=== PATIENT | female | born 1935 | race Caucasian/White ===

== ENCOUNTER 2016-05-01 16:28 | Inpatient (IN) | payer MEDICARE, MEDICAID, OTHER ==
[2016-05-01] MEDS ORDERED: Albuterol/Ipratropium 3.0-0.5 MG/3 ML Neb Soln NEB ONE (16:35)
[2016-05-01] MEDS ORDERED: Furosemide 40 MG/4 ML VIAL IVPUSH ONE (16:40)
--- NOTE | 2016-05-01 16:47 | EDM.PDOC ---
ED HISTORY OF PRESENT ILLNESS - General Chief Complaint: Respiratory Problem Stated Complaint: UNK Time Seen by Provider: 05/01/16 16:35 - Related Data Allergies/ADRs: Allergies Allergy/AdvReac Type Severity Reaction Status Date / Time clarithromycin [From Biaxin] Allergy unknown Verified 04/12/16 10:58 irbesartan [From Avapro] Allergy unknown Verified 04/12/16 10:58 red dye Allergy unknown Verified 04/12/16 10:58 Dvywvha-Ugi-Sbk Reductase Allergy unknown Verified 04/12/16 10:58 Inhibitor Home Meds: Home Meds Aspirin [[place] Aspirin] 81 mg PO DAILY 09/25/15 [History] Warfarin [Coumadin] 2.5 mg PO DAILY 09/25/15 [History] ALPRAZolam [Alprazolam] 0.5 mg PO BEDTIME 09/26/15 [History] Doxycycline Hyclate [Vibramycin] 100 mg PO BID 09/26/15 [History] Gabapentin 300 mg PO TID 09/26/15 [History] Hydrocodone/Acetaminophen [[place] 10-325] 1 tab PO Q4H 09/26/15 [History] Lisinopril/Hydrochlorothiazide [Lisinopril-Hctz 20-25 mg Tab] 1 tab PO DAILY 10/03 [History] Metoprolol Succinate [Toprol XL 50mg] 50 mg PO DAILY 09/26/15 [History] Omeprazole 20 mg PO ACBREAKFAST 09/26/15 [History] Past Medical History Cardiovascular History: Reports: High cholesterol, Hypertension Gastrointestinal History: Reports: Pancreatitis 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: Hematologic History: Reports: Anticoagulation therapy - Past Surgical History GI Surgical History: Reports: Appendectomy, Cholecystectomy Female Surgical History: Reports: Hysterectomy Social & Family History - Family History Family Medical History: Noncontributory - Tobacco Use Smoking Status *Q: Unknown Ever Smoked Years of Tobacco use: 50 Packs/Tins Daily: 0.5 - Recreational Drug Use Recreational Drug Use: No Course - Orders/Labs/Meds Orders: Active Orders 24 hr Category Date Time Status RT Aerosol Therapy [RC] ASDIRECTED Care 05/01/16 16:36 Ordered RT BiPAP/CPAP [RC] ASDIRECTED Care 05/01/16 16:35 Ordered BASIC METABOLIC PANEL,BMP [CHEM] Stat Lab 05/01/16 16:37 Ordered CBC WITH AUTO DIFF [HEME] Stat Lab 05/01/16 16:38 Ordered Meds: Medications Discontinued Medications Generic Name Dose Route Start Last Admin Trade Name [place] PRN Reason Stop Dose Admin Albuterol/Ipratropium 3 ml 05/01/16 16:35 Duoneb 3.0-0.5 Mg/3 Ml NEB 05/01/16 16:36 ONETIME ONE Departure - Departure Forms: ED Department Discharge - My Orders Last 24 Hours: My Active Orders 05/01/16 16:35 RT BiPAP/CPAP [RC] ASDIRECTED 05/01/16 16:36 RT Aerosol Therapy [RC] ASDIRECTED - Assessment/Plan Last 24 Hours: My Active Orders 05/01/16 16:35 RT BiPAP/CPAP [RC] ASDIRECTED 05/01/16 16:36 RT Aerosol Therapy [RC] ASDIRECTED
--- NOTE | 2016-05-01 16:48 | EDM.PDOC ---
ED HISTORY OF PRESENT ILLNESS - General Chief Complaint: Respiratory Problem Stated Complaint: UNK Time Seen by Provider: 05/01/16 16:35 Source of Information: Reports: Family, senior living records History Limitations: Reports: Respiratory distress - History of Present Illness INITIAL COMMENTS - FREE TEXT/NARRATIVE: History of present illness: [81 yo female who is a [facility] resident presents to ED for SOB.. It started this afternoon around 4 pm. She was put on 2 L of oxygen her SPO2 remained at 84 %. She does not fever, chills, dysuria, frequency, ugency, cough, abdominal pain, no appetite changes, no bowel changes. She has a history of CHF on lasix. She is on Coumadin for PAD. She was on plavix in the past where it did not work.She recently had AMI two weeks ago in [place]. No intervention such as angioplasty was done due to her weak condition per son. She has been good since she was discharged from [place] two weeks. She does have history of two stents placed where son does not recall when they were placed. 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 She was a heavy smoker and quit 2 weeks ago after her SC. ] Review of systems: As per history of present illness and below otherwise all systems reviewed and negative. Past medical history: As per history of present illness and as reviewed below otherwise noncontributory. Surgical history: As per history of present illness and as reviewed below otherwise noncontributory. Social history: No reported history of drug or alcohol abuse. Family history: As per history of present illness and as reviewed below otherwise noncontributory. Physical exam: General: Well developed, well nourished in NAD HEENT: Atraumatic, normocephalic, pupils reactive, negative for conjunctival pallor or scleral icterus, mucous membranes moist, throat clear, neck supple, nontender, trachea midline. Lungs: bilateral rhonchi and rales in the lower bases of lungs left greater than right, bilateral expiratory wheezing. Heart: tachycardia, S1S2, regular rhythm, negative for clicks, rubs, or JVD. Abdomen: Soft, nondistended, nontender. Negative for masses or hepatosplenomegaly. Negative for costovertebral tenderness. Pelvis: Stable nontender. Genitourinary: vaginal candidiasis Rectal: Deferred. Extremities: Atraumatic, negative for cords or calf pain. Neurovascular unremarkable. No bilateral lower extremity edema. +2 dorsalis pedis pulses. Neuro: Awake, alert, oriented. Cranial nerves II through XII unremarkable. Cerebellum unremarkable. Motor and sensory unremarkable throughout. Exam nonfocal. Diagnostics: [EKG: Sinus tachycardia: No acute ST elevation. CXR: Reviewed by me. increased cephalization. No infiltrates visible. Await report WBC: 38 NA 130 K 5.4, troponin negative Blood culture x 2 UA: pending Avila Catheter] Therapeutics: Bipap: SPO2: 97-98% [ I.V lasix 40 x 1 DUONEB q 4 hours prn Nitropaste not given due to BP 105/60 Zosyn and vanco for HCAP Diflucan 150 mg PO x 1 for vaginal candiasis ] Impression: [CHF excerabation Possible Pneumonia] Plan: [Admission to ICU. Spoke to Dr. Piedra who accepted admission.] Definitive disposition and diagnosis as appropriate pending reevaluation and review of above. - Related Data Allergies/ADRs: Allergies Allergy/AdvReac Type Severity Reaction Status Date / Time clarithromycin [From Biaxin] Allergy unknown Verified 05/01/16 16:51 irbesartan [From Avapro] Allergy unknown Verified 05/01/16 16:51 red dye Allergy unknown Verified 05/01/16 16:51 Rufpprn-Efn-Bmf Reductase Allergy unknown Verified 05/01/16 16:51 Inhibitor Home Meds: Home Meds Aspirin [[place] Aspirin] 81 mg PO DAILY 09/25/15 [History] Warfarin [Coumadin] 3 mg PO DAILY 09/25/15 [History] Gabapentin 100 mg PO BID 09/26/15 [History] Hydrocodone/Acetaminophen [[place] 10-325] 1 tab PO Q4H 09/26/15 [History] Metoprolol Succinate [Toprol XL 50mg] 25 mg PO BID 09/26/15 [History] Bisacodyl [Dulcolax] 1 supp RECTAL DAILY PRN 05/01/16 [History] Famotidine [Pepcid] 1 tab PO DAILY 05/01/16 [History] Furosemide [Lasix] 1 tab PO DAILY 05/01/16 [History] Magnesium Hydroxide [Milk of Magnesia] 1 dose PO DAILY PRN 05/01/16 [History] Nicotine [Nicoderm CQ] 1 patch TD DAILY 05/01/16 [History] Prednisone [IJD: Prednisone] 1 tab PO DAILY 05/01/16 [History] Past Medical History Cardiovascular History: Reports: High cholesterol, Hypertension Gastrointestinal History: Reports: Pancreatitis 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: Hematologic History: Reports: Anticoagulation therapy - Past Surgical History GI Surgical History: Reports: Appendectomy, Cholecystectomy Female Surgical History: Reports: Hysterectomy Social & Family History - Family History Family Medical History: Noncontributory - Tobacco Use Smoking Status *Q: Unknown Ever Smoked Years of Tobacco use: 50 Packs/Tins Daily: 0.5 - Recreational Drug Use Recreational Drug Use: No ED ROS GENERAL - Review of Systems Review Of Systems: See Below (see hpi) ED EXAM, GENERAL - Physical Exam Exam: See Below (see hpi) Course - Vital Signs Last Recorded V/S: Last Vital Signs Temp 96.7 F 05/01/16 16:43 Pulse 106 H 05/01/16 17:20 Resp 24 H 05/01/16 17:20 BP 145/85 H 05/01/16 17:20 Pulse Ox 98 05/01/16 17:20 - Orders/Labs/Meds Orders: Active Orders 24 hr Category Date Time Status Avila Catheter Insertion [Insert Urinary Catheter] [OM. Care 05/01/16 17:15 Ordered PC] Q24H RT Aerosol Therapy [RC] ASDIRECTED Care 05/01/16 16:36 Active RT BiPAP/CPAP [RC] ASDIRECTED Care 05/01/16 16:35 Active Urinary Catheter Assessment [RC] ASDIRECTED Care 05/01/16 17:03 Active CXR [Chest 1V Frontal] [CR] Stat Exams 05/01/16 16:39 Taken CULTURE BLOOD [BC] Stat Lab 05/01/16 17:18 Received INR,PT,PROTHROMBIN TIME [COAG] Stat Lab 05/01/16 17:45 Received UA W/MICROSCOPIC [URIN] Stat Lab 05/01/16 16:58 Uncollected LORazepam [Ativan] Med 05/01/16 16:38 Active 0.5 mg IVPUSH Q4H PRN Piperacillin/Tazobactam [Piperacil-Tazobact] 3.375 gm Med 05/01/16 17:45 Active Sodium Chloride 0.9% [Normal Saline] 50 ml IV Q6H Vancomycin [Vancocin] 1 gm Med 05/01/16 17:33 Active Sodium Chloride 0.9% [Normal Saline] 250 ml IV ONETIME Code Status [Resuscitation Status] Stat Resus Stat 05/01/16 16:50 Ordered Medication Orders Piperacillin Sod/Tazobactam (Sod 3.375 gm/ Sodium Chloride) 50 mls @ 100 mls/ hr IV Q6H PINA Vancomycin HCl 1 gm/ Sodium (Chloride) 250 mls @ 250 mls/hr IV ONETIME ONE Stop: 05/01/16 18:32 Lorazepam (Ativan) 0.5 mg IVPUSH Q4H PRN PRN Reason: Anxiety Last Admin: 05/01/16 16:53 Dose: 0.5 mg Labs: Laboratory Tests 05/01/16 05/01/16 05/01/16 Range/Units 16:40 16:40 16:40 WBC 38.05 H (4.0-11.0) K/uL RBC 4.73 (4.30-5.90) M/uL Hgb 14.0 (12.0-16.0) g/dL Hct 41.8 (36.0-46.0) % MCV 88.4 (80.0-98.0) fL MCH 29.6 (27.0-32.0) pg MCHC 33.5 (31.0-37.0) g/dL RDW Std Deviation 47.6 (28.0-62.0) fl RDW Coeff of Gregory 15 (11.0-15.0) % Plt Count 495 H (150-400) K/uL MPV 10.40 (7.40-12.00) fL Add Manual Diff YES Neutrophils % (Manual) 75 (48.0-80.0) % Band Neutrophils % 1 % Lymphocytes % (Manual) 21 (16.0-40.0) % Monocytes % (Manual) 1 (0.0-15.0) % Eosinophils % (Manual) 1 (0.0-7.0) % Basophils % (Manual) 1 (0.0-1.5) % Nucleated RBC % 0.0 /100WBC Absolute Seg Neuts 28.5 Band Neutrophils # 0.4 Lymphocytes # (Manual) 8.0 Monocytes # (Manual) 0.4 Eosinophils # (Manual) 0.4 Basophils # (Manual) 0 Nucleated RBCs # 0 K/uL Sodium 130 L (136-146) mmol/L Potassium 5.4 H (3.5-5.1) mmol/L Chloride 102 (98-110) mmol/L Carbon Dioxide 16 L (21-31) mmol/L BUN 30 H (6.0-23.0) mg/dL Creatinine 1.5 (0.6-1.5) mg/dL Est Cr Clr Drug Dosing 28.94 mL/min Estimated GFR (MDRD) 33.6 ml/min Glucose 248 H (60-110) mg/dL Calcium 10.0 (8.8-10.8) mg/dL Lactate Dehydrogenase (125-220) IU/L CK-MB (CK-2) 3.4 (0-6.6) ng/ml Troponin I (0.0-0.29) NG/ML B-Natriuretic Peptide 2719 H (<100) PG/ML Amylase (10-90) U/L Lipase (7-80) U/L 05/01/16 05/01/16 05/01/16 Range/Units 16:40 16:40 16:40 WBC (4.0-11.0) K/uL RBC (4.30-5.90) M/uL Hgb (12.0-16.0) g/dL Hct (36.0-46.0) % MCV (80.0-98.0) fL MCH (27.0-32.0) pg MCHC (31.0-37.0) g/dL RDW Std Deviation (28.0-62.0) fl RDW Coeff of Gregory (11.0-15.0) % Plt Count (150-400) K/uL MPV (7.40-12.00) fL Add Manual Diff Neutrophils % (Manual) (48.0-80.0) % Band Neutrophils % % Lymphocytes % (Manual) (16.0-40.0) % Monocytes % (Manual) (0.0-15.0) % Eosinophils % (Manual) (0.0-7.0) % Basophils % (Manual) (0.0-1.5) % Nucleated RBC % /100WBC Absolute Seg Neuts Band Neutrophils # Lymphocytes # (Manual) Monocytes # (Manual) Eosinophils # (Manual) Basophils # (Manual) Nucleated RBCs # K/uL Sodium (136-146) mmol/L Potassium (3.5-5.1) mmol/L Chloride (98-110) mmol/L Carbon Dioxide (21-31) mmol/L BUN (6.0-23.0) mg/dL Creatinine (0.6-1.5) mg/dL Est Cr Clr Drug Dosing mL/min Estimated GFR (MDRD) ml/min Glucose (60-110) mg/dL Calcium (8.8-10.8) mg/dL Lactate Dehydrogenase 346 H (125-220) IU/L CK-MB (CK-2) (0-6.6) ng/ml Troponin I < 0.10 (0.0-0.29) NG/ML B-Natriuretic Peptide (<100) PG/ML Amylase 30 (10-90) U/L Lipase 44 (7-80) U/L Meds: Medications Generic Name Dose Route Start Last Admin Trade Name Freq PRN Reason Stop Dose Admin Piperacillin Sod/Tazobactam 50 mls @ 100 mls/hr 05/01/16 17:45 Sod 3.375 gm/ Sodium Chloride IV Q6H PINA Vancomycin HCl 1 gm/ Sodium 250 mls @ 250 mls/hr 05/01/16 17:33 Chloride IV 05/01/16 18:32 ONETIME ONE Lorazepam 0.5 mg 05/01/16 16:38 05/01/16 16:53 Ativan IVPUSH 0.5 mg Q4H PRN Administration Anxiety Discontinued Medications Generic Name Dose Route Start Last Admin Trade Name Freq PRN Reason Stop Dose Admin Albuterol/Ipratropium 3 ml 05/01/16 16:35 05/01/16 16:49 Duoneb 3.0-0.5 Mg/3 Ml NEB 05/01/16 16:36 3 ml ONETIME ONE Administration Albuterol/Ipratropium Confirm 05/01/16 17:24 Duoneb 3.0-0.5 Mg/3 Ml Administered 05/01/16 17:25 Dose 3 ml .ROUTE .STK-MED ONE Furosemide 40 mg 05/01/16 16:40 05/01/16 16:53 Lasix IVPUSH 05/01/16 16:41 40 mg NOW ONE Administration Nitroglycerin 1 gm 05/01/16 17:49 Nitro-Bid 2% TOP 05/01/16 17:50 ONETIME ONE Departure - Departure Time of Disposition: 17:58 Disposition: Admitted As Inpatient 68 Condition: fair Clinical Impression: CHF exacerbation Forms: ED Department Discharge - My Orders Last 24 Hours: My Active Orders 05/01/16 16:38 LORazepam [Ativan] 0.5 mg IVPUSH Q4H PRN 05/01/16 16:39 CXR [Chest 1V Frontal] [CR] Stat 05/01/16 16:50 Code Status [Resuscitation Status] Stat 05/01/16 16:58 UA W/MICROSCOPIC [URIN] Stat 05/01/16 17:03 Urinary Catheter Assessment [RC] ASDIRECTED 05/01/16 17:15 Avila Catheter Insertion [Insert Urinary Catheter] [OM.PC] Q24H 05/01/16 17:18 CULTURE BLOOD [BC] Stat 05/01/16 17:33 Vancomycin [Vancocin] 1 gm Sodium Chloride 0.9% [Normal Saline] 250 ml IV ONETIME 05/01/16 17:45 INR,PT,PROTHROMBIN TIME [COAG] Stat Piperacillin/Tazobactam [Piperacil-Tazobact] 3.375 gm Sodium Chloride 0.9% [ Normal Saline] 50 ml IV Q6H - Assessment/Plan Last 24 Hours: My Active Orders 05/01/16 16:38 LORazepam [Ativan] 0.5 mg IVPUSH Q4H PRN 05/01/16 16:39 CXR [Chest 1V Frontal] [CR] Stat 05/01/16 16:50 Code Status [Resuscitation Status] Stat 05/01/16 16:58 UA W/MICROSCOPIC [URIN] Stat 05/01/16 17:03 Urinary Catheter Assessment [RC] ASDIRECTED 05/01/16 17:15 Avila Catheter Insertion [Insert Urinary Catheter] [OM.PC] Q24H 05/01/16 17:18 CULTURE BLOOD [BC] Stat 05/01/16 17:33 Vancomycin [Vancocin] 1 gm Sodium Chloride 0.9% [Normal Saline] 250 ml IV ONETIME 05/01/16 17:45 INR,PT,PROTHROMBIN TIME [COAG] Stat Piperacillin/Tazobactam [Piperacil-Tazobact] 3.375 gm Sodium Chloride 0.9% [ Normal Saline] 50 ml IV Q6H
[2016-05-01] MEDS: LORazepam 2 MG/ML MDV IVPUSH PRN (16:53)
[2016-05-01] MEDS ORDERED: Albuterol/Ipratropium 3.0-0.5 MG/3 ML Neb Soln ONE (17:24)
[2016-05-01] MEDS ORDERED: Piperacillin/Tazobactam 3.375 GM in Sodium Chloride 0.9% 50 ML IV SCH ×2 (17:45→20:00)
[2016-05-01] MEDS ORDERED: Nitroglycerin 2% Oint 1 GM UD Packet TOP ONE (17:49)
[2016-05-01] MEDS ORDERED: Fluconazole 150 MG Tab PO ONE (18:00)
[2016-05-01] MEDS ORDERED: Famotidine 20 MG Tab PO PRN (19:24)
[2016-05-01] MEDS ORDERED: Bisacodyl 10 MG Supp RECTAL PRN (19:24)
[2016-05-01] MEDS ORDERED: Sodium Chloride 0.9% 2.5 ML Syringe FLUSH PRN (19:28)
[2016-05-01] MEDS ORDERED: Ondansetron 4 MG/2 ML SDV IVPUSH PRN (19:28)
[2016-05-01] MEDS ORDERED: Sodium Chloride 0.9% 10 ML Syringe FLUSH PRN (19:28)
--- NOTE | 2016-05-01 19:42 | PCM.HP ---
H&P History of Present Illness - General Admit Problem/Dx: Admission Diagnosis/Problem Admission Diagnosis/Problem CHF, Congestive heart failure - History of Present Illness Initial Comments - Free Text/Narative: 80 yo female with pmh of CHF, CAD, peripheral vascular disease on anticoagulation, CKD, adnd gout on prednisone. She had a NSTEMI two weeks ago in [place] and per patient report no cardiac cath was done. She was discharged to [facility] and she has been doing well there. Her lasix was discontinued about ten days ago due to concerns with kidney disease. She has noted a 11 pound weight gain since discharge from [place]. This morning she reported she was feeling well and satting 100% on RA. This afternoon while friends were visiting she reported having a panic attack and was unable to breath. She reports having a productive cough during the time she was short of breath. She was brought to [place] ED and noted to be in respiratory distress and satting in the mid 80s on NC. Troponin and EKG did not show any signs of ischemia. CXR reported stable bibasilar infiltrates. She was given lasix, BIPAP for CHF exacerbation. She was also given vancomycin and zosyn due to concerns for pneumonia with WBC of 38,050. She was transferred to the ICU and feels much better and is satting 93% off of BIpap on RA. Generalized Pain Score (Numeric/FACES): 6 - Related Data Allergies/Adverse Reactions: Allergies Allergy/AdvReac Type Severity Reaction Status Date / Time clarithromycin [From Biaxin] Allergy unknown Verified 05/01/16 16:51 irbesartan [From Avapro] Allergy unknown Verified 05/01/16 16:51 red dye Allergy unknown Verified 05/01/16 16:51 Hvaahon-Ufw-Hrj Reductase Allergy unknown Verified 05/01/16 16:51 Inhibitor Home Medications: Home Meds Aspirin [[place] Aspirin] 81 mg PO DAILY 09/25/15 [History] Warfarin [Coumadin] 2.5 mg PO DAILY@1400 09/25/15 [History] Bisacodyl [Dulcolax] 10 mg RECTAL Q24H PRN 05/01/16 [History] Famotidine [Pepcid] 40 mg PO DAILY 05/01/16 [History] Gabapentin [Neurontin] 200 mg PO BID 05/01/16 [History] Magnesium Hydroxide [Milk of Magnesia] 30 ml PO DAILY PRN 05/01/16 [History] Nicotine [Nicoderm CQ] 21 mg TD DAILY 05/01/16 [History] Prednisone [IJD: Prednisone] 30 mg PO DAILY 05/01/16 [History] Acetaminophen/HYDROcodone [[place] 325-5 MG] 5 - 325 mg PO Q4H PRN 05/02/16 [ History] Metoprolol Tartrate [Lopressor] 25 mg PO BID 05/02/16 [History] Warfarin Sodium 3 mg PO BEDTIME 05/02/16 [History] Past Medical History Cardiovascular History: Reports: High cholesterol, Hypertension Respiratory History: Reports: SOB, Other (see below) Other Respiratory History: acute respiratory failure. 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: Endocrine/Metabolic History: Reports: Other (see below) Other Endocrine/Metabolic History: Borderline DM Hematologic History: Reports: Anticoagulation therapy - Past Surgical History GI Surgical History: Reports: Appendectomy, Cholecystectomy Female Surgical History: Reports: Hysterectomy Social & Family History - Family History Family Medical History: Noncontributory Cardiac: Reports: High cholesterol, Hypertension, [place] Respiratory: Reports: Other (see below) Other Respiratory Family Hisory: Lung Ca GI: Reports: GERD OBGYN: Reports: Musculoskeletal: Reports: Arthritis Neurological: Reports: TIA Endocrine/Metabolic: Reports: Diabetes, type II Oncologic: Reports: Lung - Tobacco Use Smoking Status *Q: Former Smoker Years of Tobacco use: 60 Packs/Tins Daily: 1 Used Tobacco, but Quit: Yes Month Tobacco Last Used: March 2016 Second Hand Smoke Exposure: No - Caffeine Use Caffeine Use: Reports: Coffee - Recreational Drug Use Recreational Drug Use: No H&P Review of Systems - Review of Systems: Review Of Systems: See Below General: Reports: no symptoms HEENT: Reports: no symptoms Pulmonary: Reports: Shortness of Breath, Cough, Sputum Cardiovascular: Reports: orthopnea. Denies: chest pain Gastrointestinal: Reports: No symptoms. Denies: Black stool, Bloody stool Genitourinary: Reports: no symptoms Musculoskeletal: Reports: no symptoms Skin: Reports: no symptoms Psychiatric: Reports: anxiety Neurological: Reports: No Symptoms Hematologic/Lymphatic: Reports: no symptoms Immunologic: Reports: no symptoms Exam - Exam Exam: See Below - Vital Signs Vital Signs: Last Vital Signs Temp 36.0 C 05/01/16 18:30 Pulse 88 05/01/16 17:49 Resp 15 05/01/16 18:30 BP 145/72 H 05/01/16 18:30 Pulse Ox 99 05/01/16 18:30 Weight: 75.9 kg - Exam General: alert, oriented, 4 HEENT: Mucosa moist & pink Neck: supple, trachea midline Lungs: Normal respiratory effort, Crackles (at bases) Cardiovascular: regular rate, regular rhythm Abdomen: normal bowel sounds, soft Extremities: 3, normal inspection, 10 Skin: warm, dry, intact - Patient Data Lab Results last 24 hrs: Laboratory Results - last 24 hr 05/01/16 Range/Units 18:00 Urine Color YELLOW Urine Appearance CLEAR Urine pH 5.5 (5.0-8.0) Ur Specific [place] 1.010 (1.001-1.035) Urine Protein NEGATIVE (NEGATIVE) mg/dL Urine Glucose (UA) NEGATIVE (NEGATIVE) mg/dL Urine Ketones NEGATIVE (NEGATIVE) mg/dL Urine Occult Blood SMALL H (NEGATIVE) Urine Nitrite NEGATIVE (NEGATIVE) Urine Bilirubin NEGATIVE (NEGATIVE) Urine Urobilinogen 0.2 (<2.0) EU/dL Ur Leukocyte Esterase NEGATIVE (NEGATIVE) Urine RBC 0-3 (0-2/HPF) Urine WBC 2-4 (0-5/HPF) Ur Epithelial Cells FEW (NONE-FEW) Urine Bacteria 1+ H (NEGATIVE) Result Diagrams: 05/02/16 04:54 05/02/16 04:54 *Q Meaningful Use (ADM) - VTE *Q VTE Criteria *Q: - Stroke *Q Stroke Criteria *Q: - AMI *Q AMI Criteria *Q: Problem List Initiated/Reviewed/Updated: Yes Orders Last 24hrs: Active Orders 24 hr Category Date Time Status Patient Status [ADT] Routine ADT 05/01/16 19:27 Ordered Oxygen Therapy [RC] PRN Care 05/01/16 19:27 Ordered VTE/DVT Education [RC] PER UNIT ROUTINE Care 05/01/16 19:27 Ordered Vital Signs [RC] Q4H Care 05/01/16 19:27 Ordered 2 Gram Sodium Diet [DIET] Diet 05/01/16 Breakfast Ordered Echo 2D wo Cont [US] Routine Exams 05/01/16 19:33 Ordered BASIC METABOLIC PANEL,BMP [CHEM] AM Lab 05/02/16 05:11 Ordered BASIC METABOLIC PANEL,BMP [CHEM] AM Lab 05/03/16 05:11 Ordered BASIC METABOLIC PANEL,BMP [CHEM] AM Lab 05/04/16 05:11 Ordered CBC WITH AUTO DIFF [HEME] AM Lab 05/02/16 05:11 Ordered CBC WITH AUTO DIFF [HEME] AM Lab 05/03/16 05:11 Ordered CBC WITH AUTO DIFF [HEME] AM Lab 05/04/16 05:11 Ordered CULTURE BLOOD [BC] Stat Lab 05/01/16 19:30 Ordered CULTURE BLOOD [BC] Stat Lab 05/01/16 19:30 Ordered CULTURE SPUTUM + SMEAR [RM] Stat Lab 05/01/16 19:28 Uncollected CULTURE URINE [RM] Stat Lab 05/01/16 19:28 Uncollected INR,PT,PROTHROMBIN TIME [COAG] AM Lab 05/02/16 05:11 Ordered INR,PT,PROTHROMBIN TIME [COAG] AM Lab 05/03/16 05:11 Ordered INR,PT,PROTHROMBIN TIME [COAG] AM Lab 05/04/16 05:11 Ordered TROPONIN I [CHEM] Q6H Lab 05/01/16 11:30 Ordered TROPONIN I [CHEM] Q6H Lab 05/01/16 17:30 Ordered Acetaminophen/HYDROcodone Med 05/01/16 19:24 Ordered 1 tab PO Q4H PRN Aspirin [Halfprin] Med 05/02/16 09:00 Ordered 81 mg PO DAILY Bisacodyl [Dulcolax] Med 05/01/16 19:24 Ordered 1 supp RECTAL DAILY PRN Famotidine [Pepcid] Med 05/01/16 19:24 Ordered 1 tab PO DAILY PRN Furosemide [Lasix] Med 05/02/16 02:30 Ordered 40 mg IVPUSH Q12H Gabapentin [Neurontin] Med 05/01/16 21:00 Ordered 200 mg PO BID Metoprolol Succinate [Toprol XL] Med 05/01/16 21:00 Ordered 25 mg PO BID Nystatin [Nystop] Med 05/01/16 21:00 Ordered 1 gm TOP BID Ondansetron [Zofran] Med 05/01/16 19:28 Ordered 4 mg IVPUSH Q4H PRN Piperacillin/Tazobactam [Piperacil-Tazobact] 3.375 gm Med 05/01/16 19:30 Ordered Sodium Chloride 0.9% [Normal Saline] 50 ml IV Q6H Sodium Chloride 0.9% [Saline Flush] Med 05/01/16 19:28 Ordered 10 ml FLUSH ASDIRECTED PRN Sodium Chloride 0.9% [Saline Flush] Med 05/01/16 19:28 Ordered 2.5 ml FLUSH ASDIRECTED PRN Vancomycin Pharmacy to Dose [Pharmacy to Dose - Med 05/01/16 19:30 Ordered Vancomycin] 1 dose .XX ASDIRECTED Warfarin [Coumadin] Med 05/02/16 09:00 Ordered 3 mg PO DAILY predniSONE Med 05/02/16 09:00 Ordered 1 tab PO DAILY Blood Culture x2 Reflex Set [OM.PC] Stat Oth 05/01/16 19:28 Ordered Saline Lock Insert [OM.PC] Routine Oth 05/01/16 19:28 Ordered Medication Orders Aspirin (Halfprin) 81 mg PO DAILY PINA Bisacodyl (Dulcolax) mg RECTAL DAILY PRN PRN Reason: Constipation Furosemide (Lasix) 40 mg IVPUSH Q12H PINA Gabapentin (Neurontin) 200 mg PO BID PINA Piperacillin Sod/Tazobactam (Sod 3.375 gm/ Sodium Chloride) 50 mls @ 100 mls/ hr IV Q6H PINA Lorazepam (Ativan) 0.5 mg IVPUSH Q4H PRN PRN Reason: Anxiety Last Admin: 05/01/16 16:53 Dose: 0.5 mg Metoprolol Succinate (Toprol Xl) 25 mg PO BID PINA Non-Formulary Medication (Acetaminophen/Hydrocodone) 1 tab PO Q4H PRN PRN Reason: Pain Non-Formulary Medication (Famotidine [Pepcid]) 1 tab PO DAILY PRN PRN Reason: Heartburn Nystatin (Nystop) 1 gm TOP BID PINA Ondansetron HCl (Zofran) 4 mg IVPUSH Q4H PRN PRN Reason: Nausea Prednisone (Prednisone) mg PO DAILY PINA Sodium Chloride (Saline Flush) 10 ml FLUSH ASDIRECTED PRN PRN Reason: Keep Vein Open Sodium Chloride (Saline Flush) 2.5 ml FLUSH ASDIRECTED PRN PRN Reason: Keep Vein Open Vancomycin HCl (Pharmacy To Dose - Vancomycin) 1 dose .XX ASDIRECTED PINA Warfarin Sodium (Coumadin) 3 mg PO DAILY [facility] Assessment/Plan Comment:: 80 yo female admitted for CHF exacerbation. She has had good response to lasix and is now satting well off BiPAP. We Will continue diruesis with lasix. Echocardiogram has been ordered. Patient has high white count and suspect possible pneumonia. We are treating with broad spectrum antibitoics. Blood, sputum and urine cultures pending.
[2016-05-01] MEDS: Piperacillin/Tazobactam 3.375 GM in Sodium Chloride 0.9% 50 ML IV SCH (20:44)
[2016-05-01] MEDS: Gabapentin 100 MG Cap PO SCH (20:44)
[2016-05-01] MEDS: Metoprolol Succinate 50 MG Tab.ER PO SCH (20:45)
[2016-05-01] MEDS: Acetaminophen/HYDROcodone 325-10 MG Tab PO PRN (21:07)
[2016-05-01] MEDS: Nystatin Topical Powder 15 GM Bottle TOP SCH (21:08)
[2016-05-02] MEDS ORDERED: Aspirin 81 MG Tab.Chew PO ONE (00:37)
--- NOTE | 2016-05-02 00:43 | PCM.SN ---
- Free Text/Narrative Note: Patient's second troponin increased to 2.74. She denies any chest pain, shortness of breath has improved. She does not want transfer to another city for treatment of NSTEMI. She would prefer to continue current treatment here and consult cardiology in morning.
[2016-05-02] MEDS: Piperacillin/Tazobactam 3.375 GM in Sodium Chloride 0.9% 50 ML IV SCH ×4 (00:54→19:11)
[2016-05-02] MEDS: Furosemide 40 MG/4 ML VIAL IVPUSH SCH ×2 (01:49→13:30)
[2016-05-02] MEDS: Insulin Aspart 100 Units/ML 3 ML Pen SUBCUT SCH ×3 (06:41→17:31)
[2016-05-02] MEDS: Nystatin Topical Powder 15 GM Bottle TOP SCH ×2 (08:00→21:38)
[2016-05-02] MEDS: Metoprolol Succinate 50 MG Tab.ER PO SCH (08:00)
[2016-05-02] MEDS: Aspirin 81 MG Tab.EC PO SCH (08:04)
[2016-05-02] MEDS: Gabapentin 100 MG Cap PO SCH ×2 (08:05→21:00)
--- NOTE | 2016-05-02 08:08 | PCM.PN ---
- General Info Date of Service: 05/02/16 Admission Dx/Problem (Free Text): Admission Diagnosis/Problem Admission Diagnosis/Problem CHF, Congestive heart failure Subjective Update: Doing well overnight, did have a bump in troponins but patient did not want to be transferred. Did have a similar episode approximatly 3 wks ago in [place] and did not receive cath at that time. Did get aspirin last evening as well as oxygen. Only complaining of toe pain from current goat episode. Reports no chest pain with bump in Troponin. Functional Status: Reports: pain controlled - Review of Systems General: Denies: Fever, Weakness, Fatigue HEENT: Reports: no symptoms Pulmonary: Denies: shortness of breath, pleuritic chest pain, hemoptysis Cardiovascular: Denies: Chest Pain, Palpitations, Edema Gastrointestinal: Denies: Abdominal pain, Hematochezia, Melena, Nausea, Vomiting Genitourinary: Denies: dysuria Musculoskeletal: Reports: foot pain. Denies: leg pain Neurological: Denies: Confusion, Dizziness, Headache Psychiatric: Denies: confusion, anxiety - Patient Data Vitals - most recent: Last Vital Signs Temp 36.8 C 05/02/16 04:00 Pulse 67 05/02/16 07:00 Resp 19 05/02/16 07:00 BP 103/47 L 05/02/16 07:00 Pulse Ox 95 05/02/16 07:00 Weight - most recent: 75 kg I&O - last 24 hours: Intake & Output 05/01/16 05/02/16 05/02/16 22:59 06:59 14:59 Intake Total 300 350 50 Output Total 350 2300 Balance -50 -1950 50 Lab Results last 24 hrs: Laboratory Results - last 24 hr 05/01/16 05/01/16 05/02/16 Range/Units 18:00 23:28 04:54 WBC 21.53 H (4.0-11.0) K/uL RBC 3.99 L (4.30-5.90) M/uL Hgb 11.7 L (12.0-16.0) g/dL Hct 34.9 L (36.0-46.0) % MCV 87.5 (80.0-98.0) fL MCH 29.3 (27.0-32.0) pg MCHC 33.5 (31.0-37.0) g/dL RDW Std Deviation 46.6 (28.0-62.0) fl RDW Coeff of Gregory 15 (11.0-15.0) % Plt Count 316 (150-400) K/uL MPV 10.00 (7.40-12.00) fL Add Manual Diff YES Neutrophils % (Manual) 74 (48.0-80.0) % Band Neutrophils % 1 % Lymphocytes % (Manual) 22 (16.0-40.0) % Monocytes % (Manual) 3 (0.0-15.0) % Nucleated RBC % 0.0 /100WBC Absolute Seg Neuts 15.9 Band Neutrophils # 0.2 Lymphocytes # (Manual) 4.7 Monocytes # (Manual) 0.6 Nucleated RBCs # 0 K/uL INR (0.86-1.11) Sodium (136-146) mmol/L Potassium (3.5-5.1) mmol/L Chloride (98-110) mmol/L Carbon Dioxide (21-31) mmol/L BUN (6.0-23.0) mg/dL Creatinine (0.6-1.5) mg/dL Est Cr Clr Drug Dosing mL/min Estimated GFR (MDRD) ml/min Glucose (60-110) mg/dL Calcium (8.8-10.8) mg/dL Troponin I 2.74 H* (0.0-0.29) NG/ML Urine Color YELLOW Urine Appearance CLEAR Urine pH 5.5 (5.0-8.0) Ur Specific [place] 1.010 (1.001-1.035) Urine Protein NEGATIVE (NEGATIVE) mg/dL Urine Glucose (UA) NEGATIVE (NEGATIVE) mg/dL Urine Ketones NEGATIVE (NEGATIVE) mg/dL Urine Occult Blood SMALL H (NEGATIVE) Urine Nitrite NEGATIVE (NEGATIVE) Urine Bilirubin NEGATIVE (NEGATIVE) Urine Urobilinogen 0.2 (<2.0) EU/dL Ur Leukocyte Esterase NEGATIVE (NEGATIVE) Urine RBC 0-3 (0-2/HPF) Urine WBC 2-4 (0-5/HPF) Ur Epithelial Cells FEW (NONE-FEW) Urine Bacteria 1+ H (NEGATIVE) 05/02/16 05/02/16 05/02/16 Range/Units 04:54 04:54 04:54 WBC (4.0-11.0) K/uL RBC (4.30-5.90) M/uL Hgb (12.0-16.0) g/dL Hct (36.0-46.0) % MCV (80.0-98.0) fL MCH (27.0-32.0) pg MCHC (31.0-37.0) g/dL RDW Std Deviation (28.0-62.0) fl RDW Coeff of Gregory (11.0-15.0) % Plt Count (150-400) K/uL MPV (7.40-12.00) fL Add Manual Diff Neutrophils % (Manual) (48.0-80.0) % Band Neutrophils % % Lymphocytes % (Manual) (16.0-40.0) % Monocytes % (Manual) (0.0-15.0) % Nucleated RBC % /100WBC Absolute Seg Neuts Band Neutrophils # Lymphocytes # (Manual) Monocytes # (Manual) Nucleated RBCs # K/uL INR 3.30 H (0.86-1.11) Sodium 133 L (136-146) mmol/L Potassium 5.1 (3.5-5.1) mmol/L Chloride 101 (98-110) mmol/L Carbon Dioxide 23 (21-31) mmol/L BUN 33 H (6.0-23.0) mg/dL Creatinine 1.4 (0.6-1.5) mg/dL Est Cr Clr Drug Dosing 29.75 mL/min Estimated GFR (MDRD) 36.4 ml/min Glucose 90 (60-110) mg/dL Calcium 9.2 (8.8-10.8) mg/dL Troponin I 3.17 H* (0.0-0.29) NG/ML Urine Color Urine Appearance Urine pH (5.0-8.0) Ur Specific [place] (1.001-1.035) Urine Protein (NEGATIVE) mg/dL Urine Glucose (UA) (NEGATIVE) mg/dL Urine Ketones (NEGATIVE) mg/dL Urine Occult Blood (NEGATIVE) Urine Nitrite (NEGATIVE) Urine Bilirubin (NEGATIVE) Urine Urobilinogen (<2.0) EU/dL Ur Leukocyte Esterase (NEGATIVE) Urine RBC (0-2/HPF) Urine WBC (0-5/HPF) Ur Epithelial Cells (NONE-FEW) Urine Bacteria (NEGATIVE) Med Orders - Current: Current Medications Acetaminophen/Hydrocodone Bitart ([place] 325-10 Mg) 1 tab PO Q4H PRN PRN Reason: Pain Last Admin: 05/01/16 21:07 Dose: 1 tab Aspirin (Halfprin) 81 mg PO DAILY [facility] Bisacodyl (Dulcolax) 10 mg RECTAL DAILY PRN PRN Reason: Constipation Famotidine (Pepcid) 40 mg PO DAILY PRN PRN Reason: Heartburn Last Admin: 05/01/16 21:08 Dose: 40 mg Famotidine (Pepcid) 20 mg PO BID [facility] Furosemide (Lasix) 40 mg IVPUSH Q12H [facility] Last Admin: 05/02/16 01:49 Dose: 40 mg Gabapentin (Neurontin) 200 mg PO BID [facility] Last Admin: 05/01/16 20:44 Dose: 200 mg Piperacillin Sod/Tazobactam (Sod 3.375 gm/ Sodium Chloride) 50 mls @ 100 mls/ hr IV Q6H [facility] Last Admin: 05/02/16 06:30 Dose: 100 mls/hr Vancomycin HCl 1 gm/ Sodium (Chloride) 250 mls @ 166 mls/hr IV Q24H [facility] Insulin Aspart (Novolog) 0 unit SUBCUT TIDAC [facility] PRN Reason: Protocol Last Admin: 05/02/16 06:41 Dose: Not Given Lorazepam (Ativan) 0.5 mg IVPUSH Q4H PRN PRN Reason: Anxiety Last Admin: 05/01/16 16:53 Dose: 0.5 mg Metoprolol Succinate (Toprol Xl) 25 mg PO BID [facility] Last Admin: 05/01/16 20:45 Dose: 25 mg Nystatin (Nystop) 0 gm TOP BID [facility] Last Admin: 05/02/16 08:00 Dose: 1 applic Ondansetron HCl (Zofran) 4 mg IVPUSH Q4H PRN PRN Reason: Nausea Prednisone (Prednisone) 10 mg PO DAILY [facility] Sodium Chloride (Saline Flush) 10 ml FLUSH ASDIRECTED PRN PRN Reason: Keep Vein Open Sodium Chloride (Saline Flush) 2.5 ml FLUSH ASDIRECTED PRN PRN Reason: Keep Vein Open Vancomycin HCl (Pharmacy To Dose - Vancomycin) 1 dose .XX ASDIRECTED [facility] Warfarin Sodium (Coumadin) 2.5 mg PO DAILY@1400 [facility] Discontinued Medications Albuterol/Ipratropium (Duoneb 3.0-0.5 Mg/3 Ml) 3 ml NEB ONETIME ONE Stop: 05/01/16 16:36 Last Admin: 05/01/16 16:49 Dose: 3 ml Albuterol/Ipratropium (Duoneb 3.0-0.5 Mg/3 Ml) Confirm Administered Dose 3 ml .ROUTE .STK-MED ONE Stop: 05/01/16 17:25 Last Admin: 05/01/16 18:39 Dose: Not Given Aspirin (Aspirin) 243 mg PO ONETIME ONE Stop: 05/02/16 00:38 Last Admin: 05/02/16 00:53 Dose: 243 mg Fluconazole (Diflucan) 150 mg PO ONETIME ONE Stop: 05/01/16 18:01 Last Admin: 05/01/16 18:57 Dose: 150 mg Furosemide (Lasix) 40 mg IVPUSH NOW ONE Stop: 05/01/16 16:41 Last Admin: 05/01/16 16:53 Dose: 40 mg Piperacillin Sod/Tazobactam (Sod 3.375 gm/ Sodium Chloride) 50 mls @ 100 mls/ hr IV Q6H [facility] Last Admin: 05/01/16 19:03 Dose: Not Given Vancomycin HCl 1 gm/ Sodium (Chloride) 250 mls @ 250 mls/hr IV ONETIME ONE Stop: 05/01/16 18:32 Last Admin: 05/01/16 18:01 Dose: 250 mls/hr Piperacillin Sod/Tazobactam (Sod 3.375 gm/ Sodium Chloride) 50 mls @ 100 mls/ hr IV 0200,0800,1400,2000 [facility] Nitroglycerin (Nitro-Bid 2%) 1 gm TOP ONETIME ONE Stop: 05/01/16 17:50 Last Admin: 05/01/16 18:06 Dose: Not Given - Exam Quality Assessment: supplemental oxygen, urine catheter, DVT prophylaxis General: alert, oriented, cooperative, no acute distress HEENT: Pupils equal, Pupils reactive, EOMI, Mucous membr. moist/pink Neck: supple, trachea midline, no JVD Lungs: Clear to auscultation, Rales (bibasilar) Cardiovascular: Regular Rate, Regular Rhythm, Murmurs Abdomen: bowel sounds present, soft, no tenderness, no distension Extremities: normal pulses, no tenderness/swelling, edema (+1 to ankles) Peripheral Pulses: 2+: radial (L), radial (R), posterior tibial (L), posterior tibial (R), dorsalis pedis (L), dorsalis pedis (R) Skin: warm, dry, intact Neurological: no new focal deficit Psy/Mental Status: alert, normal affect, normal mood - Problem List & Annotations (1) NSTEMI (non-ST elevated myocardial infarction) SNOMED Code(s): 44052121 Code(s): I21.4 - NON-ST ELEVATION (NSTEMI) MYOCARDIAL INFARCTION Status: Acute Priority: High Current Visit: Yes (2) Pneumonia SNOMED Code(s): 710913301 Code(s): J18.9 - PNEUMONIA, UNSPECIFIED ORGANISM Status: Acute Priority: High Current Visit: Yes Qualifiers: Pneumonia type: due to unspecified organism Laterality: unspecified laterality Lung location: unspecified part of lung Qualified Code(s): J18.9 - Pneumonia, unspecified organism (3) CHF exacerbation SNOMED Code(s): 98143154 Code(s): I50.9 - HEART FAILURE, UNSPECIFIED Status: Acute Current Visit: Yes Qualifiers: Congestive heart failure type: unspecified congestive heart failure type Qualified Code(s): I50.9 - Heart failure, unspecified - Problem List Review Problem List Initiated/Reviewed/Updated: Yes - Plan Plan:: 80 yo female admitted for CHF exacerbation, pneumonia and now NSTEMI with pmh of CHF, CAD, PVD on warfarin, CKD, and gout on prednisone. NSTEMI: Patient did have a previous episode similar approximately 2 wks ago in [place] and did not receive cath at that time. Troponin on this occasion 2.74 and 3.17 on second two. Patient was assessed last evening by Dr. Parrish and refused transfer. She was give aspirin and oxygen. Patient had no chest pain with the episode. Will continue to monitor today and treat her pneumonia and CHF exacerbation which may have partially led to event. Also called Dr. Resendiz, managed care liaison here, and advised him of the patient he recommended starting plavix and doing 2 days IV Heparin which was started. Pneumonia: Improved WBC from 38 to 21 with Zosyn and Vanc day two. Sputum and blood cultures pending. Continue abx. CHF exacerbation: Good dieresis yesterday with 2 L out. Echocardiogram is pending. Continue diuresis today 40mg q 12. Dispo: 1-2 days pending.
[2016-05-02] MEDS: Acetaminophen/HYDROcodone 325-10 MG Tab PO PRN (08:11)
[2016-05-02] MEDS ORDERED: predniSONE 20 MG Tab PO SCH (08:15)
[2016-05-02] MEDS ORDERED: predniSONE 10 MG Tab PO SCH (09:00)
[2016-05-02] MEDS ORDERED: Famotidine 20 MG Tab PO SCH (09:00)
[2016-05-02] MEDS ORDERED: Heparin Sodium/D5W 25,000 UNITS/500 ML BAG IV SCH (10:45)
[2016-05-02] MEDS ORDERED: Heparin Sodium 25,000 UNITS in Dextrose 5% in Water 500 ML IV SCH ×2 (11:00)
[2016-05-02] MEDS ORDERED: Heparin Sodium 5,000 Units/ML Vial IV SCH ×3 (11:45)
[2016-05-02] MEDS: Clopidogrel 75 MG Tab PO SCH (11:45)
[2016-05-02] MEDS: Heparin Sodium 25,000 UNITS in Dextrose 5% in Water 500 ML IV SCH ×2 (11:57)
[2016-05-02] MEDS ORDERED: Warfarin 2.5 MG Tab PO SCH (14:00)
[2016-05-02] MEDS ORDERED: Warfarin 2 MG Tab PO SCH (14:00)
[2016-05-02] MEDS: Acetaminophen/HYDROcodone 325-5 MG Tab PO PRN ×2 (17:30→23:33)
[2016-05-02] MEDS ORDERED: Albuterol/Ipratropium 3.0-0.5 MG/3 ML Neb Soln NEB PRN (17:54)
--- NOTE | 2016-05-02 18:33 | CONS ---
DATE OF CONSULTATION: DATE OF : 1935 PRIMARY CARE PHYSICIAN: None PCP REASON FOR CONSULTATION: Non-STEMI. HISTORY OF PRESENT ILLNESS: This is a 80-year-old female with history of hypertension, active smoking, COPD, history of diabetes, peripheral vascular disease, status post stent on the left leg, presented to the hospital from [facility] due to being short of breath. She was found to have elevation of troponin. Troponin was rising from less than 0.1 to 2.7, and coming up to 3.1, and right now it is going down to 2.5. Her BNP was elevated at 2719. She was recently admitted to [facility] because of being short of breath, found to have non-STEMI. She also was found to have ischemic cardiomyopathy with ejection fraction 15% to 20%, YULY cardiorenal syndrome, respiratory failure due to acute pulmonary edema, decompensated heart failure, cardiogenic shock requiring pressor, being admitted to the ICU and then she was discharged from the hospital to rehab, and her medication at discharge including lisinopril 20, metoprolol 25 twice a day, aspirin, Coumadin, Lasix 20 mg once a day, aspirin 81 mg once a day. When she was at [facility], her Lasix was discontinued until this admission. Otherwise, she never had any chest pain. No fever. No coughing. PAST MEDICAL HISTORY: Including ischemic cardiomyopathy, ejection fraction 15% increasing to 30%, hypertension, COPD, history of diabetes, history of chronic ulcer, peripheral vascular disease, active smoking. SOCIAL HISTORY: Active smoker. No drug use. No alcohol use. ALLERGY: She is allergic to clarithromycin, Avapro, and also she is allergic to statin drugs. EMERGENCY ROOM COURSE: In the emergency room, she was given with Lasix IV 40 mg as well as BiPAP, and was admitted in the ICU. Also due to high white count, she was also started on vancomycin and Zosyn as well. REVIEW OF SYSTEMS: A 12-point review of system has been negative except as indicated in the HPI. PHYSICAL EXAMINATION: VITAL SIGNS: Temperature 36.6, heart rate of 79, blood pressure 133/63, O2 saturation 91% to 92% on 2 L, seemed to be improving. HEENT: Not pale. JVD is elevated. HEART: Normal S1, S2. No murmur. Regular rate and rhythm. LUNGS: Crackles bilaterally. ABDOMEN: Soft, nontender. Bowel sounds present. No hepatosplenomegaly. EXTREMITIES: Legs trace edema. LABORATORY INVESTIGATIONS: CBC showed WBC 38 coming down to 28, hematocrit 41 coming down to 34, platelet 495 coming down to 316. INR 3.3. Sodium 133, potassium 5.1, chloride 101, bicarb 23, BUN 33, creatinine 1.4 seem to be at baseline. Troponin was less than 0.1 coming up to 2.74 to 3.17 to 2.5. Urinalysis positive for blood. I's and O's seem to be negative almost 3.3 L. MEDICATION: Including Lasix 40 mg IV twice a day, aspirin 81 mg once a day, Plavix 75 mg once a day, Lopressor 25 twice a day. ASSESSMENT AND PLAN: This is a 80-year-old female, recent admission for non-STEMI cardiogenic shock, decompensated heart failure, ischemic cardiomyopathy with ejection fraction of 15% to 20%, acute kidney injury probably due to cardiorenal syndrome, right now, improving to 1.4, presented to the hospital again with non-STEMI with decompensated heart failure, respiratory failure, currently improving. Right now, she is on cannula for 2 L of oxygen. I would recommend to continue of Lasix 40 mg IV twice a day, and she already got Plavix 75 mg one dose. I think it is reasonable because her urinalysis seemed to be showing more blood, and she also on heparin IV drip. I will continue her heparin IV drip for 48 hours and continue aspirin 81 mg. Continue beta cary as well. From the record discharge summary that we have received from [facility] in [place], it was unclear what the conversation was; however, it was noted in the chart that she refused to have cardiac cath over there and at this time as well, she also refused to go to be transferred for invasive cardiac catheterization. However, when I interviewed her, she stated that when she was admitted in [facility] she was very sick, intubated and a doctor over there recommended not to do any heart catheterization until she was more stabilized and at this time, I also recommend her to have a cardiac cath, again she want more time to think about it and probably to be transferred to [place], but she is indecisive right now. I told her that her troponins started to come down. However, we would need to transfer her for the cardiac catheterization as soon as possible if she could make up her mind. I disicussed with her about the risk of coronary angiogram. I was not certain what the circumstances was when she was admitted in the ICU, and how discussion ended up not pursuing cardiac cath. It was only noted that she refused to have cardiac cath done. Recommendation - conitnue metoprolol, IV lasix - continue ASA 81 daily, plavix - continue heparin IV drip for 48 hours - monitor H/H if worsening anemia or worsening hematuria, stop heparin. - recommend to transfer for coronary angiogram - repeat ECG - continue to cycle Trop FERMÍN / MICKEY /[id number] MTDMartín
[2016-05-02] MEDS: Metoprolol Tartrate 25 MG Tab PO SCH (20:59)
[2016-05-03] MEDS: Piperacillin/Tazobactam 3.375 GM in Sodium Chloride 0.9% 50 ML IV SCH ×2 (01:08→06:52)
[2016-05-03] MEDS: Furosemide 40 MG/4 ML VIAL IVPUSH SCH ×2 (02:13→12:12)
[2016-05-03] MEDS: Insulin Aspart 100 Units/ML 3 ML Pen SUBCUT SCH ×3 (06:53→17:30)
[2016-05-03] MEDS: Famotidine 20 MG Tab PO SCH (08:36)
[2016-05-03] MEDS: Clopidogrel 75 MG Tab PO SCH (08:36)
[2016-05-03] MEDS: Gabapentin 100 MG Cap PO SCH ×2 (08:36→20:12)
[2016-05-03] MEDS: Aspirin 81 MG Tab.EC PO SCH (08:36)
[2016-05-03] MEDS: predniSONE 10 MG Tab PO SCH (08:36)
[2016-05-03] MEDS: Acetaminophen/HYDROcodone 325-5 MG Tab PO PRN ×2 (08:46→20:12)
[2016-05-03] MEDS: Metoprolol Tartrate 25 MG Tab PO SCH ×3 (08:48→20:13)
[2016-05-03] MEDS: Nystatin Topical Powder 15 GM Bottle TOP SCH ×2 (08:50→20:32)
[2016-05-03] MEDS: cefTRIAXone 1 GM in Premix Bag 1 BAG IV SCH (10:07)
--- NOTE | 2016-05-03 17:53 | CR ---
EXAM DATE: 05/01/16 PATIENT'S AGE: 80 Patient: AVI RODRIGUEZ Facility: [place], [place] Site . Site : 1935 Study: XRay Chest [id number]/14/2017 5:26:46 PM Ordering Physician: Kurtis Gonzalez Final Report: INDICATION: Shortness of breath TECHNIQUE: Chest 1 view. COMPARISON: 04/12/2016 FINDINGS: Cardiovascular and mediastinum: Heart size and vasculature are normal in caliber and appearance. Mediastinum is within normal limits. Lungs and pleural space: Stable prominent bilateral interstitial markings. No sign of pleural effusion. No pneumothorax. Bones and soft tissues: No significant findings. IMPRESSION: Stable bilateral prominent interstitial markings compared to 04/12/16. No definitive consolidations. Dictated by Memo Whalen MD @ 05/01/2016 5:48:59 PM Dictated by: Memo Whalen MD @ 05/01/2016 17:49:09 (Electronic Signature) Report Signed by Proxy and Original Signed Document filed in the Medical Record. [facility]
[2016-05-03] MEDS: LORazepam 2 MG/ML MDV IVPUSH PRN (20:14)
[2016-05-03] MEDS: Heparin Sodium 25,000 UNITS in Dextrose 5% in Water 500 ML IV SCH ×2 (20:16)
--- NOTE | 2016-05-03 20:41 | PCM.PN ---
- General Info Date of Service: 05/03/16 Subjective Update: Doing well this morning. No complaints. Concerned about whether she should be transferred or not. She is unsure but states that her family wants her to stay. She does not want to be transferred if they are not going to be able to do a cath. - Review of Systems General: Denies: Fever, Weakness HEENT: Denies: dysphasia Pulmonary: Denies: shortness of breath, wheezing Cardiovascular: Denies: Chest Pain, Palpitations Gastrointestinal: Denies: Abdominal pain Genitourinary: Denies: dysuria Musculoskeletal: Denies: neck pain, leg pain Skin: Denies: cyanosis Neurological: Denies: Confusion, Dizziness Psychiatric: Denies: confusion, depression - Patient Data Vitals - most recent: Last Vital Signs Temp 36.8 C 05/03/16 16:00 Pulse 78 05/03/16 20:13 Resp 13 05/03/16 19:00 BP 140/61 05/03/16 20:13 Pulse Ox 91 L 05/03/16 19:00 Weight - most recent: 70.9 kg I&O - last 24 hours: Intake & Output 05/03/16 05/03/16 05/03/16 06:59 14:59 22:59 Intake Total 1100 50 1100 Output Total 2200 2500 Balance -1100 50 -1400 Lab Results last 24 hrs: Laboratory Results - last 24 hr 05/02/16 05/02/16 05/03/16 Range/Units 23:00 23:00 06:19 WBC (4.0-11.0) K/uL RBC (4.30-5.90) M/uL Hgb (12.0-16.0) g/dL Hct (36.0-46.0) % MCV (80.0-98.0) fL MCH (27.0-32.0) pg MCHC (31.0-37.0) g/dL RDW Std Deviation (28.0-62.0) fl RDW Coeff of Gregory (11.0-15.0) % Plt Count (150-400) K/uL MPV (7.40-12.00) fL Neut % (Auto) (48.0-80.0) % Lymph % (Auto) (16.0-40.0) % Spalding % (Auto) (0.0-15.0) % Eos % (Auto) (0.0-7.0) % Baso % (Auto) (0.0-1.5) % Neut # (1.4-5.7) K/uL Lymph # (0.6-2.4) K/uL Spalding # (0.0-0.8) K/uL Eos # (0.0-0.7) K/uL Baso # (0.0-0.1) K/uL Nucleated RBC % /100WBC Nucleated RBCs # K/uL INR (0.86-1.11) APTT 53.4 H (18.6-31.3) SEC Sodium (136-146) mmol/L Potassium (3.5-5.1) mmol/L Chloride (98-110) mmol/L Carbon Dioxide (21-31) mmol/L BUN (6.0-23.0) mg/dL Creatinine (0.6-1.5) mg/dL Est Cr Clr Drug Dosing mL/min Estimated GFR (MDRD) ml/min Glucose (60-110) mg/dL POC Glucose 100 (60-110) mg/dL Calcium (8.8-10.8) mg/dL Troponin I 1.34 H* (0.0-0.29) NG/ML 05/03/16 05/03/16 05/03/16 Range/Units 06:22 06:22 06:22 WBC 14.77 H (4.0-11.0) K/uL RBC 4.50 (4.30-5.90) M/uL Hgb 13.0 (12.0-16.0) g/dL Hct 39.3 (36.0-46.0) % MCV 87.3 (80.0-98.0) fL MCH 28.9 (27.0-32.0) pg MCHC 33.1 (31.0-37.0) g/dL RDW Std Deviation 46.2 (28.0-62.0) fl RDW Coeff of Gregory 15 (11.0-15.0) % Plt Count 297 (150-400) K/uL MPV 9.80 (7.40-12.00) fL Neut % (Auto) 63.7 (48.0-80.0) % Lymph % (Auto) 26.5 (16.0-40.0) % Spalding % (Auto) 9.1 (0.0-15.0) % Eos % (Auto) 0.4 (0.0-7.0) % Baso % (Auto) 0.3 (0.0-1.5) % Neut # 9.4 H (1.4-5.7) K/uL Lymph # 3.9 H (0.6-2.4) K/uL Spalding # 1.3 H (0.0-0.8) K/uL Eos # 0.1 (0.0-0.7) K/uL Baso # 0.1 (0.0-0.1) K/uL Nucleated RBC % 0.0 /100WBC Nucleated RBCs # 0 K/uL INR 3.74 H (0.86-1.11) APTT (18.6-31.3) SEC Sodium 136 (136-146) mmol/L Potassium 4.1 (3.5-5.1) mmol/L Chloride 97 L (98-110) mmol/L Carbon Dioxide 27 (21-31) mmol/L BUN 36 H (6.0-23.0) mg/dL Creatinine 1.6 H (0.6-1.5) mg/dL Est Cr Clr Drug Dosing 26.03 mL/min Estimated GFR (MDRD) 31.2 ml/min Glucose 111 H (60-110) mg/dL POC Glucose (60-110) mg/dL Calcium 9.7 (8.8-10.8) mg/dL Troponin I (0.0-0.29) NG/ML 05/03/16 05/03/16 05/03/16 Range/Units 06:22 07:09 11:55 WBC (4.0-11.0) K/uL RBC (4.30-5.90) M/uL Hgb (12.0-16.0) g/dL Hct (36.0-46.0) % MCV (80.0-98.0) fL MCH (27.0-32.0) pg MCHC (31.0-37.0) g/dL RDW Std Deviation (28.0-62.0) fl RDW Coeff of Gregory (11.0-15.0) % Plt Count (150-400) K/uL MPV (7.40-12.00) fL Neut % (Auto) (48.0-80.0) % Lymph % (Auto) (16.0-40.0) % Spalding % (Auto) (0.0-15.0) % Eos % (Auto) (0.0-7.0) % Baso % (Auto) (0.0-1.5) % Neut # (1.4-5.7) K/uL Lymph # (0.6-2.4) K/uL Spalding # (0.0-0.8) K/uL Eos # (0.0-0.7) K/uL Baso # (0.0-0.1) K/uL Nucleated RBC % /100WBC Nucleated RBCs # K/uL INR (0.86-1.11) APTT 55.8 H (18.6-31.3) SEC Sodium (136-146) mmol/L Potassium (3.5-5.1) mmol/L Chloride (98-110) mmol/L Carbon Dioxide (21-31) mmol/L BUN (6.0-23.0) mg/dL Creatinine (0.6-1.5) mg/dL Est Cr Clr Drug Dosing mL/min Estimated GFR (MDRD) ml/min Glucose (60-110) mg/dL POC Glucose 130 H (60-110) mg/dL Calcium (8.8-10.8) mg/dL Troponin I 1.07 H* (0.0-0.29) NG/ML 05/03/16 05/03/16 Range/Units 13:58 17:08 WBC (4.0-11.0) K/uL RBC (4.30-5.90) M/uL Hgb (12.0-16.0) g/dL Hct (36.0-46.0) % MCV (80.0-98.0) fL MCH (27.0-32.0) pg MCHC (31.0-37.0) g/dL RDW Std Deviation (28.0-62.0) fl RDW Coeff of Gregory (11.0-15.0) % Plt Count (150-400) K/uL MPV (7.40-12.00) fL Neut % (Auto) (48.0-80.0) % Lymph % (Auto) (16.0-40.0) % Spalding % (Auto) (0.0-15.0) % Eos % (Auto) (0.0-7.0) % Baso % (Auto) (0.0-1.5) % Neut # (1.4-5.7) K/uL Lymph # (0.6-2.4) K/uL Spalding # (0.0-0.8) K/uL Eos # (0.0-0.7) K/uL Baso # (0.0-0.1) K/uL Nucleated RBC % /100WBC Nucleated RBCs # K/uL INR (0.86-1.11) APTT (18.6-31.3) SEC Sodium (136-146) mmol/L Potassium (3.5-5.1) mmol/L Chloride (98-110) mmol/L Carbon Dioxide (21-31) mmol/L BUN (6.0-23.0) mg/dL Creatinine (0.6-1.5) mg/dL Est Cr Clr Drug Dosing mL/min Estimated GFR (MDRD) ml/min Glucose (60-110) mg/dL POC Glucose 158 H (60-110) mg/dL Calcium (8.8-10.8) mg/dL Troponin I 0.82 H* (0.0-0.29) NG/ML Dimitris Results last 24 hrs: Microbiology 05/01/16 19:55 Aerobic Blood Culture - Preliminary Blood - Venous NO GROWTH AFTER 2 DAYS Anaerobic Blood Culture - Preliminary NO GROWTH AFTER 2 DAYS 05/01/16 18:00 Urine Culture - Final Urine, Avila Cath ([place]) Klebsiella Pneumoniae Med Orders - Current: Current Medications Acetaminophen/Hydrocodone Bitart (Kelley 325-5 Mg) 1 tab PO Q4H PRN PRN Reason: Pain Last Admin: 05/03/16 20:12 Dose: 1 tab Albuterol/Ipratropium (Duoneb 3.0-0.5 Mg/3 Ml) 3 ml NEB Q4HRRT PRN PRN Reason: Wheezing Aspirin (Halfprin) 81 mg PO DAILY PINA Last Admin: 05/03/16 08:36 Dose: 81 mg Bisacodyl (Dulcolax) 10 mg RECTAL DAILY PRN PRN Reason: Constipation Clopidogrel Bisulfate (Plavix) 75 mg PO DAILY [facility] Last Admin: 05/03/16 08:36 Dose: 75 mg Famotidine (Pepcid) 40 mg PO DAILY [facility] Last Admin: 05/03/16 08:36 Dose: 40 mg Furosemide (Lasix) 40 mg IVPUSH DAILY [facility] Last Admin: 05/03/16 12:12 Dose: 40 mg Gabapentin (Neurontin) 200 mg PO BID [facility] Last Admin: 05/03/16 20:12 Dose: 200 mg Heparin Sodium (Porcine) 25, (000 units/ Dextrose/Water) 505 mls @ 22.72 mls/ hr IV TITRATE [facility]; 15 UNITS/KG/HR PRN Reason: Protocol Last Admin: 05/03/16 20:16 Dose: 9 units/kg/hr, 13.63 mls/hr Ceftriaxone Sodium/Dextrose 1 (gm/ Premix) 50 mls @ 100 mls/hr IV Q24H [facility] Last Admin: 05/03/16 10:07 Dose: 100 mls/hr Insulin Aspart (Novolog) 0 unit SUBCUT TIDAC [facility] PRN Reason: Protocol Last Admin: 05/03/16 17:30 Dose: 1 unit Lorazepam (Ativan) 0.5 mg IVPUSH Q4H PRN PRN Reason: Anxiety Last Admin: 05/03/16 20:14 Dose: 0.5 mg Metoprolol Tartrate (Lopressor) 25 mg PO BID [facility] Last Admin: 05/03/16 20:13 Dose: 25 mg Nystatin (Nystop) 0 gm TOP BID [facility] Last Admin: 05/03/16 20:32 Dose: 1 applic Ondansetron HCl (Zofran) 4 mg IVPUSH Q4H PRN PRN Reason: Nausea Prednisone (Prednisone) 30 mg PO DAILY [facility] Last Admin: 05/03/16 08:36 Dose: 30 mg Sodium Chloride (Saline Flush) 10 ml FLUSH ASDIRECTED PRN PRN Reason: Keep Vein Open Sodium Chloride (Saline Flush) 2.5 ml FLUSH ASDIRECTED PRN PRN Reason: Keep Vein Open Discontinued Medications Acetaminophen/Hydrocodone Bitart (Kelley 325-10 Mg) 1 tab PO Q4H PRN PRN Reason: Pain Last Admin: 05/02/16 08:11 Dose: 1 tab Albuterol/Ipratropium (Duoneb 3.0-0.5 Mg/3 Ml) 3 ml NEB ONETIME ONE Stop: 05/01/16 16:36 Last Admin: 05/01/16 16:49 Dose: 3 ml Albuterol/Ipratropium (Duoneb 3.0-0.5 Mg/3 Ml) Confirm Administered Dose 3 ml .ROUTE .STK-MED ONE Stop: 05/01/16 17:25 Last Admin: 05/01/16 18:39 Dose: Not Given Aspirin (Aspirin) 243 mg PO ONETIME ONE Stop: 05/02/16 00:38 Last Admin: 05/02/16 00:53 Dose: 243 mg Famotidine (Pepcid) 40 mg PO DAILY PRN PRN Reason: Heartburn Last Admin: 05/01/16 21:08 Dose: 40 mg Famotidine (Pepcid) 20 mg PO BID [facility] Last Admin: 05/02/16 08:05 Dose: 20 mg Fluconazole (Diflucan) 150 mg PO ONETIME ONE Stop: 05/01/16 18:01 Last Admin: 05/01/16 18:57 Dose: 150 mg Furosemide (Lasix) 40 mg IVPUSH NOW ONE Stop: 05/01/16 16:41 Last Admin: 05/01/16 16:53 Dose: 40 mg Furosemide (Lasix) 40 mg IVPUSH Q12H [facility] Last Admin: 05/03/16 02:13 Dose: 40 mg Heparin Sodium (Porcine) (Heparin Sodium) 2,250 units IV ONETIME PINA Stop: 05/02/16 12:30 Heparin Sodium (Porcine) (Heparin Sodium) 5,000 units IV ONETIME PINA Stop: 05/02/16 12:30 Heparin Sodium (Porcine) (Heparin Sodium) 4,500 units IV ONETIME PINA Stop: 05/02/16 12:30 Last Admin: 05/02/16 11:53 Dose: 4,500 units Piperacillin Sod/Tazobactam (Sod 3.375 gm/ Sodium Chloride) 50 mls @ 100 mls/ hr IV Q6H [facility] Last Admin: 05/01/16 19:03 Dose: Not Given Vancomycin HCl 1 gm/ Sodium (Chloride) 250 mls @ 250 mls/hr IV ONETIME ONE Stop: 05/01/16 18:32 Last Admin: 05/01/16 18:01 Dose: 250 mls/hr Piperacillin Sod/Tazobactam (Sod 3.375 gm/ Sodium Chloride) 50 mls @ 100 mls/ hr IV 0200,0800,1400,2000 [facility] Piperacillin Sod/Tazobactam (Sod 3.375 gm/ Sodium Chloride) 50 mls @ 100 mls/ hr IV Q6H [facility] Last Admin: 05/03/16 06:52 Dose: 100 mls/hr Vancomycin HCl 1 gm/ Sodium (Chloride) 250 mls @ 166 mls/hr IV Q24H [facility] Last Admin: 05/02/16 17:14 Dose: 166 mls/hr Heparin Sodium/Dextrose (Heparin 25,000 Units In D5w 500 Ml) 25,000 units in 500 mls @ 22.5 mls/hr IV TITRATE [facility]; 15 UNITS/KG/HR PRN Reason: Protocol Metoprolol Succinate (Toprol Xl) 25 mg PO BID [facility] Last Admin: 05/02/16 08:00 Dose: 25 mg Nitroglycerin (Nitro-Bid 2%) 1 gm TOP ONETIME ONE Stop: 05/01/16 17:50 Last Admin: 05/01/16 18:06 Dose: Not Given Prednisone (Prednisone) 10 mg PO DAILY [facility] Last Admin: 05/02/16 08:05 Dose: 10 mg Prednisone (Prednisone) 20 mg PO ONETIME [facility] Stop: 05/02/16 09:00 Last Admin: 05/02/16 09:04 Dose: 20 mg Vancomycin HCl (Pharmacy To Dose - Vancomycin) 1 dose .XX ASDIRECTED [facility] Warfarin Sodium (Coumadin) 2.5 mg PO DAILY@1400 [facility] Warfarin Sodium (Coumadin) 2 mg PO 05/02/16@1400 [facility] Stop: 05/02/16 14:01 Last Admin: 05/02/16 13:30 Dose: 2 mg Warfarin Sodium (Coumadin Ask) 1 each PO DAILY@1400 [facility] - Exam Quality Assessment: supplemental oxygen, DVT prophylaxis General: alert, oriented, cooperative, no acute distress HEENT: Pupils equal, Pupils reactive, EOMI, Mucous membr. moist/pink Neck: supple Lungs: Clear to auscultation, Normal respiratory effort Cardiovascular: Regular Rate, Irregular Rhythm, Murmurs Abdomen: bowel sounds present, soft, no tenderness, no distension Extremities: no edema Peripheral Pulses: 2+: radial (L), radial (R), posterior tibial (L), posterior tibial (R), dorsalis pedis (L), dorsalis pedis (R) Skin: warm, dry, intact Wound/Incisions: healing well Neurological: no new focal deficit Psy/Mental Status: alert, normal affect, normal mood - Problem List & Annotations (1) NSTEMI (non-ST elevated myocardial infarction) SNOMED Code(s): 68332416 Code(s): I21.4 - NON-ST ELEVATION (NSTEMI) MYOCARDIAL INFARCTION Status: Acute Priority: High Current Visit: Yes (2) Pneumonia SNOMED Code(s): 106587162 Code(s): J18.9 - PNEUMONIA, UNSPECIFIED ORGANISM Status: Acute Priority: High Current Visit: Yes Qualifiers: Pneumonia type: due to unspecified organism Laterality: unspecified laterality Lung location: unspecified part of lung Qualified Code(s): J18.9 - Pneumonia, unspecified organism (3) CHF exacerbation SNOMED Code(s): 17133253 Code(s): I50.9 - HEART FAILURE, UNSPECIFIED Status: Acute Current Visit: Yes Qualifiers: Congestive heart failure type: unspecified congestive heart failure type Qualified Code(s): I50.9 - Heart failure, unspecified - Problem List Review Problem List Initiated/Reviewed/Updated: Yes - My Orders Last 24 Hours: My Active Orders 05/04/16 05:11 TROPONIN I [CHEM] Routine - Plan Plan:: 80 yo female admitted for CHF exacerbation, pneumonia and now NSTEMI with pmh of CHF, CAD, PVD on warfarin, CKD, and gout on prednisone. NSTEMI: Troponins have been trending down. Family had a discussion today and do not want transfer. Patient want to change code status to DNR DNI which was noted. Will continue to monitor and send home as soon as kidney function has started to improve. Pneumonia: Improved WBC from 21 to 14 with Zosyn and Vanc day two. Sputum and blood cultures have not grown anything so will change abx to Rocephin today to be more renal protective. CHF exacerbation: Echocardiogram is pending. Bump in Cr today to 1.6 will decrease lasic from 40 bid to 40 q day. Dispo: 1-2 days pending.
[2016-05-04] MEDS: Insulin Aspart 100 Units/ML 3 ML Pen SUBCUT SCH ×2 (07:34→11:47)
[2016-05-04] MEDS: Furosemide 40 MG/4 ML VIAL IVPUSH SCH (08:10)
[2016-05-04] MEDS: predniSONE 10 MG Tab PO SCH (08:23)
[2016-05-04] MEDS: Metoprolol Tartrate 25 MG Tab PO SCH (08:24)
[2016-05-04] MEDS: Clopidogrel 75 MG Tab PO SCH (08:24)
[2016-05-04] MEDS: Aspirin 81 MG Tab.EC PO SCH (08:24)
[2016-05-04] MEDS: Gabapentin 100 MG Cap PO SCH (08:25)
[2016-05-04] MEDS: Famotidine 20 MG Tab PO SCH (08:25)
[2016-05-04] MEDS: Acetaminophen/HYDROcodone 325-5 MG Tab PO PRN (08:30)
[2016-05-04] MEDS: Nystatin Topical Powder 15 GM Bottle TOP SCH (08:32)
[2016-05-04] MEDS: cefTRIAXone 1 GM in Premix Bag 1 BAG IV SCH (09:23)
[2016-05-04 12:07] VITALS: BP 128/73
--- NOTE | 2016-05-05 15:03 | PCM.DCSUM1 ---
Discharge Summary - Hospital Course HPI Initial Comments: 80 yo female admitted on 05/01/16 for suspected CHF exacerbation and pneumonia with pmh of CHF, CAD, peripheral vascular disease on anticoagulation, CKD, adnd gout on prednisone. Brief History: Patient had a NSTEMI two weeks prior in [place] and per patient report no cardiac cath was done. She was discharged to [facility] and she had been doing well there. Her lasix was discontinued about ten days prior to admission due to concerns with kidney disease. She had noted a 11 pound weight gain since discharge from [place]. On day of admission she reported she was feeling well and satting 100% on RA. That afternoon while friends were visiting she reported having a panic attack and was unable to breath. She reported having a productive cough during the time she was short of breath. She was brought to [place] ED and noted to be in respiratory distress and satting in the mid 80s on NC. Troponin and EKG did not show any signs of ischemia. CXR reported stable bibasilar infiltrates. She was given lasix, BIPAP for CHF exacerbation. She was also given vancomycin and zosyn due to concerns for pneumonia with WBC of 38,050. She was transferred to the ICU and felt much better satting 93% off of BIpap on RA. Patient's second troponin on day of admission increased to 2.74. She denied any chest pain, shortness of breath had improved. She did not want transfer to another city for treatment of NSTEMI. She preferred to continue current treatment here and consult cardiology the following morning. Third Troponin increased to 3.17 and Cardiology was able to visit with the patient the following day. Cardiology recommendto continue the Lasix at 40 mg IV BID and start Plavix 75 mg q day as well as Heparin drip for 48 hours as well as daily aspirin 81 mg. He also recommend to continue the beta cary, but did emphasize that he would rather she was transferred for cardiac catheterization. Patient remained indecisive and then on the following day stated that she and her family had decided not to be transferred and to change her code status to DNR/DNI. This was noted in her chart. - Discharge Data Discharge Date: 05/05/16 Discharge Disposition: DC/[facility]fer to [facility] Condition: Good - Discharge Diagnosis/Problem(s) (1) NSTEMI (non-ST elevated myocardial infarction) SNOMED Code(s): 03594242 ICD Code: I21.4 - NON-ST ELEVATION (NSTEMI) MYOCARDIAL INFARCTION Status: Resolved Priority: High (2) Pneumonia SNOMED Code(s): 713959233 ICD Code: J18.9 - PNEUMONIA, UNSPECIFIED ORGANISM Status: Acute Priority : High Qualifiers: Pneumonia type: due to unspecified organism Laterality: unspecified laterality Lung location: unspecified part of lung Qualified Code(s): J18.9 - Pneumonia, unspecified organism (3) CHF exacerbation SNOMED Code(s): 73874145 ICD Code: I50.9 - HEART FAILURE, UNSPECIFIED Status: Acute Qualifiers: Congestive heart failure type: unspecified congestive heart failure type Qualified Code(s): I50.9 - Heart failure, unspecified - Patient Summary/Data Consults: Consultations 05/01/16 19:42 Consult to Pharmacy [CONS] Routine 05/02/16 14:52 Consult to Physician [CONS] Routine 05/04/16 08:39 PT Evaluation and Treatment [CONS] Routine - Patient Instructions Diet: Low Sodium Diet, Other: Low 2 gram sodium diet Activity: As Tolerated Driving: Do Not Drive Showering/Bathing: May Shower Notify Provider of: Fever, Increased Pain, Swelling and Redness, Nausea and/or Vomiting Other/Special Instructions: Patient to receive occupational and physical therapy for strength and balance. - Discharge Plan Prescriptions/Med Rec: Cephalexin [Keflex] 500 mg PO Q6HR #20 cap Clopidogrel [Plavix] 75 mg PO DAILY #14 tablet Furosemide [Lasix] 40 mg PO DAILY #14 tablet Hydrocodone/Acetaminophen [[place] 5-325] 1 each PO Q4H PRN #20 tablet PRN Reason: Pain LORazepam 0.5 mg PO Q8H PRN #12 tablet PRN Reason: Anxiety Home Medications: Home Meds Aspirin [Lamoure Aspirin] 81 mg PO DAILY 09/25/15 [History] Bisacodyl [Dulcolax] 10 mg RECTAL Q24H PRN 05/01/16 [History] Famotidine [Pepcid] 40 mg PO DAILY 05/01/16 [History] Gabapentin [Neurontin] 200 mg PO BID 05/01/16 [History] Magnesium Hydroxide [Milk of Magnesia] 30 ml PO DAILY PRN 05/01/16 [History] Nicotine [Nicoderm CQ] 21 mg TD DAILY 05/01/16 [History] Acetaminophen/HYDROcodone [[place] 325-5 MG] 5 - 325 mg PO Q4H PRN 05/02/16 [ History] Metoprolol Tartrate [Lopressor] 25 mg PO BID 05/02/16 [History] Cephalexin [Keflex] 500 mg PO Q6HR #20 cap 05/04/16 [Rx] Clopidogrel [Plavix] 75 mg PO DAILY #14 tablet 05/04/16 [Rx] Furosemide [Lasix] 40 mg PO DAILY #14 tablet 05/04/16 [Rx] Hydrocodone/Acetaminophen [[place] 5-325] 1 each PO Q4H PRN #20 tablet 05/04/16 [ Rx] LORazepam 0.5 mg PO Q8H PRN #12 tablet 05/04/16 [Rx] Prednisone [IJD: Prednisone] 30 mg PO DAILY #0 05/04/16 [Rx] Referrals: Mina Moran MD [Physician] - 05/16/16 1:00 pm Robb He MD [Physician] - 05/10/16 - Discharge Summary/Plan Comment DC Time >30 min.: Yes Discharge Summary/Plan Comment: 80 yo female admitted on 05/01/16 for suspected CHF exacerbation and pneumonia with pmh of CHF, CAD, peripheral vascular disease on anticoagulation, CKD, adnd gout on prednisone. Patient had a NSTEMI two weeks prior in [place] and per patient report no cardiac cath was done. She was discharged to [facility] and she had been doing well there. Her lasix was discontinued about ten days prior to admission due to concerns with kidney disease. She had noted a 11 pound weight gain since discharge from [place]. On day of admission she reported she was feeling well and satting 100% on RA. That afternoon while friends were visiting she reported having a panic attack and was unable to breath. She reported having a productive cough during the time she was short of breath. She was brought to [place] ED and noted to be in respiratory distress and satting in the mid 80s on NC. Troponin and EKG did not show any signs of ischemia. CXR reported stable bibasilar infiltrates. She was given lasix, BIPAP for CHF exacerbation. She was also given vancomycin and zosyn due to concerns for pneumonia with WBC of 38,050. She was transferred to the ICU and felt much better satting 93% off of BIpap on RA. Patient's second troponin on day of admission increased to 2.74. She denied any chest pain, shortness of breath had improved. She did not want transfer to another city for treatment of NSTEMI. She preferred to continue current treatment here and consult cardiology the following morning. Third Troponin increased to 3.17 and Cardiology was able to visit with the patient the following day. Cardiology recommendto continue the Lasix at 40 mg IV BID and start Plavix 75 mg q day as well as Heparin drip for 48 hours as well as daily aspirin 81 mg. He also recommend to continue the beta cary, but did emphasize that he would rather she was transferred for cardiac catheterization. Patient remained indecisive and then on the following day stated that she and her family had decided not to be transferred and to change her code status to DNR/DNI. This was noted in her chart. Patient did well and blood cultures and sputum cultures were negative she did have a bump in her Cr clearance thought to be secondary to be secondary to entire CHF exacerbation and NSTEMI resulting in poor kidney perfusion. This resolved on day of admission with decrease in Lasix to 40 mg q day. Patient did have a postive urine culture for Klebsiella Pneumonia. This was highly suscetible to all antibiotics. Patient was discharged on 05/04/16 in good condition with a perscription of Keflex for 5 days, [place] 5-325 for gout pain, Lorazepam 0.5 for anxiety, Nitro- stat at bedside, and oxygen as need at night. Dr. Rabago was notified by phone of patient and advised to check kidney function as we did add back Lasix 40 mg daily which had been previously discontinued. She was also scheduled with Dr. Resendiz for a cardiology follow-up. - General Info Date of Service: 05/04/16 Functional Status: Reports: pain controlled - Review of Systems General: Reports: No Symptoms HEENT: Reports: no symptoms Pulmonary: Reports: no symptoms Cardiovascular: Reports: No Symptoms Gastrointestinal: Reports: No symptoms Genitourinary: Reports: no symptoms Musculoskeletal: Reports: no symptoms Skin: Reports: no symptoms Neurological: Reports: No Symptoms Psychiatric: Reports: no symptoms - Patient Data Vitals - Most Recent: Last Vital Signs Temp 36.4 C 05/04/16 08:00 Pulse 74 05/04/16 08:24 Resp 15 05/04/16 11:00 BP 128/73 05/04/16 11:00 Pulse Ox 94 L 05/04/16 11:00 Weight - Most Recent: 70.2 kg RUDDY Results - Last 24 hrs: Microbiology 05/01/16 19:55 Aerobic Blood Culture - Preliminary Blood - Venous NO GROWTH AFTER 3 DAYS Anaerobic Blood Culture - Preliminary NO GROWTH AFTER 3 DAYS Med Orders - Current: Current Medications Discontinued Medications Acetaminophen/Hydrocodone Bitart ([place] 325-10 Mg) 1 tab PO Q4H PRN PRN Reason: Pain Last Admin: 05/02/16 08:11 Dose: 1 tab Acetaminophen/Hydrocodone Bitart ([place] 325-5 Mg) 1 tab PO Q4H PRN PRN Reason: Pain Last Admin: 05/04/16 08:30 Dose: 1 tab Albuterol/Ipratropium (Duoneb 3.0-0.5 Mg/3 Ml) 3 ml NEB ONETIME ONE Stop: 05/01/16 16:36 Last Admin: 05/01/16 16:49 Dose: 3 ml Albuterol/Ipratropium (Duoneb 3.0-0.5 Mg/3 Ml) Confirm Administered Dose 3 ml .ROUTE .STK-MED ONE Stop: 05/01/16 17:25 Last Admin: 05/01/16 18:39 Dose: Not Given Albuterol/Ipratropium (Duoneb 3.0-0.5 Mg/3 Ml) 3 ml NEB Q4HRRT PRN PRN Reason: Wheezing Aspirin (Halfprin) 81 mg PO DAILY [facility] Last Admin: 05/04/16 08:24 Dose: 81 mg Aspirin (Aspirin) 243 mg PO ONETIME ONE Stop: 05/02/16 00:38 Last Admin: 05/02/16 00:53 Dose: 243 mg Bisacodyl (Dulcolax) 10 mg RECTAL DAILY PRN PRN Reason: Constipation Clopidogrel Bisulfate (Plavix) 75 mg PO DAILY [facility] Last Admin: 05/04/16 08:24 Dose: 75 mg Famotidine (Pepcid) 40 mg PO DAILY PRN PRN Reason: Heartburn Last Admin: 05/01/16 21:08 Dose: 40 mg Famotidine (Pepcid) 20 mg PO BID [facility] Last Admin: 05/02/16 08:05 Dose: 20 mg Famotidine (Pepcid) 40 mg PO DAILY [facility] Last Admin: 05/04/16 08:25 Dose: 40 mg Fluconazole (Diflucan) 150 mg PO ONETIME ONE Stop: 05/01/16 18:01 Last Admin: 05/01/16 18:57 Dose: 150 mg Furosemide (Lasix) 40 mg IVPUSH NOW ONE Stop: 05/01/16 16:41 Last Admin: 05/01/16 16:53 Dose: 40 mg Furosemide (Lasix) 40 mg IVPUSH Q12H [facility] Last Admin: 05/03/16 02:13 Dose: 40 mg Furosemide (Lasix) 40 mg IVPUSH DAILY [facility] Last Admin: 05/04/16 08:10 Dose: Not Given Gabapentin (Neurontin) 200 mg PO BID [facility] Last Admin: 05/04/16 08:25 Dose: 200 mg Heparin Sodium (Porcine) (Heparin Sodium) 2,250 units IV ONETIME [facility] Stop: 05/02/16 12:30 Heparin Sodium (Porcine) (Heparin Sodium) 5,000 units IV ONETIME [facility] Stop: 05/02/16 12:30 Heparin Sodium (Porcine) (Heparin Sodium) 4,500 units IV ONETIME [facility] Stop: 05/02/16 12:30 Last Admin: 05/02/16 11:53 Dose: 4,500 units Piperacillin Sod/Tazobactam (Sod 3.375 gm/ Sodium Chloride) 50 mls @ 100 mls/ hr IV Q6H [facility] Last Admin: 05/01/16 19:03 Dose: Not Given Vancomycin HCl 1 gm/ Sodium (Chloride) 250 mls @ 250 mls/hr IV ONETIME ONE Stop: 05/01/16 18:32 Last Admin: 05/01/16 18:01 Dose: 250 mls/hr Piperacillin Sod/Tazobactam (Sod 3.375 gm/ Sodium Chloride) 50 mls @ 100 mls/ hr IV 0200,0800,1400,2000 [facility] Piperacillin Sod/Tazobactam (Sod 3.375 gm/ Sodium Chloride) 50 mls @ 100 mls/ hr IV Q6H [facility] Last Admin: 05/03/16 06:52 Dose: 100 mls/hr Vancomycin HCl 1 gm/ Sodium (Chloride) 250 mls @ 166 mls/hr IV Q24H [facility] Last Admin: 05/02/16 17:14 Dose: 166 mls/hr Heparin Sodium/Dextrose (Heparin 25,000 Units In D5w 500 Ml) 25,000 units in 500 mls @ 22.5 mls/hr IV TITRATE PINA; 15 UNITS/KG/HR PRN Reason: Protocol Heparin Sodium (Porcine) 25, (000 units/ Dextrose/Water) 505 mls @ 22.72 mls/ hr IV TITRATE PINA; 15 UNITS/KG/HR PRN Reason: Protocol Last Admin: 05/03/16 20:16 Dose: 9 units/kg/hr, 13.63 mls/hr Ceftriaxone Sodium/Dextrose 1 (gm/ Premix) 50 mls @ 100 mls/hr IV Q24H [facility] Last Admin: 05/04/16 09:23 Dose: 100 mls/hr Insulin Aspart (Novolog) 0 unit SUBCUT TIDAC [facility] PRN Reason: Protocol Last Admin: 05/04/16 11:47 Dose: 1 unit Lorazepam (Ativan) 0.5 mg IVPUSH Q4H PRN PRN Reason: Anxiety Last Admin: 05/03/16 20:14 Dose: 0.5 mg Metoprolol Succinate (Toprol Xl) 25 mg PO BID [facility] Last Admin: 05/02/16 08:00 Dose: 25 mg Metoprolol Tartrate (Lopressor) 25 mg PO BID [facility] Last Admin: 05/04/16 08:24 Dose: 25 mg Nitroglycerin (Nitro-Bid 2%) 1 gm TOP ONETIME ONE Stop: 05/01/16 17:50 Last Admin: 05/01/16 18:06 Dose: Not Given Nystatin (Nystop) 0 gm TOP BID [facility] Last Admin: 05/04/16 08:32 Dose: 1 applic Ondansetron HCl (Zofran) 4 mg IVPUSH Q4H PRN PRN Reason: Nausea Prednisone (Prednisone) 10 mg PO DAILY [facility] Last Admin: 05/02/16 08:05 Dose: 10 mg Prednisone (Prednisone) 30 mg PO DAILY [facility] Last Admin: 05/04/16 08:23 Dose: 30 mg Prednisone (Prednisone) 20 mg PO ONETIME [facility] Stop: 05/02/16 09:00 Last Admin: 05/02/16 09:04 Dose: 20 mg Sodium Chloride (Saline Flush) 10 ml FLUSH ASDIRECTED PRN PRN Reason: Keep Vein Open Sodium Chloride (Saline Flush) 2.5 ml FLUSH ASDIRECTED PRN PRN Reason: Keep Vein Open Vancomycin HCl (Pharmacy To Dose - Vancomycin) 1 dose .XX ASDIRECTED [facility] Warfarin Sodium (Coumadin) 2.5 mg PO DAILY@1400 [facility] Warfarin Sodium (Coumadin) 2 mg PO 05/02/16@1400 [facility] Stop: 05/02/16 14:01 Last Admin: 05/02/16 13:30 Dose: 2 mg Warfarin Sodium (Coumadin Ask) 1 each PO DAILY@1400 [facility] - Exam General: Reports: alert, oriented HEENT: Reports: Pupils equal, Pupils reactive, EOMI, Mucous membr. moist/pink Neck: Reports: supple Lungs: Reports: Clear to auscultation, Normal respiratory effort Cardiovascular: Reports: Regular Rate, Regular Rhythm Abdomen: Reports: bowel sounds present, soft, no tenderness, no distension Rectal (Female) Exam: Normal Exam Back Exam: Reports: normal inspection Extremities: Reports: no edema, normal pulses Skin: Reports: warm, dry, intact Wound/Incisions: Reports: healing well Neurological: Reports: no new focal deficit Psy/Mental Status: Reports: alert, normal affect, normal mood *Q Meaningful Use (DIS) - VTE *Q VTE Criteria *Q: - Stroke *Q Stroke Criteria *Q: - AMI *Q AMI Criteria *Q:
--- NOTE | 2016-05-08 19:39 | ECHO ---
The echocardiogram report can be seen in this patient's EMR in the Reports section. ALAN
== END 2016-05-04 13:23 | DRG 280 ==
LOC: MW.ED 16:28 → UNDOADMIN 17:57 → MW.ICU 17:57 → UNDODISIN 05-04 13:23
PROVIDERS: ADMIT Internal Medicine; ATTEND Internal Medicine
DX: I21.4 Non-ST elevation (NSTEMI) myocardial infarction (principal); J18.9 Pneumonia, unspecified organism; N39.0 Urinary tract infection, site not specified; I10 Essential (primary) hypertension; I25.2 Old myocardial infarction; I50.9 Heart failure, unspecified; I12.9 Hypertensive chronic kidney disease with stage 1 through stage 4 chronic kidney disease, or unspecified chronic kidney disease; N18.9 Chronic kidney disease, unspecified; I73.9 Peripheral vascular disease, unspecified; B96.1 Klebsiella pneumoniae [K. pneumoniae] as the cause of diseases classified elsewhere; E78.00 Pure hypercholesterolemia, unspecified; I25.10 Atherosclerotic heart disease of native coronary artery without angina pectoris; M10.9 Gout, unspecified; Z79.82 Long term (current) use of aspirin; Z79.899 Other long term (current) drug therapy; Z79.01 Long term (current) use of anticoagulants; Z66 Do not resuscitate; Z88.8 Allergy status to other drugs, medicaments and biological substances; Z87.891 Personal history of nicotine dependence; Z79.52 Long term (current) use of systemic steroids
CPT/HCPCS: 71010; 80048; 82150; 82553; 83615; 83690; 83880; 84484; 85025; 85610; 87040; 94640; 94660; 94664; 96374; 96375; 99285; J1940; J2060; 36415; 81001; 82962; 83735; 85730; 87086; 87088; 87186; 93005; 93306; 97802; A9270-GY; J0696; J1644; J1815-GY; J2543; J3370; J7050; J7060

== ENCOUNTER → 2016-05-16 | Outpatient (CLI) | payer MEDICARE, MEDICAID, OTHER | LOC: MW.CHIM 08:00 | PROVIDERS: ATTEND Internal Medicine | DX: J44.9 Chronic obstructive pulmonary disease, unspecified (principal); I73.9 Peripheral vascular disease, unspecified; E11.9 Type 2 diabetes mellitus without complications; I10 Essential (primary) hypertension | CPT/HCPCS: 99204 ==

== ENCOUNTER → 2016-05-29 | Outpatient (CLI) | payer MEDICARE, MEDICAID, OTHER ==
--- NOTE | 2016-05-29 16:21 | US ---
EXAMINATION: Carotid US with carter scale and duplex imaging. HISTORY: Peripheral vascular disease FINDINGS: Ultrasound examination of bilateral cervical carotid arteries was performed using carter scale and dup juana imaging. Moderate scattered atheromatous plaque is noted within the carotid arteries bilaterall y. Direction of the vertebral artery flow is not noted.. These are the peak velocities in cm per second (systole), right and left respectively, by a comma: CCA (common carotid artery) - 113, 84 ICA (internal carotid artery) - 110, 94 ECA (External carotid artery) - 91, 45 ICA/CCA systolic ratio Right - 1.0 Left - 1.7 IMPRESSION: Mild scattered moderate scattered atheromatous plaque within the carotid arteries bilaterally withou t significant elevated velocities to suggest greater than 50% stenosis.
--- NOTE | 2016-05-29 16:22 | US ---
EXAMINATION: ABIs HISTORY: Peripheral vascular disease COMPARISON: None TECHNIQUE: Pressures were obtained in the upper and lower extremities. FINDINGS/IMPRESSION: The left RUDY is notably abnormal at 0.5, and the right RUDY is mildly to moderat mehdi abnormal at 0.8.
== END | disposition home or self-care (01) ==
LOC: MW.US 13:59
PROVIDERS: ATTEND Internal Medicine
DX: I73.9 Peripheral vascular disease, unspecified (principal); I65.23 Occlusion and stenosis of bilateral carotid arteries
CPT/HCPCS: 93880; 93880-26; 93922; 93922-26

== ENCOUNTER → 2016-06-05 | Outpatient (CLI) | payer MEDICARE, MEDICAID | LOC: MW.CHIM 11:18 | PROVIDERS: ATTEND Internal Medicine | DX: I73.9 Peripheral vascular disease, unspecified (principal); I21.4 Non-ST elevation (NSTEMI) myocardial infarction; E11.9 Type 2 diabetes mellitus without complications; I25.10 Atherosclerotic heart disease of native coronary artery without angina pectoris; I42.0 Dilated cardiomyopathy | CPT/HCPCS: 36415; 80053; 82550; 99214 ==

== ENCOUNTER 2016-06-06 19:32 | Emergency (ER) | payer MEDICARE, MEDICAID ==
[2016-06-06] MEDS ORDERED: Furosemide 40 MG/4 ML VIAL IVPUSH ONE (19:38)
[2016-06-06] MEDS ORDERED: Aspirin 81 MG Tab.Chew PO ONE (19:44)
[2016-06-06] MEDS ORDERED: Sodium Chloride 0.9% 10 ML Syringe FLUSH PRN (19:44)
[2016-06-06] MEDS ORDERED: Ketorolac 30 MG/ML SDV IVPUSH ONE (19:44)
[2016-06-06] MEDS ORDERED: Famotidine 20 MG/2 ML SDV IVPUSH ONE (19:44)
[2016-06-06] MEDS ORDERED: Sodium Chloride 0.9% 2.5 ML Syringe FLUSH PRN (19:44)
[2016-06-06] MEDS ORDERED: Nitroglycerin 2% Oint 1 GM UD Packet ONE (19:49)
[2016-06-06] MEDS ORDERED: Diltiazem 25 MG/5 ML SDV IVPUSH ONE ×2 (19:53→20:02)
--- NOTE | 2016-06-06 20:02 | EDM.PDOC ---
ED HISTORY OF PRESENT ILLNESS - General Chief Complaint: Respiratory Problem Stated Complaint: PT HAS DIFFICULTY BREATHING Time Seen by Provider: 06/06/16 19:35 Source of Information: Reports: Patient History Limitations: Reports: No limitations - History of Present Illness INITIAL COMMENTS - FREE TEXT/NARRATIVE: History of present illness: [80-year-old female comes in presenting with complaints of shortness of breath, and chest pressure with the breathing. Patient indicates that she was just of activity and got increasingly short of breath or patient has a positive history of congestive heart failure and she feels that this is the situation at hand. Patient is short of breath at rest and her exertional dyspnea dropped her sats into the 80 percentile. Patient placed on gurney with 10 L of O2 via mask and still maintains mid 80 percentile. BiPAP placed EKG obtained with potential new onset anteroseptal infarct.] Review of systems: As per history of present illness and below otherwise all systems reviewed and negative. Past medical history: As per history of present illness and as reviewed below otherwise noncontributory. Surgical history: As per history of present illness and as reviewed below otherwise noncontributory. Social history: No reported history of drug or alcohol abuse. Family history: As per history of present illness and as reviewed below otherwise noncontributory. Physical exam: HEENT: Atraumatic, normocephalic, pupils reactive, negative for conjunctival pallor or scleral icterus, mucous membranes moist, throat clear, neck supple, nontender, trachea midline. Lungs: Clear to auscultation, breath sounds equal bilaterally, chest nontender. Heart: S1S2, regular, negative for clicks, rubs, or JVD. Abdomen: Soft, nondistended, nontender. Negative for masses or hepatosplenomegaly. Negative for costovertebral tenderness. Pelvis: Stable nontender. Genitourinary: Deferred. Rectal: Deferred. Extremities: Atraumatic, negative for cords or calf pain. Neurovascular unremarkable. Neuro: Awake, alert, oriented. Cranial nerves II through XII unremarkable. Cerebellum unremarkable. Motor and sensory unremarkable throughout. Exam nonfocal. Diagnostics: [] Therapeutics: [] Impression: [] Plan: [] Definitive disposition and diagnosis as appropriate pending reevaluation and review of above. - Related Data Allergies/ADRs: Allergies Allergy/AdvReac Type Severity Reaction Status Date / Time clarithromycin [From Biaxin] Allergy unknown Verified 05/01/16 16:51 irbesartan [From Avapro] Allergy unknown Verified 05/01/16 16:51 red dye Allergy unknown Verified 05/01/16 16:51 [id number] Reductase Allergy unknown Verified 05/01/16 16:51 Inhibitor Home Meds: Home Meds Aspirin [[place] Aspirin] 81 mg PO DAILY 09/25/15 [History] Bisacodyl [Dulcolax] 10 mg RECTAL Q24H PRN 05/01/16 [History] Famotidine [Pepcid] 40 mg PO DAILY 05/01/16 [History] Gabapentin [Neurontin] 200 mg PO BID 05/01/16 [History] Magnesium Hydroxide [Milk of Magnesia] 30 ml PO DAILY PRN 05/01/16 [History] Nicotine [Nicoderm CQ] 21 mg TD DAILY 05/01/16 [History] Acetaminophen/HYDROcodone [[place] 325-5 MG] 5 - 325 mg PO Q4H PRN 05/02/16 [ History] Metoprolol Tartrate [Lopressor] 25 mg PO BID 05/02/16 [History] Cephalexin [Keflex] 500 mg PO Q6HR #20 cap 05/04/16 [Rx] Clopidogrel [Plavix] 75 mg PO DAILY #14 tablet 05/04/16 [Rx] Furosemide [Lasix] 40 mg PO DAILY #14 tablet 05/04/16 [Rx] Hydrocodone/Acetaminophen [[place] 5-325] 1 each PO Q4H PRN #20 tablet 05/04/16 [ Rx] LORazepam 0.5 mg PO Q8H PRN #12 tablet 05/04/16 [Rx] Prednisone [IJD: Prednisone] 30 mg PO DAILY #0 05/04/16 [Rx] Past Medical History Cardiovascular History: Reports: High cholesterol, Hypertension Respiratory History: Reports: SOB, Other (see below) Other Respiratory History: acute respiratory failure. 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: Endocrine/Metabolic History: Reports: Other (see below) Other Endocrine/Metabolic History: Borderline DM Hematologic History: Reports: Anticoagulation therapy - Past Surgical History GI Surgical History: Reports: Appendectomy, Cholecystectomy Female Surgical History: Reports: Hysterectomy Social & Family History - Family History Family Medical History: Noncontributory Cardiac: Reports: High cholesterol, Hypertension, [place] Respiratory: Reports: Other (see below) Other Respiratory Family Hisory: Lung Ca GI: Reports: GERD OBGYN: Reports: Musculoskeletal: Reports: Arthritis Neurological: Reports: TIA Endocrine/Metabolic: Reports: Diabetes, type II Oncologic: Reports: Lung - Tobacco Use Smoking Status *Q: Former Smoker Years of Tobacco use: 60 Packs/Tins Daily: 1 Used Tobacco, but Quit: Yes Month Tobacco Last Used: March 2016 Second Hand Smoke Exposure: No - Caffeine Use Caffeine Use: Reports: Coffee - Recreational Drug Use Recreational Drug Use: No Course - Vital Signs Last Recorded V/S: Last Vital Signs Temp 36.6 C 06/06/16 19:40 Pulse 67 06/06/16 19:40 Resp 34 H 06/06/16 19:40 BP 193/114 H 06/06/16 19:40 Pulse Ox 79 L 06/06/16 19:40 - Orders/Labs/Meds Orders: Active Orders 24 hr Category Date Time Status Cardiac Monitoring [RC] . DIRECTED Care 06/06/16 19:44 Ordered EKG Documentation Completion [RC] STAT Care 06/06/16 19:44 Ordered CXR [Chest 1V Frontal] [CR] Stat Exams 06/06/16 19:42 Ordered AMYLASE [CHEM] Stat Lab 06/06/16 19:44 Ordered B-TYPE NATRIURETIC PEPTIDE,BNP [CHEM] Stat Lab 06/06/16 19:39 Ordered CBC WITH AUTO DIFF [HEME] Stat Lab 06/06/16 19:39 Ordered CBC WITH AUTO DIFF [HEME] Stat Lab 06/06/16 19:44 Ordered COMPREHENSIVE METABOLIC PN,CMP [CHEM] Stat Lab 06/06/16 19:39 Ordered INR,PT,PROTHROMBIN TIME [COAG] Stat Lab 06/06/16 19:44 Ordered LIPASE [CHEM] Stat Lab 06/06/16 19:44 Ordered TROPONIN I [CHEM] Stat Lab 06/06/16 19:44 Ordered UA W/MICROSCOPIC [URIN] Stat Lab 06/06/16 19:44 Uncollected Sodium Chloride 0.9% [Saline Flush] Med 06/06/16 19:44 Ordered 10 ml FLUSH ASDIRECTED PRN Sodium Chloride 0.9% [Saline Flush] Med 06/06/16 19:44 Ordered 2.5 ml FLUSH ASDIRECTED PRN Saline Lock Insert [OM.PC] Stat Oth 06/06/16 19:44 Ordered Medication Orders Sodium Chloride (Saline Flush) 10 ml FLUSH ASDIRECTED PRN PRN Reason: Keep Vein Open Sodium Chloride (Saline Flush) 2.5 ml FLUSH ASDIRECTED PRN PRN Reason: Keep Vein Open Meds: Medications Generic Name Dose Route Start Last Admin Trade Name Freq PRN Reason Stop Dose Admin Sodium Chloride 10 ml 06/06/16 19:44 Saline Flush FLUSH ASDIRECTED PRN Keep Vein Open Sodium Chloride 2.5 ml 06/06/16 19:44 Saline Flush FLUSH ASDIRECTED PRN Keep Vein Open Discontinued Medications Generic Name Dose Route Start Last Admin Trade Name Freq PRN Reason Stop Dose Admin Aspirin 324 mg 06/06/16 19:44 Aspirin PO 06/06/16 19:45 ONETIME ONE Famotidine 20 mg 06/06/16 19:44 Pepcid IVPUSH 06/06/16 19:45 ONETIME ONE Furosemide 40 mg 06/06/16 19:38 Lasix IVPUSH 06/06/16 19:39 NOW ONE Ketorolac Tromethamine 30 mg 06/06/16 19:44 Toradol IVPUSH 06/06/16 19:45 ONETIME ONE Departure - Departure Forms: ED Department Discharge - My Orders Last 24 Hours: My Active Orders 06/06/16 19:39 B-TYPE NATRIURETIC PEPTIDE,BNP [CHEM] Stat CBC WITH AUTO DIFF [HEME] Stat COMPREHENSIVE METABOLIC PN,CMP [CHEM] Stat 06/06/16 19:42 CXR [Chest 1V Frontal] [CR] Stat 06/06/16 19:44 Cardiac Monitoring [RC] . DIRECTED EKG Documentation Completion [RC] STAT AMYLASE [CHEM] Stat CBC WITH AUTO DIFF [HEME] Stat INR,PT,PROTHROMBIN TIME [COAG] Stat LIPASE [CHEM] Stat TROPONIN I [CHEM] Stat UA W/MICROSCOPIC [URIN] Stat Sodium Chloride 0.9% [Saline Flush] 10 ml FLUSH ASDIRECTED PRN Sodium Chloride 0.9% [Saline Flush] 2.5 ml FLUSH ASDIRECTED PRN Saline Lock Insert [OM.PC] Stat - Assessment/Plan Last 24 Hours: My Active Orders 06/06/16 19:39 B-TYPE NATRIURETIC PEPTIDE,BNP [CHEM] Stat CBC WITH AUTO DIFF [HEME] Stat COMPREHENSIVE METABOLIC PN,CMP [CHEM] Stat 06/06/16 19:42 CXR [Chest 1V Frontal] [CR] Stat 06/06/16 19:44 Cardiac Monitoring [RC] . DIRECTED EKG Documentation Completion [RC] STAT AMYLASE [CHEM] Stat CBC WITH AUTO DIFF [HEME] Stat INR,PT,PROTHROMBIN TIME [COAG] Stat LIPASE [CHEM] Stat TROPONIN I [CHEM] Stat UA W/MICROSCOPIC [URIN] Stat Sodium Chloride 0.9% [Saline Flush] 10 ml FLUSH ASDIRECTED PRN Sodium Chloride 0.9% [Saline Flush] 2.5 ml FLUSH ASDIRECTED PRN Saline Lock Insert [OM.PC] Stat
[2016-06-06] MEDS ORDERED: Etomidate 2 MG/ML 20 ML SDV IVPUSH STA ×2 (20:08→20:10)
[2016-06-06] MEDS ORDERED: Succinylcholine 200 MG/10 ML MDV IV STA (20:09)
[2016-06-06] MEDS ORDERED: Rocuronium 100 MG/10 ML MDV IVPUSH STA (20:10)
[2016-06-06] MEDS ORDERED: Rocuronium 50 MG/5 ML Vial IVPUSH STA (20:10)
[2016-06-06] MEDS ORDERED: Aspirin 300 MG Supp RECTAL ONE (20:29)
[2016-06-06] MEDS ORDERED: Aspirin 300 MG Supp ONE (20:29)
[2016-06-06] MEDS ORDERED: Aspirin 300 MG Supp RECTAL SCH (20:29)
--- NOTE | 2016-06-06 20:29 | EDM.PDOC ---
ED HPI GENERAL MEDICAL PROBLEM - General Chief Complaint: Respiratory Problem Stated Complaint: PT HAS DIFFICULTY BREATHING Time Seen by Provider: 06/06/16 20:31 - History of Present Illness INITIAL COMMENTS - FREE TEXT/NARRATIVE: HISTORY AND PHYSICAL: History of present illness: Patient is a 80-year-old female who presents from senior care in severe respiratory distress patient has history of congestive heart failure she also has history Of prior pneumonia and hypoxemia and respiratory failure Review of systems: As per history of present illness and below otherwise all systems reviewed and negative. Past medical history: As per history of present illness and as reviewed below otherwise noncontributory. Surgical history: As per history of present illness and as reviewed below otherwise noncontributory. Social history: No reported history of drug or alcohol abuse. Family history: As per history of present illness and as reviewed below otherwise noncontributory. Physical exam: HEENT: Atraumatic, normocephalic, pupils reactive, negative for conjunctival pallor or scleral icterus, mucous membranes moist, throat clear, neck supple, nontender, trachea midline. Lungs: coarse bilaterally markedly diminished breath sounds basilar crackles breath sounds equal Heart: S1S2, irregularly irregular, tachycardic Abdomen: Soft, nondistended, nontender. Negative for masses or hepatosplenomegaly. Negative for costovertebral tenderness. Pelvis: Stable nontender. Genitourinary: Deferred. Rectal: Deferred. Extremities: Atraumatic, negative for cords or calf pain. Neurovascular unremarkable. Neuro: Patient is somnolent does consent to mechanical ventilation denies chest pain follows commands moves all extremities limited grossly nonfocal exam Diagnostics: CBC CMP troponin PT/INR chest x-ray EKG Therapeutics: IV O2 monitor BiPAP was initiated patient remains in severe rest or distress patient was intubated by RSI by myself at 7.5 ET tube end-tidal CO2 colorimetric change normal breath sounds equal bilaterally chest x-ray confirms good ET position central line placed in right femoral vein by myself patient was prepped and draped in sterile manner was good blood return. Avila catheter NG tube nitro paste 1 inch to chest wall aspirin suppository 324 mg Impression: #1 acute respiratory failure #2 tachycardia dysrhythmia Case was discussed with Dr. He at [facility] graciously accepted the patient for transfer patient will be flown by [facility]. Definitive disposition and diagnosis as appropriate pending reevaluation and review of above. - Related Data Allergies Allergy/AdvReac Type Severity Reaction Status Date / Time clarithromycin [From Biaxin] Allergy unknown Verified 05/01/16 16:51 irbesartan [From Avapro] Allergy unknown Verified 05/01/16 16:51 red dye Allergy unknown Verified 05/01/16 16:51 [id number] Reductase Allergy unknown Verified 05/01/16 16:51 Inhibitor Home Meds: Home Meds Aspirin [[place] Aspirin] 81 mg PO DAILY 09/25/15 [History] Bisacodyl [Dulcolax] 10 mg RECTAL Q24H PRN 05/01/16 [History] Famotidine [Pepcid] 40 mg PO DAILY 05/01/16 [History] Gabapentin [Neurontin] 200 mg PO BID 05/01/16 [History] Magnesium Hydroxide [Milk of Magnesia] 30 ml PO DAILY PRN 05/01/16 [History] Nicotine [Nicoderm CQ] 21 mg TD DAILY 05/01/16 [History] Acetaminophen/HYDROcodone [[place] 325-5 MG] 5 - 325 mg PO Q4H PRN 05/02/16 [ History] Metoprolol Tartrate [Lopressor] 25 mg PO BID 05/02/16 [History] Cephalexin [Keflex] 500 mg PO Q6HR #20 cap 05/04/16 [Rx] Clopidogrel [Plavix] 75 mg PO DAILY #14 tablet 05/04/16 [Rx] Furosemide [Lasix] 40 mg PO DAILY #14 tablet 05/04/16 [Rx] Hydrocodone/Acetaminophen [[place] 5-325] 1 each PO Q4H PRN #20 tablet 05/04/16 [ Rx] LORazepam 0.5 mg PO Q8H PRN #12 tablet 05/04/16 [Rx] Prednisone [IJD: Prednisone] 30 mg PO DAILY #0 05/04/16 [Rx] Past Medical History Cardiovascular History: Reports: High cholesterol, Hypertension Respiratory History: Reports: SOB, Other (see below) Other Respiratory History: acute respiratory failure. 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: Endocrine/Metabolic History: Reports: Other (see below) Other Endocrine/Metabolic History: Borderline DM Hematologic History: Reports: Anticoagulation therapy - Past Surgical History GI Surgical History: Reports: Appendectomy, Cholecystectomy Female Surgical History: Reports: Hysterectomy Social & Family History - Family History Family Medical History: Noncontributory Cardiac: Reports: High cholesterol, Hypertension, [place] Respiratory: Reports: Other (see below) Other Respiratory Family Hisory: Lung Ca GI: Reports: GERD OBGYN: Reports: Musculoskeletal: Reports: Arthritis Neurological: Reports: TIA Endocrine/Metabolic: Reports: Diabetes, type II Oncologic: Reports: Lung - Tobacco Use Smoking Status *Q: Former Smoker Years of Tobacco use: 60 Packs/Tins Daily: 1 Used Tobacco, but Quit: Yes Month Tobacco Last Used: March 2016 Second Hand Smoke Exposure: No - Caffeine Use Caffeine Use: Reports: Coffee - Recreational Drug Use Recreational Drug Use: No ED ROS GENERAL - Review of Systems Review Of Systems: See Below ED EXAM, GENERAL - Physical Exam Exam: See Below (See dictation) Course - Vital Signs Last Recorded V/S: Last Vital Signs Temp 36.6 C 06/06/16 19:40 Pulse 67 06/06/16 19:40 Resp 34 H 06/06/16 19:40 BP 193/114 H 06/06/16 19:40 Pulse Ox 79 L 06/06/16 19:40 - Orders/Labs/Meds Orders: Active Orders 24 hr Category Date Time Status Cardiac Monitoring [RC] . DIRECTED Care 06/06/16 19:44 Active EKG Documentation Completion [RC] STAT Care 06/06/16 19:44 Active RT BiPAP/CPAP [RC] ASDIRECTED Care 06/06/16 19:53 Active CXR [Chest 1V Frontal] [CR] Stat Exams 06/06/16 19:42 Ordered UA W/MICROSCOPIC [URIN] Stat Lab 06/06/16 19:44 Uncollected Sodium Chloride 0.9% [Saline Flush] Med 06/06/16 19:44 Active 10 ml FLUSH ASDIRECTED PRN Sodium Chloride 0.9% [Saline Flush] Med 06/06/16 19:44 Active 2.5 ml FLUSH ASDIRECTED PRN Saline Lock Insert [OM.PC] Stat Oth 06/06/16 19:44 Ordered Medication Orders Sodium Chloride (Saline Flush) 10 ml FLUSH ASDIRECTED PRN PRN Reason: Keep Vein Open Sodium Chloride (Saline Flush) 2.5 ml FLUSH ASDIRECTED PRN PRN Reason: Keep Vein Open Labs: Laboratory Tests 06/06/16 06/06/16 06/06/16 Range/Units 17:53 19:45 19:45 WBC 18.06 H (4.0-11.0) K/uL RBC 4.99 (4.30-5.90) M/uL Hgb 15.0 (12.0-16.0) g/dL Hct 44.4 (36.0-46.0) % MCV 89.0 (80.0-98.0) fL MCH 30.1 (27.0-32.0) pg MCHC 33.8 (31.0-37.0) g/dL RDW Std Deviation 44.8 (28.0-62.0) fl RDW Coeff of Gregory 14 (11.0-15.0) % Plt Count 292 (150-400) K/uL MPV 10.30 (7.40-12.00) fL Add Manual Diff YES Neutrophils % (Manual) 51 (48.0-80.0) % Band Neutrophils % 6 % Lymphocytes % (Manual) 36 (16.0-40.0) % Monocytes % (Manual) 7 (0.0-15.0) % Nucleated RBC % 0.0 /100WBC Absolute Seg Neuts 9.2 Band Neutrophils # 1.1 Lymphocytes # (Manual) 6.5 Monocytes # (Manual) 1.3 Nucleated RBCs # 0 K/uL INR 0.93 (0.86-1.11) ABG pH (7.35-7.45) ABG pCO2 (35-45) mmHG ABG pO2 (75-100) mmHG ABG HCO3 (22-26) mEq/L ABG Total CO2 ABG Base Excess (-2.0-2.0) Sodium 131 L (136-146) mmol/L Potassium 4.8 (3.5-5.1) mmol/L Chloride 96 L (98-110) mmol/L Carbon Dioxide 20 L (21-31) mmol/L BUN 21 (6.0-23.0) mg/dL Creatinine 1.6 H (0.6-1.5) mg/dL Est Cr Clr Drug Dosing 26.03 mL/min Estimated GFR (MDRD) 31.2 ml/min Glucose 193 H (60-110) mg/dL Calcium 10.7 (8.8-10.8) mg/dL Total Bilirubin 0.5 (0.1-1.5) mg/dL AST 15 (5-40) IU/L ALT 21 (8-54) IU/L Alkaline Phosphatase 102 (40-150) Troponin I (0.0-0.29) NG/ML B-Natriuretic Peptide (<100) PG/ML Total Protein 8.5 H (6.0-8.0) g/dL Albumin 4.7 (3.4-4.8) g/dL Globulin 3.8 H (2.0-3.5) g/dL Albumin/Globulin Ratio 1.2 L (1.3-2.8) Amylase 22 (10-90) U/L Lipase 53 (7-80) U/L 06/06/16 06/06/16 06/06/16 Range/Units 19:45 19:45 19:50 WBC (4.0-11.0) K/uL RBC (4.30-5.90) M/uL Hgb (12.0-16.0) g/dL Hct (36.0-46.0) % MCV (80.0-98.0) fL MCH (27.0-32.0) pg MCHC (31.0-37.0) g/dL RDW Std Deviation (28.0-62.0) fl RDW Coeff of Gregory (11.0-15.0) % Plt Count (150-400) K/uL MPV (7.40-12.00) fL Add Manual Diff Neutrophils % (Manual) (48.0-80.0) % Band Neutrophils % % Lymphocytes % (Manual) (16.0-40.0) % Monocytes % (Manual) (0.0-15.0) % Nucleated RBC % /100WBC Absolute Seg Neuts Band Neutrophils # Lymphocytes # (Manual) Monocytes # (Manual) Nucleated RBCs # K/uL INR (0.86-1.11) ABG pH 7.250 L (7.35-7.45) ABG pCO2 46 H (35-45) mmHG ABG pO2 149 H (75-100) mmHG ABG HCO3 20 L (22-26) mEq/L ABG Total CO2 18.9 ABG Base Excess -6.5 L (-2.0-2.0) Sodium (136-146) mmol/L Potassium (3.5-5.1) mmol/L Chloride (98-110) mmol/L Carbon Dioxide (21-31) mmol/L BUN (6.0-23.0) mg/dL Creatinine (0.6-1.5) mg/dL Est Cr Clr Drug Dosing mL/min Estimated GFR (MDRD) ml/min Glucose (60-110) mg/dL Calcium (8.8-10.8) mg/dL Total Bilirubin (0.1-1.5) mg/dL AST (5-40) IU/L ALT (8-54) IU/L Alkaline Phosphatase (40-150) Troponin I < 0.10 (0.0-0.29) NG/ML B-Natriuretic Peptide 1896 H (<100) PG/ML Total Protein (6.0-8.0) g/dL Albumin (3.4-4.8) g/dL Globulin (2.0-3.5) g/dL Albumin/Globulin Ratio (1.3-2.8) Amylase (10-90) U/L Lipase (7-80) U/L Meds: Medications Generic Name Dose Route Start Last Admin Trade Name Freq PRN Reason Stop Dose Admin Sodium Chloride 10 ml 06/06/16 19:44 Saline Flush FLUSH ASDIRECTED PRN Keep Vein Open Sodium Chloride 2.5 ml 06/06/16 19:44 Saline Flush FLUSH ASDIRECTED PRN Keep Vein Open Discontinued Medications Generic Name Dose Route Start Last Admin Trade Name Freq PRN Reason Stop Dose Admin Aspirin 324 mg 06/06/16 19:44 Aspirin PO 06/06/16 19:45 ONETIME ONE Diltiazem HCl 25 mg 06/06/16 19:53 Diltiazem IVPUSH 06/06/16 19:54 ONETIME ONE Diltiazem HCl 25 mg 06/06/16 20:02 Diltiazem IVPUSH 06/06/16 20:03 ONETIME ONE Famotidine 20 mg 06/06/16 19:44 Pepcid IVPUSH 06/06/16 19:45 ONETIME ONE Furosemide 40 mg 06/06/16 19:38 Lasix IVPUSH 06/06/16 19:39 NOW ONE Ketorolac Tromethamine 30 mg 06/06/16 19:44 Toradol IVPUSH 06/06/16 19:45 ONETIME ONE Nitroglycerin Confirm 06/06/16 19:49 Nitro-Bid 2% Administered 06/06/16 19:50 Dose 1 gm .ROUTE .STK-MED ONE Departure - Departure Time of Disposition: 20:29 Disposition: DC/Tfer to Acute Hospital 02 Condition: critical Clinical Impression: Respiratory failure, Dysrhythmia, cardiac Forms: ED Department Discharge
[2016-06-06] MEDS ORDERED: Nitroglycerin 2% Oint 1 GM UD Packet TOP ONE (21:44)
[2016-06-06] MEDS ORDERED: Sodium Chloride 0.9% 1,000 ML IV ONE (21:51)
[2016-06-06 23:13] VITALS: BP 201/113
--- NOTE | 2016-06-07 10:02 | CR ---
EXAM DATE: 06/06/16 PATIENT'S AGE: 80 Patient: AVI RODRIGUEZ Facility: [place], [place] Site . Site : [id number] Study: XRay Chest [id number]/19/2017 8:27:40 PM Ordering Physician: Doctor Yuen Final Report: INDICATION: CHF, intubation TECHNIQUE: Chest 1 view. 8:20 p.m. COMPARISON: 05/01/2016 FINDINGS: Lines and tubes: The ET tube is in place with the tip 3.5 centimeters from the carmen. Cardiovascular and mediastinum: Heart size is at the upper limits of normal with pulmonary vascular congestive changes appear. Mediastinum is within normal limits. Lungs and pleural space: Lungs are clear. No sign of infiltrate or mass. No sign of pleural effusion. No pneumothorax. Bones and soft tissues: No significant findings. IMPRESSION: ET tube in place with the tip 3.5 centimeters from the carmen. Heart size upper limits of normal with pulmonary vascular congestive changes. Dictated by Memo Whalen MD @ 06/06/2016 8:54:10 PM Dictated by: Memo Whalen MD @ 06/06/2016 20:54:22 (Electronic Signature) Report Signed by Proxy and Original Signed Document filed in the Medical Record. MTDD
== END 2016-06-06 20:45 ==
LOC: MW.ED 19:32
DX: J96.90 Respiratory failure, unspecified, unspecified whether with hypoxia or hypercapnia (principal); I49.9 Cardiac arrhythmia, unspecified; I10 Essential (primary) hypertension; E78.00 Pure hypercholesterolemia, unspecified; Z90.49 Acquired absence of other specified parts of digestive tract; Z90.710 Acquired absence of both cervix and uterus; Z79.02 Long term (current) use of antithrombotics/antiplatelets; Z79.899 Other long term (current) drug therapy; Z87.891 Personal history of nicotine dependence; Z79.82 Long term (current) use of aspirin; Z88.1 Allergy status to other antibiotic agents; Z88.8 Allergy status to other drugs, medicaments and biological substances
CPT/HCPCS: 31500; 36600; 71010; 80053; 81001; 82150; 82803; 83690; 83880; 84484; 85025; 85610; 93005; 94660; 96374; 96375; 99291; A9270; J0330; J1940; J7040; 36556; 99285

== ENCOUNTER 2016-08-03 09:01 | Emergency (ER) | payer MEDICARE, MEDICAID ==
[2016-08-03] MEDS ORDERED: methylPREDNISolone Sodium Succinate 125 MG/2 ML SDV IVPUSH ONE (09:04)
[2016-08-03] MEDS ORDERED: Albuterol/Ipratropium 3.0-0.5 MG/3 ML Neb Soln NEB ONE ×2 (09:04)
[2016-08-03] MEDS ORDERED: Sodium Chloride 0.9% 10 ML Syringe FLUSH PRN (09:04)
[2016-08-03] MEDS ORDERED: Sodium Chloride 0.9% 2.5 ML Syringe FLUSH PRN (09:04)
[2016-08-03] MEDS ORDERED: Etomidate 2 MG/ML 20 ML SDV IVPUSH ONE (09:11)
[2016-08-03] MEDS ORDERED: Succinylcholine 200 MG/10 ML MDV IV STA (09:12)
--- NOTE | 2016-08-03 09:12 | EDM.PDOC ---
ED HPI GENERAL MEDICAL PROBLEM - General Chief Complaint: Respiratory Problem Stated Complaint: AMBULANCE Time Seen by Provider: 08/03/16 09:02 - History of Present Illness INITIAL COMMENTS - FREE TEXT/NARRATIVE: HISTORY AND PHYSICAL: History of present illness: The patient is a 81-year-old female who resides at [facility] or [facility] and presents via EMS in severe respiratory distress. She has a long-standing history of tobacco use as well as CHF coronary artery disease with stent renal dysfunction hyperlipidemia hypertension peripheral vascular disease and pneumonia. She takes Lasix and Plavix daily and also smokes daily. She was last seen here in the emergency department in May of this year and was in severe to respiratory distress at that time and was intubated and transferred. According to the group home she was normal yesterday and this morning was noted to be severely short of breath and an O2 sat on room air of 74 %. Per EMS on their arrival she was severely dyspneic and unable to speak and she was emergently placed on BiPAP. On arrival here the patient can offer limited history only stating that she has had a cough productive of phlegm and she is short of breath but has no chest pain or abdominal pain. On BiPAP on arrival to the ED her O2 sat is 89-90% and she has severe work of breathing. Further history is obtained by old charts as well as [place] transfer forms. Review of systems: As per history of present illness and below otherwise all systems reviewed and negative. Past medical history: As per history of present illness and as reviewed below otherwise noncontributory. Surgical history: As per history of present illness and as reviewed below otherwise noncontributory. Social history: No reported history of drug or alcohol abuse. Family history: As per history of present illness and as reviewed below otherwise noncontributory. Physical exam: Gen.: Well-developed mildly overweight female who is nontoxic and can only nod her head to answering questions and is in severe respiratory distress. HEENT: Atraumatic, normocephalic, pupils reactive, negative for conjunctival pallor or scleral icterus, mucous membranes moist, throat clear, neck supple, nontender, trachea midline. Lungs: Severe increased work of breathing with abdominal muscle use and intercostal use and wheezing inspiratory and expiratory with diminished breath sounds at the bases, breath sounds equal bilaterally, chest nontender. Heart: S1S2, regular rate and tachycardic rhythm, no overt murmur and patient cannot lie flat to assess JVD Abdomen: Soft, nondistended, nontender. Negative for masses or hepatosplenomegaly. Hypoactive bowel sounds. Pelvis: Stable nontender. Genitourinary: Deferred. Rectal: Deferred. Extremities: Atraumatic, negative for cords or calf pain. Neurovascular unremarkable. No pedal edema Neuro: Awake, alert, only able to nod to answers for questions. Cranial nerves II through XII unremarkable. Cerebellum unremarkable. Motor and sensory unremarkable throughout. Exam nonfocal. Diagnostics: EKG, chest x-ray 2 pre-and postintubation, CBC CMP BNP INR troponin lactic acid blood cultures Therapeutics: IV O2 monitor Solu-Medrol DuoNeb IV fluids Levaquin Lasix 0909: Case was discussed with Dr. Wooten at [facility] in [place] and he accepts the patient for transfer. He is aware of her prior intubation and transfer. Flight team has been notified and is in route The patient was intubated easily by FRANCISCO Siddiqui. Chest x-ray performed 3 intubation indicates more interstitial edema consistent with CHF so I will give a dose of Lasix but with the patient's lactic acid of 4.4 I will send blood cultures and having a dose of antibiotics. 0925: Flight team is here to facilitate transfer to [facility] and all pending lab results will be forwarded to [place]. Postintubation chest x-ray is being performed now and I will check this prior to flight departure. Critical care time excluding procedures 31 minutes Impression: Acute respiratory distress with hypoxia and history of COPD CHF Definitive disposition and diagnosis as appropriate pending reevaluation and review of above. - Related Data Allergies Allergy/AdvReac Type Severity Reaction Status Date / Time clarithromycin [From Biaxin] Allergy unknown Verified 08/03/16 09:11 irbesartan [From Avapro] Allergy unknown Verified 08/03/16 09:11 red dye Allergy unknown Verified 08/03/16 09:11 Ecyaqri-Sth-Emo Reductase Allergy unknown Verified 08/03/16 09:11 Inhibitor Home Meds: Home Meds Aspirin [[place] Aspirin] 81 mg PO DAILY 09/25/15 [History] Bisacodyl [Dulcolax] 10 mg RECTAL Q24H PRN 05/01/16 [History] Famotidine [Pepcid] 40 mg PO DAILY 05/01/16 [History] Gabapentin [Neurontin] 200 mg PO BID 05/01/16 [History] Magnesium Hydroxide [Milk of Magnesia] 30 ml PO DAILY PRN 05/01/16 [History] Nicotine [Nicoderm CQ] 21 mg TD DAILY 05/01/16 [History] Acetaminophen/HYDROcodone [Zamora 325-5 MG] 5 - 325 mg PO Q4H PRN 05/02/16 [ History] Metoprolol Tartrate [Lopressor] 25 mg PO BID 05/02/16 [History] Cephalexin [Keflex] 500 mg PO Q6HR #20 cap 05/04/16 [Rx] Clopidogrel [Plavix] 75 mg PO DAILY #14 tablet 05/04/16 [Rx] Furosemide [Lasix] 40 mg PO DAILY #14 tablet 05/04/16 [Rx] Hydrocodone/Acetaminophen [Zamora 5-325] 1 each PO Q4H PRN #20 tablet 05/04/16 [ Rx] LORazepam 0.5 mg PO Q8H PRN #12 tablet 05/04/16 [Rx] Prednisone [IJD: Prednisone] 30 mg PO DAILY #0 05/04/16 [Rx] Past Medical History Cardiovascular History: Reports: High Cholesterol, Hypertension Respiratory History: Reports: SOB, Other (See Below) Other Respiratory History: acute respiratory failure. 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: Endocrine/Metabolic History: Reports: Other (See Below) Other Endocrine/Metabolic History: Borderline DM Hematologic History: Reports: Anticoagulation Therapy - Past Surgical History GI Surgical History: Reports: Appendectomy, Cholecystectomy Female Surgical History: Reports: Hysterectomy Social & Family History - Family History Family Medical History: Noncontributory Cardiac: Reports: High Cholesterol, Hypertension, [place] Respiratory: Reports: Other (See Below) Other Respiratory Family Hisory: Lung Ca GI: Reports: GERD OBGYN: Reports: Musculoskeletal: Reports: Arthritis Neurological: Reports: TIA Endocrine/Metabolic: Reports: Diabetes, type II Oncologic: Reports: Lung - Tobacco Use Smoking Status *Q: Former Smoker Years of Tobacco use: 60 Packs/Tins Daily: 1 Used Tobacco, but Quit: Yes Month Tobacco Last Used: March 2016 Second Hand Smoke Exposure: No - Caffeine Use Caffeine Use: Reports: Coffee - Recreational Drug Use Recreational Drug Use: No ED ROS GENERAL - Review of Systems Review Of Systems: ROS reveals no pertinent complaints other than HPI. ED EXAM, GENERAL - Physical Exam Exam: See Below (See dictation) Course - Vital Signs Last Recorded V/S: Last Vital Signs Temp 35.1 C L 08/03/16 09:06 Pulse 124 H 08/03/16 09:06 Resp 33 H 08/03/16 09:06 BP 218/104 H 08/03/16 09:06 Pulse Ox 89 L 08/03/16 09:06 - Orders/Labs/Meds Orders: Active Orders 24 hr Category Date Time Status Cardiac Monitoring [RC] . DIRECTED Care 08/03/16 09:03 Active EKG Documentation Completion [RC] STAT Care 08/03/16 09:03 Active Oxygen Therapy, ED [RC] ASDIRECTED Care 08/03/16 09:03 Active RT Aerosol Therapy [RC] ASDIRECTED Care 08/03/16 09:04 Active Chest 1V Frontal [CR] Routine Exams 08/03/16 09:14 Ordered Chest 1V Frontal [CR] Stat Exams 08/03/16 09:04 Taken B-TYPE NATRIURETIC PEPTIDE,BNP [CHEM] Stat Lab 08/03/16 08:53 Received CBC WITH AUTO DIFF [HEME] Stat Lab 08/03/16 08:53 Received COMPREHENSIVE METABOLIC PN,CMP [CHEM] Stat Lab 08/03/16 08:53 Received CULTURE BLOOD [BC] Stat Lab 08/03/16 09:23 Ordered CULTURE BLOOD [BC] Stat Lab 08/03/16 09:23 Ordered TROPONIN I [CHEM] Stat Lab 08/03/16 08:53 Received Levofloxacin/Dextrose 5%-Water [Levaquin in D5W 750 MG/ Med 08/03/16 09:24 Active 150 ML] 750 mg Premix Bag 1 bag IV ONETIME Propofol [Diprivan 100 ML] 100 ml Med 08/03/16 09:30 Active IV TITRATE Sodium Chloride 0.9% [Saline Flush] Med 08/03/16 09:04 Active 10 ml FLUSH ASDIRECTED PRN Sodium Chloride 0.9% [Saline Flush] Med 08/03/16 09:04 Active 2.5 ml FLUSH ASDIRECTED PRN Blood Culture x2 Reflex Set [OM.PC] Stat Oth 08/03/16 09:23 Ordered Desired Level of Sedation (RASS) [AST] ONETIME Oth 08/03/16 09:23 Ordered Saline Lock Insert [OM.PC] Stat Oth 08/03/16 09:03 Ordered Medication Orders Propofol (Diprivan 100 Ml) 100 mls @ 2.334 mls/hr IV TITRATE PINA; 5 MCG/KG/MIN PRN Reason: Protocol Levofloxacin/Dextrose 750 mg/ (Premix) 150 mls @ 100 mls/hr IV ONETIME ONE Stop: 08/03/16 10:53 Sodium Chloride (Saline Flush) 10 ml FLUSH ASDIRECTED PRN PRN Reason: Keep Vein Open Sodium Chloride (Saline Flush) 2.5 ml FLUSH ASDIRECTED PRN PRN Reason: Keep Vein Open Labs: Laboratory Tests 08/03/16 08/03/16 Range/Units 08:53 08:53 INR 0.96 (0.86-1.11) Lactate 4.4 H (0.20-2.00) mmol/L Meds: Medications Generic Name Dose Route Start Last Admin Trade Name Freq PRN Reason Stop Dose Admin Propofol 100 mls @ 2.334 mls/hr 08/03/16 09:30 Diprivan 100 Ml IV TITRATE PINA Protocol 5 MCG/KG/MIN Levofloxacin/Dextrose 750 mg/ 150 mls @ 100 mls/hr 08/03/16 09:24 Premix IV 08/03/16 10:53 ONETIME ONE Sodium Chloride 10 ml 08/03/16 09:04 Saline Flush FLUSH ASDIRECTED PRN Keep Vein Open Sodium Chloride 2.5 ml 08/03/16 09:04 Saline Flush FLUSH ASDIRECTED PRN Keep Vein Open Discontinued Medications Generic Name Dose Route Start Last Admin Trade Name Freq PRN Reason Stop Dose Admin Albuterol/Ipratropium 3 ml 08/03/16 09:04 Duoneb 3.0-0.5 Mg/3 Ml NEB 08/03/16 09:05 ONETIME ONE Furosemide 60 mg 08/03/16 09:23 Lasix IVPUSH 08/03/16 09:24 ONETIME ONE Methylprednisolone Sodium Succinate 125 mg 08/03/16 09:04 Solu-Medrol IVPUSH 08/03/16 09:05 ONETIME ONE Departure - Departure Time of Disposition: 09:31 Disposition: DC/Tfer to Acute Hospital 02 Condition: Good Clinical Impression: Acute respiratory distress - Discharge Information Forms: ED Department Discharge - My Orders Last 24 Hours: My Active Orders 08/03/16 08:53 B-TYPE NATRIURETIC PEPTIDE,BNP [CHEM] Stat CBC WITH AUTO DIFF [HEME] Stat COMPREHENSIVE METABOLIC PN,CMP [CHEM] Stat TROPONIN I [CHEM] Stat 08/03/16 09:03 Cardiac Monitoring [RC] . DIRECTED EKG Documentation Completion [RC] STAT Oxygen Therapy, ED [RC] ASDIRECTED Saline Lock Insert [OM.PC] Stat 08/03/16 09:04 RT Aerosol Therapy [RC] ASDIRECTED Chest 1V Frontal [CR] Stat Sodium Chloride 0.9% [Saline Flush] 10 ml FLUSH ASDIRECTED PRN Sodium Chloride 0.9% [Saline Flush] 2.5 ml FLUSH ASDIRECTED PRN 08/03/16 09:14 Chest 1V Frontal [CR] Routine 08/03/16 09:23 CULTURE BLOOD [BC] Stat CULTURE BLOOD [BC] Stat Blood Culture x2 Reflex Set [OM.PC] Stat Desired Level of Sedation (RASS) [AST] ONETIME 08/03/16 09:24 Levofloxacin/Dextrose 5%-Water [Levaquin in D5W 750 MG/150 ML] 750 mg Premix Bag 1 bag IV ONETIME 08/03/16 09:30 Propofol [Diprivan 100 ML] 100 ml IV TITRATE - Assessment/Plan Last 24 Hours: My Active Orders 08/03/16 08:53 B-TYPE NATRIURETIC PEPTIDE,BNP [CHEM] Stat CBC WITH AUTO DIFF [HEME] Stat COMPREHENSIVE METABOLIC PN,CMP [CHEM] Stat TROPONIN I [CHEM] Stat 08/03/16 09:03 Cardiac Monitoring [RC] . DIRECTED EKG Documentation Completion [RC] STAT Oxygen Therapy, ED [RC] ASDIRECTED Saline Lock Insert [OM.PC] Stat 08/03/16 09:04 RT Aerosol Therapy [RC] ASDIRECTED Chest 1V Frontal [CR] Stat Sodium Chloride 0.9% [Saline Flush] 10 ml FLUSH ASDIRECTED PRN Sodium Chloride 0.9% [Saline Flush] 2.5 ml FLUSH ASDIRECTED PRN 08/03/16 09:14 Chest 1V Frontal [CR] Routine 08/03/16 09:23 CULTURE BLOOD [BC] Stat CULTURE BLOOD [BC] Stat Blood Culture x2 Reflex Set [OM.PC] Stat Desired Level of Sedation (RASS) [AST] ONETIME 08/03/16 09:24 Levofloxacin/Dextrose 5%-Water [Levaquin in D5W 750 MG/150 ML] 750 mg Premix Bag 1 bag IV ONETIME 08/03/16 09:30 Propofol [Diprivan 100 ML] 100 ml IV TITRATE
[2016-08-03] MEDS ORDERED: Furosemide 20 MG/2 ML VIAL IVPUSH ONE (09:23)
[2016-08-03] MEDS ORDERED: Levofloxacin/Dextrose 5%-Water 750 MG in Premix Bag 1 BAG IV ONE (09:24)
[2016-08-03] MEDS ORDERED: Rocuronium 50 MG/5 ML Vial IVPUSH ONE (09:25)
[2016-08-03] MEDS ORDERED: Propofol 200 MG/20 ML SDV IVPUSH ONE (09:27)
[2016-08-03] MEDS ORDERED: Furosemide 40 MG/4 ML VIAL ONE (09:29)
--- NOTE | 2016-08-03 09:40 | PCM.SN ---
- Free Text/Narrative Note: Intubation requested by ER physician for patient in respiratory distress awaiting transfer to [place]. Pt has had plan explained and is in agreement. 20 mg etomidate IV followed by 160 mg succinylcholine IV for induction. Cords clear. Pt intubated with Haley 2 blade and 7.5 ETT. Tube secured at 22cm at teeth. Placement confirmed by positive ETCO2, bilateral breath sounds and chest rise. Pt given rocuronium 50 mg IV. Pt care resumed by Dr. Boyd for sedation. Transport team present and report given for intubation.
[2016-08-03] MEDS ORDERED: Sodium Chloride 0.9% 500 ML IV STA (11:05)
[2016-08-03 17:46] VITALS: BP 144/71
--- NOTE | 2016-08-03 17:48 | CR ---
EXAM DATE: 08/03/16 PATIENT'S AGE: 81 Patient: AVI RODRIGUEZ Facility: [place], [place] Site . Site : 1935 Study: XRay Chest [id number]/16/2017 9:12:39 AM Ordering Physician: Oliver Combs Final Report: INDICATION: PAIN,SOB HISTORY: Pain and shortness of breath. COMPARISON: 06/06/2016. TECHNIQUE: Chest 1 view. FINDINGS: remedial masseur leads overlie the patient. Heart size is mildly enlarged. Pulmonary vasculature is indistinct. Interstitial type opacities are present throughout both lungs. This may represent interstitial edema. There is no focal consolidation or pneumothorax. Central airway is normal. The patient was intubated on the prior examination from 06/06/2016. IMPRESSION: 1. Cardiomegaly with thickening of the bronchovascular interstitium, similar to previous. 2. Interstitial edema is favored. Dictated by Ozzie Read MD @ 08/03/2016 9:14:59 AM Dictated by: Ozzie Read MD @ 08/03/2016 09:15:04 (Electronic Signature) Report Signed by Proxy. [facility]ín
--- NOTE | 2016-08-03 17:53 | CR ---
EXAM DATE: 08/03/16 PATIENT'S AGE: 81 Patient: AVI RODRIGUEZ Facility: [place], [place] Site . Site : 1935 Study: XRay Chest [id number]/16/2017 9:42:13 AM Ordering Physician: Oliver Combs Final Report: HISTORY: Post intubation. FINDINGS: AP portable chest is compared with 03 August 2016 at 0904 hours. Lateral costophrenic angles have been excluded from the exam. EKG leads overlie the thorax. An endotracheal tube in place with the tip 4.5 cm above the carmen. Cardiac silhouette is borderline enlarged. Pulmonary vasculature is ill-defined with mild increased interstitial markings present. No lobar consolidation is seen. IMPRESSION: 1. Endotracheal tube in appropriate position. 2. Borderline cardiomegaly with ill-defined pulmonary vasculature and increased interstitial markings suggesting pulmonary venous congestion. Dictated by Cindy Solorzano MD @ 08/03/2016 9:46:20 AM Dictated by: Cindy Solorzano MD @ 08/03/2016 09:46:30 (Electronic Signature) Report Signed by Proxy. [facility]
[2016-08-04] MEDS ORDERED: Sodium Chloride 0.9% 500 ML IV SCH (09:05)
== END 2016-08-03 09:56 ==
LOC: MW.ED 09:01
DX: J80 Acute respiratory distress syndrome (principal); I11.0 Hypertensive heart disease with heart failure; I50.9 Heart failure, unspecified; I25.10 Atherosclerotic heart disease of native coronary artery without angina pectoris; J44.9 Chronic obstructive pulmonary disease, unspecified; E78.00 Pure hypercholesterolemia, unspecified; Z90.49 Acquired absence of other specified parts of digestive tract; Z90.710 Acquired absence of both cervix and uterus; Z87.891 Personal history of nicotine dependence; Z79.82 Long term (current) use of aspirin; Z79.02 Long term (current) use of antithrombotics/antiplatelets; Z79.01 Long term (current) use of anticoagulants; Z79.899 Other long term (current) drug therapy; Z88.1 Allergy status to other antibiotic agents; Z88.8 Allergy status to other drugs, medicaments and biological substances; Z95.5 Presence of coronary angioplasty implant and graft
CPT/HCPCS: 36415; 71010; 80053; 81001; 83605; 83880; 84484; 85025; 85610; 87040; 93005; 94640; 94664; 96365; 96374; 96375; 96376; 99291; A9270; J0330; J1956; J2930; J7040; 31500; 99285; J2704

== ENCOUNTER 2016-11-10 19:05 | Emergency (ER) | payer MEDICARE, MEDICAID ==
[2016-11-10] MEDS ORDERED: Rabies Vaccine (Avian) 2.5 Unit Inj Kit IM ONE (19:34)
[2016-11-10] MEDS ORDERED: Rabies Immune Globulin PF 150 Units/ML 2 ML SDV IM ONE (19:34)
--- NOTE | 2016-11-10 19:37 | EDM.PDOC ---
ED HPI GENERAL MEDICAL PROBLEM - General Chief Complaint: Bite:Animal, Insect Stated Complaint: PT HAS SQUIRREL BITE Time Seen by Provider: 11/10/16 19:35 Source of Information: Reports: Patient - History of Present Illness INITIAL COMMENTS - FREE TEXT/NARRATIVE: HISTORY AND PHYSICAL: History of present illness: Patient presents from [facility] after being bitten by a squirrel. it is common to feed several squirrels outside of the [facility], the patient was placing a peanut in front of the squirrel squirrel longed for the peanut and bit her finger, this could be considered provoked and low likelihood for rabies however the patient would be more comfortable receiving the rabies vaccination No fever nausea vomiting chills sweats no chest pain shortness breath headache dizziness or palpitation no bowel or urine symptoms Skin the right index finger does have 2 puncture wounds consistent with squirrel bite small nonbleeding no redness warmth or exudate of discharge entire limb is neurovascularly intact Review of systems: As per history of present illness and below otherwise all systems reviewed and negative. Past medical history: As per history of present illness and as reviewed below otherwise noncontributory. Surgical history: As per history of present illness and as reviewed below otherwise noncontributory. Social history: No reported history of drug or alcohol abuse. Family history: As per history of present illness and as reviewed below otherwise noncontributory. Physical exam: HEENT: Atraumatic, normocephalic, pupils reactive, negative for conjunctival pallor or scleral icterus, mucous membranes moist, throat clear, neck supple, nontender, trachea midline. Lungs: Clear to auscultation, breath sounds equal bilaterally, chest nontender. Heart: S1S2, regular, negative for clicks, rubs, or JVD. Abdomen: Soft, nondistended, nontender. Negative for masses or hepatosplenomegaly. Negative for costovertebral tenderness. Pelvis: Stable nontender. Genitourinary: Deferred. Rectal: Deferred. Extremities: Atraumatic, negative for cords or calf pain. Neurovascular unremarkable. Neuro: Awake, alert, oriented. Cranial nerves II through XII unremarkable. Cerebellum unremarkable. Motor and sensory unremarkable throughout. Exam nonfocal. Skin as per history of present illness otherwise unremarkable Diagnostics: [] Therapeutics: []Tetanus status is up-to-date Wound is cleansed Rabies Ig at wound site as anatomically feasible Rabies vaccination Serious to be completed at [facility] 1 g Rocephin Augmentin 875 per 125 by mouth twice a day #20 no refill Impression: []Animal bite Definitive disposition and diagnosis as appropriate pending reevaluation and review of above. - Related Data Allergies Allergy/AdvReac Type Severity Reaction Status Date / Time clarithromycin [From Biaxin] Allergy unknown Verified 11/10/16 19:20 irbesartan [From Avapro] Allergy unknown Verified 11/10/16 19:20 red dye Allergy unknown Verified 11/10/16 19:20 Fnclger-Grp-Kna Reductase Allergy unknown Verified 11/10/16 19:20 Inhibitor Home Meds: Home Meds Aspirin [[place] Aspirin] 81 mg PO DAILY 09/25/15 [History] Bisacodyl [Dulcolax] 10 mg RECTAL Q24H PRN 05/01/16 [History] Famotidine [Pepcid] 40 mg PO DAILY 05/01/16 [History] Gabapentin [Neurontin] 200 mg PO BID 05/01/16 [History] Magnesium Hydroxide [Milk of Magnesia] 30 ml PO DAILY PRN 05/01/16 [History] Metoprolol Tartrate [Lopressor] 25 mg PO BID 05/02/16 [History] Clopidogrel [Plavix] 75 mg PO DAILY #14 tablet 05/04/16 [Rx] Furosemide [Lasix] 40 mg PO DAILY #14 tablet 05/04/16 [Rx] Hydrocodone/Acetaminophen [Center 5-325] 1 each PO Q4H PRN #20 tablet 05/04/16 [ Rx] LORazepam 0.5 mg PO Q8H PRN #12 tablet 05/04/16 [Rx] Bisacodyl [Biscolax] 10 mg RC ASDIRECTED PRN 08/03/16 [History] Bismuth Subsalicylate [Pepto-Bismol] 15 ml PO ASDIRECTED PRN MDD q24h 08/03/16 [ History] Fluticasone Propionate [Flovent] 1 puff IH DAILY 08/03/16 [History] Lisinopril 5 mg PO DAILY 08/03/16 [History] Prednisone [IJD: Prednisone] 20 mg PO DAILY 08/03/16 [History] Rosuvastatin [Crestor] 10 mg PO BEDTIME 08/03/16 [History] Simethicone 80 mg PO Q6H PRN 08/03/16 [History] guaiFENesin [Tussin] 100 mg PO Q6H PRN 08/03/16 [History] Past Medical History - Past Health History Medical/Surgical History: Denies Medical/Surgical History HEENT History: Reports: Impaired Vision Other HEENT History: wears glasses Cardiovascular History: Reports: CAD, High Cholesterol, Hypertension, [place], Stents Respiratory History: Reports: SOB, Other (See Below) Other Respiratory History: acute respiratory failure. 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: Psychiatric History: Reports: Anxiety Endocrine/Metabolic History: Reports: Other (See Below) Other Endocrine/Metabolic History: Borderline DM Hematologic History: Reports: Anticoagulation Therapy - Past Surgical History GI Surgical History: Reports: Appendectomy, Cholecystectomy Female Surgical History: Reports: Hysterectomy Social & Family History - Family History Family Medical History: Noncontributory Cardiac: Reports: High Cholesterol, Hypertension, [place] Respiratory: Reports: Other (See Below) Other Respiratory Family Hisory: Lung Ca GI: Reports: GERD OBGYN: Reports: Musculoskeletal: Reports: Arthritis Neurological: Reports: TIA Endocrine/Metabolic: Reports: Diabetes, type II Oncologic: Reports: Lung - Tobacco Use Smoking Status *Q: Current Every Day Smoker Years of Tobacco use: 40 Packs/Tins Daily: 1 Used Tobacco, but Quit: Yes Month Tobacco Last Used: March 2016 Second Hand Smoke Exposure: No - Caffeine Use Caffeine Use: Reports: Coffee - Recreational Drug Use Recreational Drug Use: No ED ROS GENERAL - Review of Systems Review Of Systems: ROS reveals no pertinent complaints other than HPI. ED EXAM, ANIMAL BITE - Physical Exam Exam: See Below Course - Vital Signs Last Recorded V/S: Last Vital Signs Temp 36.3 C 11/10/16 19:20 Pulse 96 11/10/16 19:20 Resp 18 11/10/16 19:20 BP 161/71 H 11/10/16 19:20 Pulse Ox 99 11/10/16 19:20 - Orders/Labs/Meds Orders: Active Orders 24 hr Category Date Time Status Vaccines to be Administered [RC] PER UNIT ROUTINE Care 11/10/16 19:35 Active Meds: Medications Discontinued Medications Generic Name Dose Route Start Last Admin Trade Name Hakan PRN Reason Stop Dose Admin Ceftriaxone Sodium 1,000 mg/ 4 mls @ 4 mls/sec 11/10/16 19:26 Lidocaine HCl IM 11/10/16 19:27 ONETIME ONE Rabies Immune Globulin 150 unit 11/10/16 19:34 Imogam Rabies-Ht IM 11/10/16 19:35 .ONCE ONE Rabies Vaccine 2.5 unit 11/10/16 19:34 Rabavert IM 11/10/16 19:35 .ONCE ONE Departure - Departure Time of Disposition: 19:40 Disposition: DC/Tfer to [facility] Condition: Good Clinical Impression: Animal bite - Discharge Information Referrals: PCP,None [Primary Care Provider] - Forms: ED Department Discharge Additional Instructions: Rabies vaccination per protocol recommended Medication as prescribed Return if redness warmth fever nausea vomiting chills sweats should this develop or pus drainage Follow-up with primary care on rounds and shelter or return to ER as needed The following information is given to patients seen in the emergency department who are being discharged to home. This information is to outline your options for follow-up care. We provide all patients seen in our emergency department with a follow-up referral. The need for follow-up, as well as the timing and circumstances, are variable depending upon the specifics of your emergency department visit. If you don't have a primary care physician on staff, we will provide you with a referral. We always advise you to contact your personal physician following an emergency department visit to inform them of the circumstance of the visit and for follow-up with them and/or the need for any referrals to a consulting specialist. The emergency department will also refer you to a specialist when appropriate. This referral assures that you have the opportunity for follow-up care with a specialist. All of these measure are taken in an effort to provide you with optimal care, which includes your follow-up. Under all circumstances we always encourage you to contact your private physician who remains a resource for coordinating your care. When calling for follow-up care, please make the office aware that this follow-up is from your recent emergency room visit. If for any reason you are refused follow-up, please contact the [facility] emergency department at and asked to speak to the emergency department charge nurse. - My Orders Last 24 Hours: My Active Orders 11/10/16 19:35 Vaccines to be Administered [RC] PER UNIT ROUTINE - Assessment/Plan Last 24 Hours: My Active Orders 11/10/16 19:35 Vaccines to be Administered [RC] PER UNIT ROUTINE
[2016-11-10] MEDS: cefTRIAXone 1,000 MG in Lidocaine 1% 4 ML IM ONE (19:53)
[2016-11-10 20:57] VITALS: BP 148/80
== END 2016-11-10 20:46 ==
LOC: MW.ED 19:05
DX: S61.250A Open bite of right index finger without damage to nail, initial encounter (principal); I10 Essential (primary) hypertension; F41.9 Anxiety disorder, unspecified; E78.00 Pure hypercholesterolemia, unspecified; F17.210 Nicotine dependence, cigarettes, uncomplicated; Z88.8 Allergy status to other drugs, medicaments and biological substances; Z79.82 Long term (current) use of aspirin; Z79.899 Other long term (current) drug therapy; W53.21XA Bitten by squirrel, initial encounter
CPT/HCPCS: 90376; 90675; 96372; 99283; J0696; 99282

== ENCOUNTER 2017-01-11 13:26 | Inpatient (IN) | payer MEDICARE, MEDICAID ==
[2017-01-11] MEDS ORDERED: Insulin Regular, Human 100 Units/ML 10 ML Vial SUBCUT ONE (13:37)
[2017-01-11] MEDS ORDERED: Sodium Chloride 0.9% 1,000 ML IV ONE (13:37)
--- NOTE | 2017-01-11 13:56 | EDM.PDOC ---
ED HPI GENERAL MEDICAL PROBLEM - General Chief Complaint: Diabetic Complaint Stated Complaint: CAME IN FROM [facility] Time Seen by Provider: 01/11/17 16:01 - History of Present Illness INITIAL COMMENTS - FREE TEXT/NARRATIVE: HISTORY AND PHYSICAL: History of present illness: [Patient presents from [facility] with progressive weakness over the last week and hyperglycemia today her Accu-Cheks were too high to read on glucometer No fever nausea vomiting chills sweats ] Review of systems: As per history of present illness and below otherwise all systems reviewed and negative. Past medical history: As per history of present illness and as reviewed below otherwise noncontributory. Surgical history: As per history of present illness and as reviewed below otherwise noncontributory. Social history: No reported history of drug or alcohol abuse. Family history: As per history of present illness and as reviewed below otherwise noncontributory. Physical exam: HEENT: Atraumatic, normocephalic, pupils reactive, negative for conjunctival pallor or scleral icterus, mucous membranes moist, throat clear, neck supple, nontender, trachea midline. Lungs: Clear to auscultation, breath sounds equal bilaterally, chest nontender. Heart: S1S2, regular, negative for clicks, rubs, or JVD. Abdomen: Soft, nondistended, nontender. Negative for masses or hepatosplenomegaly. Negative for costovertebral tenderness. Pelvis: Stable nontender. Genitourinary: Deferred. Rectal: Deferred. Extremities: Atraumatic, negative for cords or calf pain. Neurovascular unremarkable. Neuro: Awake, alert, oriented. Cranial nerves II through XII unremarkable. Cerebellum unremarkable. Motor and sensory unremarkable throughout. Exam nonfocal. Diagnostics: []Lab as below EKG Chest 1 view Therapeutics: []Normal saline 500 mL per hour Regular insulin 10 units subcutaneous and 10 units IV glucose 400 Followed by 10 units IV Normal saline 1 50 mL per hour Impression: Hyperglycemia Dehydration UTI Electrolyte abnormalities Definitive disposition and diagnosis as appropriate pending reevaluation and review of above. - Related Data Allergies Allergy/AdvReac Type Severity Reaction Status Date / Time clarithromycin [From Biaxin] Allergy unknown Verified 11/10/16 19:20 irbesartan [From Avapro] Allergy unknown Verified 11/10/16 19:20 red dye Allergy unknown Verified 11/10/16 19:20 Kuplivs-Nnz-Pqs Reductase Allergy unknown Verified 11/10/16 19:20 Inhibitor Home Meds: Home Meds Aspirin [[place] Aspirin] 81 mg PO DAILY 09/25/15 [History] Famotidine [Pepcid] 40 mg PO BID 05/01/16 [History] Gabapentin [Neurontin] 200 mg PO BID 05/01/16 [History] Clopidogrel [Plavix] 75 mg PO DAILY #14 tablet 05/04/16 [Rx] Furosemide [Lasix] 40 mg PO DAILY #14 tablet 05/04/16 [Rx] Hydrocodone/Acetaminophen [[place] 5-325] 1 each PO Q4H PRN #20 tablet 05/04/16 [ Rx] Bismuth Subsalicylate [Pepto-Bismol] 15 ml PO ASDIRECTED PRN MDD q24h 08/03/16 [ History] Fluticasone Propionate [Flovent] 1 puff IH DAILY 08/03/16 [History] Lisinopril 10 mg PO BID 08/03/16 [History] guaiFENesin [Tussin] 100 mg PO Q6H PRN 08/03/16 [History] Dapagliflozin Propanediol [Farxiga] 10 mg PO DAILY 11/10/16 [History] Isosorbide Mononitrate [Imdur] 30 mg PO DAILY 11/10/16 [History] LORazepam 0.25 mg PO Q8H PRN 11/10/16 [History] Labetalol HCl [Labetalol] 200 mg PO BID 11/10/16 [History] Dapagliflozin Propanediol [Farxiga] 10 mg PO DAILY 01/11/17 [History] Nitroglycerin [Nitrostat] 0.4 mg SL TID PRN 01/11/17 [History] Past Medical History - Past Health History Medical/Surgical History: Denies Medical/Surgical History HEENT History: Reports: Impaired Vision Other HEENT History: wears glasses Cardiovascular History: Reports: CAD, High Cholesterol, Hypertension, SD, Stents Respiratory History: Reports: SOB, Other (See Below) Other Respiratory History: acute respiratory failure. 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 History: Reports: Acute Renal Failure [employer] History: Reports: Psychiatric History: Reports: Anxiety Endocrine/Metabolic History: Reports: Other (See Below) Other Endocrine/Metabolic History: Borderline DM Hematologic History: Reports: Anticoagulation Therapy - Past Surgical History GI Surgical History: Reports: Appendectomy, Cholecystectomy Female Surgical History: Reports: Hysterectomy Social & Family History - Family History Family Medical History: Noncontributory Cardiac: Reports: High Cholesterol, Hypertension, SD Respiratory: Reports: Other (See Below) Other Respiratory Family Hisory: Lung Ca GI: Reports: GERD OBGYN: Reports: Musculoskeletal: Reports: Arthritis Neurological: Reports: TIA Endocrine/Metabolic: Reports: Diabetes, type II Oncologic: Reports: Lung - Tobacco Use Smoking Status *Q: Current Every Day Smoker Years of Tobacco use: 40 Packs/Tins Daily: 1 Used Tobacco, but Quit: Yes Month Tobacco Last Used: March 2016 Second Hand Smoke Exposure: No - Caffeine Use Caffeine Use: Reports: Coffee - Recreational Drug Use Recreational Drug Use: No ED ROS GENERAL - Review of Systems Review Of Systems: ROS reveals no pertinent complaints other than HPI. ED EXAM GENERAL NO PERIP PULSE - Physical Exam Exam: See Below Course - Vital Signs Last Recorded V/S: Last Vital Signs Temp 98.8 F 01/11/17 13:53 Pulse 91 01/11/17 13:53 Resp 16 01/11/17 13:53 BP 106/42 L 01/11/17 13:53 Pulse Ox 93 L 01/11/17 13:53 - Orders/Labs/Meds Orders: Active Orders 24 hr Category Date Time Status EKG Documentation Completion [RC] STAT Care 01/11/17 13:56 Active CULTURE URINE [RM] Stat Lab 01/11/17 15:58 Uncollected Sodium Chloride 0.9% [Normal Saline] 1,000 ml Med 01/11/17 16:00 Ordered IV STAT Medication Orders Sodium Chloride (Normal Saline) 1,000 mls @ 150 mls/hr IV STAT PINA Labs: Laboratory Tests 01/11/17 01/11/17 01/11/17 Range/Units 13:40 13:44 13:44 WBC 9.30 (4.0-11.0) K/uL RBC 4.42 (4.30-5.90) M/uL Hgb 12.1 (12.0-16.0) g/dL Hct 35.3 L (36.0-46.0) % MCV 79.9 L (80.0-98.0) fL MCH 27.4 (27.0-32.0) pg MCHC 34.3 (31.0-37.0) g/dL RDW Std Deviation 41.5 (28.0-62.0) fl RDW Coeff of Gregory 14 (11.0-15.0) % Plt Count 229 (150-400) K/uL MPV 11.40 (7.40-12.00) fL Neut % (Auto) 71.7 (48.0-80.0) % Lymph % (Auto) 17.8 (16.0-40.0) % [place] % (Auto) 7.7 (0.0-15.0) % Eos % (Auto) 2.4 (0.0-7.0) % Baso % (Auto) 0.4 (0.0-1.5) % Neut # (Auto) 6.7 H (1.4-5.7) K/uL Lymph # (Auto) 1.7 (0.6-2.4) K/uL [place] # (Auto) 0.7 (0.0-0.8) K/uL Eos # (Auto) 0.2 (0.0-0.7) K/uL Baso # (Auto) 0.0 (0.0-0.1) K/uL Nucleated RBC % 0.0 /100WBC Nucleated RBCs # 0 K/uL ABG pH (7.35-7.45) ABG pCO2 (35-45) mmHG ABG pO2 (75-100) mmHG ABG HCO3 (22-26) mEq/L ABG Total CO2 ABG Base Excess (-2.0-2.0) Sodium 126 L (136-146) mmol/L Potassium 5.4 H (3.5-5.1) mmol/L Chloride 96 L (98-110) mmol/L Carbon Dioxide 15 L (21-31) mmol/L BUN 45 H (6.0-23.0) mg/dL Creatinine 2.6 H (0.6-1.5) mg/dL Est Cr Clr Drug Dosing TNP Estimated GFR (MDRD) 17.8 ml/min Glucose 649 H* (60-110) mg/dL POC Glucose 470 H (60-110) mg/dL Calcium 9.7 (8.8-10.8) mg/dL Total Bilirubin 0.7 (0.1-1.5) mg/dL AST 18 (5-40) IU/L ALT 11 (8-54) IU/L Alkaline Phosphatase 143 (40-150) Troponin I (0.0-0.29) NG/ML Total Protein 6.9 (6.0-8.0) g/dL Albumin 4.0 (3.4-4.8) g/dL Globulin 2.9 (2.0-3.5) g/dL Albumin/Globulin Ratio 1.4 (1.3-2.8) Urine Color Urine Appearance Urine pH (5.0-8.0) Ur Specific [place] (1.001-1.035) Urine Protein (NEGATIVE) mg/dL Urine Glucose (UA) (NEGATIVE) mg/dL Urine Ketones (NEGATIVE) mg/dL Urine Occult Blood (NEGATIVE) Urine Nitrite (NEGATIVE) Urine Bilirubin (NEGATIVE) Urine Urobilinogen (<2.0) EU/dL Ur Leukocyte Esterase (NEGATIVE) Urine RBC (0-2/HPF) Urine WBC (0-5/HPF) Ur Epithelial Cells (NONE-FEW) Urine Bacteria (NEGATIVE) Urine Mucus (NONE-MOD) 01/11/17 01/11/17 01/11/17 Range/Units 13:55 14:25 15:43 WBC (4.0-11.0) K/uL RBC (4.30-5.90) M/uL Hgb (12.0-16.0) g/dL Hct (36.0-46.0) % MCV (80.0-98.0) fL MCH (27.0-32.0) pg MCHC (31.0-37.0) g/dL RDW Std Deviation (28.0-62.0) fl RDW Coeff of Gregory (11.0-15.0) % Plt Count (150-400) K/uL MPV (7.40-12.00) fL Neut % (Auto) (48.0-80.0) % Lymph % (Auto) (16.0-40.0) % [place] % (Auto) (0.0-15.0) % Eos % (Auto) (0.0-7.0) % Baso % (Auto) (0.0-1.5) % Neut # (Auto) (1.4-5.7) K/uL Lymph # (Auto) (0.6-2.4) K/uL [place] # (Auto) (0.0-0.8) K/uL Eos # (Auto) (0.0-0.7) K/uL Baso # (Auto) (0.0-0.1) K/uL Nucleated RBC % /100WBC Nucleated RBCs # K/uL ABG pH 7.321 L (7.35-7.45) ABG pCO2 31 L (35-45) mmHG ABG pO2 74 L (75-100) mmHG ABG HCO3 16 L (22-26) mEq/L ABG Total CO2 14.8 ABG Base Excess -9.1 L (-2.0-2.0) Sodium (136-146) mmol/L Potassium (3.5-5.1) mmol/L Chloride (98-110) mmol/L Carbon Dioxide (21-31) mmol/L BUN (6.0-23.0) mg/dL Creatinine (0.6-1.5) mg/dL Est Cr Clr Drug Dosing Estimated GFR (MDRD) ml/min Glucose (60-110) mg/dL POC Glucose (60-110) mg/dL Calcium (8.8-10.8) mg/dL Total Bilirubin (0.1-1.5) mg/dL AST (5-40) IU/L ALT (8-54) IU/L Alkaline Phosphatase (40-150) Troponin I < 0.10 (0.0-0.29) NG/ML Total Protein (6.0-8.0) g/dL Albumin (3.4-4.8) g/dL Globulin (2.0-3.5) g/dL Albumin/Globulin Ratio (1.3-2.8) Urine Color YELLOW Urine Appearance CLOUDY Urine pH 5.5 (5.0-8.0) Ur Specific [place] 1.010 (1.001-1.035) Urine Protein NEGATIVE (NEGATIVE) mg/dL Urine Glucose (UA) >=1000 (NEGATIVE) mg/dL Urine Ketones NEGATIVE (NEGATIVE) mg/dL Urine Occult Blood MODERATE (NEGATIVE) Urine Nitrite NEGATIVE (NEGATIVE) Urine Bilirubin NEGATIVE (NEGATIVE) Urine Urobilinogen 0.2 (<2.0) EU/dL Ur Leukocyte Esterase SMALL (NEGATIVE) Urine RBC 0-1 (0-2/HPF) Urine WBC 25-30 (0-5/HPF) Ur Epithelial Cells FEW (NONE-FEW) Urine Bacteria 1+ H (NEGATIVE) Urine Mucus LIGHT (NONE-MOD) 01/11/17 Range/Units 15:49 WBC (4.0-11.0) K/uL RBC (4.30-5.90) M/uL Hgb (12.0-16.0) g/dL Hct (36.0-46.0) % MCV (80.0-98.0) fL MCH (27.0-32.0) pg MCHC (31.0-37.0) g/dL RDW Std Deviation (28.0-62.0) fl RDW Coeff of Gregory (11.0-15.0) % Plt Count (150-400) K/uL MPV (7.40-12.00) fL Neut % (Auto) (48.0-80.0) % Lymph % (Auto) (16.0-40.0) % [place] % (Auto) (0.0-15.0) % Eos % (Auto) (0.0-7.0) % Baso % (Auto) (0.0-1.5) % Neut # (Auto) (1.4-5.7) K/uL Lymph # (Auto) (0.6-2.4) K/uL [place] # (Auto) (0.0-0.8) K/uL Eos # (Auto) (0.0-0.7) K/uL Baso # (Auto) (0.0-0.1) K/uL Nucleated RBC % /100WBC Nucleated RBCs # K/uL ABG pH (7.35-7.45) ABG pCO2 (35-45) mmHG ABG pO2 (75-100) mmHG ABG HCO3 (22-26) mEq/L ABG Total CO2 ABG Base Excess (-2.0-2.0) Sodium (136-146) mmol/L Potassium (3.5-5.1) mmol/L Chloride (98-110) mmol/L Carbon Dioxide (21-31) mmol/L BUN (6.0-23.0) mg/dL Creatinine (0.6-1.5) mg/dL Est Cr Clr Drug Dosing Estimated GFR (MDRD) ml/min Glucose (60-110) mg/dL POC Glucose 438 H (60-110) mg/dL Calcium (8.8-10.8) mg/dL Total Bilirubin (0.1-1.5) mg/dL AST (5-40) IU/L ALT (8-54) IU/L Alkaline Phosphatase (40-150) Troponin I (0.0-0.29) NG/ML Total Protein (6.0-8.0) g/dL Albumin (3.4-4.8) g/dL Globulin (2.0-3.5) g/dL Albumin/Globulin Ratio (1.3-2.8) Urine Color Urine Appearance Urine pH (5.0-8.0) Ur Specific [place] (1.001-1.035) Urine Protein (NEGATIVE) mg/dL Urine Glucose (UA) (NEGATIVE) mg/dL Urine Ketones (NEGATIVE) mg/dL Urine Occult Blood (NEGATIVE) Urine Nitrite (NEGATIVE) Urine Bilirubin (NEGATIVE) Urine Urobilinogen (<2.0) EU/dL Ur Leukocyte Esterase (NEGATIVE) Urine RBC (0-2/HPF) Urine WBC (0-5/HPF) Ur Epithelial Cells (NONE-FEW) Urine Bacteria (NEGATIVE) Urine Mucus (NONE-MOD) Meds: Medications Generic Name Dose Route Start Last Admin Trade Name Freq PRN Reason Stop Dose Admin Sodium Chloride 1,000 mls @ 150 mls/hr 01/11/17 16:00 Normal Saline IV STAT PINA Discontinued Medications Generic Name Dose Route Start Last Admin Trade Name Freq PRN Reason Stop Dose Admin Hydrocodone Bitart/Acetaminophen 1 tab 01/11/17 15:39 [place] 325-5 Mg PO 01/11/17 15:40 ONETIME ONE Sodium Chloride 1,000 mls @ 500 mls/hr 01/11/17 13:37 01/11/17 14:55 Normal Saline IV 01/11/17 15:36 500 mls/hr STAT ONE Administration Ceftriaxone Sodium/Dextrose 1 50 mls @ 100 mls/hr 01/11/17 14:53 gm/ Premix IV 01/11/17 15:22 ONETIME ONE Insulin Human Regular 10 unit 01/11/17 13:37 01/11/17 15:06 Novolin R SUBCUT 01/11/17 13:38 10 units ONETIME ONE Administration Protocol Insulin Human Regular Confirm 01/11/17 14:26 01/11/17 14:56 Novolin R Administered 01/11/17 14:27 Not Given Dose 1,000 unit .ROUTE .STK-MED ONE Insulin Human Regular Confirm 01/11/17 15:02 01/11/17 15:12 Novolin R Administered 01/11/17 15:03 Not Given Dose 1,000 unit .ROUTE .STK-MED ONE Insulin Human Regular 10 unit 01/11/17 15:13 01/11/17 15:14 Novolin R IVPUSH 01/11/17 15:14 10 units ONETIME ONE Administration Protocol Insulin Human Regular 10 unit 01/11/17 15:54 Novolin R IVPUSH 01/11/17 15:55 ONETIME ONE Protocol Metoclopramide HCl 10 mg 01/11/17 14:33 01/11/17 15:12 Reglan IV 01/11/17 14:34 Not Given ONETIME ONE Departure - Departure Time of Disposition: 16:01 Disposition: Admitted As Inpatient 68 Condition: Fair Clinical Impression: Hyperglycemia, UTI (urinary tract infection), Dehydration - Discharge Information Referrals: Robb He MD [Primary Care Provider] - Forms: ED Department Discharge - My Orders Last 24 Hours: My Active Orders 01/11/17 13:56 EKG Documentation Completion [RC] STAT 01/11/17 15:58 CULTURE URINE [RM] Stat 01/11/17 16:00 Sodium Chloride 0.9% [Normal Saline] 1,000 ml IV STAT - Assessment/Plan Last 24 Hours: My Active Orders 01/11/17 13:56 EKG Documentation Completion [RC] STAT 01/11/17 15:58 CULTURE URINE [RM] Stat 01/11/17 16:00 Sodium Chloride 0.9% [Normal Saline] 1,000 ml IV STAT
--- NOTE | 2017-01-11 14:10 | CR ---
EXAMINATION: Portable chest radiograph. HISTORY: Pain. FINDINGS: The trachea is midline. The cardiomediastinal silhouette is within normal limits. No pulmonary infilt rates, effusions or pneumothorax. Osseous structures appear unremarkable. IMPRESSION: No acute cardiopulmonary process.
[2017-01-11] MEDS ORDERED: Insulin Regular, Human 100 Units/ML 10 ML Vial ONE ×2 (14:26→15:02)
[2017-01-11 14:28] LABS: CHLORIDE,CL 96 mmol/L (98-110); SODIUM,NA 126 mmol/L (136-146)
[2017-01-11] MEDS ORDERED: Metoclopramide 10 MG/2 ML SDV IV ONE (14:33)
[2017-01-11] MEDS ORDERED: cefTRIAXone 1 GM in Premix Bag 1 BAG IV ONE (14:53)
[2017-01-11] MEDS ORDERED: Insulin Regular, Human 100 Units/ML 10 ML Vial IVPUSH ONE ×2 (15:13→15:54)
[2017-01-11] MEDS ORDERED: Acetaminophen/HYDROcodone 325-5 MG Tab PO ONE (15:39)
[2017-01-11] MEDS ORDERED: Nitroglycerin 0.4 MG Tab.SL SL PRN (16:51)
[2017-01-11] MEDS ORDERED: Acetaminophen/HYDROcodone 325-5 MG Tab PO PRN (16:51)
[2017-01-11] MEDS ORDERED: Bismuth Subsalicylate 262 MG/15 ML Susp 236 ML Bottle PO PRN (16:51)
[2017-01-11] MEDS ORDERED: Enoxaparin 40 MG/0.4 ML Syringe SUBCUT SCH (17:00)
--- NOTE | 2017-01-11 17:05 | PCM.HP ---
<Lisa Hull - Last Filed: 01/11/17 17:29> H&P History of Present Illness - General Date of Service: 01/11/17 Source of Information: Patient, Family - History of Present Illness Initial Comments - Free Text/Narative: 81 [facility] female [facility] resident with pmhx of DM type 2, CAD s/p seven stents admitted for UTI and hyperglycemia. She has been feeling weak, decreased appetite with high blood sugars x one week. Her PCP started her on Farxiga. Her HB A1c is 9.4 three months ago. She also c/o of dysuria, frequency and urgency x 2 days. She denies cp, sob, cough, uri symptoms, nausea, vomiting or other pertinent symptoms. She has loose stools and does not have abdominal pain. She has not noticed any blood in stools or major changes in bowel habits. She was not treated recently with antibiotics. In the ED Her blood pressure is 89/59 HR 76 RR 14 Spo2 97% her blood glucose 649 , UA positive for mild leukoesterase, moderate blood +1 bacteria, negative nitrates. She was started on IVF bolus of 1 L, I.V Rocephin, and received 30 units of novolin regular. - Related Data Allergies/Adverse Reactions: Allergies Allergy/AdvReac Type Severity Reaction Status Date / Time clarithromycin [From Biaxin] Allergy unknown Verified 11/10/16 19:20 irbesartan [From Avapro] Allergy unknown Verified 11/10/16 19:20 red dye Allergy unknown Verified 11/10/16 19:20 Pbdlhul-Qyc-Vin Reductase Allergy unknown Verified 11/10/16 19:20 Inhibitor Home Medications: Home Meds Aspirin [[place] Aspirin] 81 mg PO DAILY 09/25/15 [History] Famotidine [Pepcid] 40 mg PO BID 05/01/16 [History] Gabapentin [Neurontin] 200 mg PO BID 05/01/16 [History] Clopidogrel [Plavix] 75 mg PO DAILY #14 tablet 05/04/16 [Rx] Furosemide [Lasix] 40 mg PO DAILY #14 tablet 05/04/16 [Rx] Hydrocodone/Acetaminophen [Warren 5-325] 1 each PO Q4H PRN #20 tablet 05/04/16 [ Rx] Bismuth Subsalicylate [Pepto-Bismol] 15 ml PO TID PRN MDD q24h 08/03/16 [History ] Fluticasone Propionate [Flovent] 1 puff IH DAILY 08/03/16 [History] Lisinopril 10 mg PO BID 08/03/16 [History] guaiFENesin [Tussin] 5 ml PO Q6H PRN 08/03/16 [History] Dapagliflozin Propanediol [Farxiga] 10 mg PO DAILY 11/10/16 [History] Isosorbide Mononitrate [Imdur] 30 mg PO DAILY 11/10/16 [History] LORazepam 0.25 mg PO Q8H PRN 11/10/16 [History] Labetalol HCl [Labetalol] 200 mg PO BID 11/10/16 [History] Acetaminophen [Tylenol Extra Strength] 1,000 mg PO Q6H PRN 01/11/17 [History] Acetaminophen/HYDROcodone [Warren 325-5 MG] 1 tab PO Q6H 01/11/17 [History] Dapagliflozin Propanediol [Farxiga] 10 mg PO DAILY 01/11/17 [History] Fluticasone Propionate [Flonase] 2 gm NASBOTH QPM 01/11/17 [History] Nitroglycerin [Nitrostat] 0.4 mg SL Q5M PRN 01/11/17 [History] Past Medical History - Past Health History Medical/Surgical History: Denies Medical/Surgical History HEENT History: Reports: Impaired Vision Other HEENT History: wears glasses Cardiovascular History: Reports: CAD, High Cholesterol, Hypertension, [place], Stents Respiratory History: Reports: SOB, Other (See Below) Other Respiratory History: acute respiratory failure. 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 History: Reports: Acute Renal Failure [employer] History: Reports: Psychiatric History: Reports: Anxiety Endocrine/Metabolic History: Reports: Other (See Below) Other Endocrine/Metabolic History: Borderline DM Hematologic History: Reports: Anticoagulation Therapy - Past Surgical History GI Surgical History: Reports: Appendectomy, Cholecystectomy Female Surgical History: Reports: Hysterectomy Social & Family History - Family History Family Medical History: Noncontributory Cardiac: Reports: High Cholesterol, Hypertension, [place] Respiratory: Reports: Other (See Below) Other Respiratory Family Hisory: Lung Ca GI: Reports: GERD OBGYN: Reports: Musculoskeletal: Reports: Arthritis Neurological: Reports: TIA Endocrine/Metabolic: Reports: Diabetes, type II Oncologic: Reports: Lung - Tobacco Use Smoking Status *Q: Current Every Day Smoker Years of Tobacco use: 40 Packs/Tins Daily: 1 Used Tobacco, but Quit: Yes Month Tobacco Last Used: March 2016 Second Hand Smoke Exposure: No - Caffeine Use Caffeine Use: Reports: Coffee - Recreational Drug Use Recreational Drug Use: No H&P Review of Systems - Review of Systems: Review Of Systems: See Below General: Reports: No Symptoms HEENT: Reports: No Symptoms Pulmonary: Reports: No Symptoms Cardiovascular: Reports: No Symptoms Gastrointestinal: Reports: No Symptoms Genitourinary: Reports: Dysuria, Frequency, Burning, Urgency Musculoskeletal: Reports: No Symptoms Skin: Reports: Change in Color Psychiatric: Reports: No Symptoms Neurological: Reports: No Symptoms Exam - Exam Exam: See Below - Vital Signs Vital Signs: Last Vital Signs Temp 98.8 F 01/11/17 13:53 Pulse 87 01/11/17 16:21 Resp 16 01/11/17 16:21 BP 89/40 L 01/11/17 16:21 Pulse Ox 98 01/11/17 16:21 Weight: 151 lb - Exam General: Alert, Oriented HEENT: Conjunctiva Clear, EOMI Neck: Supple, Trachea Midline Lungs: Clear to Auscultation, Normal Respiratory Effort Cardiovascular: Regular Rate, Regular Rhythm GI/Abdominal Exam: Normal Bowel Sounds, Soft, Non-Tender Back Exam: Normal Inspection Extremities: Normal Inspection Skin: Warm, Dry, Other (stasis changes. No edema. No erythema. ) Neurological: Cranial Nerves Intact Neuro Extensive - Mental Status: Alert, Oriented x3 Psychiatric: Alert, Normal Affect, Normal Mood - Patient Data Result Diagrams: 01/11/17 13:44 01/11/17 13:44 *Q Meaningful Use (ADM) - VTE *Q VTE Criteria *Q: - Stroke *Q Stroke Criteria *Q: - AMI *Q AMI Criteria *Q: Problem List Initiated/Reviewed/Updated: Yes Orders Last 24hrs: Active Orders 24 hr Category Date Time Status Patient Status [ADT] Routine ADT 01/11/17 16:33 Ordered Blood Glucose Check, Bedside [RC] QIDACANDBED Care 01/11/17 16:42 Ordered Intake and Output [RC] QSHIFT Care 01/11/17 16:43 Ordered Oxygen Therapy [RC] PRN Care 01/11/17 16:33 Ordered Pulse Oximetry [RC] PRN Care 01/11/17 16:43 Ordered VTE/DVT Education [RC] PER UNIT ROUTINE Care 01/11/17 16:33 Ordered Vital Signs [RC] Q4H Care 01/11/17 16:33 Ordered BASIC METABOLIC PANEL,BMP [CHEM] AM Lab 01/12/17 05:11 Ordered BASIC METABOLIC PANEL,BMP [CHEM] AM Lab 01/13/17 05:11 Ordered BASIC METABOLIC PANEL,BMP [CHEM] AM Lab 01/14/17 05:11 Ordered BASIC METABOLIC PANEL,BMP [CHEM] AM Lab 01/15/17 05:11 Ordered CBC WITH AUTO DIFF [HEME] AM Lab 01/12/17 05:11 Ordered CBC WITH AUTO DIFF [HEME] AM Lab 01/13/17 05:11 Ordered CBC WITH AUTO DIFF [HEME] AM Lab 01/14/17 05:11 Ordered CBC WITH AUTO DIFF [HEME] AM Lab 01/15/17 05:11 Ordered GLYCOSYLATED HEMOGLOBIN,HGBA1C [CHEM] Routine Lab 01/11/17 16:54 Ordered Acetaminophen/HYDROcodone [Warren 325-5 MG] Med 01/11/17 16:51 Ordered 1 each PO Q4H PRN Aspirin [Halfprin] Med 01/12/17 09:00 Ordered 81 mg PO DAILY Bismuth Subsalicylate [Pepto Bismol] Med 01/11/17 16:51 Ordered 15 ml PO ASDIRECTED PRN Clopidogrel [Plavix] Med 01/12/17 09:00 Ordered 75 mg PO DAILY Enoxaparin [Lovenox] Med 01/11/17 17:00 Ordered 40 mg SUBCUT Q24H Famotidine [Pepcid] Med 01/11/17 21:00 Ordered 40 mg PO BID Fluticasone Propionate [Flovent] Med 01/12/17 09:00 Ordered 1 puff IH DAILY Furosemide [Lasix] Med 01/12/17 09:00 Ordered 40 mg PO DAILY Gabapentin [Neurontin] Med 01/11/17 21:00 Ordered 200 mg PO BID Insulin Aspart [NovoLOG] Med 01/11/17 17:00 Active See Protocol SUBCUT QIDACANDBED Isosorbide Mononitrate [Imdur] Med 01/12/17 09:00 Ordered 30 mg PO DAILY LORazepam [Ativan] Med 01/11/17 16:51 Ordered 0.25 mg PO Q8H PRN Labetalol HCl [Labetalol] Med 01/11/17 21:00 Ordered 200 mg PO BID Lisinopril [Prinivil] Med 01/11/17 21:00 Ordered 10 mg PO BID Nitroglycerin [Nitrostat] Med 01/11/17 16:51 Ordered 0.4 mg SL TID PRN cefTRIAXone [Rocephin] 1,000 mg Med 01/12/17 17:00 Ordered Sodium Chloride 0.9% [Normal Saline] 50 ml IV Q24H Resuscitation Status Routine Resus Stat 01/11/17 16:33 Ordered Medication Orders Hydrocodone Bitart/Acetaminophen (Warren 325-5 Mg) tab PO Q4H PRN PRN Reason: Pain Aspirin (Halfprin) 81 mg PO DAILY [facility] Bismuth Subsalicylate (Pepto Bismol) 15 ml PO ASDIRECTED PRN PRN Reason: Heartburn Clopidogrel Bisulfate (Plavix) 75 mg PO DAILY [facility] Enoxaparin Sodium (Lovenox) 40 mg SUBCUT Q24H [facility] Furosemide (Lasix) 40 mg PO DAILY [facility] Gabapentin (Neurontin) 200 mg PO BID [facility] Sodium Chloride (Normal Saline) 1,000 mls @ 150 mls/hr IV STAT [facility] Ceftriaxone Sodium 1,000 mg/ (Sodium Chloride) 50 mls @ 200 mls/hr IV Q24H [facility] Insulin Aspart (Novolog) 0 unit SUBCUT QIDACANDBED [facility] PRN Reason: Protocol Isosorbide Mononitrate (Imdur) 30 mg PO DAILY [facility] Lisinopril (Prinivil) 10 mg PO BID [facility] Lorazepam (Ativan) 0.25 mg PO Q8H PRN PRN Reason: Anxiety Nitroglycerin (Nitrostat) 0.4 mg SL TID PRN PRN Reason: Chest Pain Non-Formulary Medication (Famotidine [Pepcid]) 40 mg PO BID [facility] Non-Formulary Medication (Fluticasone Propionate [Flovent]) 1 puff IH DAILY [facility] Non-Formulary Medication (Labetalol Hcl [Labetalol]) 200 mg PO BID [facility] Assessment/Plan Comment:: Hyperglycemia secondary to UTI Acucheck QIDAC check A1c ISS Hi dose. Hold farixga UTI: rocephin 1 g QD. Await urine culture to narrow treatment. CAD: continue asa, plavix, imdur, labetolol DVT prophylaxsis: lovenox <AntLexy reyesla - Last Filed: 01/11/17 19:08> H&P History of Present Illness Generalized Pain Score (Numeric/FACES): 2 Exam - Vital Signs Vital Signs: Last Vital Signs Temp 97.2 F 01/11/17 16:33 Pulse 87 01/11/17 16:33 Resp 18 01/11/17 16:33 BP 105/50 L 01/11/17 16:33 Pulse Ox 98 01/11/17 16:43 - Patient Data Result Diagrams: 01/11/17 13:44 01/11/17 13:44 *Q Meaningful Use (ADM) - VTE *Q VTE Criteria *Q: - Stroke *Q Stroke Criteria *Q: - AMI *Q AMI Criteria *Q: Orders Last 24hrs: Active Orders 24 hr Category Date Time Status Patient Status [ADT] Routine ADT 01/11/17 16:33 Active Blood Glucose Check, Bedside [RC] QIDACANDBED Care 01/11/17 16:42 Active Intake and Output [RC] QSHIFT Care 01/11/17 16:43 Active Oxygen Therapy [RC] PRN Care 01/11/17 16:33 Active Pulse Oximetry [RC] PRN Care 01/11/17 16:43 Active VTE/DVT Education [RC] PER UNIT ROUTINE Care 01/11/17 16:33 Active Vital Signs [RC] Q4H Care 01/11/17 16:33 Active ADA Diabetic [[place] [employer] Diet] [DIET Diet 01/11/17 Dinner Active ] BASIC METABOLIC PANEL,BMP [CHEM] AM Lab 01/12/17 05:11 Ordered BASIC METABOLIC PANEL,BMP [CHEM] AM Lab 01/13/17 05:11 Ordered BASIC METABOLIC PANEL,BMP [CHEM] AM Lab 01/14/17 05:11 Ordered BASIC METABOLIC PANEL,BMP [CHEM] AM Lab 01/15/17 05:11 Ordered CBC WITH AUTO DIFF [HEME] AM Lab 01/12/17 05:11 Ordered CBC WITH AUTO DIFF [HEME] AM Lab 01/13/17 05:11 Ordered CBC WITH AUTO DIFF [HEME] AM Lab 01/14/17 05:11 Ordered CBC WITH AUTO DIFF [HEME] AM Lab 01/15/17 05:11 Ordered CULTURE STOOL + CAMPY+SHIGATOX [RM] Routine Lab 01/11/17 18:01 Uncollected WBC, STOOL [OP] Routine Lab 01/11/17 18:01 Uncollected Acetaminophen/HYDROcodone [Warren 325-5 MG] Med 01/11/17 16:51 Pending DOSE tab PO Q4H PRN Aspirin [Halfprin] Med 01/12/17 09:00 Active 81 mg PO DAILY Bismuth Subsalicylate [Pepto Bismol] Med 01/11/17 16:51 Active 15 ml PO ASDIRECTED PRN Clopidogrel [Plavix] Med 01/12/17 09:00 Active 75 mg PO DAILY Enoxaparin [Lovenox] Med 01/11/17 17:00 Active 40 mg SUBCUT Q24H Famotidine [Pepcid] Med 01/11/17 21:00 Active 40 mg PO BID Fluticasone Propionate [Flovent] Med 01/12/17 09:00 Active 1 puff IH DAILY Furosemide [Lasix] Med 01/12/17 09:00 Active 40 mg PO DAILY Gabapentin [Neurontin] Med 01/11/17 21:00 Active 200 mg PO BID Insulin Aspart [NovoLOG] Med 01/11/17 17:00 Active See Protocol SUBCUT QIDACANDBED Isosorbide Mononitrate [Imdur] Med 01/12/17 09:00 Active 30 mg PO DAILY LORazepam [Ativan] Med 01/11/17 16:51 Active 0.25 mg PO Q8H PRN Labetalol HCl [Labetalol] Med 01/11/17 21:00 Active 200 mg PO BID Lisinopril [Prinivil] Med 01/11/17 21:00 Active 10 mg PO BID Nitroglycerin [Nitrostat] Med 01/11/17 16:51 Active 0.4 mg SL TID PRN cefTRIAXone [Rocephin] 1,000 mg Med 01/12/17 17:00 Active Sodium Chloride 0.9% [Normal Saline] 50 ml IV Q24H Resuscitation Status Routine Resus Stat 01/11/17 16:33 Ordered Medication Orders Hydrocodone Bitart/Acetaminophen (Warren 325-5 Mg) tab PO Q4H PRN PRN Reason: Pain Aspirin (Halfprin) 81 mg PO DAILY [facility] Bismuth Subsalicylate (Pepto Bismol) 15 ml PO ASDIRECTED PRN PRN Reason: Heartburn Clopidogrel Bisulfate (Plavix) 75 mg PO DAILY [facility] Enoxaparin Sodium (Lovenox) 40 mg SUBCUT Q24H [facility] Last Admin: 01/11/17 17:27 Dose: 40 mg Furosemide (Lasix) 40 mg PO DAILY [facility] Gabapentin (Neurontin) 200 mg PO BID [facility] Sodium Chloride (Normal Saline) 1,000 mls @ 150 mls/hr IV STAT [facility] Last Admin: 01/11/17 17:20 Dose: 150 mls/hr Ceftriaxone Sodium 1,000 mg/ (Sodium Chloride) 50 mls @ 200 mls/hr IV Q24H [facility] Insulin Aspart (Novolog) 0 unit SUBCUT QIDACANDBED [facility] PRN Reason: Protocol Last Admin: 01/11/17 17:26 Dose: 9 units Isosorbide Mononitrate (Imdur) 30 mg PO DAILY [facility] Lisinopril (Prinivil) 10 mg PO BID [facility] Lorazepam (Ativan) 0.25 mg PO Q8H PRN PRN Reason: Anxiety Nitroglycerin (Nitrostat) 0.4 mg SL TID PRN PRN Reason: Chest Pain Non-Formulary Medication (Famotidine [Pepcid]) 40 mg PO BID [facility] Non-Formulary Medication (Fluticasone Propionate [Flovent]) 1 puff IH DAILY [facility] Non-Formulary Medication (Labetalol Hcl [Labetalol]) 200 mg PO BID [facility] Assessment/Plan Comment:: lSepsis/lactic acidosis- f/up lactic acid level until lactic acid is below 2 Iv fluids, Rocephin iv Muscle cramps severe-f/up electrolytes, f/up electrolytes DM uc- start lantus 22 units now at bedtime, insulin on sliding scale coverage. UTI/ possible pyelonephritis - patient says she has occ b/l flank pain , f/up cx Hyponatriemia- correct Na level at the level of the glucose- iv hydration Heartburn:d/c bismuth subsalicilate, start Maalox po Patient seen and examined - agree with assessment and plan
[2017-01-11] MEDS: Sodium Chloride 0.9% 1,000 ML IV SCH ×2 (17:20→20:58)
[2017-01-11] MEDS: Insulin Aspart 100 Units/ML 3 ML Pen SUBCUT SCH ×2 (17:26→20:24)
[2017-01-11] MEDS ORDERED: Acetaminophen 500 MG Tab PO PRN (18:52)
[2017-01-11] MEDS ORDERED: Magnesium Sulfate/Water 4 GM in Premix Bag 1 BAG IV ONE (18:54)
[2017-01-11] MEDS ORDERED: Phosphorus #1 250 MG Tab PO SCH (19:00)
[2017-01-11] MEDS ORDERED: Sodium Chloride 0.9% 500 ML IV SCH (19:00)
[2017-01-11] MEDS ORDERED: Acetaminophen/HYDROcodone 325-5 MG Tab PO SCH (19:00)
[2017-01-11] MEDS: Acetaminophen/HYDROcodone 325-5 MG Tab PO PRN (19:42)
[2017-01-11] MEDS: Gabapentin 100 MG Cap PO SCH (20:12)
[2017-01-11] MEDS: Lisinopril 5 MG Tab PO SCH (20:12)
[2017-01-11] MEDS: Insulin Glargine,Human Rec. Analog 100 Units/ML 3 ML Pen SUBCUT SCH (20:23)
[2017-01-11] MEDS ORDERED: LABETALOL HCL 200 MG PO SCH (21:00)
[2017-01-11] MEDS ORDERED: Non-Formulary Medication 1 Each (Famotidine [Pepcid] 40 MG) PO SCH (21:00)
[2017-01-12] MEDS: LORazepam 0.5 MG Tab PO PRN ×2 (03:31→21:00)
[2017-01-12] MEDS: Acetaminophen/HYDROcodone 325-5 MG Tab PO PRN ×2 (03:32→20:59)
[2017-01-12] MEDS: Sodium Chloride 0.9% 1,000 ML IV SCH ×3 (04:34→19:21)
[2017-01-12] MEDS: Insulin Aspart 100 Units/ML 3 ML Pen SUBCUT SCH ×6 (06:40→17:17)
[2017-01-12] MEDS: Clopidogrel 75 MG Tab PO SCH (08:54)
[2017-01-12] MEDS: Furosemide 40 MG Tab PO SCH (08:54)
[2017-01-12] MEDS: Lisinopril 5 MG Tab PO SCH ×2 (08:57→21:04)
[2017-01-12] MEDS: Isosorbide Mononitrate 30 MG Tab.ER PO SCH (08:58)
[2017-01-12] MEDS: Famotidine 20 MG Tab PO SCH ×2 (08:58→21:05)
[2017-01-12] MEDS: Gabapentin 100 MG Cap PO SCH ×2 (08:58→21:05)
[2017-01-12] MEDS: Aspirin 81 MG Tab.EC PO SCH (08:59)
[2017-01-12] MEDS: Labetalol 100 MG Tab PO SCH ×2 (09:08→21:04)
[2017-01-12] MEDS ORDERED: Sodium Bicarbonate 8.4% 50 MEQ/50 ML Syringe IVPUSH ONE (10:48)
[2017-01-12] MEDS: Non-Formulary Medication 1 Each (Fluticasone Propionate [Flovent] 1 PUFF) IH SCH (10:51)
[2017-01-12] MEDS ORDERED: Sodium Chloride 0.9% 500 ML IV SCH (11:00)
[2017-01-12] MEDS ORDERED: Insulin Aspart 100 Units/ML 3 ML Pen SUBCUT SCH ×3 (11:30→17:00)
--- NOTE | 2017-01-12 14:32 | PCM.PN ---
- General Info Date of Service: 01/12/17 Admission Dx/Problem (Free Text): pyelonephritis ,DM u/c - Review of Systems General: Reports: No Symptoms HEENT: Reports: No Symptoms Pulmonary: Reports: No Symptoms Cardiovascular: Reports: No Symptoms Gastrointestinal: Reports: No Symptoms Genitourinary: Reports: No Symptoms Skin: Reports: No Symptoms Neurological: Reports: No Symptoms Psychiatric: Reports: No Symptoms - Patient Data Vitals - Most Recent: Last Vital Signs Temp 98.6 F 01/12/17 08:00 Pulse 90 01/12/17 09:08 Resp 16 01/12/17 08:00 BP 122/59 L 01/12/17 09:08 Pulse Ox 98 01/12/17 08:00 Weight - Most Recent: 151 lb I&O - Last 24 Hours: Intake & Output 01/11/17 01/12/17 01/12/17 22:59 06:59 14:59 Intake Total 2066 Output Total 200 Balance 1866 Lab Results Last 24 Hours: Laboratory Results - last 24 hr 01/11/17 01/11/17 01/11/17 Range/Units 17:00 19:10 19:10 WBC 9.05 (4.0-11.0) K/uL RBC 4.08 L (4.30-5.90) M/uL Hgb 11.1 L (12.0-16.0) g/dL Hct 31.9 L (36.0-46.0) % MCV 78.2 L (80.0-98.0) fL MCH 27.2 (27.0-32.0) pg MCHC 34.8 (31.0-37.0) g/dL RDW Std Deviation 41.6 (28.0-62.0) fl RDW Coeff of Gregory 15 (11.0-15.0) % Plt Count 153 (150-400) K/uL MPV 11.30 (7.40-12.00) fL Neut % (Auto) (48.0-80.0) % Lymph % (Auto) (16.0-40.0) % [place] % (Auto) (0.0-15.0) % Eos % (Auto) (0.0-7.0) % Baso % (Auto) (0.0-1.5) % Neut # (Auto) (1.4-5.7) K/uL Lymph # (Auto) (0.6-2.4) K/uL [place] # (Auto) (0.0-0.8) K/uL Eos # (Auto) (0.0-0.7) K/uL Baso # (Auto) (0.0-0.1) K/uL Nucleated RBC % 0.0 /100WBC Nucleated RBCs # 0 K/uL Lactate (0.20-2.00) mmol/L Sodium 133 L (136-146) mmol/L Potassium 4.2 (3.5-5.1) mmol/L Chloride 106 (98-110) mmol/L Carbon Dioxide 15 L (21-31) mmol/L BUN 44 H (6.0-23.0) mg/dL Creatinine 2.1 H (0.6-1.5) mg/dL Est Cr Clr Drug Dosing 18.76 mL/min Estimated GFR (MDRD) 22.7 ml/min Glucose 189 H (60-110) mg/dL POC Glucose 286 H (60-110) mg/dL Calcium 9.1 (8.8-10.8) mg/dL Phosphorus 3.0 (2.4-4.7) mg/dL Magnesium 1.8 (1.5-2.3) mEq/L 01/11/17 01/11/17 01/11/17 Range/Units 19:10 19:10 20:23 WBC (4.0-11.0) K/uL RBC (4.30-5.90) M/uL Hgb (12.0-16.0) g/dL Hct (36.0-46.0) % MCV (80.0-98.0) fL MCH (27.0-32.0) pg MCHC (31.0-37.0) g/dL RDW Std Deviation (28.0-62.0) fl RDW Coeff of Gregory (11.0-15.0) % Plt Count (150-400) K/uL MPV (7.40-12.00) fL Neut % (Auto) (48.0-80.0) % Lymph % (Auto) (16.0-40.0) % [place] % (Auto) (0.0-15.0) % Eos % (Auto) (0.0-7.0) % Baso % (Auto) (0.0-1.5) % Neut # (Auto) (1.4-5.7) K/uL Lymph # (Auto) (0.6-2.4) K/uL [place] # (Auto) (0.0-0.8) K/uL Eos # (Auto) (0.0-0.7) K/uL Baso # (Auto) (0.0-0.1) K/uL Nucleated RBC % /100WBC Nucleated RBCs # K/uL Lactate 1.7 (0.20-2.00) mmol/L Sodium (136-146) mmol/L Potassium (3.5-5.1) mmol/L Chloride (98-110) mmol/L Carbon Dioxide (21-31) mmol/L BUN (6.0-23.0) mg/dL Creatinine (0.6-1.5) mg/dL Est Cr Clr Drug Dosing mL/min Estimated GFR (MDRD) ml/min Glucose (60-110) mg/dL POC Glucose 167 H 113 H (60-110) mg/dL Calcium (8.8-10.8) mg/dL Phosphorus (2.4-4.7) mg/dL Magnesium (1.5-2.3) mEq/L 01/12/17 01/12/17 01/12/17 Range/Units 05:38 05:38 06:17 WBC 6.78 (4.0-11.0) K/uL RBC 3.88 L (4.30-5.90) M/uL Hgb 10.4 L (12.0-16.0) g/dL Hct 30.9 L (36.0-46.0) % MCV 79.6 L (80.0-98.0) fL MCH 26.8 L (27.0-32.0) pg MCHC 33.7 (31.0-37.0) g/dL RDW Std Deviation 42.0 (28.0-62.0) fl RDW Coeff of Gregory 15 (11.0-15.0) % Plt Count 212 (150-400) K/uL MPV 10.70 (7.40-12.00) fL Neut % (Auto) 52.4 (48.0-80.0) % Lymph % (Auto) 33.5 (16.0-40.0) % [place] % (Auto) 10.3 (0.0-15.0) % Eos % (Auto) 3.5 (0.0-7.0) % Baso % (Auto) 0.3 (0.0-1.5) % Neut # (Auto) 3.6 (1.4-5.7) K/uL Lymph # (Auto) 2.3 (0.6-2.4) K/uL [place] # (Auto) 0.7 (0.0-0.8) K/uL Eos # (Auto) 0.2 (0.0-0.7) K/uL Baso # (Auto) 0.0 (0.0-0.1) K/uL Nucleated RBC % 0.0 /100WBC Nucleated RBCs # 0 K/uL Lactate (0.20-2.00) mmol/L Sodium 134 L (136-146) mmol/L Potassium 3.8 (3.5-5.1) mmol/L Chloride 111 H (98-110) mmol/L Carbon Dioxide 15 L (21-31) mmol/L BUN 36 H (6.0-23.0) mg/dL Creatinine 1.7 H (0.6-1.5) mg/dL Est Cr Clr Drug Dosing 23.17 mL/min Estimated GFR (MDRD) 29.0 ml/min Glucose 152 H (60-110) mg/dL POC Glucose 140 H (60-110) mg/dL Calcium 8.6 L (8.8-10.8) mg/dL Phosphorus (2.4-4.7) mg/dL Magnesium (1.5-2.3) mEq/L 01/12/17 01/12/17 Range/Units 11:24 13:46 WBC (4.0-11.0) K/uL RBC (4.30-5.90) M/uL Hgb (12.0-16.0) g/dL Hct (36.0-46.0) % MCV (80.0-98.0) fL MCH (27.0-32.0) pg MCHC (31.0-37.0) g/dL RDW Std Deviation (28.0-62.0) fl RDW Coeff of Gregory (11.0-15.0) % Plt Count (150-400) K/uL MPV (7.40-12.00) fL Neut % (Auto) (48.0-80.0) % Lymph % (Auto) (16.0-40.0) % [place] % (Auto) (0.0-15.0) % Eos % (Auto) (0.0-7.0) % Baso % (Auto) (0.0-1.5) % Neut # (Auto) (1.4-5.7) K/uL Lymph # (Auto) (0.6-2.4) K/uL [place] # (Auto) (0.0-0.8) K/uL Eos # (Auto) (0.0-0.7) K/uL Baso # (Auto) (0.0-0.1) K/uL Nucleated RBC % /100WBC Nucleated RBCs # K/uL Lactate (0.20-2.00) mmol/L Sodium 137 (136-146) mmol/L Potassium 4.0 (3.5-5.1) mmol/L Chloride 110 (98-110) mmol/L Carbon Dioxide 16 L (21-31) mmol/L BUN 35 H (6.0-23.0) mg/dL Creatinine 1.6 H (0.6-1.5) mg/dL Est Cr Clr Drug Dosing 24.62 mL/min Estimated GFR (MDRD) 31.1 ml/min Glucose 290 H (60-110) mg/dL POC Glucose 251 H (60-110) mg/dL Calcium 8.4 L (8.8-10.8) mg/dL Phosphorus (2.4-4.7) mg/dL Magnesium (1.5-2.3) mEq/L Med Orders - Current: Current Medications Acetaminophen (Tylenol Extra Strength) 1,000 mg PO Q6H PRN PRN Reason: Pain Hydrocodone Bitart/Acetaminophen ([place] 325-5 Mg) 1 tab PO Q6H PRN PRN Reason: PAIN Last Admin: 01/12/17 03:32 Dose: 1 tab Aspirin (Halfprin) 81 mg PO DAILY [facility] Last Admin: 01/12/17 08:59 Dose: 81 mg Clopidogrel Bisulfate (Plavix) 75 mg PO DAILY [facility] Last Admin: 01/12/17 08:54 Dose: 75 mg Famotidine (Pepcid) 20 mg PO BID [facility] Last Admin: 01/12/17 08:58 Dose: 20 mg Fluticasone Propionate (Flonase) 0 gm NASBOTH QPM PINA Furosemide (Lasix) 40 mg PO DAILY [facility] Last Admin: 01/12/17 08:54 Dose: 40 mg Gabapentin (Neurontin) 200 mg PO BID [facility] Last Admin: 01/12/17 08:58 Dose: 200 mg Guaifenesin (Mucus Relief) 400 mg PO Q6H PRN PRN Reason: Cough Heparin Sodium (Porcine) (Heparin Sodium) 5,000 units SUBCUT Q12H PINA Sodium Chloride (Normal Saline) 1,000 mls @ 150 mls/hr IV STAT [facility] Last Admin: 01/12/17 12:16 Dose: 150 mls/hr Ceftriaxone Sodium/Dextrose 1 (gm/ Premix) 50 mls @ 100 mls/hr IV Q24H PINA Sodium Chloride (Normal Saline) 500 mls @ 999 mls/hr IV .BOLUS [facility] Last Admin: 01/11/17 19:42 Dose: 999 mls/hr Sodium Chloride (Normal Saline) 500 mls @ 999 mls/hr IV .BOLUS [facility] Last Admin: 01/12/17 11:32 Dose: 999 mls/hr Insulin Aspart (Novolog) 6 unit SUBCUT TIDAC [facility] Last Admin: 01/12/17 12:14 Dose: 6 unit Insulin Aspart (Novolog) 0 unit SUBCUT TIDAC [facility] PRN Reason: Protocol Last Admin: 01/12/17 12:15 Dose: 6 units Insulin Glargine (Lantus Solostar) 22 units SUBCUT BEDTIME [facility] Last Admin: 01/11/17 20:23 Dose: 22 unit Isosorbide Mononitrate (Imdur) 30 mg PO DAILY [facility] Last Admin: 01/12/17 08:58 Dose: 30 mg Labetalol HCl (Normodyne) 200 mg PO BID [facility] Last Admin: 01/12/17 09:08 Dose: 200 mg Lisinopril (Prinivil) 10 mg PO BID [facility] Last Admin: 01/12/17 08:57 Dose: 10 mg Lorazepam (Ativan) 0.25 mg PO Q8H PRN PRN Reason: Anxiety Last Admin: 01/12/17 03:31 Dose: 0.25 mg Nitroglycerin (Nitrostat) 0.4 mg SL TID PRN PRN Reason: Chest Pain Non-Formulary Medication (Fluticasone Propionate [Flovent]) 1 puff IH DAILY [facility] Last Admin: 01/12/17 10:51 Dose: Not Given Sodium Bicarbonate (Sodium Bicarbonate) 650 mg PO TID PINA Discontinued Medications Hydrocodone Bitart/Acetaminophen ([place] 325-5 Mg) 1 tab PO ONETIME ONE Stop: 01/11/17 15:40 Last Admin: 01/11/17 16:14 Dose: 1 tab Hydrocodone Bitart/Acetaminophen ([place] 325-5 Mg) 1 tab PO Q6H [facility] Last Admin: 01/11/17 20:27 Dose: Not Given Bismuth Subsalicylate (Pepto Bismol) 15 ml PO ASDIRECTED PRN PRN Reason: Heartburn Enoxaparin Sodium (Lovenox) 40 mg SUBCUT Q24H [facility] Last Admin: 01/11/17 17:27 Dose: 40 mg Sodium Chloride (Normal Saline) 1,000 mls @ 500 mls/hr IV STAT ONE Stop: 01/11/17 15:36 Last Admin: 01/11/17 14:55 Dose: 500 mls/hr Ceftriaxone Sodium/Dextrose 1 (gm/ Premix) 50 mls @ 100 mls/hr IV ONETIME ONE Stop: 01/11/17 15:22 Last Admin: 01/11/17 16:20 Dose: 100 mls/hr Magnesium Sulfate 4 gm/ Premix 100 mls @ 50 mls/hr IV ONETIME ONE Stop: 01/11/17 20:53 Last Admin: 01/11/17 20:27 Dose: Not Given Insulin Aspart (Novolog) 0 unit SUBCUT QIDACANDBED [facility] PRN Reason: Protocol Last Admin: 01/12/17 12:44 Dose: Not Given Insulin Aspart (Novolog) 0 unit SUBCUT TIDAC [facility] PRN Reason: Protocol Last Admin: 01/12/17 12:44 Dose: Not Given Insulin Aspart (Novolog) 6 unit SUBCUT TIDAC [facility] Insulin Aspart (Novolog) 0 unit SUBCUT TIDAC [facility] PRN Reason: Protocol Insulin Human Regular (Novolin R) 10 unit SUBCUT ONETIME ONE PRN Reason: Protocol Stop: 01/11/17 13:38 Last Admin: 01/11/17 15:06 Dose: 10 units Insulin Human Regular (Novolin R) Confirm Administered Dose 1,000 unit .ROUTE .STK-MED ONE Stop: 01/11/17 14:27 Last Admin: 01/11/17 14:56 Dose: Not Given Insulin Human Regular (Novolin R) Confirm Administered Dose 1,000 unit .ROUTE .STK-MED ONE Stop: 01/11/17 15:03 Last Admin: 01/11/17 15:12 Dose: Not Given Insulin Human Regular (Novolin R) 10 unit IVPUSH ONETIME ONE PRN Reason: Protocol Stop: 01/11/17 15:14 Last Admin: 01/11/17 15:14 Dose: 10 units Insulin Human Regular (Novolin R) 10 unit IVPUSH ONETIME ONE PRN Reason: Protocol Stop: 01/11/17 15:55 Last Admin: 01/11/17 16:16 Dose: 10 units Metoclopramide HCl (Reglan) 10 mg IV ONETIME ONE Stop: 01/11/17 14:34 Last Admin: 01/11/17 15:12 Dose: Not Given Non-Formulary Medication (Famotidine [Pepcid]) 40 mg PO BID [facility] Last Admin: 01/11/17 20:11 Dose: Not Given Non-Formulary Medication (Labetalol Hcl [Labetalol]) 200 mg PO BID [facility] Last Admin: 01/11/17 20:11 Dose: Not Given Sodium Bicarbonate (Sodium Bicarbonate 8.4%) 50 meq IVPUSH ONETIME ONE Stop: 01/12/17 10:49 Last Admin: 01/12/17 11:34 Dose: 50 meq Sodium Phosphate (Neutra-Phos) 250 mg PO QID [facility] Stop: 01/12/17 12:00 Last Admin: 01/11/17 20:27 Dose: Not Given - Exam General: Alert, Oriented HEENT: Pupils Equal, Pupils Reactive, EOMI Neck: Supple, Trachea Midline, No JVD Lungs: Clear to Auscultation, Normal Respiratory Effort Cardiovascular: Regular Rate, Regular Rhythm, No Murmurs GI/Abdominal Exam: Normal Bowel Sounds, Soft, Non-Tender Skin: Warm, Dry, Intact Neurological: No New Focal Deficit Psy/Mental Status: Alert - Problem List & Annotations (1) Acidosis SNOMED Code(s): 58385613 Code(s): E87.2 - ACIDOSIS Status: Acute Current Visit: Yes - Problem List Review Problem List Initiated/Reviewed/Updated: Yes - My Orders Last 24 Hours: My Active Orders 01/11/17 18:52 Acetaminophen [Tylenol Extra Strength] 1,000 mg PO Q6H PRN guaiFENesin [Mucus Relief] 400 mg PO Q6H PRN 01/11/17 19:00 Sodium Chloride 0.9% [Normal Saline] 500 ml IV .BOLUS 01/11/17 19:30 Acetaminophen/HYDROcodone [[place] 325-5 MG] 1 tab PO Q6H PRN 01/11/17 21:00 Insulin Glarg,Human.Rec.Analog [LantUS Solostar] 22 units SUBCUT BEDTIME 01/12/17 11:00 Sodium Chloride 0.9% [Normal Saline] 500 ml IV .BOLUS 01/12/17 11:30 Insulin Aspart [NovoLOG] 0 unit SUBCUT TIDAC Insulin Aspart [NovoLOG] 6 unit SUBCUT TIDAC 01/12/17 18:00 Fluticasone Propionate [Flonase] 0 gm NASBOTH QPM 01/12/17 22:00 Sodium Bicarbonate 650 mg PO TID - Plan Plan:: llactic acidosis resolved , patient CO2 still 15 , will start patient on Bicarbonate 650 mg po TID, creatinine today 1.7 , improved , continue hydration. Iv fluids, Rocephin iv Muscle cramps severe-resolved DM uc- increase lantus to 24 units at bedtime, insulin on sliding scale coverage and insulin with meals 7 units TID UTI/ possible pyelonephritis - continue Rocephin 1 gram iv q 24 h Heartburn:resolved
[2017-01-12] MEDS: Sodium Bicarbonate 650 MG Tab PO SCH ×2 (15:38→23:45)
[2017-01-12] MEDS ORDERED: cefTRIAXone 1 GM in Premix Bag 1 BAG IV SCH (17:00)
[2017-01-12] MEDS: Heparin Sodium 5,000 Units/ML Vial SUBCUT SCH (17:15)
[2017-01-12] MEDS ORDERED: Fluticasone Propionate Nasal Spray 16 GM Bottle NASBOTH SCH (18:00)
[2017-01-12] MEDS: Insulin Glargine,Human Rec. Analog 100 Units/ML 3 ML Pen SUBCUT SCH (21:38)
[2017-01-13] MEDS: Sodium Chloride 0.9% 1,000 ML IV SCH (03:13)
[2017-01-13] MEDS: Acetaminophen/HYDROcodone 325-5 MG Tab PO PRN (03:13)
[2017-01-13] MEDS: Sodium Bicarbonate 650 MG Tab PO SCH (05:29)
[2017-01-13] MEDS: Heparin Sodium 5,000 Units/ML Vial SUBCUT SCH (05:30)
[2017-01-13] MEDS: Insulin Aspart 100 Units/ML 3 ML Pen SUBCUT SCH ×2 (07:21→11:29)
[2017-01-13] MEDS ORDERED: Insulin Aspart 100 Units/ML 3 ML Pen SUBCUT SCH ×2 (07:30→09:10)
[2017-01-13] MEDS: Labetalol 100 MG Tab PO SCH (08:01)
[2017-01-13] MEDS: Gabapentin 100 MG Cap PO SCH (08:01)
[2017-01-13] MEDS: Aspirin 81 MG Tab.EC PO SCH (08:01)
[2017-01-13] MEDS: Clopidogrel 75 MG Tab PO SCH (08:03)
[2017-01-13] MEDS: Famotidine 20 MG Tab PO SCH (08:03)
[2017-01-13] MEDS: Isosorbide Mononitrate 30 MG Tab.ER PO SCH (08:04)
[2017-01-13] MEDS: Lisinopril 5 MG Tab PO SCH (08:04)
[2017-01-13 08:05] VITALS: BP 152/67
[2017-01-13] MEDS: Furosemide 40 MG Tab PO SCH (08:05)
[2017-01-13] MEDS: LORazepam 0.5 MG Tab PO PRN (08:21)
[2017-01-13] MEDS ORDERED: Insulin Glargine,Human Rec. Analog 100 Units/ML 3 ML Pen SUBCUT SCH (09:10)
[2017-01-13] MEDS: Non-Formulary Medication 1 Each (Fluticasone Propionate [Flovent] 1 PUFF) IH SCH (09:59)
[2017-01-13] MEDS ORDERED: Potassium Chloride 20 MEQ Tab.ER PO SCH (10:30)
--- NOTE | 2017-01-13 12:03 | PCM.DCSUM1 ---
Discharge Summary - Hospital Course HPI Initial Comments: 81 yo female [facility] resident with pmhx of DM type 2, CAD s/p seven stents admitted for UTI and hyperglycemia. She has been feeling weak, decreased appetite with high blood sugars x one week. Her PCP started her on Farxiga. Her HB A1c is 9.4 three months ago. She also c/o of dysuria, frequency and urgency x 2 days. She denies cp, sob, cough, uri symptoms, nausea, vomiting or other pertinent symptoms. She has loose stools and does not have abdominal pain. She has not noticed any blood in stools or major changes in bowel habits. She was not treated recently with antibiotics. In the ED Her blood pressure is 89/59 HR 76 RR 14 Spo2 97% her blood glucose 649 , UA positive for mild leukoesterase, moderate blood +1 bacteria, negative nitrates. She was started on IVF bolus of 1 L, I.V Rocephin, and received 30 units of novolin regular. - Discharge Data Discharge Date: 01/13/17 Discharge Disposition: Home, Self-Care 01 Condition: Fair - Discharge Diagnosis/Problem(s) (1) Acidosis SNOMED Code(s): 08090667 ICD Code: E87.2 - ACIDOSIS Status: Acute - Patient Summary/Data Hospital Course: Patient admitted with dehydration , YULY , sepsis , pyelonephritis, and U/C DM with BS 643. She was treated with iv fluids , iv Rocephine and insulin was adjusted . BS were controlled , creatinine decreased to 1.7 , patient has low bicarb on BMP and was given Bicarb tablets. Patient eating well ,she improved over the past 2 days , was stable for discharge with po antibiotics to f/up with the PCP - Patient Instructions Diet: Diabetic Diet Activity: As Tolerated Showering/Bathing: June Shower - Discharge Plan Prescriptions/Med Rec: Amoxicillin/Clavulanate K [Augmentin 500 MG\125 MG] 1 tab PO Q12HR #14 tablet RX: amLODIPine [Norvasc] 10 mg PO BEDTIME #30 tablet DULoxetine HCl [Cymbalta] 30 mg PO DAILY #30 capsule.dr RX: Furosemide 20 mg PO DAILY #30 tablet RX: Gabapentin [Neurontin] 400 mg PO BID #60 cap RX: Insulin Aspart [NovoLOG] 8 unit SUBCUT TIDAC #10 pen RX: Insulin Glarg,Human.Rec.Analog [LantUS Solostar] 25 units SUBCUT BEDTIME # 10 pen RX: Sodium Bicarbonate 650 mg PO TID #90 tablet Home Medications: Home Meds RX: Aspirin [[place] Aspirin] 81 mg PO DAILY 09/25/15 [History] RX: Famotidine [Pepcid] 40 mg PO BID 05/01/16 [History] RX: Clopidogrel [Plavix] 75 mg PO DAILY #14 tablet 05/04/16 [Rx] RX: Hydrocodone/Acetaminophen [[place] 5-325] 1 each PO Q4H PRN #20 tablet [Rx] RX: Fluticasone Propionate [Flovent] 1 puff IH DAILY 08/03/16 [History] RX: guaiFENesin [Tussin] 5 ml PO Q6H PRN 08/03/16 [History] RX: Isosorbide Mononitrate [Imdur] 30 mg PO DAILY 11/10/16 [History] RX: LORazepam 0.25 mg PO Q8H PRN 11/10/16 [History] RX: Labetalol HCl [Labetalol] 200 mg PO BID 11/10/16 [History] Dapagliflozin Propanediol [Farxiga] 10 mg PO DAILY 01/11/17 [History] RX: Acetaminophen [Tylenol Extra Strength] 1,000 mg PO Q6H PRN 01/11/17 [History ] RX: Acetaminophen/HYDROcodone [[place] 325-5 MG] 1 tab PO Q6H 01/11/17 [History] RX: Fluticasone Propionate [Flonase] 2 gm NASBOTH QPM 01/11/17 [History] RX: Nitroglycerin [Nitrostat] 0.4 mg SL Q5M PRN 01/11/17 [History] Amoxicillin/Clavulanate K [Augmentin 500 MG\125 MG] 1 tab PO Q12HR #14 tablet [Rx] DULoxetine HCl [Cymbalta] 30 mg PO DAILY #30 capsule. 01/13/17 [Rx] RX: Furosemide 20 mg PO DAILY #30 tablet 01/13/17 [Rx] RX: Gabapentin [Neurontin] 400 mg PO BID #60 cap 01/13/17 [Rx] RX: Insulin Aspart [NovoLOG] 8 unit SUBCUT TIDAC #10 pen 01/13/17 [Rx] RX: Insulin Glarg,Human.Rec.Analog [LantUS Solostar] 25 units SUBCUT BEDTIME # 10 pen 01/13/17 [Rx] RX: Sodium Bicarbonate 650 mg PO TID #90 tablet 01/13/17 [Rx] RX: amLODIPine [Norvasc] 10 mg PO BEDTIME #30 tablet 01/13/17 [Rx] Patient Handouts: Furosemide tablets, Amoxicillin; Clavulanic Acid tablets, Insulin Aspart injection, Gabapentin capsules or tablets, Sodium Bicarbonate tablets, Duloxetine delayed-release capsules, Urinary Tract Infection, Adult, [id number], Dehydration, Adult, [id number], Hyperglycemia, [id number], Insulin Glargine injection Referrals: Robb He MD [Primary Care Provider] - 01/15/17 Todd Perry MD [Physician] - (Please call clinic for appointment for Renal Acidosis.) - General Info Date of Service: 01/13/17 - Review of Systems General: Reports: No Symptoms HEENT: Reports: No Symptoms Pulmonary: Reports: No Symptoms Cardiovascular: Reports: No Symptoms Gastrointestinal: Reports: No Symptoms Genitourinary: Reports: No Symptoms Musculoskeletal: Reports: No Symptoms Neurological: Reports: No Symptoms Psychiatric: Reports: No Symptoms - Patient Data Vitals - Most Recent: Last Vital Signs Temp 98.0 F 01/13/17 08:00 Pulse 92 01/13/17 08:01 Resp 16 01/13/17 08:00 BP 152/67 H 01/13/17 08:04 Pulse Ox 97 01/13/17 08:00 Weight - Most Recent: 151 lb I&O - Last 24 hours: Intake & Output 01/12/17 01/13/17 01/13/17 22:59 06:59 14:59 Intake Total 1804 Output Total 2382 1300 Balance -578 -1300 Lab Results - Last 24 hrs: Laboratory Results - last 24 hr 01/12/17 01/12/17 01/12/17 Range/Units 13:46 16:44 21:35 WBC (4.0-11.0) K/uL RBC (4.30-5.90) M/uL Hgb (12.0-16.0) g/dL Hct (36.0-46.0) % MCV (80.0-98.0) fL MCH (27.0-32.0) pg MCHC (31.0-37.0) g/dL RDW Std Deviation (28.0-62.0) fl RDW Coeff of Gregory (11.0-15.0) % Plt Count (150-400) K/uL MPV (7.40-12.00) fL Neut % (Auto) (48.0-80.0) % Lymph % (Auto) (16.0-40.0) % [place] % (Auto) (0.0-15.0) % Eos % (Auto) (0.0-7.0) % Baso % (Auto) (0.0-1.5) % Neut # (Auto) (1.4-5.7) K/uL Lymph # (Auto) (0.6-2.4) K/uL [place] # (Auto) (0.0-0.8) K/uL Eos # (Auto) (0.0-0.7) K/uL Baso # (Auto) (0.0-0.1) K/uL Nucleated RBC % /100WBC Nucleated RBCs # K/uL Sodium 137 (136-146) mmol/L Potassium 4.0 (3.5-5.1) mmol/L Chloride 110 (98-110) mmol/L Carbon Dioxide 16 L (21-31) mmol/L BUN 35 H (6.0-23.0) mg/dL Creatinine 1.6 H (0.6-1.5) mg/dL Est Cr Clr Drug Dosing 24.62 mL/min Estimated GFR (MDRD) 31.1 ml/min Glucose 290 H (60-110) mg/dL POC Glucose 198 H 173 H (60-110) mg/dL Calcium 8.4 L (8.8-10.8) mg/dL 01/13/17 01/13/17 01/13/17 Range/Units 05:46 05:46 06:29 WBC 5.91 (4.0-11.0) K/uL RBC 3.93 L (4.30-5.90) M/uL Hgb 10.7 L (12.0-16.0) g/dL Hct 31.8 L (36.0-46.0) % MCV 80.9 (80.0-98.0) fL MCH 27.2 (27.0-32.0) pg MCHC 33.6 (31.0-37.0) g/dL RDW Std Deviation 43.6 (28.0-62.0) fl RDW Coeff of Gregory 15 (11.0-15.0) % Plt Count 201 (150-400) K/uL MPV 10.70 (7.40-12.00) fL Neut % (Auto) 52.2 (48.0-80.0) % Lymph % (Auto) 34.0 (16.0-40.0) % [place] % (Auto) 9.6 (0.0-15.0) % Eos % (Auto) 3.9 (0.0-7.0) % Baso % (Auto) 0.3 (0.0-1.5) % Neut # (Auto) 3.1 (1.4-5.7) K/uL Lymph # (Auto) 2.0 (0.6-2.4) K/uL [place] # (Auto) 0.6 (0.0-0.8) K/uL Eos # (Auto) 0.2 (0.0-0.7) K/uL Baso # (Auto) 0.0 (0.0-0.1) K/uL Nucleated RBC % 0.0 /100WBC Nucleated RBCs # 0 K/uL Sodium 137 (136-146) mmol/L Potassium 3.4 L (3.5-5.1) mmol/L Chloride 111 H (98-110) mmol/L Carbon Dioxide 15 L (21-31) mmol/L BUN 31 H (6.0-23.0) mg/dL Creatinine 1.5 (0.6-1.5) mg/dL Est Cr Clr Drug Dosing 26.26 mL/min Estimated GFR (MDRD) 33.5 ml/min Glucose 146 H (60-110) mg/dL POC Glucose 147 H (60-110) mg/dL Calcium 8.7 L (8.8-10.8) mg/dL Med Orders - Current: Current Medications Acetaminophen (Tylenol Extra Strength) 1,000 mg PO Q6H PRN PRN Reason: Pain Hydrocodone Bitart/Acetaminophen ([place] 325-5 Mg) 1 tab PO Q6H PRN PRN Reason: PAIN Last Admin: 01/13/17 03:13 Dose: 1 tab Aspirin (Halfprin) 81 mg PO DAILY [facility] Last Admin: 01/13/17 08:01 Dose: 81 mg Clopidogrel Bisulfate (Plavix) 75 mg PO DAILY [facility] Last Admin: 01/13/17 08:03 Dose: 75 mg Famotidine (Pepcid) 20 mg PO BID [facility] Last Admin: 01/13/17 08:03 Dose: 20 mg Fluticasone Propionate (Flonase) 0 gm NASBOTH QPM [facility] Last Admin: 01/12/17 17:08 Dose: 2 spray Furosemide (Lasix) 40 mg PO DAILY [facility] Last Admin: 01/13/17 08:05 Dose: 40 mg Gabapentin (Neurontin) 200 mg PO BID [facility] Last Admin: 01/13/17 08:01 Dose: 200 mg Guaifenesin (Mucus Relief) 400 mg PO Q6H PRN PRN Reason: Cough Heparin Sodium (Porcine) (Heparin Sodium) 5,000 units SUBCUT Q12H [facility] Last Admin: 01/13/17 05:30 Dose: 5,000 units Sodium Chloride (Normal Saline) 1,000 mls @ 150 mls/hr IV STAT [facility] Last Admin: 01/13/17 03:13 Dose: 150 mls/hr Ceftriaxone Sodium/Dextrose 1 (gm/ Premix) 50 mls @ 100 mls/hr IV Q24H [facility] Last Admin: 01/12/17 17:07 Dose: 100 mls/hr Sodium Chloride (Normal Saline) 500 mls @ 999 mls/hr IV .BOLUS [facility] Last Admin: 01/11/17 19:42 Dose: 999 mls/hr Sodium Chloride (Normal Saline) 500 mls @ 999 mls/hr IV .BOLUS [facility] Last Admin: 01/12/17 11:32 Dose: 999 mls/hr Insulin Aspart (Novolog) 0 unit SUBCUT TIDAC [facility] PRN Reason: Protocol Last Admin: 01/13/17 11:29 Dose: 4 units Insulin Aspart (Novolog) 8 unit SUBCUT TIDAC [facility] Last Admin: 01/13/17 11:30 Dose: 8 units Insulin Glargine (Lantus Solostar) 25 units SUBCUT BEDTIME [facility] Isosorbide Mononitrate (Imdur) 30 mg PO DAILY [facility] Last Admin: 01/13/17 08:04 Dose: 30 mg Labetalol HCl (Normodyne) 200 mg PO BID [facility] Last Admin: 01/13/17 08:01 Dose: 200 mg Lisinopril (Prinivil) 10 mg PO BID [facility] Last Admin: 01/13/17 08:04 Dose: 10 mg Lorazepam (Ativan) 0.25 mg PO Q8H PRN PRN Reason: Anxiety Last Admin: 01/13/17 08:21 Dose: 0.25 mg Nitroglycerin (Nitrostat) 0.4 mg SL TID PRN PRN Reason: Chest Pain Non-Formulary Medication (Fluticasone Propionate [Flovent]) 1 puff IH DAILY [facility] Last Admin: 01/13/17 09:59 Dose: Not Given Potassium Chloride (Klor-Con M20) 40 meq PO DAILY [facility] Last Admin: 01/13/17 11:20 Dose: 40 meq Sodium Bicarbonate (Sodium Bicarbonate) 650 mg PO TID [facility] Last Admin: 01/13/17 05:29 Dose: 650 mg Discontinued Medications Hydrocodone Bitart/Acetaminophen ([place] 325-5 Mg) 1 tab PO ONETIME ONE Stop: 01/11/17 15:40 Last Admin: 01/11/17 16:14 Dose: 1 tab Hydrocodone Bitart/Acetaminophen ([place] 325-5 Mg) 1 tab PO Q6H [facility] Last Admin: 01/11/17 20:27 Dose: Not Given Bismuth Subsalicylate (Pepto Bismol) 15 ml PO ASDIRECTED PRN PRN Reason: Heartburn Enoxaparin Sodium (Lovenox) 40 mg SUBCUT Q24H [facility] Last Admin: 01/11/17 17:27 Dose: 40 mg Sodium Chloride (Normal Saline) 1,000 mls @ 500 mls/hr IV STAT ONE Stop: 01/11/17 15:36 Last Admin: 01/11/17 14:55 Dose: 500 mls/hr Ceftriaxone Sodium/Dextrose 1 (gm/ Premix) 50 mls @ 100 mls/hr IV ONETIME ONE Stop: 01/11/17 15:22 Last Admin: 01/11/17 16:20 Dose: 100 mls/hr Magnesium Sulfate 4 gm/ Premix 100 mls @ 50 mls/hr IV ONETIME ONE Stop: 01/11/17 20:53 Last Admin: 01/11/17 20:27 Dose: Not Given Insulin Aspart (Novolog) 0 unit SUBCUT QIDACANDBED [facility] PRN Reason: Protocol Last Admin: 01/12/17 12:44 Dose: Not Given Insulin Aspart (Novolog) 0 unit SUBCUT TIDAC [facility] PRN Reason: Protocol Last Admin: 01/12/17 12:44 Dose: Not Given Insulin Aspart (Novolog) 6 unit SUBCUT TIDAC [facility] Insulin Aspart (Novolog) 0 unit SUBCUT TIDAC [facility] PRN Reason: Protocol [facility] Admin: 01/12/17 17:16 Dose: 6 unit Insulin Aspart (Novolog) 7 unit SUBCUT TIDAC [facility] Last Admin: 01/13/17 07:56 Dose: 7 units Insulin Glargine (Lantus Solostar) 22 units SUBCUT BEDTIME [facility] Last Admin: 01/12/17 21:38 Dose: 22 unit Insulin Human Regular (Novolin R) 10 unit SUBCUT ONETIME ONE PRN Reason: Protocol Stop: 01/11/17 13:38 Last Admin: 01/11/17 15:06 Dose: 10 units Insulin Human Regular (Novolin R) Confirm Administered Dose 1,000 unit .ROUTE .STK-MED ONE Stop: 01/11/17 14:27 Last Admin: 01/11/17 14:56 Dose: Not Given Insulin Human Regular (Novolin R) Confirm Administered Dose 1,000 unit .ROUTE .STK-MED ONE Stop: 01/11/17 15:03 Last Admin: 01/11/17 15:12 Dose: Not Given Insulin Human Regular (Novolin R) 10 unit IVPUSH ONETIME ONE PRN Reason: Protocol Stop: 01/11/17 15:14 Last Admin: 01/11/17 15:14 Dose: 10 units Insulin Human Regular (Novolin R) 10 unit IVPUSH ONETIME ONE PRN Reason: Protocol Stop: 01/11/17 15:55 Last Admin: 01/11/17 16:16 Dose: 10 units Metoclopramide HCl (Reglan) 10 mg IV ONETIME ONE Stop: 01/11/17 14:34 Last Admin: 01/11/17 15:12 Dose: Not Given Non-Formulary Medication (Famotidine [Pepcid]) 40 mg PO BID [facility] Last Admin: 01/11/17 20:11 Dose: Not Given Non-Formulary Medication (Labetalol Hcl [Labetalol]) 200 mg PO BID [facility] Last Admin: 01/11/17 20:11 Dose: Not Given Sodium Bicarbonate (Sodium Bicarbonate 8.4%) 50 meq IVPUSH ONETIME ONE Stop: 01/12/17 10:49 Last Admin: 01/12/17 11:34 Dose: 50 meq Sodium Phosphate (Neutra-Phos) 250 mg PO QID [facility] Stop: 01/12/17 12:00 Last Admin: 01/11/17 20:27 Dose: Not Given - Exam Quality Assessment: Reports: Supplemental Oxygen General: Reports: Alert, Oriented HEENT: Reports: Pupils Equal, Pupils Reactive, EOMI Neck: Reports: Supple, Trachea Midline, No JVD Lungs: Reports: Clear to Auscultation, Normal Respiratory Effort Cardiovascular: Reports: Regular Rate, Regular Rhythm, No Murmurs GI/Abdominal Exam: Normal Bowel Sounds, Soft, Non-Tender, No Distention Back Exam: Reports: Normal Inspection Extremities: Normal Inspection *Q Meaningful Use (DIS) - VTE *Q VTE Criteria *Q: - Stroke *Q Stroke Criteria *Q: - AMI *Q AMI Criteria *Q:
== END 2017-01-13 13:10 | disposition home or self-care (01) | DRG 641 ==
LOC: MW.ED 13:26 → MW.MS 16:13
PROVIDERS: ADMIT Internal Medicine; ATTEND Internal Medicine
DX: R73.9 Hyperglycemia, unspecified (principal); E86.0 Dehydration; N39.0 Urinary tract infection, site not specified; E87.2 Acidosis; N12 Tubulo-interstitial nephritis, not specified as acute or chronic; E11.65 Type 2 diabetes mellitus with hyperglycemia; E87.1 Hypo-osmolality and hyponatremia; R25.2 Cramp and spasm; I25.10 Atherosclerotic heart disease of native coronary artery without angina pectoris; E78.00 Pure hypercholesterolemia, unspecified; I10 Essential (primary) hypertension; F41.9 Anxiety disorder, unspecified; I25.2 Old myocardial infarction; F17.200 Nicotine dependence, unspecified, uncomplicated; Z95.5 Presence of coronary angioplasty implant and graft; Z88.8 Allergy status to other drugs, medicaments and biological substances; Z79.899 Other long term (current) drug therapy
CPT/HCPCS: 36415; 36600; 71010; 80053; 81001; 82803; 82962 ×2; 83036; 84484; 85025; 87086; 93005; 96361; 96372; 96374; 99285; J7040; 80048; 83605; 83735; 84100; 85027; 96375; 96376; A9270-GY; J0696; J1644; J1650; J1815-GY ×2

== ENCOUNTER 2018-05-20 14:00 | Observation (INO) | payer MEDICARE, MEDICAID ==
[2018-05-20] MEDS ORDERED: Albuterol/Ipratropium 3.0-0.5 MG/3 ML Neb Soln NEB ONE (14:08)
[2018-05-20] MEDS ORDERED: Sodium Chloride 0.9% 2.5 ML Syringe FLUSH PRN (14:09)
[2018-05-20] MEDS ORDERED: Sodium Chloride 0.9% 10 ML Syringe FLUSH PRN (14:09)
--- NOTE | 2018-05-20 14:14 | EDM.PDOC ---
ED HPI GENERAL MEDICAL PROBLEM - General Stated Complaint: SPOKE TO NURSE Time Seen by Provider: 05/20/18 14:03 Source of Information: Reports: Patient History Limitations: Reports: No Limitations - History of Present Illness INITIAL COMMENTS - FREE TEXT/NARRATIVE: HISTORY AND PHYSICAL: History of present illness: Patient is an 82-year-old female who presents to the emergency room with complaints of dyspnea. She states she became so short of breath last evening that the staff at the shelter put her on oxygen. Oxygen saturation at that time was 86-88% on room air. Patient states on Saturday she was started on oral antibiotics for a left lower extremity cellulitis. She did take 2 days' worth of this medication but recognize that the pills were colored "green" and she has an allergy to red and green dyes. She stopped taking this medication and was told that they would be switching her medication to an oral antibiotic that did not contain any artificial dyes. Patient denies any fever, chills, headache, change in vision, syncope or near syncope. Denies any chest pain or back pain. Denies any abdominal pain, nausea, vomiting, diarrhea, constipation or dysuria. Has not noted any blood in urine or stool. Patient has been eating and drinking appropriately. Patient has a past medical history of hypertension, NV, congestive heart failure , acute renal disease, and diabetes. Review of systems: As per history of present illness and below otherwise all systems reviewed and negative. Past medical history: As per history of present illness and as reviewed below otherwise noncontributory. Surgical history: As per history of present illness and as reviewed below otherwise noncontributory. Social history: See social history for further information Family history: As per history of present illness and as reviewed below otherwise noncontributory. Physical exam: General: Well-developed and well-nourished 82-year-old female. Alert and oriented. Nontoxic appearing and in no acute distress. HEENT: Atraumatic, normocephalic, pupils equal and reactive bilaterally, negative for conjunctival pallor or scleral icterus, mucous membranes dry, TMs normal bilaterally, throat clear, neck supple, nontender, trachea midline. No drooling or trismus noted. No meningeal signs. No hot potato voice noted. Lungs: Diminished throughout with fine expiratory wheezing with prolonged expiratory phase, breath sounds equal bilaterally, chest nontender. Heart: S1S2, regular rate and rhythm without overt murmur Abdomen: Soft, nondistended, generalized and diffuse tenderness. Negative for costovertebral tenderness. Pelvis: Stable nontender. Genitourinary: Deferred. Rectal: Deferred. Skin: Faint russ discoloration with tight shiny right LE (chronic, normal variance). +2 pitting edema to lower extremities bilaterally. Cellulitis of the right lower extremity (mid keyes downward to ankle). Otherwise skin is intact, warm, dry. No lesions or rashes noted. Extremities: Atraumatic, moves all extremities per self with difficulty or deficits, negative for cords or calf pain. Neurovascular unremarkable. Neuro: Awake, alert, oriented. Cranial nerves II through XII unremarkable. Cerebellum unremarkable. Motor and sensory unremarkable throughout. Exam nonfocal. Notes: Patient was reviewed all of the diagnostic findings. She is agreeable to staying for observation as her O2 sats do not reach above [address] Parrish was consulted and agreeable to accepting this patient. Vital signs remain stable. Diagnostics: CBC, CMP, troponin, EKG, one view chest, UA, BNP Therapeutics: DuoNeb, saline lock, Solu-Medrol, Vancomycin Impression: Hypoxia Bibasilar infiltrate Cellulitis, left lower extremity Plan: Observation admission to [facility] [place] Definitive disposition and diagnosis as appropriate pending reevaluation and review of above. - Related Data Allergies Allergy/AdvReac Type Severity Reaction Status Date / Time clarithromycin [From Biaxin] Allergy unknown Verified 05/20/18 14:14 irbesartan [From Avapro] Allergy unknown Verified 05/20/18 14:14 red dye Allergy unknown Verified 05/20/18 14:14 [id number]-[id number]-[id number] Reductase Allergy unknown Verified 05/20/18 14:14 Inhibitor Home Meds: Home Meds Acetaminophen [Tylenol Extra Strength] 1,000 mg PO Q6H PRN 05/20/18 [History] Albuterol [Ventolin HFA] 1 puff INH Q4H PRN 05/20/18 [History] Camphor/Menthol [Sarna Lotion] 1 applic TOP ASDIRECTED PRN 05/20/18 [History] Cephalexin [Keflex] 500 mg PO QID 05/20/18 [History] [place]/Min Oil/Stephy/Wool Alcoh [Eucerin Creme] 1 applic TOP ASDIRECTED PRN 05/20 [History] DULoxetine [Cymbalta] 30 mg PO DAILY 05/20/18 [History] Dextromethorphan/guaiFENesin [Robitussin DM] 5 ml PO QID PRN 05/20/18 [History] Famotidine 40 mg PO DAILY 05/20/18 [History] Fluticasone Propionate [Flonase] 2 spray NASBOTH DAILY 05/20/18 [History] Furosemide 20 mg PO DAILY 05/20/18 [History] Gabapentin [Neurontin] 400 mg PO BID 05/20/18 [History] Hydrocodone/Acetaminophen [[place] 5-325 Tablet] 1 tab PO QID PRN 05/20/18 [ History] Insulin Aspart [NovoLOG] 8 unit SQ TIDAC 05/20/18 [History] Insulin Detemir [Levemir Flextouch] 25 unit SQ DAILY 05/20/18 [History] Isosorbide Mononitrate [Imdur] 30 mg PO DAILY 05/20/18 [History] LORazepam 0.25 mg PO BEDTIME 05/20/18 [History] LORazepam 0.25 mg PO Q8H PRN 05/20/18 [History] Losartan [Cozaar] 25 mg PO DAILY 05/20/18 [History] Metoprolol Tartrate 25 mg PO BID 05/20/18 [History] Nitroglycerin 0.4 mg SL Q5M 05/20/18 [History] metFORMIN [Glucophage] 500 mg PO BIDMEALS 05/20/18 [History] Past Medical History - Past Health History Medical/Surgical History: Denies Medical/Surgical History HEENT History: Reports: Impaired Vision Other HEENT History: wears glasses Cardiovascular History: Reports: CAD, High Cholesterol, Hypertension, NV, Stents Respiratory History: Reports: SOB, Other (See Below) Other Respiratory History: acute respiratory failure. 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: Psychiatric History: Reports: Anxiety Endocrine/Metabolic History: Reports: Other (See Below) Other Endocrine/Metabolic History: Borderline DM Hematologic History: Reports: Anticoagulation Therapy Immunologic History: Reports: None - Infectious Disease History Infectious Disease History: Reports: Chicken Pox - Past Surgical History GI Surgical History: Reports: Appendectomy, Cholecystectomy Female Surgical History: Reports: Hysterectomy Social & Family History - Family History Family Medical History: Noncontributory Cardiac: Reports: High Cholesterol, Hypertension, NV Respiratory: Reports: Other (See Below) Other Respiratory Family Hisory: Lung Ca GI: Reports: GERD OBGYN: Reports: Musculoskeletal: Reports: Arthritis Neurological: Reports: TIA Endocrine/Metabolic: Reports: Diabetes, type II Oncologic: Reports: Lung - Caffeine Use Caffeine Use: Reports: Coffee ED ROS GENERAL - Review of Systems Review Of Systems: ROS reveals no pertinent complaints other than HPI. ED EXAM, GENERAL - Physical Exam Exam: See Below (See dictation) Course - Vital Signs Last Recorded V/S: Last Vital Signs Temp 95.7 F 05/20/18 19:45 Pulse 86 05/20/18 19:45 Resp 20 05/20/18 19:45 BP 132/90 05/20/18 19:45 Pulse Ox 95 05/20/18 19:45 - Orders/Labs/Meds Orders: Active Orders 24 hr Category Date Time Status Admission Status [Patient Status] [ADT] Stat ADT 05/20/18 15:55 Active Blood Glucose Check, Bedside [RC] TIDMEALS Care 05/20/18 17:04 Active EKG Documentation Completion [RC] STAT Care 05/20/18 14:09 Active Height and Weight [RC] DAILY Care 05/20/18 17:04 Active Intake and Output Strict [RC] Q12H Care 05/20/18 17:04 Active RT Aerosol Therapy [RC] ASDIRECTED Care 05/20/18 14:09 Active Vital Signs [RC] Q4H Care 05/20/18 17:04 Active English Diabetic [employer] Diet [DIET] Diet 05/20/18 Dinner Active Echo Comp wo Cont [US] Stat Exams 05/20/18 17:04 Ordered Venous Doppler Lwr Ext Lt [US] Stat Exams 05/20/18 17:04 Ordered CULTURE BLOOD [BC] Stat Lab 05/20/18 14:28 Received CULTURE BLOOD [BC] Stat Lab 05/20/18 14:40 Results Enoxaparin [Lovenox] Med 05/20/18 17:15 Active 30 mg SUBCUT Q24H Insulin Aspart [NovoLOG] Med 05/21/18 07:30 Active See Protocol SUBCUT TIDAC Sodium Chloride 0.9% [Saline Flush] Med 05/20/18 14:09 Active 10 ml FLUSH ASDIRECTED PRN Sodium Chloride 0.9% [Saline Flush] Med 05/20/18 14:09 Active 2.5 ml FLUSH ASDIRECTED PRN Blood Culture x2 Reflex Set [OM.PC] Stat Oth 05/20/18 14:09 Ordered Saline Lock Insert [OM.PC] Stat Oth 05/20/18 14:09 Ordered Resuscitation Status Stat Resus Stat 05/20/18 17:04 Ordered Medication Orders Acetaminophen (Tylenol) 650 mg PO Q4H PRN PRN Reason: Pain/Fever Hydrocodone Bitart/Acetaminophen ([place] 325-5 Mg) 1 tab PO QID PRN PRN Reason: Pain Duloxetine HCl (Cymbalta) 30 mg PO DAILY [facility] Enoxaparin Sodium (Lovenox) 30 mg SUBCUT Q24H [facility] Last Admin: 05/20/18 17:54 Dose: 30 mg Famotidine (Pepcid) 40 mg PO DAILY [facility] Fluticasone Propionate (Flonase) 0 gm NASBOTH DAILY [facility] Gabapentin (Neurontin) 400 mg PO BID [facility] Vancomycin HCl 1 gm/ Sodium (Chloride) 250 mls @ 166.667 mls/hr IV Q24H [facility] Last Admin: 05/20/18 17:52 Dose: Insulin Aspart (Novolog) 0 unit SUBCUT TIDAC [facility]; Protocol Insulin Detemir (Levemir) 25 unit SUBCUT DAILY [facility] Isosorbide Mononitrate (Imdur) 30 mg PO DAILY [facility] Lorazepam (Ativan) 0.25 mg PO BEDTIME [facility] Lorazepam (Ativan) 0.25 mg PO Q8H PRN PRN Reason: Anxiety Losartan Potassium (Cozaar) 25 mg PO DAILY [facility] Metoprolol Tartrate (Lopressor) 25 mg PO BID [facility] Ondansetron HCl (Zofran) 4 mg IVPUSH Q4H PRN PRN Reason: Nausea/Vomiting Sodium Chloride (Saline Flush) 10 ml FLUSH ASDIRECTED PRN PRN Reason: Keep Vein Open Last Admin: 05/20/18 15:39 Dose: 10 ml Sodium Chloride (Saline Flush) 2.5 ml FLUSH ASDIRECTED PRN PRN Reason: Keep Vein Open Last Admin: 05/20/18 15:39 Dose: 2.5 ml Vancomycin HCl (Pharmacy To Dose - Vancomycin) 1 dose .XX ASDIRECTED [facility] Labs: Laboratory Tests 05/20/18 05/20/18 05/20/18 Range/Units 14:28 14:28 14:28 WBC 8.22 (4.0-11.0) K/uL RBC 5.18 (4.30-5.90) M/uL Hgb 14.2 (12.0-16.0) g/dL Hct 45.0 (36.0-46.0) % MCV 86.9 (80.0-98.0) fL MCH 27.4 (27.0-32.0) pg MCHC 31.6 (31.0-37.0) g/dL RDW Std Deviation 58.3 (28.0-62.0) fl RDW Coeff of Gregory 18 H (11.0-15.0) % Plt Count 163 (150-400) K/uL MPV 10.20 (7.40-12.00) fL Neut % (Auto) 70.8 (48.0-80.0) % Lymph % (Auto) 18.1 (16.0-40.0) % [place] % (Auto) 9.5 (0.0-15.0) % Eos % (Auto) 1.2 (0.0-7.0) % Baso % (Auto) 0.4 (0.0-1.5) % Neut # (Auto) 5.8 H (1.4-5.7) K/uL Lymph # (Auto) 1.5 (0.6-2.4) K/uL [place] # (Auto) 0.8 (0.0-0.8) K/uL Eos # (Auto) 0.1 (0.0-0.7) K/uL Baso # (Auto) 0.0 (0.0-0.1) K/uL Nucleated RBC % 0.0 /100WBC Nucleated RBCs # 0 K/uL Sodium 139 (136-145) mmol/L Potassium 4.6 (3.5-5.1) mmol/L Chloride 105 (98-107) mmol/L Carbon Dioxide 21.7 (21.0-32.0) mmol/L BUN 27 H (7.0-18.0) mg/dL Creatinine 1.6 H (0.6-1.0) mg/dL Est Cr Clr Drug Dosing 25.23 mL/min Estimated GFR (MDRD) 31.0 ml/min Glucose 72 L (74-106) mg/dL Calcium 9.7 (8.5-10.1) mg/dL Total Bilirubin 1.0 (0.2-1.0) mg/dL AST 20 (15-37) IU/L ALT 21 (14-63) IU/L Alkaline Phosphatase 105 (46-116) U/L Troponin I < 0.050 (0.000-0.056) ng/mL B-Natriuretic Peptide 4533 H (<100) PG/ML Total Protein 6.9 (6.4-8.2) g/dL Albumin 3.8 (3.4-5.0) g/dL Globulin 3.1 (2.6-4.0) g/dL Albumin/Globulin Ratio 1.2 (0.9-1.6) Meds: Medications Generic Name Dose Route Start Last Admin Trade Name Freq PRN Reason Stop Dose Admin Acetaminophen 650 mg 05/20/18 18:58 Tylenol PO Q4H PRN Pain/Fever Hydrocodone Bitart/Acetaminophen 1 tab 05/20/18 18:36 [place]on 325-5 Mg PO QID PRN Pain Duloxetine HCl 30 mg 05/21/18 09:00 Cymbalta PO DAILY [facility] Enoxaparin Sodium 30 mg 05/20/18 17:15 05/20/18 17:54 Lovenox SUBCUT 30 mg Q24H [facility] Administration Famotidine 40 mg 05/21/18 09:00 Pepcid PO DAILY [facility] Fluticasone Propionate 0 gm 05/21/18 09:00 Flonase NASBOTH DAILY [facility] Gabapentin 400 mg 05/20/18 21:00 Neurontin PO BID [facility] Vancomycin HCl 1 gm/ Sodium 250 mls @ 166.667 mls/hr 05/20/18 17:30 05/20/18 17:52 Chloride IV Not Given Q24H [facility] Insulin Aspart 0 unit 05/21/18 07:30 Novolog SUBCUT TIDAC [facility] Protocol Insulin Detemir 25 unit 05/21/18 09:00 Levemir SUBCUT DAILY [facility] Isosorbide Mononitrate 30 mg 05/21/18 09:00 Imdur PO DAILY [facility] Lorazepam 0.25 mg 05/20/18 21:00 Ativan PO BEDTIME [facility] Lorazepam 0.25 mg 05/20/18 18:36 Ativan PO Q8H PRN Anxiety Losartan Potassium 25 mg 05/21/18 09:00 Cozaar PO DAILY [facility] Metoprolol Tartrate 25 mg 05/20/18 21:00 Lopressor PO BID [facility] Ondansetron HCl 4 mg 05/20/18 18:58 Zofran IVPUSH Q4H PRN Nausea/Vomiting Sodium Chloride 10 ml 05/20/18 14:09 05/20/18 15:39 Saline Flush FLUSH 10 ml ASDIRECTED PRN Administration Keep Vein Open Sodium Chloride 2.5 ml 05/20/18 14:09 05/20/18 15:39 Saline Flush FLUSH 2.5 ml ASDIRECTED PRN Administration Keep Vein Open Vancomycin HCl 1 dose 05/20/18 17:15 Pharmacy To Dose - Vancomycin .XX ASDIRECTED [facility] Discontinued Medications Generic Name Dose Route Start Last Admin Trade Name Freq PRN Reason Stop Dose Admin Albuterol/Ipratropium 3 ml 05/20/18 14:08 05/20/18 14:15 Duoneb 3.0-0.5 Mg/3 Ml NEB 05/20/18 14:09 3 ml ONETIME ONE Administration Furosemide 40 mg 05/20/18 17:04 05/20/18 17:57 Lasix IVPUSH 05/20/18 17:05 40 mg NOW ONE Administration Vancomycin HCl 1 gm/ Sodium 250 mls @ 250 mls/hr 05/20/18 15:55 05/20/18 17: 00 Chloride IV 05/20/18 16:54 250 mls/hr ONETIME ONE Administration Methylprednisolone Sodium Succinate 125 mg 05/20/18 14:43 05/20/18 15:38 Solu-Medrol IVPUSH 05/20/18 14:44 125 mg ONETIME ONE Administration Departure - Departure Time of Disposition: 16:00 Disposition: Refer to Observation Clinical Impression: Hypoxia Cellulitis Qualifiers: Site of cellulitis: extremity Site of cellulitis of extremity: lower extremity Laterality: left Qualified Code(s): L03.116 - Cellulitis of left lower limb Pneumonia Qualifiers: Pneumonia type: due to unspecified organism Laterality: bilateral Lung location : lower lobe of lung Qualified Code(s): J18.1 - Lobar pneumonia, unspecified organism - Discharge Information - My Orders Last 24 Hours: My Active Orders 05/20/18 14:09 EKG Documentation Completion [RC] STAT RT Aerosol Therapy [RC] ASDIRECTED Sodium Chloride 0.9% [Saline Flush] 10 ml FLUSH ASDIRECTED PRN Sodium Chloride 0.9% [Saline Flush] 2.5 ml FLUSH ASDIRECTED PRN Blood Culture x2 Reflex Set [OM.PC] Stat Saline Lock Insert [OM.PC] Stat 05/20/18 14:28 CULTURE BLOOD [BC] Stat 05/20/18 14:40 CULTURE BLOOD [BC] Stat 05/20/18 15:55 Admission Status [Patient Status] [ADT] Stat - Assessment/Plan Last 24 Hours: My Active Orders 05/20/18 14:09 EKG Documentation Completion [RC] STAT RT Aerosol Therapy [RC] ASDIRECTED Sodium Chloride 0.9% [Saline Flush] 10 ml FLUSH ASDIRECTED PRN Sodium Chloride 0.9% [Saline Flush] 2.5 ml FLUSH ASDIRECTED PRN Blood Culture x2 Reflex Set [OM.PC] Stat Saline Lock Insert [OM.PC] Stat 05/20/18 14:28 CULTURE BLOOD [BC] Stat 05/20/18 14:40 CULTURE BLOOD [BC] Stat 05/20/18 15:55 Admission Status [Patient Status] [ADT] Stat
[2018-05-20] MEDS ORDERED: methylPREDNISolone Sodium Succinate 125 MG/2 ML SDV IVPUSH ONE (14:43)
[2018-05-20 15:21] LABS: CHLORIDE,CL 105 mmol/L (98-107); SODIUM,NA 139 mmol/L (136-145)
--- NOTE | 2018-05-20 15:27 | CR ---
EXAMINATION: Portable chest radiograph. HISTORY: Dyspnea. FINDINGS: The trachea is midline. The heart is borderline in size. The cardiomediastinal silhouette is within normal limits. Trace bibasilar atelectasis and/or infiltrate. Osseous structures appear unremarkable. IMPRESSION: Trace bibasilar atelectasis and/or infiltrate mild cardiomegaly.
--- NOTE | 2018-05-20 16:57 | PCM.HP ---
H&P History of Present Illness - General Date of Service: 05/20/18 Admit Problem/Dx: Admission Diagnosis/Problem Admission Diagnosis/Problem Hypoxia - History of Present Illness Initial Comments - Free Text/Narative: The patient is a 82 year old female with past medical history of CHF, CAD, HTN, DMII, renal failure who lives at [facility], [place] presented to the ER with concern about shortness of breath and low oxygen saturation. Last night she developed shortness of breath and non productive occasional cough. The long-term checked her O2 sat and it was in the high 80s so she was placed on oxygen. When she did not improve this they brought her into the ER. IN the ER she was satting 86-88% on room air. She endorses orthopnea, and worsening lower extremity edema but no fever/chills. She also has an area of redness on her left lower extremity. She was started on Keflex on 05/16 for cellulitis but it she developed nausea/diarrhea after starting the medication so she stopped it. Upon record review her last echo was June 2017 and showed a EF of 45% with akinesia of the inferior wall. In the ER, work up found no elevated white count, BUN/Cr elevated at 27/1.6, her baseline creatinine seems to be around 1.4-1.5, negative troponin and elevated BNP of 4533. CXR showed trace bibasilar atelectasis and/or infiltrate with mild cardiomegaly. She was given a dose of steroids, neb treatment, and started on Vancomycin. Blood cultures and UA are pending. - Related Data Allergies/Adverse Reactions: Allergies Allergy/AdvReac Type Severity Reaction Status Date / Time clarithromycin [From Biaxin] Allergy unknown Verified 05/20/18 14:14 irbesartan [From Avapro] Allergy unknown Verified 05/20/18 14:14 red dye Allergy unknown Verified 05/20/18 14:14 Opcxgjz-Lwd-Uyl Reductase Allergy unknown Verified 05/20/18 14:14 Inhibitor Home Medications: Home Meds Insulin Detemir [Levemir Flextouch] 35 unit SUBCUT DAILY 01/02/18 [History] Albuterol [Ventolin HFA] 2 puff INH Q4H PRN 05/20/18 [History] Cephalexin [Keflex] 500 mg PO QID 05/20/18 [History] Ryan/Min Oil/Stephy/Wool Alcoh [Eucerin Creme] 0 applicful TOP ASDIRECTED PRN [History] Metoprolol Tartrate [Lopressor] 25 mg PO BID 05/20/18 [History] Past Medical History - Past Health History Medical/Surgical History: Denies Medical/Surgical History HEENT History: Reports: Impaired Vision Other HEENT History: wears glasses Cardiovascular History: Reports: CAD, High Cholesterol, Hypertension, NM, Stents Respiratory History: Reports: SOB, Other (See Below) Other Respiratory History: acute respiratory failure. 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: Psychiatric History: Reports: Anxiety Endocrine/Metabolic History: Reports: Other (See Below) Other Endocrine/Metabolic History: Borderline DM Hematologic History: Reports: Anticoagulation Therapy Immunologic History: Reports: None - Infectious Disease History Infectious Disease History: Reports: Chicken Pox - Past Surgical History GI Surgical History: Reports: Appendectomy, Cholecystectomy Female Surgical History: Reports: Hysterectomy Social & Family History - Family History Family Medical History: Noncontributory Cardiac: Reports: High Cholesterol, Hypertension, NM Respiratory: Reports: Other (See Below) Other Respiratory Family Hisory: Lung Ca GI: Reports: GERD OBGYN: Reports: Musculoskeletal: Reports: Arthritis Neurological: Reports: TIA Endocrine/Metabolic: Reports: Diabetes, type II Oncologic: Reports: Lung - Tobacco Use Smoking Status *Q: Current Every Day Smoker Years of Tobacco use: 20 Packs/Tins Daily: 0.4 - Caffeine Use Caffeine Use: Reports: Coffee - Recreational Drug Use Recreational Drug Use: No H&P Review of Systems - Review of Systems: Review Of Systems: See Below General: Reports: No Symptoms HEENT: Reports: No Symptoms Pulmonary: Reports: Shortness of Breath, Cough. Denies: Sputum Cardiovascular: Reports: Orthopnea, Edema. Denies: Chest Pain Gastrointestinal: Reports: No Symptoms. Denies: Abdominal Pain Genitourinary: Reports: No Symptoms Musculoskeletal: Reports: No Symptoms Skin: Reports: Erythema Psychiatric: Reports: No Symptoms Neurological: Reports: No Symptoms Hematologic/Lymphatic: Reports: No Symptoms Immunologic: Reports: No Symptoms Exam - Exam Exam: See Below - Vital Signs Vital Signs: Last Vital Signs Temp 97.6 F 05/20/18 14:11 Pulse 82 05/20/18 15:44 Resp 20 05/20/18 15:44 BP 140/67 05/20/18 15:44 Pulse Ox 96 05/20/18 15:44 Weight: 78.925 kg - Exam Quality Assessment: Supplemental Oxygen General: Alert, Oriented, Cooperative HEENT: Conjunctiva Clear, EOMI, Mucosa Moist & [place], Posterior Pharynx Clear, Pupils Equal, Pupils Reactive Neck: Supple Lungs: Normal Respiratory Effort, Decreased Breath Sounds Cardiovascular: Regular Rate, Regular Rhythm GI/Abdominal Exam: Normal Bowel Sounds, Soft, Non-Tender, No Distention Extremities: Pedal Edema Skin: Other (area of erythema anterior left lower extremity) Neurological: Cranial Nerves Intact Neuro Extensive - Mental Status: Alert, Oriented x3 Psychiatric: Alert, Normal Affect, Normal Mood - Patient Data Lab Results Last 24 hrs: Laboratory Results - last 24 hr 05/20/18 05/20/18 05/20/18 Range/Units 14:28 14:28 14:28 WBC 8.22 (4.0-11.0) K/uL RBC 5.18 (4.30-5.90) M/uL Hgb 14.2 (12.0-16.0) g/dL Hct 45.0 (36.0-46.0) % MCV 86.9 (80.0-98.0) fL MCH 27.4 (27.0-32.0) pg MCHC 31.6 (31.0-37.0) g/dL RDW Std Deviation 58.3 (28.0-62.0) fl RDW Coeff of Gregory 18 H (11.0-15.0) % Plt Count 163 (150-400) K/uL MPV 10.20 (7.40-12.00) fL Neut % (Auto) 70.8 (48.0-80.0) % Lymph % (Auto) 18.1 (16.0-40.0) % Cassia % (Auto) 9.5 (0.0-15.0) % Eos % (Auto) 1.2 (0.0-7.0) % Baso % (Auto) 0.4 (0.0-1.5) % Neut # (Auto) 5.8 H (1.4-5.7) K/uL Lymph # (Auto) 1.5 (0.6-2.4) K/uL Cassia # (Auto) 0.8 (0.0-0.8) K/uL Eos # (Auto) 0.1 (0.0-0.7) K/uL Baso # (Auto) 0.0 (0.0-0.1) K/uL Nucleated RBC % 0.0 /100WBC Nucleated RBCs # 0 K/uL Sodium 139 (136-145) mmol/L Potassium 4.6 (3.5-5.1) mmol/L Chloride 105 (98-107) mmol/L Carbon Dioxide 21.7 (21.0-32.0) mmol/L BUN 27 H (7.0-18.0) mg/dL Creatinine 1.6 H (0.6-1.0) mg/dL Est Cr Clr Drug Dosing 25.23 mL/min Estimated GFR (MDRD) 31.0 ml/min Glucose 72 L (74-106) mg/dL Calcium 9.7 (8.5-10.1) mg/dL Total Bilirubin 1.0 (0.2-1.0) mg/dL AST 20 (15-37) IU/L ALT 21 (14-63) IU/L Alkaline Phosphatase 105 (46-116) U/L Troponin I < 0.050 (0.000-0.056) ng/mL B-Natriuretic Peptide 4533 H (<100) PG/ML Total Protein 6.9 (6.4-8.2) g/dL Albumin 3.8 (3.4-5.0) g/dL Globulin 3.1 (2.6-4.0) g/dL Albumin/Globulin Ratio 1.2 (0.9-1.6) Result Diagrams: 05/20/18 14:28 05/20/18 14:28 Dimitris Results Last 24 hrs: Microbiology 05/20/18 14:45 Influenza Type A Antigen Screen - Final Nasopharyngeal Swab NEGATIVE INFLUENZA A VIRUS AG Influenza Type B Antigen Screen - Final NEGATIVE INFLUENZA B VIRUS AG 05/20/18 14:40 Anaerobic Blood Culture - Final Blood - Venous - Lab Draw Problem List Initiated/Reviewed/Updated: Yes Orders Last 24hrs: Active Orders 24 hr Category Date Time Status Admission Status [Patient Status] [ADT] Stat ADT 05/20/18 15:55 Active EKG Documentation Completion [RC] STAT Care 05/20/18 14:09 Active RT Aerosol Therapy [RC] ASDIRECTED Care 05/20/18 14:09 Active CULTURE BLOOD [BC] Stat Lab 05/20/18 14:28 Received CULTURE BLOOD [BC] Stat Lab 05/20/18 14:40 Results UA RFX DIMITRIS AND CULT IF INDIC [URIN] Stat Lab 05/20/18 14:09 Ordered Sodium Chloride 0.9% [Saline Flush] Med 05/20/18 14:09 Active 10 ml FLUSH ASDIRECTED PRN Sodium Chloride 0.9% [Saline Flush] Med 05/20/18 14:09 Active 2.5 ml FLUSH ASDIRECTED PRN Vancomycin [Vancocin] 1 gm Med 05/20/18 15:55 Active Sodium Chloride 0.9% [Normal Saline] 250 ml IV ONETIME Blood Culture x2 Reflex Set [OM.PC] Stat Oth 05/20/18 14:09 Ordered Saline Lock Insert [OM.PC] Stat Oth 05/20/18 14:09 Ordered Medication Orders Vancomycin HCl 1 gm/ Sodium (Chloride) 250 mls @ 250 mls/hr IV ONETIME ONE Stop: 05/20/18 16:54 Sodium Chloride (Saline Flush) 10 ml FLUSH ASDIRECTED PRN PRN Reason: Keep Vein Open Last Admin: 05/20/18 15:39 Dose: 10 ml Sodium Chloride (Saline Flush) 2.5 ml FLUSH ASDIRECTED PRN PRN Reason: Keep Vein Open Last Admin: 05/20/18 15:39 Dose: 2.5 ml Assessment/Plan Comment:: 1. Admit for observation 2. Code status - DNR/DNI 3. Vitals per routine 4. I/Os strict 5. Diet- diabetic 6. DVT prophylaxis with lovenox 30 7. CHF exacerbation- will watch daily weights and strict I/Os. Will give 40 mg of IV lasix and carefully watch renal function. Will order repeat echo as last one done was almost a year ago. 8. Cellulitis left lower extremity- will rule out DVT with US Doppler of extremity. WIll continue vancomycin 9. DMII- accucheck, sliding scale, and LEvemir 25 10. Chronic conditions- CAD, HTN, hyperlipidemia, depression -continue home meds.
[2018-05-20] MEDS ORDERED: Furosemide 40 MG/4 ML VIAL IVPUSH ONE (17:04)
[2018-05-20] MEDS ORDERED: Enoxaparin 30 MG/0.3 ML Syringe SUBCUT SCH (17:15)
[2018-05-20] MEDS ORDERED: LORazepam 0.5 MG Tab PO PRN (18:36)
[2018-05-20] MEDS ORDERED: Ondansetron 4 MG/2 ML SDV IVPUSH PRN (18:58)
[2018-05-20] MEDS ORDERED: Acetaminophen 325 MG Tab PO PRN (18:58)
[2018-05-20] MEDS: LORazepam 0.5 MG Tab PO SCH (22:22)
[2018-05-20] MEDS: Metoprolol Tartrate 25 MG Tab PO SCH (22:23)
[2018-05-20] MEDS: Gabapentin 100 MG Cap PO SCH (22:23)
[2018-05-20] MEDS: Acetaminophen/HYDROcodone 325-5 MG Tab PO PRN (22:26)
[2018-05-21] MEDS: Insulin Aspart 100 Units/ML 3 ML Pen SUBCUT SCH ×3 (08:44→17:43)
[2018-05-21] MEDS: Insulin Detemir 100 Units/ML 3 ML Pen SUBCUT SCH (08:45)
[2018-05-21] MEDS: Fluticasone Propionate Nasal Spray 16 GM Bottle NASBOTH SCH (08:52)
[2018-05-21] MEDS: Gabapentin 100 MG Cap PO SCH ×2 (08:53→21:37)
[2018-05-21] MEDS: DULoxetine 30 MG Cap PO SCH (08:53)
[2018-05-21] MEDS: Famotidine 20 MG Tab PO SCH (08:53)
[2018-05-21] MEDS: Metoprolol Tartrate 25 MG Tab PO SCH ×2 (08:54→21:38)
[2018-05-21] MEDS: Isosorbide Mononitrate 30 MG Tab.ER PO SCH (08:54)
[2018-05-21] MEDS: Losartan 50 MG Tab PO SCH (08:55)
--- NOTE | 2018-05-21 10:00 | US ---
ULTRASOUND EXAMINATION OF the left lower extremity WITH DOPPLER HISTORY: Pain FINDINGS: Examination of the left leg was performed from the groin to the calf region. All visualized segments including common femoral, proximal greater saphenous, popliteal and calf veins appear patent with good compressibility and augmentation. The distal left femoral vein is not well visualized however proximal augmentation is noted. There is no evidence of deep vein thrombosis. Overall detail is limited secondary to a notable amount of subcutaneous edema. IMPRESSION: 1. No definite evidence of a DVT.
[2018-05-21] MEDS: Furosemide 40 MG/4 ML VIAL IVPUSH SCH ×2 (10:07→15:40)
--- NOTE | 2018-05-21 10:37 | PCM.PN ---
- General Info Date of Service: 05/21/18 Subjective Update: The patient is a 82 year old female admitted for hypoxia related to CHF exacerbation and cellulitis of left lower extremity. She is now off oxygen and reports he breathing is better. Cellulitis shows slight improvement, she reports less pain in leg. Patient still has edema in the lower extremities bilaterally. She denies chest pain, shortness of breath, or abdominal pain. - Review of Systems General: Reports: No Symptoms HEENT: Reports: No Symptoms Pulmonary: Reports: No Symptoms Cardiovascular: Reports: Edema. Denies: Chest Pain Gastrointestinal: Reports: No Symptoms Genitourinary: Reports: No Symptoms Musculoskeletal: Reports: No Symptoms Skin: Reports: Rash Neurological: Reports: No Symptoms Psychiatric: Reports: No Symptoms - Patient Data Vitals - Most Recent: Last Vital Signs Temp 97.6 F 05/21/18 08:00 Pulse 78 05/21/18 08:54 Resp 16 05/21/18 08:00 BP 134/67 05/21/18 08:55 Pulse Ox 97 05/21/18 08:00 Weight - Most Recent: 77.927 kg I&O - Last 24 Hours: Intake & Output 05/20/18 05/21/18 05/21/18 22:59 06:59 14:59 Intake Total 250 620 Output Total 2004 Balance 250 -1385 Lab Results Last 24 Hours: Laboratory Results - last 24 hr 05/20/18 05/20/18 05/20/18 Range/Units 14:28 14:28 14:28 WBC 8.22 (4.0-11.0) K/uL RBC 5.18 (4.30-5.90) M/uL Hgb 14.2 (12.0-16.0) g/dL Hct 45.0 (36.0-46.0) % MCV 86.9 (80.0-98.0) fL MCH 27.4 (27.0-32.0) pg MCHC 31.6 (31.0-37.0) g/dL RDW Std Deviation 58.3 (28.0-62.0) fl RDW Coeff of Gregory 18 H (11.0-15.0) % Plt Count 163 (150-400) K/uL MPV 10.20 (7.40-12.00) fL Neut % (Auto) 70.8 (48.0-80.0) % Lymph % (Auto) 18.1 (16.0-40.0) % Kimball % (Auto) 9.5 (0.0-15.0) % Eos % (Auto) 1.2 (0.0-7.0) % Baso % (Auto) 0.4 (0.0-1.5) % Neut # (Auto) 5.8 H (1.4-5.7) K/uL Lymph # (Auto) 1.5 (0.6-2.4) K/uL [place] # (Auto) 0.8 (0.0-0.8) K/uL Eos # (Auto) 0.1 (0.0-0.7) K/uL Baso # (Auto) 0.0 (0.0-0.1) K/uL Nucleated RBC % 0.0 /100WBC Nucleated RBCs # 0 K/uL Sodium 139 (136-145) mmol/L Potassium 4.6 (3.5-5.1) mmol/L Chloride 105 (98-107) mmol/L Carbon Dioxide 21.7 (21.0-32.0) mmol/L BUN 27 H (7.0-18.0) mg/dL Creatinine 1.6 H (0.6-1.0) mg/dL Est Cr Clr Drug Dosing 25.23 mL/min Estimated GFR (MDRD) 31.0 ml/min Glucose 72 L (74-106) mg/dL POC Glucose (60-110) mg/dL Calcium 9.7 (8.5-10.1) mg/dL Total Bilirubin 1.0 (0.2-1.0) mg/dL AST 20 (15-37) IU/L ALT 21 (14-63) IU/L Alkaline Phosphatase 105 (46-116) U/L Troponin I < 0.050 (0.000-0.056) ng/mL B-Natriuretic Peptide 4533 H (<100) PG/ML Total Protein 6.9 (6.4-8.2) g/dL Albumin 3.8 (3.4-5.0) g/dL Globulin 3.1 (2.6-4.0) g/dL Albumin/Globulin Ratio 1.2 (0.9-1.6) Urine Color Urine Appearance Urine pH (5.0-8.0) Ur Specific [place] (1.001-1.035) Urine Protein (NEGATIVE) mg/dL Urine Glucose (UA) (NEGATIVE) mg/dL Urine Ketones (NEGATIVE) mg/dL Urine Occult Blood (NEGATIVE) Urine Nitrite (NEGATIVE) Urine Bilirubin (NEGATIVE) Urine Urobilinogen (<2.0) EU/dL Ur Leukocyte Esterase (NEGATIVE) Urine RBC (0-2/HPF) Urine WBC (0-5/HPF) Ur Epithelial Cells (NONE-FEW) Urine Bacteria (NEGATIVE) 05/20/18 05/20/18 05/21/18 Range/Units 17:38 19:10 05:40 WBC 5.53 (4.0-11.0) K/uL RBC 5.03 (4.30-5.90) M/uL Hgb 13.9 (12.0-16.0) g/dL Hct 43.1 (36.0-46.0) % MCV 85.7 (80.0-98.0) fL MCH 27.6 (27.0-32.0) pg MCHC 32.3 (31.0-37.0) g/dL RDW Std Deviation 55.7 (28.0-62.0) fl RDW Coeff of Gregory 18 H (11.0-15.0) % Plt Count 160 (150-400) K/uL MPV 10.30 (7.40-12.00) fL Neut % (Auto) 78.5 (48.0-80.0) % Lymph % (Auto) 14.8 L (16.0-40.0) % [place] % (Auto) 6.5 (0.0-15.0) % Eos % (Auto) 0.0 (0.0-7.0) % Baso % (Auto) 0.2 (0.0-1.5) % Neut # (Auto) 4.3 (1.4-5.7) K/uL Lymph # (Auto) 0.8 (0.6-2.4) K/uL Kimball # (Auto) 0.4 (0.0-0.8) K/uL Eos # (Auto) 0.0 (0.0-0.7) K/uL Baso # (Auto) 0.0 (0.0-0.1) K/uL Nucleated RBC % 0.0 /100WBC Nucleated RBCs # 0 K/uL Sodium (136-145) mmol/L Potassium (3.5-5.1) mmol/L Chloride (98-107) mmol/L Carbon Dioxide (21.0-32.0) mmol/L BUN (7.0-18.0) mg/dL Creatinine (0.6-1.0) mg/dL Est Cr Clr Drug Dosing mL/min Estimated GFR (MDRD) ml/min Glucose (74-106) mg/dL POC Glucose 100 (60-110) mg/dL Calcium (8.5-10.1) mg/dL Total Bilirubin (0.2-1.0) mg/dL AST (15-37) IU/L ALT (14-63) IU/L Alkaline Phosphatase (46-116) U/L Troponin I (0.000-0.056) ng/mL B-Natriuretic Peptide (<100) PG/ML Total Protein (6.4-8.2) g/dL Albumin (3.4-5.0) g/dL Globulin (2.6-4.0) g/dL Albumin/Globulin Ratio (0.9-1.6) Urine Color YELLOW Urine Appearance CLEAR Urine pH 5.0 (5.0-8.0) Ur Specific [place] 1.015 (1.001-1.035) Urine Protein 30 H (NEGATIVE) mg/dL Urine Glucose (UA) NEGATIVE (NEGATIVE) mg/dL Urine Ketones NEGATIVE (NEGATIVE) mg/dL Urine Occult Blood TRACE-INTACT H (NEGATIVE) Urine Nitrite NEGATIVE (NEGATIVE) Urine Bilirubin NEGATIVE (NEGATIVE) Urine Urobilinogen 0.2 (<2.0) EU/dL Ur Leukocyte Esterase NEGATIVE (NEGATIVE) Urine RBC 0-1 (0-2/HPF) Urine WBC 0-2 (0-5/HPF) Ur Epithelial Cells FEW (NONE-FEW) Urine Bacteria FEW (NEGATIVE) 05/21/18 05/21/18 Range/Units 05:40 06:51 WBC (4.0-11.0) K/uL RBC (4.30-5.90) M/uL Hgb (12.0-16.0) g/dL Hct (36.0-46.0) % MCV (80.0-98.0) fL MCH (27.0-32.0) pg MCHC (31.0-37.0) g/dL RDW Std Deviation (28.0-62.0) fl RDW Coeff of Gregory (11.0-15.0) % Plt Count (150-400) K/uL MPV (7.40-12.00) fL Neut % (Auto) (48.0-80.0) % Lymph % (Auto) (16.0-40.0) % Kimball % (Auto) (0.0-15.0) % Eos % (Auto) (0.0-7.0) % Baso % (Auto) (0.0-1.5) % Neut # (Auto) (1.4-5.7) K/uL Lymph # (Auto) (0.6-2.4) K/uL [place] # (Auto) (0.0-0.8) K/uL Eos # (Auto) (0.0-0.7) K/uL Baso # (Auto) (0.0-0.1) K/uL Nucleated RBC % /100WBC Nucleated RBCs # K/uL Sodium 136 (136-145) mmol/L Potassium 4.6 (3.5-5.1) mmol/L Chloride 103 (98-107) mmol/L Carbon Dioxide 20.4 L (21.0-32.0) mmol/L BUN 30 H (7.0-18.0) mg/dL Creatinine 1.4 H (0.6-1.0) mg/dL Est Cr Clr Drug Dosing 27.68 mL/min Estimated GFR (MDRD) 36.2 ml/min Glucose 217 H (74-106) mg/dL POC Glucose 203 H (60-110) mg/dL Calcium 9.3 (8.5-10.1) mg/dL Total Bilirubin (0.2-1.0) mg/dL AST (15-37) IU/L ALT (14-63) IU/L Alkaline Phosphatase (46-116) U/L Troponin I (0.000-0.056) ng/mL B-Natriuretic Peptide (<100) PG/ML Total Protein (6.4-8.2) g/dL Albumin (3.4-5.0) g/dL Globulin (2.6-4.0) g/dL Albumin/Globulin Ratio (0.9-1.6) Urine Color Urine Appearance Urine pH (5.0-8.0) Ur Specific [place] (1.001-1.035) Urine Protein (NEGATIVE) mg/dL Urine Glucose (UA) (NEGATIVE) mg/dL Urine Ketones (NEGATIVE) mg/dL Urine Occult Blood (NEGATIVE) Urine Nitrite (NEGATIVE) Urine Bilirubin (NEGATIVE) Urine Urobilinogen (<2.0) EU/dL Ur Leukocyte Esterase (NEGATIVE) Urine RBC (0-2/HPF) Urine WBC (0-5/HPF) Ur Epithelial Cells (NONE-FEW) Urine Bacteria (NEGATIVE) Dimitris Results Last 24 Hours: Microbiology 05/20/18 14:45 Influenza Type A Antigen Screen - Final Nasopharyngeal Swab NEGATIVE INFLUENZA A VIRUS AG Influenza Type B Antigen Screen - Final NEGATIVE INFLUENZA B VIRUS AG 05/20/18 14:40 Anaerobic Blood Culture - Final Blood - Venous - Lab Draw Med Orders - Current: Current Medications Acetaminophen (Tylenol) 650 mg PO Q4H PRN PRN Reason: Pain/Fever Hydrocodone Bitart/Acetaminophen ([place] 325-5 Mg) 1 tab PO QID PRN PRN Reason: Pain Last Admin: 05/20/18 22:26 Dose: 1 tab Duloxetine HCl (Cymbalta) 30 mg PO DAILY [facility] Last Admin: 05/21/18 08:53 Dose: 30 mg Famotidine (Pepcid) 20 mg PO DAILY [facility] Last Admin: 05/21/18 08:53 Dose: 20 mg Fluticasone Propionate (Flonase) 0 gm NASBOTH DAILY [facility] Last Admin: 05/21/18 08:52 Dose: Not Given Furosemide (Lasix) 40 mg IVPUSH BIDDIURETIC [facility] Last Admin: 05/21/18 10:07 Dose: 40 mg Gabapentin (Neurontin) 400 mg PO BID [facility] Last Admin: 05/21/18 08:53 Dose: 400 mg Heparin Sodium (Porcine) (Heparin Sodium) 5,000 units SUBCUT Q8H [facility] Vancomycin HCl 1 gm/ Sodium (Chloride) 250 mls @ 166.667 mls/hr IV Q24H [facility] Last Admin: 05/20/18 17:52 Dose: Not Given Insulin Aspart (Novolog) 0 unit SUBCUT TIDAC [facility]; Protocol Last Admin: 05/21/18 08:44 Dose: 2 units Insulin Detemir (Levemir) 25 unit SUBCUT DAILY [facility] Last Admin: 05/21/18 08:45 Dose: 25 units Isosorbide Mononitrate (Imdur) 30 mg PO DAILY [facility] Last Admin: 05/21/18 08:54 Dose: 30 mg Lorazepam (Ativan) 0.25 mg PO BEDTIME [facility] Last Admin: 05/20/18 22:22 Dose: 0.25 mg Lorazepam (Ativan) 0.25 mg PO Q8H PRN PRN Reason: Anxiety Losartan Potassium (Cozaar) 25 mg PO DAILY [facility] Last Admin: 05/21/18 08:55 Dose: 25 mg Metoprolol Tartrate (Lopressor) 25 mg PO BID [facility] Last Admin: 05/21/18 08:54 Dose: 25 mg Ondansetron HCl (Zofran) 4 mg IVPUSH Q4H PRN PRN Reason: Nausea/Vomiting Sodium Chloride (Saline Flush) 10 ml FLUSH ASDIRECTED PRN PRN Reason: Keep Vein Open Last Admin: 05/20/18 15:39 Dose: 10 ml Sodium Chloride (Saline Flush) 2.5 ml FLUSH ASDIRECTED PRN PRN Reason: Keep Vein Open Last Admin: 05/20/18 15:39 Dose: 2.5 ml Vancomycin HCl (Pharmacy To Dose - Vancomycin) 1 dose .XX ASDIRECTED [facility] Discontinued Medications Albuterol/Ipratropium (Duoneb 3.0-0.5 Mg/3 Ml) 3 ml NEB ONETIME ONE Stop: 05/20/18 14:09 Last Admin: 05/20/18 14:15 Dose: 3 ml Enoxaparin Sodium (Lovenox) 30 mg SUBCUT Q24H [facility] Last Admin: 05/20/18 17:54 Dose: 30 mg Furosemide (Lasix) 40 mg IVPUSH NOW ONE Stop: 05/20/18 17:05 Last Admin: 05/20/18 17:57 Dose: 40 mg Vancomycin HCl 1 gm/ Sodium (Chloride) 250 mls @ 250 mls/hr IV ONETIME ONE Stop: 05/20/18 16:54 Last Admin: 05/20/18 17:00 Dose: 250 mls/hr Methylprednisolone Sodium Succinate (Solu-Medrol) 125 mg IVPUSH ONETIME ONE Stop: 05/20/18 14:44 Last Admin: 05/20/18 15:38 Dose: 125 mg - Exam Quality Assessment: No: Supplemental Oxygen General: Alert, Oriented, Cooperative Lungs: Decreased Breath Sounds. No: Crackles Cardiovascular: Regular Rate, Regular Rhythm GI/Abdominal Exam: Normal Bowel Sounds, Soft, Non-Tender, No Distention Extremities: Pedal Edema Skin: Warm, Dry, Other (erythema of left lower extremity improved) Neurological: No New Focal Deficit Psy/Mental Status: Alert, Normal Affect, Normal Mood - Problem List Review Problem List Initiated/Reviewed/Updated: Yes - My Orders Last 24 Hours: My Active Orders 05/20/18 17:04 Blood Glucose Check, Bedside [] TIDMEALS Height and Weight [RC] DAILY Intake and Output Strict [RC] Q12H Vital Signs [RC] Q4H Resuscitation Status Stat 05/20/18 17:15 Pharmacy to Dose - Vancomycin 1 dose .XX ASDIRECTED 05/20/18 17:30 Vancomycin [Vancocin] 1 gm Sodium Chloride 0.9% [Normal Saline] 250 ml IV Q24H 05/20/18 18:36 Acetaminophen/HYDROcodone [[place] 325-5 MG] 1 tab PO QID PRN LORazepam [Ativan] 0.25 mg PO Q8H PRN 05/20/18 18:58 Acetaminophen [Tylenol] 650 mg PO Q4H PRN Ondansetron [Zofran] 4 mg IVPUSH Q4H PRN 05/20/18 21:00 Gabapentin [Neurontin] 400 mg PO BID LORazepam [Ativan] 0.25 mg PO BEDTIME Metoprolol Tartrate [Lopressor] 25 mg PO BID 05/20/18 [facility] [employer] Diet [DIET] 05/21/18 Echo Comp wo Cont [US] Stat 05/21/18 07:30 Insulin Aspart [NovoLOG] See Protocol SUBCUT TIDAC 05/21/18 09:00 DULoxetine [Cymbalta] 30 mg PO DAILY Famotidine [Pepcid] 20 mg PO DAILY Fluticasone Propionate [Flonase] 0 gm NASBOTH DAILY Insulin Detemir [Levemir] 25 unit SUBCUT DAILY Isosorbide Mononitrate [Imdur] 30 mg PO DAILY Losartan [Cozaar] 25 mg PO DAILY 05/21/18 22:00 Heparin Sodium 5,000 units SUBCUT Q8H 05/23/18 16:30 VANCOMYCIN TROUGH [CHEM] Timed - Plan Plan:: 1. CHF exacerbation- will watch daily weights and strict I/Os. Will start 40 mg of IV lasix BID, continue to monitor renal function. Will order repeat echo as last one done was almost a year ago. 2. Cellulitis left lower extremity-improved will rule out DVT with US Doppler of extremity. Will continue vancomycin 3. YULY- improvement in Cr from 1.6 to 1.4 4. DMII- accucheck, sliding scale, and Levemir 25 5. Chronic conditions- CAD, HTN, hyperlipidemia, depression -continue home meds.
[2018-05-21] MEDS: LORazepam 0.5 MG Tab PO SCH (21:38)
[2018-05-21] MEDS: Heparin Sodium 5,000 Units/ML Vial SUBCUT SCH (21:39)
[2018-05-21] MEDS: Acetaminophen/HYDROcodone 325-5 MG Tab PO PRN (21:49)
[2018-05-22] MEDS: Heparin Sodium 5,000 Units/ML Vial SUBCUT SCH (06:44)
[2018-05-22 07:43] VITALS: BP 139/68
[2018-05-22] MEDS: Gabapentin 100 MG Cap PO SCH (09:56)
[2018-05-22] MEDS: Metoprolol Tartrate 25 MG Tab PO SCH (09:58)
[2018-05-22] MEDS: DULoxetine 30 MG Cap PO SCH (09:59)
[2018-05-22] MEDS: Isosorbide Mononitrate 30 MG Tab.ER PO SCH (09:59)
[2018-05-22] MEDS: Famotidine 20 MG Tab PO SCH (09:59)
[2018-05-22] MEDS: Losartan 50 MG Tab PO SCH (10:00)
[2018-05-22] MEDS: Fluticasone Propionate Nasal Spray 16 GM Bottle NASBOTH SCH (10:01)
[2018-05-22] MEDS: Insulin Aspart 100 Units/ML 3 ML Pen SUBCUT SCH ×2 (10:02→12:20)
[2018-05-22] MEDS: Insulin Detemir 100 Units/ML 3 ML Pen SUBCUT SCH (10:06)
[2018-05-22] MEDS: Furosemide 40 MG/4 ML VIAL IVPUSH SCH (10:28)
--- NOTE | 2018-05-22 11:04 | PCM.DCSUM1 ---
<Huong Spain - Last Filed: 05/22/18 12:25> Discharge Summary - Hospital Course HPI Initial Comments: Admission Date:05/20/18 Discharge Date: 05/22/18 Admission Diagnosis: 1. CHF exacerbation 2. YULY 3. Cellulitis left lower extremity 4. DMII Discharge Diagnosis: 1. acute hypoxic failure secondary to CHF exacerbation- resolved 2. chronic renal insufficiency 3. Cellulitis left lower extremity-improved 4. DMII Procedures: None Consults: None Hospital Course: The patient is a 82 year old female, resident of [facility], who presented to the ER requiring oxygen. She ahs a past medical history of CHF, DMII, chronic kidney insufficiency, and HTN. On work up, she had elevated Creatine at 1.4 which we found out was her baseline, and elevated BNP. CXR showed trace bibasilar atelectasis and/infiltrate with mild cardiomegaly. She did not have a fever or white count. She was admitted to the medical floor for CHF exacerbation and was diuresed. After diureses she was able to be weaned off of oxygen. Her kidney function remained stable. Echo in June 2017 showed EF of 45%, repeat echo showed EF of 30-35% with new akinesia of anteroseptal wall. For her cellulitis she was started on Vancomycin and had some improvement, she was be discharged on clindamycin. An US Doppler of the extremity did not see a DVT. She was continued on Levemir, sliding scale, and accucehcks for her diabetes. She was continued on her home medications for her chronic conditions. By day of discharge the patient was adamant about going home today. She will go home on increased dose of lasix for 3 days then go back to her home dosage. Disposition: [facility] Discharge Condition: vitals stable, tolerating oral diet, ambulating without difficulty, symptoms improved. Discharge Instructions: diabetic diet as tolerated, activity as tolerated, take medications as prescribed. Symptoms to report to physician include fever/chills , chest pain, shortness of breath, abdominal pain, nausea/vomiting, erythema, discharge/drainage, or not improving as expected. Discharge Medications: Acetaminophen [Tylenol Extra Strength] 1,000 mg PO Q6H PRN Albuterol [Ventolin HFA] 1 puff INH Q4H PRN Camphor/Menthol [Sarna Lotion] 1 applic TOP ASDIRECTED PRN [place]/Min Oil/Stehpy/Wool Alcoh [Eucerin Creme] 1 applic TOP ASDIRECTED PRN DULoxetine [Cymbalta] 30 mg PO DAILY Dextromethorphan/guaiFENesin [Robitussin DM] 5 ml PO QID PRN Famotidine 40 mg PO DAILY Fluticasone Propionate [Flonase] 2 spray NASBOTH DAILY Furosemide 20 mg PO DAILY Gabapentin [Neurontin] 400 mg PO BID Hydrocodone/Acetaminophen [[place] 5-325 Tablet] 1 tab PO QID PRN Insulin Aspart [NovoLOG] 8 unit SQ TIDAC Insulin Detemir [Levemir Flextouch] 25 unit SQ DAILY Isosorbide Mononitrate [Imdur] 30 mg PO DAILY LORazepam 0.25 mg PO BEDTIME LORazepam 0.25 mg PO Q8H PRN Losartan [Cozaar] 25 mg PO DAILY Metoprolol Tartrate 25 mg PO BID Nitroglycerin 0.4 mg SL Q5M metFORMIN [Glucophage] 500 mg PO BIDMEALS Clindamycin HCl 300 mg PO TID 7 Days #21 capsule Furosemide 40 mg PO DAILY 3 Days #3 tablet Follow-up: Dr. He to follow in [place]. Patient should follow up with Dr. Resendiz of cardiology. Diagnosis: Stroke: No - Discharge Data Discharge Date: 05/22/18 Discharge Disposition: DC/Tfer to [facility] 03 Condition: Stable - Patient Instructions Diet: Heart Healthy Diet Activity: As Tolerated Showering/Bathing: May Shower Notify Provider of: Fever, Increased Pain, Swelling and Redness, Drainage, Nausea and/or Vomiting Other/Special Instructions: Additional symptoms include chest pain, shortness of breath, abdominal pain, or worsening edema. - Discharge Plan *PRESCRIPTION DRUG MONITORING PROGRAM REVIEWED*: No *COPY OF PRESCRIPTION DRUG MONITORING REPORT IN PATIENT KEVAN: No Prescriptions/Med Rec: Doxycycline [Vibramycin] 100 mg PO BID 7 Days #14 tab Furosemide 40 mg PO DAILY 3 Days #3 tablet Home Medications: Home Meds Acetaminophen [Tylenol Extra Strength] 1,000 mg PO Q6H PRN 05/20/18 [History] Albuterol [Ventolin HFA] 1 puff INH Q4H PRN 05/20/18 [History] Camphor/Menthol [Sarna Lotion] 1 applic TOP ASDIRECTED PRN 05/20/18 [History] [place]/Min Oil/Stephy/Wool Alcoh [Eucerin Creme] 1 applic TOP ASDIRECTED PRN 05/20 [History] DULoxetine [Cymbalta] 30 mg PO DAILY 05/20/18 [History] Dextromethorphan/guaiFENesin [Robitussin DM] 5 ml PO QID PRN 05/20/18 [History] Famotidine 40 mg PO DAILY 05/20/18 [History] Fluticasone Propionate [Flonase] 2 spray NASBOTH DAILY 05/20/18 [History] Furosemide 20 mg PO DAILY 05/20/18 [History] Gabapentin [Neurontin] 400 mg PO BID 05/20/18 [History] Hydrocodone/Acetaminophen [[place] 5-325 Tablet] 1 tab PO QID PRN 05/20/18 [ History] Insulin Aspart [NovoLOG] 8 unit SQ TIDAC 05/20/18 [History] Insulin Detemir [Levemir Flextouch] 25 unit SQ DAILY 05/20/18 [History] Isosorbide Mononitrate [Imdur] 30 mg PO DAILY 05/20/18 [History] LORazepam 0.25 mg PO BEDTIME 05/20/18 [History] LORazepam 0.25 mg PO Q8H PRN 05/20/18 [History] Losartan [Cozaar] 25 mg PO DAILY 05/20/18 [History] Metoprolol Tartrate 25 mg PO BID 05/20/18 [History] Nitroglycerin 0.4 mg SL Q5M 05/20/18 [History] metFORMIN [Glucophage] 500 mg PO BIDMEALS 05/20/18 [History] Doxycycline [Vibramycin] 100 mg PO BID 7 Days #14 tab 05/22/18 [Rx] Furosemide 40 mg PO DAILY 3 Days #3 tablet 05/22/18 [Rx] Forms: ED Department Discharge Referrals: Mina Moran MD [Physician] - 06/23/18 8:30 am Robb He MD [Physician] - 05/29/18 8:00 am (Next Alfredo rounds.) PCP,Unknown [Primary Care Provider] - - Discharge Summary/Plan Comment DC Time >30 min.: No - Patient Data Vitals - Most Recent: Last Vital Signs Temp 97.8 F 05/22/18 07:20 Pulse 84 05/22/18 09:58 Resp 16 05/22/18 07:20 BP 139/68 05/22/18 10:00 Pulse Ox 96 05/22/18 04:00 Weight - Most Recent: 79.832 kg I&O - Last 24 hours: Intake & Output 05/21/18 05/22/18 05/22/18 22:59 06:59 14:59 Intake Total 800 1060 Output Total 800 1500 Balance 0 -440 Lab Results - Last 24 hrs: Laboratory Results - last 24 hr 05/21/18 05/21/18 05/21/18 Range/Units 11:17 12:07 17:41 WBC (4.0-11.0) K/uL RBC (4.30-5.90) M/uL Hgb (12.0-16.0) g/dL Hct (36.0-46.0) % MCV (80.0-98.0) fL MCH (27.0-32.0) pg MCHC (31.0-37.0) g/dL RDW Std Deviation (28.0-62.0) fl RDW Coeff of Gregory (11.0-15.0) % Plt Count (150-400) K/uL MPV (7.40-12.00) fL Neut % (Auto) (48.0-80.0) % Lymph % (Auto) (16.0-40.0) % [place] % (Auto) (0.0-15.0) % Eos % (Auto) (0.0-7.0) % Baso % (Auto) (0.0-1.5) % Neut # (Auto) (1.4-5.7) K/uL Lymph # (Auto) (0.6-2.4) K/uL [place] # (Auto) (0.0-0.8) K/uL Eos # (Auto) (0.0-0.7) K/uL Baso # (Auto) (0.0-0.1) K/uL Nucleated RBC % /100WBC Nucleated RBCs # K/uL Sodium 136 (136-145) mmol/L Potassium 5.4 H (3.5-5.1) mmol/L Chloride 103 (98-107) mmol/L Carbon Dioxide 19.2 L (21.0-32.0) mmol/L BUN 31 H (7.0-18.0) mg/dL Creatinine 1.5 H (0.6-1.0) mg/dL Est Cr Clr Drug Dosing 25.83 mL/min Estimated GFR (MDRD) 33.4 ml/min Glucose 189 H (74-106) mg/dL POC Glucose 192 H 112 H (60-110) mg/dL Calcium 9.7 (8.5-10.1) mg/dL 05/22/18 05/22/18 05/22/18 Range/Units 05:07 05:07 06:33 WBC 9.97 (4.0-11.0) K/uL RBC 5.25 (4.30-5.90) M/uL Hgb 14.6 (12.0-16.0) g/dL Hct 45.2 (36.0-46.0) % MCV 86.1 (80.0-98.0) fL MCH 27.8 (27.0-32.0) pg MCHC 32.3 (31.0-37.0) g/dL RDW Std Deviation 55.1 (28.0-62.0) fl RDW Coeff of Gregory 18 H (11.0-15.0) % Plt Count 173 (150-400) K/uL MPV 10.30 (7.40-12.00) fL Neut % (Auto) 60.0 (48.0-80.0) % Lymph % (Auto) 27.3 (16.0-40.0) % [place] % (Auto) 11.5 (0.0-15.0) % Eos % (Auto) 0.9 (0.0-7.0) % Baso % (Auto) 0.3 (0.0-1.5) % Neut # (Auto) 6.0 H (1.4-5.7) K/uL Lymph # (Auto) 2.7 H (0.6-2.4) K/uL [place] # (Auto) 1.2 H (0.0-0.8) K/uL Eos # (Auto) 0.1 (0.0-0.7) K/uL Baso # (Auto) 0.0 (0.0-0.1) K/uL Nucleated RBC % 0.0 /100WBC Nucleated RBCs # 0 K/uL Sodium 138 (136-145) mmol/L Potassium 4.5 (3.5-5.1) mmol/L Chloride 104 (98-107) mmol/L Carbon Dioxide 23.7 (21.0-32.0) mmol/L BUN 36 H (7.0-18.0) mg/dL Creatinine 1.5 H (0.6-1.0) mg/dL Est Cr Clr Drug Dosing 25.83 mL/min Estimated GFR (MDRD) 33.4 ml/min Glucose 110 H (74-106) mg/dL POC Glucose 98 (60-110) mg/dL Calcium 9.6 (8.5-10.1) mg/dL RUDDY Results - Last 24 hrs: Microbiology 05/20/18 14:40 Aerobic Blood Culture - Preliminary Blood - Venous - Lab Draw NO GROWTH AFTER 1 DAY Anaerobic Blood Culture - Final 05/20/18 14:28 Aerobic Blood Culture - Preliminary Blood - Venous NO GROWTH AFTER 1 DAY Anaerobic Blood Culture - Preliminary NO GROWTH AFTER 1 DAY Med Orders - Current: Current Medications Acetaminophen (Tylenol) 650 mg PO Q4H PRN PRN Reason: Pain/Fever Hydrocodone Bitart/Acetaminophen ([place] 325-5 Mg) 1 tab PO QID PRN PRN Reason: Pain Last Admin: 05/21/18 21:49 Dose: 1 tab Duloxetine HCl (Cymbalta) 30 mg PO DAILY [facility] Last Admin: 05/22/18 09:59 Dose: 30 mg Famotidine (Pepcid) 20 mg PO DAILY [facility] Last Admin: 05/22/18 09:59 Dose: 20 mg Fluticasone Propionate (Flonase) 0 gm NASBOTH DAILY [facility] Last Admin: 05/22/18 10:01 Dose: 1 gm Furosemide (Lasix) 40 mg IVPUSH BIDDIURETIC [facility] Last Admin: 05/22/18 10:28 Dose: Not Given Gabapentin (Neurontin) 400 mg PO BID [facility] Last Admin: 05/22/18 09:56 Dose: 400 mg Heparin Sodium (Porcine) (Heparin Sodium) 5,000 units SUBCUT Q8H [facility] Last Admin: 05/22/18 06:44 Dose: 5,000 units Vancomycin HCl 1 gm/ Sodium (Chloride) 250 mls @ 166.667 mls/hr IV Q24H [facility] Last Admin: 05/21/18 17:50 Dose: 166 mls/hr Insulin Aspart (Novolog) 0 unit SUBCUT TIDAC [facility]; Protocol Last Admin: 05/22/18 10:02 Dose: Not Given Insulin Detemir (Levemir) 25 unit SUBCUT DAILY [facility] Last Admin: 05/22/18 10:06 Dose: 25 units Isosorbide Mononitrate (Imdur) 30 mg PO DAILY [facility] Last Admin: 05/22/18 09:59 Dose: 30 mg Lorazepam (Ativan) 0.25 mg PO BEDTIME [facility] Last Admin: 05/21/18 21:38 Dose: 0.25 mg Lorazepam (Ativan) 0.25 mg PO Q8H PRN PRN Reason: Anxiety Losartan Potassium (Cozaar) 25 mg PO DAILY [facility] Last Admin: 05/22/18 10:00 Dose: 25 mg Metoprolol Tartrate (Lopressor) 25 mg PO BID [facility] Last Admin: 05/22/18 09:58 Dose: 25 mg Ondansetron HCl (Zofran) 4 mg IVPUSH Q4H PRN PRN Reason: Nausea/Vomiting Sodium Chloride (Saline Flush) 10 ml FLUSH ASDIRECTED PRN PRN Reason: Keep Vein Open Last Admin: 05/20/18 15:39 Dose: 10 ml Sodium Chloride (Saline Flush) 2.5 ml FLUSH ASDIRECTED PRN PRN Reason: Keep Vein Open Last Admin: 05/20/18 15:39 Dose: 2.5 ml Vancomycin HCl (Pharmacy To Dose - Vancomycin) 1 dose .XX ASDIRECTED [facility] Discontinued Medications Albuterol/Ipratropium (Duoneb 3.0-0.5 Mg/3 Ml) 3 ml NEB ONETIME ONE Stop: 05/20/18 14:09 Last Admin: 05/20/18 14:15 Dose: 3 ml Enoxaparin Sodium (Lovenox) 30 mg SUBCUT Q24H [facility] Last Admin: 05/20/18 17:54 Dose: 30 mg Furosemide (Lasix) 40 mg IVPUSH NOW ONE Stop: 05/20/18 17:05 Last Admin: 05/20/18 17:57 Dose: 40 mg Vancomycin HCl 1 gm/ Sodium (Chloride) 250 mls @ 250 mls/hr IV ONETIME ONE Stop: 05/20/18 16:54 Last Admin: 05/20/18 17:00 Dose: 250 mls/hr Methylprednisolone Sodium Succinate (Solu-Medrol) 125 mg IVPUSH ONETIME ONE Stop: 05/20/18 14:44 Last Admin: 05/20/18 15:38 Dose: 125 mg <Hilario Parrish - Last Filed: 05/26/18 19:04> - Patient Data Vitals - Most Recent: Last Vital Signs Temp 36.6 C 05/22/18 07:20 Pulse 84 05/22/18 09:58 Resp 16 05/22/18 07:20 BP 139/68 05/22/18 10:00 Pulse Ox 96 05/22/18 04:00 RUDDY Results - Last 24 hrs: Microbiology 05/20/18 14:40 Aerobic Blood Culture - Final Blood - Venous - Lab Draw NO GROWTH AFTER 5 DAYS Anaerobic Blood Culture - Final 05/20/18 14:28 Aerobic Blood Culture - Final Blood - Venous NO GROWTH AFTER 5 DAYS Anaerobic Blood Culture - Final NO GROWTH AFTER 5 DAYS Med Orders - Current: Current Medications Discontinued Medications Acetaminophen (Tylenol) 650 mg PO Q4H PRN PRN Reason: Pain/Fever Hydrocodone Bitart/Acetaminophen ([place] 325-5 Mg) 1 tab PO QID PRN PRN Reason: Pain Last Admin: 05/21/18 21:49 Dose: 1 tab Albuterol/Ipratropium (Duoneb 3.0-0.5 Mg/3 Ml) 3 ml NEB ONETIME ONE Stop: 05/20/18 14:09 Last Admin: 05/20/18 14:15 Dose: 3 ml Duloxetine HCl (Cymbalta) 30 mg PO DAILY [facility] Last Admin: 05/22/18 09:59 Dose: 30 mg Enoxaparin Sodium (Lovenox) 30 mg SUBCUT Q24H [facility] Last Admin: 05/20/18 17:54 Dose: 30 mg Famotidine (Pepcid) 20 mg PO DAILY [facility] Last Admin: 05/22/18 09:59 Dose: 20 mg Fluticasone Propionate (Flonase) 0 gm NASBOTH DAILY [facility] Last Admin: 05/22/18 10:01 Dose: 1 gm Furosemide (Lasix) 40 mg IVPUSH NOW ONE Stop: 05/20/18 17:05 Last Admin: 05/20/18 17:57 Dose: 40 mg Furosemide (Lasix) 40 mg IVPUSH BIDDIURETIC [facility] Last Admin: 05/22/18 10:28 Dose: Not Given Gabapentin (Neurontin) 400 mg PO BID [facility] Last Admin: 05/22/18 09:56 Dose: 400 mg Heparin Sodium (Porcine) (Heparin Sodium) 5,000 units SUBCUT Q8H [facility] Last Admin: 05/22/18 06:44 Dose: 5,000 units Vancomycin HCl 1 gm/ Sodium (Chloride) 250 mls @ 250 mls/hr IV ONETIME ONE Stop: 05/20/18 16:54 Last Admin: 05/20/18 17:00 Dose: 250 mls/hr Vancomycin HCl 1 gm/ Sodium (Chloride) 250 mls @ 166.667 mls/hr IV Q24H [facility] Last Admin: 05/21/18 17:50 Dose: 166 mls/hr Insulin Aspart (Novolog) 0 unit SUBCUT TIDAC [facility]; Protocol Last Admin: 05/22/18 12:20 Dose: Not Given Insulin Detemir (Levemir) 25 unit SUBCUT DAILY [facility] Last Admin: 05/22/18 10:06 Dose: 25 units Isosorbide Mononitrate (Imdur) 30 mg PO DAILY [facility] Last Admin: 05/22/18 09:59 Dose: 30 mg Lorazepam (Ativan) 0.25 mg PO BEDTIME [facility] Last Admin: 05/21/18 21:38 Dose: 0.25 mg Lorazepam (Ativan) 0.25 mg PO Q8H PRN PRN Reason: Anxiety Losartan Potassium (Cozaar) 25 mg PO DAILY [facility] Last Admin: 05/22/18 10:00 Dose: 25 mg Methylprednisolone Sodium Succinate (Solu-Medrol) 125 mg IVPUSH ONETIME ONE Stop: 05/20/18 14:44 Last Admin: 05/20/18 15:38 Dose: 125 mg Metoprolol Tartrate (Lopressor) 25 mg PO BID [facility] Last Admin: 05/22/18 09:58 Dose: 25 mg Ondansetron HCl (Zofran) 4 mg IVPUSH Q4H PRN PRN Reason: Nausea/Vomiting Sodium Chloride (Saline Flush) 10 ml FLUSH ASDIRECTED PRN PRN Reason: Keep Vein Open Last Admin: 05/20/18 15:39 Dose: 10 ml Sodium Chloride (Saline Flush) 2.5 ml FLUSH ASDIRECTED PRN PRN Reason: Keep Vein Open Last Admin: 05/20/18 15:39 Dose: 2.5 ml Vancomycin HCl (Pharmacy To Dose - Vancomycin) 1 dose .XX ASDIRECTED PINA - Free Text/Narrative Note: I have examined the patient. I have discussed findings and treatment plan with resident. I agree with the assessment and plan outlined in the following resident's note.
--- NOTE | 2018-05-26 18:33 | ECHO ---
The echocardiogram report can be seen in this patient's EMR (Electronic Medical Record) in the Reports section. The echocardiogram report has also been scanned into PACS and can be seen there as well. ALAN
== END 2018-05-22 12:35 ==
LOC: MW.ED 14:00 → MW.MS 17:05
PROVIDERS: ADMIT Internal Medicine; ATTEND Internal Medicine
DX: I13.0 Hypertensive heart and chronic kidney disease with heart failure and stage 1 through stage 4 chronic kidney disease, or unspecified chronic kidney disease (principal); E11.22 Type 2 diabetes mellitus with diabetic chronic kidney disease; N18.9 Chronic kidney disease, unspecified; I50.9 Heart failure, unspecified; N17.9 Acute kidney failure, unspecified; J96.01 Acute respiratory failure with hypoxia; F17.210 Nicotine dependence, cigarettes, uncomplicated; Z79.4 Long term (current) use of insulin; Z79.01 Long term (current) use of anticoagulants; Z79.899 Other long term (current) drug therapy; Z88.8 Allergy status to other drugs, medicaments and biological substances; Z88.1 Allergy status to other antibiotic agents
CPT/HCPCS: 36415; 71045; 80048; 80053; 81001; 82962; 83880; 84484; 85025; 87040; 87804; 93005; 93306; 93971; 94640; 96365; 96366; 96372; 96375; 96376; 99285; A9270; G0378; J1644; J1650; J1815; J1940; J2930; J3370; J7050; 99283; J7620-GY

== ENCOUNTER 2018-09-10 09:21 | Inpatient (IN) | payer MEDICARE, MEDICAID ==
[2018-09-10] MEDS ORDERED: Albuterol/Ipratropium 3.0-0.5 MG/3 ML Neb Soln ONE (09:27)
[2018-09-10] MEDS ORDERED: Albuterol/Ipratropium 3.0-0.5 MG/3 ML Neb Soln NEB ONE ×2 (09:27→09:49)
[2018-09-10] MEDS ORDERED: methylPREDNISolone Sodium Succinate 125 MG/2 ML SDV IVPUSH ONE ×2 (09:27→09:49)
[2018-09-10] MEDS ORDERED: methylPREDNISolone Sodium Succinate 125 MG/2 ML SDV ONE (09:29)
--- NOTE | 2018-09-10 09:29 | EDM.PDOC ---
ED HPI GENERAL MEDICAL PROBLEM - General Chief Complaint: Respiratory Problem Stated Complaint: SHORTNESS OF BREATH Time Seen by Provider: 09/10/18 09:29 Source of Information: Reports: Patient - History of Present Illness INITIAL COMMENTS - FREE TEXT/NARRATIVE: HISTORY AND PHYSICAL: History of present illness: [Patient presents with inspiratory Leslie wheezing shortness of breathWith 2-3+ edema No fever nausea vomiting chills sweats denies chest pain headache dizziness palpitation no bowel or urine symptoms] Review of systems: As per history of present illness and below otherwise all systems reviewed and negative. Past medical history: As per history of present illness and as reviewed below otherwise noncontributory. Surgical history: As per history of present illness and as reviewed below otherwise noncontributory. Social history: No reported history of drug or alcohol abuse. Family history: As per history of present illness and as reviewed below otherwise noncontributory. Physical exam: HEENT: Atraumatic, normocephalic, pupils reactive, negative for conjunctival pallor or scleral icterus, mucous membranes moist, throat clear, neck supple, nontender, trachea midline. Lungs: Clear to auscultation, breath sounds equal bilaterally, chest nontender. Heart: S1S2, regular, negative for clicks, rubs, or JVD. Abdomen: Soft, nondistended, nontender. Negative for masses or hepatosplenomegaly. Negative for costovertebral tenderness. Pelvis: Stable nontender. Genitourinary: Deferred. Rectal: Deferred. Extremities: Atraumatic, negative for cords or calf pain. Neurovascular unremarkable. Neuro: Awake, alert, oriented. Cranial nerves II through XII unremarkable. Cerebellum unremarkable. Motor and sensory unremarkable throughout. Exam nonfocal. Diagnostics: [CBC CMP UA troponin-BN peptide, blood cultures 2 EKG Chest 1 view] Therapeutics: [DuoNeb 2 then continuous Solu-Medrol 250 mg IV Lasix 40 mg IV Calcium gluconate Levaquin 500 mg IV ] Impression: [Hypoxia CHF Hyperkalemia Inspiratory/expiratory wheeze improved ] Chronic history of baseline Definitive disposition and diagnosis as appropriate pending reevaluation and review of above. - Related Data Allergies Allergy/AdvReac Type Severity Reaction Status Date / Time clarithromycin [From Biaxin] Allergy unknown Verified 09/10/18 09:38 irbesartan [From Avapro] Allergy unknown Verified 09/10/18 09:38 red dye Allergy unknown Verified 09/10/18 09:38 Fljvjgz-Xyp-Mtc Reductase Allergy unknown Verified 09/10/18 09:38 Inhibitor Home Meds: Home Meds Acetaminophen [Tylenol Extra Strength] 1,000 mg PO Q6H PRN 05/20/18 [History] Albuterol [Ventolin HFA] 1 puff INH Q4H PRN 05/20/18 [History] Camphor/Menthol [Sarna Lotion] 1 applic TOP ASDIRECTED PRN 05/20/18 [History] [place]/Min Oil/Stephy/Wool Alcoh [Eucerin Creme] 1 applic TOP ASDIRECTED PRN 05/20 [History] DULoxetine [Cymbalta] 30 mg PO DAILY 05/20/18 [History] Dextromethorphan/guaiFENesin [Robitussin DM] 5 ml PO QID PRN 05/20/18 [History] Famotidine 40 mg PO DAILY 05/20/18 [History] Fluticasone Propionate [Flonase] 2 spray NASBOTH DAILY 05/20/18 [History] Gabapentin [Neurontin] 400 mg PO TID 05/20/18 [History] Hydrocodone/Acetaminophen [[place] 5-325 Tablet] 5 - 325 mg PO QID PRN 05/20/18 [ History] Insulin Aspart [NovoLOG] 8 unit SQ TIDAC 05/20/18 [History] Insulin Detemir [Levemir Flextouch] 25 unit SQ BEDTIME 05/20/18 [History] Isosorbide Mononitrate [Imdur] 30 mg PO DAILY 05/20/18 [History] LORazepam 0.25 mg PO BEDTIME 05/20/18 [History] LORazepam 0.25 mg PO Q8H PRN 05/20/18 [History] Metoprolol Tartrate 25 mg PO BID 05/20/18 [History] Nitroglycerin 0.4 mg SL Q5M 05/20/18 [History] Bisacodyl 10 mg RC Q24H PRN 09/10/18 [History] Collagenase [Santyl Oint] 1 applic TOP .EVERY SHIFT 09/10/18 [History] Furosemide 40 mg PO DAILY@1400 09/10/18 [History] Losartan [Cozaar] 25 mg PO DAILY 09/10/18 [History] Potassium Chloride [Klor-Con 10] 10 meq PO DAILY 09/10/18 [History] Past Medical History - Past Health History Medical/Surgical History: Denies Medical/Surgical History HEENT History: Reports: Impaired Vision Other HEENT History: wears glasses Cardiovascular History: Reports: CAD, High Cholesterol, Hypertension, [place], Stents Respiratory History: Reports: SOB, Other (See Below) Other Respiratory History: acute respiratory failure. 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: Psychiatric History: Reports: Anxiety Endocrine/Metabolic History: Reports: Other (See Below) Other Endocrine/Metabolic History: Borderline DM Hematologic History: Reports: Anticoagulation Therapy Immunologic History: Reports: None - Infectious Disease History Infectious Disease History: Reports: Chicken Pox - Past Surgical History GI Surgical History: Reports: Appendectomy, Cholecystectomy Female Surgical History: Reports: Hysterectomy Social & Family History - Family History Family Medical History: Noncontributory Cardiac: Reports: High Cholesterol, Hypertension, [place] Respiratory: Reports: Other (See Below) Other Respiratory Family Hisory: Lung Ca GI: Reports: GERD OBGYN: Reports: Musculoskeletal: Reports: Arthritis Neurological: Reports: TIA Endocrine/Metabolic: Reports: Diabetes, type II Oncologic: Reports: Lung - Caffeine Use Caffeine Use: Reports: Coffee ED ROS GENERAL - Review of Systems Review Of Systems: See Below ED EXAM, GENERAL - Physical Exam Exam: See Below Course - Vital Signs Last Recorded V/S: Last Vital Signs Temp 97.1 F 09/10/18 09:31 Pulse 80 09/10/18 09:31 Resp 20 09/10/18 09:31 BP 136/69 09/10/18 09:31 Pulse Ox 96 09/10/18 09:51 - Orders/Labs/Meds Orders: Active Orders 24 hr Category Date Time Status EKG Documentation Completion [RC] STAT Care 09/10/18 09:27 Active RT Aerosol Therapy [RC] ASDIRECTED Care 09/10/18 09:28 Active RT Aerosol Therapy [RC] ASDIRECTED Care 09/10/18 09:49 Active RT Aerosol Therapy [RC] ASDIRECTED Care 09/10/18 10:28 Active CULTURE BLOOD [BC] Stat Lab 09/10/18 10:09 Ordered CULTURE BLOOD [BC] Stat Lab 09/10/18 10:09 Ordered UA RFX RUDDY AND CULT IF INDIC [URIN] Stat Lab 09/10/18 09:27 Ordered Levofloxacin/Dextrose 5%-Water [Levaquin in D5W 500 MG/ Med 09/10/18 10:32 Active 100 ML] 500 mg Premix Bag 1 bag IV ONETIME Blood Culture x2 Reflex Set [OM.PC] Stat Oth 09/10/18 10:09 Ordered Medication Orders Levofloxacin/Dextrose 500 mg/ (Premix) 100 mls @ 100 mls/hr IV ONETIME ONE Stop: 09/10/18 11:31 Labs: Laboratory Tests 09/10/18 09/10/18 09/10/18 Range/Units 09:30 09:30 09:30 WBC 11.18 H (4.0-11.0) K/uL RBC 4.94 (4.30-5.90) M/uL Hgb 14.3 (12.0-16.0) g/dL Hct 44.8 (36.0-46.0) % MCV 90.7 (80.0-98.0) fL MCH 28.9 (27.0-32.0) pg MCHC 31.9 (31.0-37.0) g/dL RDW Std Deviation 57.4 (28.0-62.0) fl RDW Coeff of Gregory 17 H (11.0-15.0) % Plt Count 211 (150-400) K/uL MPV 10.00 (7.40-12.00) fL Neut % (Auto) 83.4 H (48.0-80.0) % Lymph % (Auto) 7.7 L (16.0-40.0) % Nelson % (Auto) 8.1 (0.0-15.0) % Eos % (Auto) 0.5 (0.0-7.0) % Baso % (Auto) 0.3 (0.0-1.5) % Neut # (Auto) 9.3 H (1.4-5.7) K/uL Lymph # (Auto) 0.9 (0.6-2.4) K/uL Nelson # (Auto) 0.9 H (0.0-0.8) K/uL Eos # (Auto) 0.1 (0.0-0.7) K/uL Baso # (Auto) 0.0 (0.0-0.1) K/uL Nucleated RBC % 0.0 /100WBC Nucleated RBCs # 0 K/uL Sodium 131 L (136-145) mmol/L Potassium 5.5 H (3.5-5.1) mmol/L Chloride 96 L (98-107) mmol/L Carbon Dioxide 23.1 (21.0-32.0) mmol/L BUN 23 H (7.0-18.0) mg/dL Creatinine 1.1 H (0.6-1.0) mg/dL Est Cr Clr Drug Dosing 36.09 mL/min Estimated GFR (MDRD) 47.7 ml/min Glucose 90 (74-106) mg/dL Calcium 9.9 (8.5-10.1) mg/dL Total Bilirubin 1.5 H (0.2-1.0) mg/dL AST 24 (15-37) IU/L ALT 17 (14-63) IU/L Alkaline Phosphatase 165 H (46-116) U/L Troponin I < 0.050 (0.000-0.056) ng/mL B-Natriuretic Peptide 4372 H (<100) PG/ML Total Protein 7.4 (6.4-8.2) g/dL Albumin 4.0 (3.4-5.0) g/dL Globulin 3.4 (2.6-4.0) g/dL Albumin/Globulin Ratio 1.2 (0.9-1.6) Meds: Medications Generic Name Dose Route Start Last Admin Trade Name Freq PRN Reason Stop Dose Admin Levofloxacin/Dextrose 500 mg/ 100 mls @ 100 mls/hr 09/10/18 10:32 Premix IV 09/10/18 11:31 ONETIME ONE Discontinued Medications Generic Name Dose Route Start Last Admin Trade Name Freq PRN Reason Stop Dose Admin Albuterol 10 mg 09/10/18 10:28 09/10/18 10:34 Proventil Neb Soln NEB 09/10/18 10:29 10 mg ONETIME ONE Administration Albuterol/Ipratropium 3 ml 09/10/18 09:27 09/10/18 09:32 Duoneb 3.0-0.5 Mg/3 Ml NEB 09/10/18 09:28 3 ml ONETIME ONE Administration Albuterol/Ipratropium Confirm 09/10/18 09:27 09/10/18 09:32 Duoneb 3.0-0.5 Mg/3 Ml Administered 09/10/18 09:28 Not Given Dose 3 ml .ROUTE .STK-MED ONE Albuterol/Ipratropium 3 ml 09/10/18 09:49 09/10/18 09:55 Duoneb 3.0-0.5 Mg/3 Ml NEB 09/10/18 09:50 3 ml ONETIME ONE Administration Calcium Gluconate 1 gm 09/10/18 10:30 Calcium Gluconate IVPUSH 09/10/18 10:31 ONETIME ONE Furosemide 40 mg 09/10/18 10:07 09/10/18 10:23 Lasix IVPUSH 09/10/18 10:08 40 mg NOW ONE Administration Methylprednisolone Sodium Succinate 125 mg 09/10/18 09:27 09/10/18 09:32 Solu-Medrol IVPUSH 09/10/18 09:28 125 mg ONETIME ONE Administration Methylprednisolone Sodium Succinate Confirm 09/10/18 09:29 09/10/18 10:24 Solu-Medrol Administered 09/10/18 09:30 Not Given Dose 125 mg .ROUTE .STK-MED ONE Methylprednisolone Sodium Succinate 125 mg 09/10/18 09:49 09/10/18 10:23 Solu-Medrol IVPUSH 09/10/18 09:50 125 mg ONETIME ONE Administration Departure - Departure Time of Disposition: 10:44 Disposition: Admitted As Inpatient 68 Condition: Poor Clinical Impression: CHF (congestive heart failure), Hypoxia, Electrolyte abnormality - Discharge Information Referrals: PCP,Unknown [Primary Care Provider] - Forms: ED Department Discharge - My Orders Last 24 Hours: My Active Orders 09/10/18 09:27 EKG Documentation Completion [RC] STAT UA RFX RUDDY AND CULT IF INDIC [URIN] Stat 09/10/18 09:28 RT Aerosol Therapy [RC] ASDIRECTED 09/10/18 09:49 RT Aerosol Therapy [RC] ASDIRECTED 09/10/18 10:09 CULTURE BLOOD [BC] Stat CULTURE BLOOD [BC] Stat Blood Culture x2 Reflex Set [OM.PC] Stat 09/10/18 10:28 RT Aerosol Therapy [RC] ASDIRECTED 09/10/18 10:32 Levofloxacin/Dextrose 5%-Water [Levaquin in D5W 500 MG/100 ML] 500 mg Premix Bag 1 bag IV ONETIME - Assessment/Plan Last 24 Hours: My Active Orders 09/10/18 09:27 EKG Documentation Completion [RC] STAT UA RFX RUDDY AND CULT IF INDIC [URIN] Stat 09/10/18 09:28 RT Aerosol Therapy [RC] ASDIRECTED 09/10/18 09:49 RT Aerosol Therapy [RC] ASDIRECTED 09/10/18 10:09 CULTURE BLOOD [BC] Stat CULTURE BLOOD [BC] Stat Blood Culture x2 Reflex Set [OM.PC] Stat 09/10/18 10:28 RT Aerosol Therapy [RC] ASDIRECTED 09/10/18 10:32 Levofloxacin/Dextrose 5%-Water [Levaquin in D5W 500 MG/100 ML] 500 mg Premix Bag 1 bag IV ONETIME
[2018-09-10] MEDS ORDERED: Furosemide 40 MG/4 ML VIAL IVPUSH ONE (10:07)
[2018-09-10 10:22] LABS: CHLORIDE,CL 96 mmol/L (98-107); SODIUM,NA 131 mmol/L (136-145)
[2018-09-10] MEDS ORDERED: Albuterol 0.5% 5 MG/ML Neb Soln 20 ML Bottle NEB ONE (10:28)
[2018-09-10] MEDS ORDERED: Calcium Gluconate 10% 1 GM/10 ML SDV IVPUSH ONE (10:30)
--- NOTE | 2018-09-10 10:30 | CR ---
EXAMINATION: Portable chest radiograph. HISTORY: Please. FINDINGS: The trachea is midline. The heart is mildly enlarged for technique. There is a small right pleural effusion with right basilar atelectasis/infiltrate. No pneumothorax. Osseous structures appear unremarkable. IMPRESSION: 1. Mild cardiomegaly. 2. Small right pleural effusion with right basilar atelectasis and/or infiltrate.
[2018-09-10] MEDS ORDERED: Levofloxacin/Dextrose 5%-Water 500 MG in Premix Bag 1 BAG IV ONE (10:32)
[2018-09-10] MEDS ORDERED: Morphine 2 MG/ML Syringe IVPUSH PRN (11:16)
[2018-09-10] MEDS ORDERED: Ondansetron 4 MG/2 ML SDV IVPUSH PRN (11:16)
--- NOTE | 2018-09-10 11:27 | PCM.HP ---
H&P History of Present Illness - General Date of Service: 09/10/18 Admit Problem/Dx: Admission Diagnosis/Problem Admission Diagnosis/Problem CHF, Congestive heart failure Source of Information: [facility] Records History Limitations: Reports: Altered Mental Status, Respiratory Distress - History of Present Illness Initial Comments - Free Text/Narative: The patient is a 83-year-old lady who is presented to the emergency department secondary to hypoxia, respiratory distress. The patient is is not alert or awake at this time and family members are not available. Therefore the patient has not been able to participate in any meaningful way with her history of physical. Information has been taken predominantly from halfway records. The patient is currently in a DO NOT INTUBATE/DO NOT RESUSCITATE category with comfort care measures. Onset of Symptoms: Reports: Unknown/Unsure Duration of Symptoms: Reports: Getting Worse Location: Reports: Generalized Severity: Moderate Improves with: Reports: None Worsens with: Reports: None Associated Symptoms: Reports: Confusion - Related Data Allergies/Adverse Reactions: Allergies Allergy/AdvReac Type Severity Reaction Status Date / Time clarithromycin [From Biaxin] Allergy unknown Verified 09/10/18 09:38 irbesartan [From Avapro] Allergy unknown Verified 09/10/18 09:38 red dye Allergy unknown Verified 09/10/18 09:38 Txqycbs-Lyi-Hjd Reductase Allergy unknown Verified 09/10/18 09:38 Inhibitor Home Medications: Home Meds Acetaminophen [Tylenol Extra Strength] 1,000 mg PO Q6H PRN 05/20/18 [History] Albuterol [Ventolin HFA] 1 puff INH Q4H PRN 05/20/18 [History] Camphor/Menthol [Sarna Lotion] 1 applic TOP ASDIRECTED PRN 05/20/18 [History] [place]/Min Oil/Stephy/Wool Alcoh [Eucerin Creme] 1 applic TOP ASDIRECTED PRN 05/20 [History] DULoxetine [Cymbalta] 30 mg PO DAILY 05/20/18 [History] Dextromethorphan/guaiFENesin [Robitussin DM] 5 ml PO QID PRN 05/20/18 [History] Famotidine 40 mg PO DAILY 05/20/18 [History] Fluticasone Propionate [Flonase] 2 spray NASBOTH DAILY 05/20/18 [History] Gabapentin [Neurontin] 400 mg PO TID 05/20/18 [History] Hydrocodone/Acetaminophen [[place] 5-325 Tablet] 5 - 325 mg PO QID PRN 05/20/18 [ History] Insulin Aspart [NovoLOG] 8 unit SQ TIDAC 05/20/18 [History] Insulin Detemir [Levemir Flextouch] 25 unit SQ BEDTIME 05/20/18 [History] Isosorbide Mononitrate [Imdur] 30 mg PO DAILY 05/20/18 [History] LORazepam 0.25 mg PO BEDTIME 05/20/18 [History] LORazepam 0.25 mg PO Q8H PRN 05/20/18 [History] Metoprolol Tartrate 25 mg PO BID 05/20/18 [History] Nitroglycerin 0.4 mg SL Q5M 05/20/18 [History] Bisacodyl 10 mg RC Q24H PRN 09/10/18 [History] Collagenase [Santyl Oint] 1 applic TOP .EVERY SHIFT 09/10/18 [History] Furosemide 40 mg PO DAILY@1400 09/10/18 [History] Losartan [Cozaar] 25 mg PO DAILY 09/10/18 [History] Potassium Chloride [Klor-Con 10] 10 meq PO DAILY 09/10/18 [History] Past Medical History - Past Health History Medical/Surgical History: Denies Medical/Surgical History HEENT History: Reports: Impaired Vision Other HEENT History: wears glasses Cardiovascular History: Reports: CAD, High Cholesterol, Hypertension, [place], Stents Respiratory History: Reports: SOB, Other (See Below) Other Respiratory History: acute respiratory failure. 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: Musculoskeletal History: Reports: Arthritis Psychiatric History: Reports: Anxiety Endocrine/Metabolic History: Reports: Other (See Below) Other Endocrine/Metabolic History: Borderline DM Hematologic History: Reports: Anticoagulation Therapy Immunologic History: Reports: None - Infectious Disease History Infectious Disease History: Reports: Chicken Pox - Past Surgical History GI Surgical History: Reports: Appendectomy, Cholecystectomy Female Surgical History: Reports: Hysterectomy Social & Family History - Family History Family Medical History: Noncontributory Cardiac: Reports: High Cholesterol, Hypertension, [place] Respiratory: Reports: Other (See Below) Other Respiratory Family Hisory: Lung Ca GI: Reports: GERD OBGYN: Reports: Musculoskeletal: Reports: Arthritis Neurological: Reports: TIA Endocrine/Metabolic: Reports: Diabetes, type II Oncologic: Reports: Lung - Tobacco Use Smoking Status *Q: Unknown Ever Smoked - Caffeine Use Caffeine Use: Reports: Coffee - Recreational Drug Use Recreational Drug Use: No - Living Situation & Occupation Living situation: Reports: Extended Care Facility Occupation: Retired H&P Review of Systems - Review of Systems: Review Of Systems: See Below Exam - Exam Exam: See Below - Vital Signs Vital Signs: Last Vital Signs Temp 36.2 C 09/10/18 09:31 Pulse 80 09/10/18 09:31 Resp 20 09/10/18 09:31 BP 136/69 09/10/18 09:31 Pulse Ox 96 09/10/18 09:51 Weight: 74.843 kg - Exam Quality Assessment: Supplemental Oxygen General: Moderate Distress (Respiratory distress). No: Alert, Oriented HEENT: Conjunctiva Clear, EACs Clear, EOMI, Nares Patent, PERRLA. No: Mucosa Moist & [place] (Dry) Neck: Supple, Trachea Midline, JVD (+5) Lungs: Crackles, Rales. No: Normal Respiratory Effort (Agonal respirations) Cardiovascular: Regular Rate, Regular Rhythm GI/Abdominal Exam: Soft, Non-Tender, No Distention. No: Normal Bowel Sounds ( Hypoactive) Back Exam: Full Range of Motion (Appropriate for age). No: Normal Inspection ( Kyphosis, age-related changes) Extremities: Normal Range of Motion (Age-related restrictions), Pedal Edema (+3) Skin: Warm, Dry, Intact Neuro Extensive - Mental Status: No: Alert, Oriented x3 Psychiatric: No: Alert, Normal Affect - Patient Data Lab Results Last 24 hrs: Laboratory Results - last 24 hr 09/10/18 09/10/18 09/10/18 Range/Units 09:30 09:30 09:30 WBC 11.18 H (4.0-11.0) K/uL RBC 4.94 (4.30-5.90) M/uL Hgb 14.3 (12.0-16.0) g/dL Hct 44.8 (36.0-46.0) % MCV 90.7 (80.0-98.0) fL MCH 28.9 (27.0-32.0) pg MCHC 31.9 (31.0-37.0) g/dL RDW Std Deviation 57.4 (28.0-62.0) fl RDW Coeff of Gregory 17 H (11.0-15.0) % Plt Count 211 (150-400) K/uL MPV 10.00 (7.40-12.00) fL Neut % (Auto) 83.4 H (48.0-80.0) % Lymph % (Auto) 7.7 L (16.0-40.0) % [place] % (Auto) 8.1 (0.0-15.0) % Eos % (Auto) 0.5 (0.0-7.0) % Baso % (Auto) 0.3 (0.0-1.5) % Neut # (Auto) 9.3 H (1.4-5.7) K/uL Lymph # (Auto) 0.9 (0.6-2.4) K/uL [place] # (Auto) 0.9 H (0.0-0.8) K/uL Eos # (Auto) 0.1 (0.0-0.7) K/uL Baso # (Auto) 0.0 (0.0-0.1) K/uL Nucleated RBC % 0.0 /100WBC Nucleated RBCs # 0 K/uL Sodium 131 L (136-145) mmol/L Potassium 5.5 H (3.5-5.1) mmol/L Chloride 96 L (98-107) mmol/L Carbon Dioxide 23.1 (21.0-32.0) mmol/L BUN 23 H (7.0-18.0) mg/dL Creatinine 1.1 H (0.6-1.0) mg/dL Est Cr Clr Drug Dosing 36.09 mL/min Estimated GFR (MDRD) 47.7 ml/min Glucose 90 (74-106) mg/dL Calcium 9.9 (8.5-10.1) mg/dL Total Bilirubin 1.5 H (0.2-1.0) mg/dL AST 24 (15-37) IU/L ALT 17 (14-63) IU/L Alkaline Phosphatase 165 H (46-116) U/L Troponin I < 0.050 (0.000-0.056) ng/mL B-Natriuretic Peptide 4372 H (<100) PG/ML Total Protein 7.4 (6.4-8.2) g/dL Albumin 4.0 (3.4-5.0) g/dL Globulin 3.4 (2.6-4.0) g/dL Albumin/Globulin Ratio 1.2 (0.9-1.6) Result Diagrams: 09/10/18 09:30 09/10/18 09:30 - Problem List (1) Acute and chronic respiratory failure SNOMED Code(s): 95183572 ICD Code: J96.20 - ACUTE AND CHR RESP FAILURE, UNSP W HYPOXIA OR HYPERCAPNIA Status: Acute Priority: High Current Visit: Yes Qualifiers: Respiratory failure complication: hypoxia Qualified Code(s): J96.21 - Acute and chronic respiratory failure with hypoxia (2) CHF (congestive heart failure) SNOMED Code(s): 08628573 ICD Code: I50.9 - HEART FAILURE, UNSPECIFIED Status: Acute Priority: High Current Visit: Yes Qualifiers: Heart failure type: systolic Heart failure chronicity: acute on chronic Qualified Code(s): I50.23 - Acute on chronic systolic (congestive) heart failure (3) Hypoxia SNOMED Code(s): 386702012 ICD Code: R09.02 - HYPOXEMIA Status: Acute Priority: High Current Visit : Yes Problem List Initiated/Reviewed/Updated: Yes Orders Last 24hrs: Active Orders 24 hr Category Date Time Status Admission Status [Patient Status] [ADT] Stat ADT 09/10/18 10:44 Active Bedrest Bedside Commode [RC] ASDIRECTED Care 09/10/18 11:16 Ordered Blood Glucose Check, Bedside [RC] WITHMEALSANDBED Care 09/10/18 11:16 Ordered Cardiac Monitoring [RC] CONTINUOUS Care 09/10/18 11:16 Ordered Diabetes Education [RC] Click to Edit Care 09/10/18 11:18 Ordered EKG Documentation Completion [RC] STAT Care 09/10/18 09:27 Active Oxygen Therapy [RC] PRN Care 09/10/18 11:16 Ordered RT Aerosol Therapy [RC] ASDIRECTED Care 09/10/18 09:28 Active RT Aerosol Therapy [RC] ASDIRECTED Care 09/10/18 09:49 Active RT Aerosol Therapy [RC] ASDIRECTED Care 09/10/18 10:28 Active VTE/DVT Education [RC] PER UNIT ROUTINE Care 09/10/18 11:16 Ordered Vital Signs [RC] Q4H Care 09/10/18 11:16 Ordered Nothing per Oral Now Diet [DIET] Diet 09/10/18 Lunch Ordered CULTURE BLOOD [BC] Stat Lab 09/10/18 10:09 Ordered CULTURE BLOOD [BC] Stat Lab 09/10/18 10:09 Ordered UA RFX RUDDY AND CULT IF INDIC [URIN] Stat Lab 09/10/18 09:27 Ordered Insulin Aspart [NovoLOG] Med 09/10/18 11:30 Ordered See Protocol SUBCUT TIDAC Levofloxacin/Dextrose 5%-Water [Levaquin in D5W 500 MG/ Med 09/10/18 10:32 Active 100 ML] 500 mg Premix Bag 1 bag IV ONETIME Morphine Med 09/10/18 11:16 Ordered 2 mg IVPUSH Q2H PRN Ondansetron [Zofran] Med 09/10/18 11:16 Ordered 4 mg IVPUSH Q8H PRN Sodium Chloride 0.9% [Normal Saline] 1,000 ml Med 09/10/18 11:30 Ordered IV ASDIRECTED Blood Culture x2 Reflex Set [OM.PC] Stat Oth 09/10/18 10:09 Ordered Glucose Management Sub Q Reflex [OM.PC] Click To Edit Oth 09/10/18 11:16 Ordered Resuscitation Status Routine Resus Stat 09/10/18 11:16 Ordered Medication Orders Levofloxacin/Dextrose 500 mg/ (Premix) 100 mls @ 100 mls/hr IV ONETIME ONE Stop: 09/10/18 11:31 Last Admin: 09/10/18 10:59 Dose: 100 mls/hr Sodium Chloride (Normal Saline) 1,000 mls @ 50 mls/hr IV ASDIRECTED PINA Insulin Aspart (Novolog) 0 unit SUBCUT TIDAC PINA; Protocol Morphine Sulfate (Morphine) 2 mg IVPUSH Q2H PRN PRN Reason: Pain (severe 7-10) Stop: 09/11/18 11:18 Ondansetron HCl (Zofran) 4 mg IVPUSH Q8H PRN PRN Reason: Nausea/Vomiting Assessment/Plan Comment:: The patient is an 83-year-old lady who had been in comfort measures only with halfway and she had presented to the emergency department with acute respiratory distress. The patient is exhibiting agonal breathing and she does have a history of CHF. Previous 2-D echocardiogram obtained in May 2018 showed that she had a reduced ejection fraction of 30-35% along with inferior lateral wall hypokinesis. The patient also has significant JVD along with B- type natriuretic peptide elevated greater than 4000. The patient had been given Lasix in the emergency department. The patient's overall prognosis at this point is poor will continue with palliative care measures and reevaluate the patient once family is available or the patient becomes more alert. The patient will be kept on oxygen.
[2018-09-10] MEDS: Insulin Aspart 100 Units/ML 3 ML Pen SUBCUT SCH ×2 (12:09→17:38)
[2018-09-10] MEDS: Sodium Chloride 0.9% 1,000 ML IV SCH (13:07)
[2018-09-10] MEDS ORDERED: Acetaminophen/HYDROcodone 325-5 MG Tab PO PRN (18:15)
[2018-09-10] MEDS ORDERED: guaiFENesin/Dextromethorphan 100-10 MG/5 ML Soln 10 ML Cup PO PRN (18:15)
[2018-09-10] MEDS ORDERED: LORazepam 0.5 MG Tab PO PRN (18:15)
[2018-09-10] MEDS ORDERED: Albuterol 8 GM Inhaler INH PRN (18:15)
[2018-09-10] MEDS ORDERED: Bisacodyl 10 MG Supp RECTAL PRN (18:15)
[2018-09-10] MEDS: Metoprolol Tartrate 25 MG Tab PO SCH (20:32)
[2018-09-10] MEDS ORDERED: LORazepam 0.5 MG Tab PO SCH (21:00)
[2018-09-10] MEDS: Gabapentin 100 MG Cap PO SCH (21:18)
[2018-09-10] MEDS: Gabapentin 300 MG Cap PO SCH (21:18)
[2018-09-10] MEDS ORDERED: Insulin Aspart 100 Units/ML 3 ML Pen SUBCUT ONE (22:00)
[2018-09-11] MEDS: Gabapentin 100 MG Cap PO SCH (06:46)
[2018-09-11] MEDS: Gabapentin 300 MG Cap PO SCH (06:46)
--- NOTE | 2018-09-11 07:24 | PCM.PN ---
- Patient Data Vitals - Most Recent: Last Vital Signs Temp 36.2 C 09/11/18 04:00 Pulse 96 09/11/18 04:00 Resp 18 09/11/18 04:00 BP 148/84 H 09/11/18 04:00 Pulse Ox 95 09/11/18 04:00 Weight - Most Recent: 74.843 kg I&O - Last 24 Hours: Intake & Output 09/10/18 09/11/18 09/11/18 22:59 06:59 14:59 Intake Total 153 960 Output Total 600 400 Balance -447 560 Lab Results Last 24 Hours: Laboratory Results - last 24 hr 09/10/18 09/10/18 09/10/18 Range/Units 09:30 09:30 09:30 WBC 11.18 H (4.0-11.0) K/uL RBC 4.94 (4.30-5.90) M/uL Hgb 14.3 (12.0-16.0) g/dL Hct 44.8 (36.0-46.0) % MCV 90.7 (80.0-98.0) fL MCH 28.9 (27.0-32.0) pg MCHC 31.9 (31.0-37.0) g/dL RDW Std Deviation 57.4 (28.0-62.0) fl RDW Coeff of Gregory 17 H (11.0-15.0) % Plt Count 211 (150-400) K/uL MPV 10.00 (7.40-12.00) fL Neut % (Auto) 83.4 H (48.0-80.0) % Lymph % (Auto) 7.7 L (16.0-40.0) % [place] % (Auto) 8.1 (0.0-15.0) % Eos % (Auto) 0.5 (0.0-7.0) % Baso % (Auto) 0.3 (0.0-1.5) % Neut # (Auto) 9.3 H (1.4-5.7) K/uL Lymph # (Auto) 0.9 (0.6-2.4) K/uL Swift # (Auto) 0.9 H (0.0-0.8) K/uL Eos # (Auto) 0.1 (0.0-0.7) K/uL Baso # (Auto) 0.0 (0.0-0.1) K/uL Nucleated RBC % 0.0 /100WBC Nucleated RBCs # 0 K/uL Sodium 131 L (136-145) mmol/L Potassium 5.5 H (3.5-5.1) mmol/L Chloride 96 L (98-107) mmol/L Carbon Dioxide 23.1 (21.0-32.0) mmol/L BUN 23 H (7.0-18.0) mg/dL Creatinine 1.1 H (0.6-1.0) mg/dL Est Cr Clr Drug Dosing 36.09 mL/min Estimated GFR (MDRD) 47.7 ml/min Glucose 90 (74-106) mg/dL POC Glucose (60-110) mg/dL Calcium 9.9 (8.5-10.1) mg/dL Total Bilirubin 1.5 H (0.2-1.0) mg/dL AST 24 (15-37) IU/L ALT 17 (14-63) IU/L Alkaline Phosphatase 165 H (46-116) U/L Troponin I < 0.050 (0.000-0.056) ng/mL B-Natriuretic Peptide 4372 H (<100) PG/ML Total Protein 7.4 (6.4-8.2) g/dL Albumin 4.0 (3.4-5.0) g/dL Globulin 3.4 (2.6-4.0) g/dL Albumin/Globulin Ratio 1.2 (0.9-1.6) Urine Color Urine Appearance Urine pH (5.0-8.0) Ur Specific [place] (1.001-1.035) Urine Protein (NEGATIVE) mg/dL Urine Glucose (UA) (NEGATIVE) mg/dL Urine Ketones (NEGATIVE) mg/dL Urine Occult Blood (NEGATIVE) Urine Nitrite (NEGATIVE) Urine Bilirubin (NEGATIVE) Urine Urobilinogen (<2.0) EU/dL Ur Leukocyte Esterase (NEGATIVE) Urine RBC (0-2/HPF) Urine WBC (0-5/HPF) Ur Epithelial Cells (NONE-FEW) Urine Bacteria (NEGATIVE) Urine Mucus (NONE-MOD) 09/10/18 09/10/18 09/10/18 Range/Units 11:45 12:05 16:33 WBC (4.0-11.0) K/uL RBC (4.30-5.90) M/uL Hgb (12.0-16.0) g/dL Hct (36.0-46.0) % MCV (80.0-98.0) fL MCH (27.0-32.0) pg MCHC (31.0-37.0) g/dL RDW Std Deviation (28.0-62.0) fl RDW Coeff of Gregory (11.0-15.0) % Plt Count (150-400) K/uL MPV (7.40-12.00) fL Neut % (Auto) (48.0-80.0) % Lymph % (Auto) (16.0-40.0) % Swift % (Auto) (0.0-15.0) % Eos % (Auto) (0.0-7.0) % Baso % (Auto) (0.0-1.5) % Neut # (Auto) (1.4-5.7) K/uL Lymph # (Auto) (0.6-2.4) K/uL Swift # (Auto) (0.0-0.8) K/uL Eos # (Auto) (0.0-0.7) K/uL Baso # (Auto) (0.0-0.1) K/uL Nucleated RBC % /100WBC Nucleated RBCs # K/uL Sodium (136-145) mmol/L Potassium (3.5-5.1) mmol/L Chloride (98-107) mmol/L Carbon Dioxide (21.0-32.0) mmol/L BUN (7.0-18.0) mg/dL Creatinine (0.6-1.0) mg/dL Est Cr Clr Drug Dosing mL/min Estimated GFR (MDRD) ml/min Glucose (74-106) mg/dL POC Glucose 123 H 146 H (60-110) mg/dL Calcium (8.5-10.1) mg/dL Total Bilirubin (0.2-1.0) mg/dL AST (15-37) IU/L ALT (14-63) IU/L Alkaline Phosphatase (46-116) U/L Troponin I (0.000-0.056) ng/mL B-Natriuretic Peptide (<100) PG/ML Total Protein (6.4-8.2) g/dL Albumin (3.4-5.0) g/dL Globulin (2.6-4.0) g/dL Albumin/Globulin Ratio (0.9-1.6) Urine Color YELLOW Urine Appearance SLT CLOUDY Urine pH 6.0 (5.0-8.0) Ur Specific [place] 1.010 (1.001-1.035) Urine Protein TRACE H (NEGATIVE) mg/dL Urine Glucose (UA) NEGATIVE (NEGATIVE) mg/dL Urine Ketones NEGATIVE (NEGATIVE) mg/dL Urine Occult Blood TRACE-INTACT H (NEGATIVE) Urine Nitrite POSITIVE H (NEGATIVE) Urine Bilirubin NEGATIVE (NEGATIVE) Urine Urobilinogen 0.2 (<2.0) EU/dL Ur Leukocyte Esterase NEGATIVE (NEGATIVE) Urine RBC 0-2 (0-2/HPF) Urine WBC 3-5 (0-5/HPF) Ur Epithelial Cells OCCASIONAL (NONE-FEW) Urine Bacteria 3+ H (NEGATIVE) Urine Mucus LIGHT (NONE-MOD) 09/10/18 09/10/18 09/11/18 Range/Units 20:45 21:15 06:07 WBC (4.0-11.0) K/uL RBC (4.30-5.90) M/uL Hgb (12.0-16.0) g/dL Hct (36.0-46.0) % MCV (80.0-98.0) fL MCH (27.0-32.0) pg MCHC (31.0-37.0) g/dL RDW Std Deviation (28.0-62.0) fl RDW Coeff of Gregory (11.0-15.0) % Plt Count (150-400) K/uL MPV (7.40-12.00) fL Neut % (Auto) (48.0-80.0) % Lymph % (Auto) (16.0-40.0) % Swift % (Auto) (0.0-15.0) % Eos % (Auto) (0.0-7.0) % Baso % (Auto) (0.0-1.5) % Neut # (Auto) (1.4-5.7) K/uL Lymph # (Auto) (0.6-2.4) K/uL [place] # (Auto) (0.0-0.8) K/uL Eos # (Auto) (0.0-0.7) K/uL Baso # (Auto) (0.0-0.1) K/uL Nucleated RBC % /100WBC Nucleated RBCs # K/uL Sodium (136-145) mmol/L Potassium 5.9 H (3.5-5.1) mmol/L Chloride (98-107) mmol/L Carbon Dioxide (21.0-32.0) mmol/L BUN (7.0-18.0) mg/dL Creatinine (0.6-1.0) mg/dL Est Cr Clr Drug Dosing mL/min Estimated GFR (MDRD) ml/min Glucose (74-106) mg/dL POC Glucose 250 H 156 H (60-110) mg/dL Calcium (8.5-10.1) mg/dL Total Bilirubin (0.2-1.0) mg/dL AST (15-37) IU/L ALT (14-63) IU/L Alkaline Phosphatase (46-116) U/L Troponin I (0.000-0.056) ng/mL B-Natriuretic Peptide (<100) PG/ML Total Protein (6.4-8.2) g/dL Albumin (3.4-5.0) g/dL Globulin (2.6-4.0) g/dL Albumin/Globulin Ratio (0.9-1.6) Urine Color Urine Appearance Urine pH (5.0-8.0) Ur Specific [place] (1.001-1.035) Urine Protein (NEGATIVE) mg/dL Urine Glucose (UA) (NEGATIVE) mg/dL Urine Ketones (NEGATIVE) mg/dL Urine Occult Blood (NEGATIVE) Urine Nitrite (NEGATIVE) Urine Bilirubin (NEGATIVE) Urine Urobilinogen (<2.0) EU/dL Ur Leukocyte Esterase (NEGATIVE) Urine RBC (0-2/HPF) Urine WBC (0-5/HPF) Ur Epithelial Cells (NONE-FEW) Urine Bacteria (NEGATIVE) Urine Mucus (NONE-MOD) Med Orders - Current: Current Medications Hydrocodone Bitart/Acetaminophen ([place] 325-5 Mg) 1 tab PO QID PRN PRN Reason: Pain Last Admin: 09/10/18 19:15 Dose: 1 tab Albuterol (Ventolin Hfa) 0 gm INH Q4H PRN PRN Reason: Wheezing Bisacodyl (Dulcolax) 10 mg RECTAL Q24H PRN PRN Reason: Constipation Duloxetine HCl (Cymbalta) 30 mg PO DAILY [facility] Famotidine (Pepcid) 40 mg PO DAILY [facility] Fluticasone Propionate (Flonase) 0 gm NASBOTH DAILY [facility] Furosemide (Lasix) 40 mg PO DAILY@1400 [place] Gabapentin (Neurontin) 100 mg PO TID [facility] Last Admin: 09/11/18 06:46 Dose: 100 mg Gabapentin (Neurontin) 300 mg PO TID [facility] Last Admin: 09/11/18 06:46 Dose: 300 mg Guaifenesin/Dextromethorphan (Robitussin Dm) 5 ml PO QID PRN PRN Reason: Cough Sodium Chloride (Normal Saline) 1,000 mls @ 50 mls/hr IV ASDIRECTED [facility] Last Admin: 09/10/18 13:07 Dose: 50 mls/hr Ceftriaxone Sodium 1 gm/ (Sodium Chloride) 50 mls @ 100 mls/hr IV Q24H [facility] Insulin Aspart (Novolog) 0 unit SUBCUT TIDAC [facility]; Protocol Last Admin: 09/10/18 17:38 Dose: Not Given Isosorbide Mononitrate (Imdur) 30 mg PO DAILY [facility] Lorazepam (Ativan) 0.25 mg PO BEDTIME [facility] Last Admin: 09/10/18 20:30 Dose: 0.25 mg Lorazepam (Ativan) 0.25 mg PO Q8H PRN PRN Reason: Anxiety Metoprolol Tartrate (Lopressor) 25 mg PO BID [facility] Last Admin: 09/10/18 20:32 Dose: 25 mg Morphine Sulfate (Morphine) 2 mg IVPUSH Q2H PRN PRN Reason: Pain (severe 7-10) Stop: 09/11/18 11:18 Non-Formulary Medication (Losartan) 25 mg PO DAILY [facility] Ondansetron HCl (Zofran) 4 mg IVPUSH Q8H PRN PRN Reason: Nausea/Vomiting Potassium Chloride (Klor-Con 10) 10 meq PO DAILY [facility] Discontinued Medications Albuterol (Proventil Neb Soln) 10 mg NEB ONETIME ONE Stop: 09/10/18 10:29 Last Admin: 09/10/18 10:34 Dose: 10 mg Albuterol/Ipratropium (Duoneb 3.0-0.5 Mg/3 Ml) 3 ml NEB ONETIME ONE Stop: 09/10/18 09:28 Last Admin: 09/10/18 09:32 Dose: 3 ml Albuterol/Ipratropium (Duoneb 3.0-0.5 Mg/3 Ml) Confirm Administered Dose 3 ml .ROUTE .STK-MED ONE Stop: 09/10/18 09:28 Last Admin: 09/10/18 09:32 Dose: Not Given Albuterol/Ipratropium (Duoneb 3.0-0.5 Mg/3 Ml) 3 ml NEB ONETIME ONE Stop: 09/10/18 09:50 Last Admin: 09/10/18 09:55 Dose: 3 ml Calcium Gluconate (Calcium Gluconate) 1 gm IVPUSH ONETIME ONE Stop: 09/10/18 10:31 Last Admin: 09/10/18 10:52 Dose: 1 gm Furosemide (Lasix) 40 mg IVPUSH NOW ONE Stop: 09/10/18 10:08 Last Admin: 09/10/18 10:23 Dose: 40 mg Levofloxacin/Dextrose 500 mg/ (Premix) 100 mls @ 100 mls/hr IV ONETIME ONE Stop: 09/10/18 11:31 Last Admin: 09/10/18 10:59 Dose: 100 mls/hr Insulin Aspart (Novolog) 3 unit SUBCUT ONETIME ONE Stop: 09/10/18 22:01 Last Admin: 09/10/18 22:22 Dose: 3 unit Methylprednisolone Sodium Succinate (Solu-Medrol) 125 mg IVPUSH ONETIME ONE Stop: 09/10/18 09:28 Last Admin: 09/10/18 09:32 Dose: 125 mg Methylprednisolone Sodium Succinate (Solu-Medrol) Confirm Administered Dose 125 mg .ROUTE .STK-MED ONE Stop: 09/10/18 09:30 Last Admin: 09/10/18 10:24 Dose: Not Given Methylprednisolone Sodium Succinate (Solu-Medrol) 125 mg IVPUSH ONETIME ONE Stop: 09/10/18 09:50 Last Admin: 09/10/18 10:23 Dose: 125 mg - Problem List & Annotations (1) Acute and chronic respiratory failure SNOMED Code(s): 10236650 Code(s): J96.20 - ACUTE AND CHR RESP FAILURE, UNSP W HYPOXIA OR HYPERCAPNIA Status: Acute Priority: High Current Visit: Yes Qualifiers: Respiratory failure complication: hypoxia Qualified Code(s): J96.21 - Acute and chronic respiratory failure with hypoxia (2) CHF (congestive heart failure) SNOMED Code(s): 84258922 Code(s): I50.9 - HEART FAILURE, UNSPECIFIED Status: Acute Priority: High Current Visit: Yes Qualifiers: Heart failure type: systolic Heart failure chronicity: acute on chronic Qualified Code(s): I50.23 - Acute on chronic systolic (congestive) heart failure (3) Hypoxia SNOMED Code(s): 636485474 Code(s): R09.02 - HYPOXEMIA Status: Acute Priority: High Current Visit : Yes - My Orders Last 24 Hours: My Active Orders 09/10/18 11:16 Bedrest Bedside Commode [RC] ASDIRECTED Blood Glucose Check, Bedside [RC] WITHMEALSANDBED Cardiac Monitoring [RC] CONTINUOUS Oxygen Therapy [RC] PRN VTE/DVT Education [RC] PER UNIT ROUTINE Vital Signs [RC] Q4H Morphine 2 mg IVPUSH Q2H PRN Ondansetron [Zofran] 4 mg IVPUSH Q8H PRN Glucose Management Sub Q Reflex [OM.PC] Click To Edit Resuscitation Status Routine 09/10/18 11:18 Diabetes Education [RC] Click to Edit 09/10/18 11:30 Insulin Aspart [NovoLOG] See Protocol SUBCUT TIDAC Sodium Chloride 0.9% [Normal Saline] 1,000 ml IV ASDIRECTED 09/10/18 18:15 Acetaminophen/HYDROcodone [[place] 325-5 MG] 1 tab PO QID PRN Albuterol [Ventolin HFA] 0 gm INH Q4H PRN Bisacodyl [Dulcolax] 10 mg RECTAL Q24H PRN Dextromethorphan/guaiFENesin [Robitussin DM] 5 ml PO QID PRN LORazepam [Ativan] 0.25 mg PO Q8H PRN 09/10/18 21:00 LORazepam [Ativan] 0.25 mg PO BEDTIME Metoprolol Tartrate [Lopressor] 25 mg PO BID 09/10/18 22:00 Gabapentin [Neurontin] 100 mg PO TID Gabapentin [Neurontin] 300 mg PO TID 09/10/18 22:39 Telemetry Monitoring [Cardiac Monitoring] [RC] . DIRECTED 09/10/18 Dinner Full Liquid Diet [DIET] 09/11/18 07:23 BASIC METABOLIC PANEL,BMP [CHEM] Routine CBC WITH AUTO DIFF [HEME] Routine 09/11/18 09:00 DULoxetine [Cymbalta] 30 mg PO DAILY Famotidine [Pepcid] 40 mg PO DAILY Fluticasone Propionate [Flonase] 0 gm NASBOTH DAILY Isosorbide Mononitrate [Imdur] 30 mg PO DAILY Losartan 25 mg PO DAILY Potassium Chloride [Klor-Con 10] 10 meq PO DAILY cefTRIAXone [Rocephin] 1 gm Sodium Chloride 0.9% [Normal Saline] 50 ml IV Q24H 09/11/18 14:00 Furosemide [Lasix] 40 mg PO DAILY@1400 - Plan Plan:: The patient is an 83-year-old lady who had been in comfort measures only with [facility] and she had presented to the emergency department with acute respiratory distress. The patient is exhibiting agonal breathing and she does have a history of CHF. Previous 2-D echocardiogram obtained in May 2018 showed that she had a reduced ejection fraction of 30-35% along with inferior lateral wall hypokinesis. The patient also has significant JVD along with B- type natriuretic peptide elevated greater than 4000. The patient had been given Lasix in the emergency department. The patient's overall prognosis at this point is poor will continue with palliative care measures and reevaluate the patient once family is available or the patient becomes more alert. The patient will be kept on oxygen.
[2018-09-11] MEDS ORDERED: Famotidine 20 MG Tab PO SCH (09:00)
[2018-09-11] MEDS ORDERED: Potassium Chloride 10 MEQ Tab.ER PO SCH (09:00)
[2018-09-11] MEDS: Sodium Chloride 0.9% 1,000 ML IV SCH (09:00)
[2018-09-11] MEDS ORDERED: cefTRIAXone 1 GM in Sodium Chloride 0.9% 50 ML IV SCH (09:00)
[2018-09-11] MEDS ORDERED: DULoxetine 30 MG Cap PO SCH (09:00)
[2018-09-11] MEDS ORDERED: Isosorbide Mononitrate 30 MG Tab.ER PO SCH (09:00)
[2018-09-11] MEDS ORDERED: Non-Formulary Medication 1 Each (Losartan 25 MG) PO SCH (09:00)
[2018-09-11 09:45] VITALS: BP 136/76
[2018-09-11] MEDS: Insulin Aspart 100 Units/ML 3 ML Pen SUBCUT SCH (09:47)
[2018-09-11] MEDS: Fluticasone Propionate Nasal Spray 16 GM Bottle NASBOTH SCH ×2 (09:50→09:58)
[2018-09-11] MEDS: Metoprolol Tartrate 25 MG Tab PO SCH (09:50)
--- NOTE | 2018-09-11 09:55 | PCM.DCSUM1 ---
Discharge Summary - Hospital Course HPI Initial Comments: The patient was admitted secondary to acute on chronic respiratory failure and altered mental status. Diagnosis: Stroke: No - Discharge Data Discharge Date: 09/11/18 Discharge Disposition: DC/Tfer to [facility] Condition: Fair - Discharge Diagnosis/Problem(s) (1) Acute and chronic respiratory failure SNOMED Code(s): 12480690 ICD Code: J96.20 - ACUTE AND CHR RESP FAILURE, UNSP W HYPOXIA OR HYPERCAPNIA Status: Acute Priority: High Qualifiers: Respiratory failure complication: hypoxia Qualified Code(s): J96.21 - Acute and chronic respiratory failure with hypoxia (2) CHF (congestive heart failure) SNOMED Code(s): 27852942 ICD Code: I50.9 - HEART FAILURE, UNSPECIFIED Status: Acute Priority: High Qualifiers: Heart failure type: systolic Heart failure chronicity: acute on chronic Qualified Code(s): I50.23 - Acute on chronic systolic (congestive) heart failure (3) Hypoxia SNOMED Code(s): 808672887 ICD Code: R09.02 - HYPOXEMIA Status: Acute Priority: High - Patient Summary/Data Hospital Course: The patient is an 83-year-old lady who had presented to the emergency department on the morning of September 10, 2018 secondary to CHF exacerbation and congestive heart failure and was noted to be in respiratory distress with hypoxia and agonal breathing. The patient had been at skilled nursing and was in a DO NOT INTUBATE/DO NOT RESUSCITATE with comfort measures only. Palliative care measures were also contemplated. The patient was aggressively fluid resuscitated initially as well as providing O2 support. During the afternoon and when family members are present the patient had recovered sufficiently to help provide information with regards to her health. It was noted also that the patient had a urinary tract infection and she had been treated for Klebsiella pneumoniae which was sensitive to cephalosporins. The patient was treated with ceftriaxone and the patient's overall alertness had improved. By day of discharge the patient's acute on chronic respiratory failure with hypoxemia had resolved and she was back at her baseline oxygen demands. The patient was also continued on all of her home medications. The patient by day of discharge had recovered sufficiently that she was able to make a decision to go home. The patient felt that she was back in her baseline. The patient had been discharged on cefdinir 300 mg by mouth twice a day to help with her urinary tract infection. She's been recommended to continue with her diet as tolerated. She is also have activity as tolerated within her capabilities. The patient also had been continued on oxygen at 2 L via nasal cannula. He has been hemodynamically stable and has been discharged from hospitalization with the recommendations above. - Patient Instructions Diet: Heart Healthy Diet Fluid Restriction: 1500 mL Activity: As Tolerated - Discharge Plan *PRESCRIPTION DRUG MONITORING PROGRAM REVIEWED*: No *COPY OF PRESCRIPTION DRUG MONITORING REPORT IN PATIENT KEVAN: No Prescriptions/Med Rec: RX: Cefdinir 300 mg PO BID #10 capsule Home Medications: Home Meds RX: Acetaminophen [Tylenol Extra Strength] 1,000 mg PO Q6H PRN 05/20/18 [History ] RX: Albuterol [Ventolin HFA] 1 puff INH Q4H PRN 05/20/18 [History] RX: Camphor/Menthol [Sarna Lotion] 1 applic TOP ASDIRECTED PRN 05/20/18 [History ] RX: [place]/Min Oil/Stephy/Wool Alcoh [Eucerin Creme] 1 applic TOP ASDIRECTED PRN 05/20/18 [History] RX: DULoxetine [Cymbalta] 30 mg PO DAILY 05/20/18 [History] RX: Dextromethorphan/guaiFENesin [Robitussin DM] 5 ml PO QID PRN 05/20/18 [ History] RX: Famotidine 40 mg PO DAILY 05/20/18 [History] RX: Fluticasone Propionate [Flonase] 2 spray NASBOTH DAILY 05/20/18 [History] RX: Gabapentin [Neurontin] 400 mg PO TID 05/20/18 [History] RX: Hydrocodone/Acetaminophen [[place] 5-325 Tablet] 5 - 325 mg PO QID PRN [History] RX: Insulin Aspart [NovoLOG] 8 unit SQ TIDAC 05/20/18 [History] RX: Insulin Detemir [Levemir Flextouch] 25 unit SQ BEDTIME 05/20/18 [History] RX: Isosorbide Mononitrate [Imdur] 30 mg PO DAILY 05/20/18 [History] RX: LORazepam 0.25 mg PO BEDTIME 05/20/18 [History] RX: LORazepam 0.25 mg PO Q8H PRN 05/20/18 [History] RX: Metoprolol Tartrate 25 mg PO BID 05/20/18 [History] RX: Nitroglycerin 0.4 mg SL Q5M 05/20/18 [History] RX: Bisacodyl 10 mg RC Q24H PRN 09/10/18 [History] RX: Collagenase [Santyl Oint] 1 applic TOP .EVERY SHIFT 09/10/18 [History] RX: Furosemide 40 mg PO DAILY@1400 09/10/18 [History] RX: Losartan [Cozaar] 25 mg PO DAILY 09/10/18 [History] RX: Potassium Chloride [Klor-Con 10] 10 meq PO DAILY 09/10/18 [History] RX: Cefdinir 300 mg PO BID #10 capsule 09/11/18 [Rx] Oxygen Therapy Mode: Nasal Cannula Oxygen Flow Rate (L/min): 2 Patient Handouts: Cefdinir capsules Referrals: Robb He MD [Physician] - (Dr. He will see the pt on his next rounds on 2018.) - Discharge Summary/Plan Comment DC Time >30 min.: Yes - General Info Date of Service: 09/11/18 Admission Dx/Problem (Free Text: Admission Diagnosis/Problem Admission Diagnosis/Problem CHF, Congestive heart failure, acute on chronic respiratory failure Subjective Update: The patient is doing much better. She feels like she is at her baseline. She feels okay to go home. Functional Status: Reports: Pain Controlled - Review of Systems General: Reports: No Symptoms HEENT: Reports: No Symptoms Pulmonary: Reports: No Symptoms Cardiovascular: Reports: No Symptoms Gastrointestinal: Reports: No Symptoms Genitourinary: Reports: No Symptoms Musculoskeletal: Reports: No Symptoms Skin: Reports: No Symptoms Neurological: Reports: No Symptoms Psychiatric: Reports: No Symptoms - Patient Data Vitals - Most Recent: Last Vital Signs Temp 36.1 C 09/11/18 08:00 Pulse 109 H 09/11/18 09:50 Resp 20 09/11/18 08:00 BP 136/76 09/11/18 09:50 Pulse Ox 96 09/11/18 08:00 Weight - Most Recent: 74.843 kg I&O - Last 24 hours: Intake & Output 09/10/18 09/11/18 09/11/18 22:59 06:59 14:59 Intake Total 153 960 570 Output Total 600 400 Balance -447 560 570 Lab Results - Last 24 hrs: Laboratory Results - last 24 hr 09/10/18 09/10/18 09/10/18 Range/Units 09:30 09:30 11:45 WBC (4.0-11.0) K/uL RBC (4.30-5.90) M/uL Hgb (12.0-16.0) g/dL Hct (36.0-46.0) % MCV (80.0-98.0) fL MCH (27.0-32.0) pg MCHC (31.0-37.0) g/dL RDW Std Deviation (28.0-62.0) fl RDW Coeff of Gregory (11.0-15.0) % Plt Count (150-400) K/uL MPV (7.40-12.00) fL Neut % (Auto) (48.0-80.0) % Lymph % (Auto) (16.0-40.0) % [place] % (Auto) (0.0-15.0) % Eos % (Auto) (0.0-7.0) % Baso % (Auto) (0.0-1.5) % Neut # (Auto) (1.4-5.7) K/uL Lymph # (Auto) (0.6-2.4) K/uL [place] # (Auto) (0.0-0.8) K/uL Eos # (Auto) (0.0-0.7) K/uL Baso # (Auto) (0.0-0.1) K/uL Nucleated RBC % /100WBC Nucleated RBCs # K/uL Sodium 131 L (136-145) mmol/L Potassium 5.5 H (3.5-5.1) mmol/L Chloride 96 L (98-107) mmol/L Carbon Dioxide 23.1 (21.0-32.0) mmol/L BUN 23 H (7.0-18.0) mg/dL Creatinine 1.1 H (0.6-1.0) mg/dL Est Cr Clr Drug Dosing 36.09 mL/min Estimated GFR (MDRD) 47.7 ml/min Glucose 90 (74-106) mg/dL POC Glucose 123 H (60-110) mg/dL Calcium 9.9 (8.5-10.1) mg/dL Total Bilirubin 1.5 H (0.2-1.0) mg/dL AST 24 (15-37) IU/L ALT 17 (14-63) IU/L Alkaline Phosphatase 165 H (46-116) U/L Troponin I < 0.050 (0.000-0.056) ng/mL B-Natriuretic Peptide 4372 H (<100) PG/ML Total Protein 7.4 (6.4-8.2) g/dL Albumin 4.0 (3.4-5.0) g/dL Globulin 3.4 (2.6-4.0) g/dL Albumin/Globulin Ratio 1.2 (0.9-1.6) Urine Color Urine Appearance Urine pH (5.0-8.0) Ur Specific [place] (1.001-1.035) Urine Protein (NEGATIVE) mg/dL Urine Glucose (UA) (NEGATIVE) mg/dL Urine Ketones (NEGATIVE) mg/dL Urine Occult Blood (NEGATIVE) Urine Nitrite (NEGATIVE) Urine Bilirubin (NEGATIVE) Urine Urobilinogen (<2.0) EU/dL Ur Leukocyte Esterase (NEGATIVE) Urine RBC (0-2/HPF) Urine WBC (0-5/HPF) Ur Epithelial Cells (NONE-FEW) Urine Bacteria (NEGATIVE) Urine Mucus (NONE-MOD) 09/10/18 09/10/18 09/10/18 Range/Units 12:05 16:33 20:45 WBC (4.0-11.0) K/uL RBC (4.30-5.90) M/uL Hgb (12.0-16.0) g/dL Hct (36.0-46.0) % MCV (80.0-98.0) fL MCH (27.0-32.0) pg MCHC (31.0-37.0) g/dL RDW Std Deviation (28.0-62.0) fl RDW Coeff of Gregory (11.0-15.0) % Plt Count (150-400) K/uL MPV (7.40-12.00) fL Neut % (Auto) (48.0-80.0) % Lymph % (Auto) (16.0-40.0) % [place] % (Auto) (0.0-15.0) % Eos % (Auto) (0.0-7.0) % Baso % (Auto) (0.0-1.5) % Neut # (Auto) (1.4-5.7) K/uL Lymph # (Auto) (0.6-2.4) K/uL [place] # (Auto) (0.0-0.8) K/uL Eos # (Auto) (0.0-0.7) K/uL Baso # (Auto) (0.0-0.1) K/uL Nucleated RBC % /100WBC Nucleated RBCs # K/uL Sodium (136-145) mmol/L Potassium 5.9 H (3.5-5.1) mmol/L Chloride (98-107) mmol/L Carbon Dioxide (21.0-32.0) mmol/L BUN (7.0-18.0) mg/dL Creatinine (0.6-1.0) mg/dL Est Cr Clr Drug Dosing mL/min Estimated GFR (MDRD) ml/min Glucose (74-106) mg/dL POC Glucose 146 H (60-110) mg/dL Calcium (8.5-10.1) mg/dL Total Bilirubin (0.2-1.0) mg/dL AST (15-37) IU/L ALT (14-63) IU/L Alkaline Phosphatase (46-116) U/L Troponin I (0.000-0.056) ng/mL B-Natriuretic Peptide (<100) PG/ML Total Protein (6.4-8.2) g/dL Albumin (3.4-5.0) g/dL Globulin (2.6-4.0) g/dL Albumin/Globulin Ratio (0.9-1.6) Urine Color YELLOW Urine Appearance SLT CLOUDY Urine pH 6.0 (5.0-8.0) Ur Specific [place] 1.010 (1.001-1.035) Urine Protein TRACE H (NEGATIVE) mg/dL Urine Glucose (UA) NEGATIVE (NEGATIVE) mg/dL Urine Ketones NEGATIVE (NEGATIVE) mg/dL Urine Occult Blood TRACE-INTACT H (NEGATIVE) Urine Nitrite POSITIVE H (NEGATIVE) Urine Bilirubin NEGATIVE (NEGATIVE) Urine Urobilinogen 0.2 (<2.0) EU/dL Ur Leukocyte Esterase NEGATIVE (NEGATIVE) Urine RBC 0-2 (0-2/HPF) Urine WBC 3-5 (0-5/HPF) Ur Epithelial Cells OCCASIONAL (NONE-FEW) Urine Bacteria 3+ H (NEGATIVE) Urine Mucus LIGHT (NONE-MOD) 09/10/18 09/11/18 09/11/18 Range/Units 21:15 06:07 07:40 WBC 9.44 (4.0-11.0) K/uL RBC 4.85 (4.30-5.90) M/uL Hgb 14.1 (12.0-16.0) g/dL Hct 43.2 (36.0-46.0) % MCV 89.1 (80.0-98.0) fL MCH 29.1 (27.0-32.0) pg MCHC 32.6 (31.0-37.0) g/dL RDW Std Deviation 55.2 (28.0-62.0) fl RDW Coeff of Gregory 17 H (11.0-15.0) % Plt Count 227 (150-400) K/uL MPV 10.10 (7.40-12.00) fL Neut % (Auto) 79.8 (48.0-80.0) % Lymph % (Auto) 9.2 L (16.0-40.0) % [place] % (Auto) 10.9 (0.0-15.0) % Eos % (Auto) 0.0 (0.0-7.0) % Baso % (Auto) 0.1 (0.0-1.5) % Neut # (Auto) 7.5 H (1.4-5.7) K/uL Lymph # (Auto) 0.9 (0.6-2.4) K/uL [place] # (Auto) 1.0 H (0.0-0.8) K/uL Eos # (Auto) 0.0 (0.0-0.7) K/uL Baso # (Auto) 0.0 (0.0-0.1) K/uL Nucleated RBC % 0.0 /100WBC Nucleated RBCs # 0 K/uL Sodium (136-145) mmol/L Potassium (3.5-5.1) mmol/L Chloride (98-107) mmol/L Carbon Dioxide (21.0-32.0) mmol/L BUN (7.0-18.0) mg/dL Creatinine (0.6-1.0) mg/dL Est Cr Clr Drug Dosing mL/min Estimated GFR (MDRD) ml/min Glucose (74-106) mg/dL POC Glucose 250 H 156 H (60-110) mg/dL Calcium (8.5-10.1) mg/dL Total Bilirubin (0.2-1.0) mg/dL AST (15-37) IU/L ALT (14-63) IU/L Alkaline Phosphatase (46-116) U/L Troponin I (0.000-0.056) ng/mL B-Natriuretic Peptide (<100) PG/ML Total Protein (6.4-8.2) g/dL Albumin (3.4-5.0) g/dL Globulin (2.6-4.0) g/dL Albumin/Globulin Ratio (0.9-1.6) Urine Color Urine Appearance Urine pH (5.0-8.0) Ur Specific [place] (1.001-1.035) Urine Protein (NEGATIVE) mg/dL Urine Glucose (UA) (NEGATIVE) mg/dL Urine Ketones (NEGATIVE) mg/dL Urine Occult Blood (NEGATIVE) Urine Nitrite (NEGATIVE) Urine Bilirubin (NEGATIVE) Urine Urobilinogen (<2.0) EU/dL Ur Leukocyte Esterase (NEGATIVE) Urine RBC (0-2/HPF) Urine WBC (0-5/HPF) Ur Epithelial Cells (NONE-FEW) Urine Bacteria (NEGATIVE) Urine Mucus (NONE-MOD) 09/11/18 Range/Units 07:40 WBC (4.0-11.0) K/uL RBC (4.30-5.90) M/uL Hgb (12.0-16.0) g/dL Hct (36.0-46.0) % MCV (80.0-98.0) fL MCH (27.0-32.0) pg MCHC (31.0-37.0) g/dL RDW Std Deviation (28.0-62.0) fl RDW Coeff of Gregory (11.0-15.0) % Plt Count (150-400) K/uL MPV (7.40-12.00) fL Neut % (Auto) (48.0-80.0) % Lymph % (Auto) (16.0-40.0) % [place] % (Auto) (0.0-15.0) % Eos % (Auto) (0.0-7.0) % Baso % (Auto) (0.0-1.5) % Neut # (Auto) (1.4-5.7) K/uL Lymph # (Auto) (0.6-2.4) K/uL [place] # (Auto) (0.0-0.8) K/uL Eos # (Auto) (0.0-0.7) K/uL Baso # (Auto) (0.0-0.1) K/uL Nucleated RBC % /100WBC Nucleated RBCs # K/uL Sodium 131 L (136-145) mmol/L Potassium 5.4 H (3.5-5.1) mmol/L Chloride 98 (98-107) mmol/L Carbon Dioxide 25.9 (21.0-32.0) mmol/L BUN 23 H (7.0-18.0) mg/dL Creatinine 1.2 H (0.6-1.0) mg/dL Est Cr Clr Drug Dosing 31.75 mL/min Estimated GFR (MDRD) 43.1 ml/min Glucose 152 H (74-106) mg/dL POC Glucose (60-110) mg/dL Calcium 10.0 (8.5-10.1) mg/dL Total Bilirubin (0.2-1.0) mg/dL AST (15-37) IU/L ALT (14-63) IU/L Alkaline Phosphatase (46-116) U/L Troponin I (0.000-0.056) ng/mL B-Natriuretic Peptide (<100) PG/ML Total Protein (6.4-8.2) g/dL Albumin (3.4-5.0) g/dL Globulin (2.6-4.0) g/dL Albumin/Globulin Ratio (0.9-1.6) Urine Color Urine Appearance Urine pH (5.0-8.0) Ur Specific [place] (1.001-1.035) Urine Protein (NEGATIVE) mg/dL Urine Glucose (UA) (NEGATIVE) mg/dL Urine Ketones (NEGATIVE) mg/dL Urine Occult Blood (NEGATIVE) Urine Nitrite (NEGATIVE) Urine Bilirubin (NEGATIVE) Urine Urobilinogen (<2.0) EU/dL Ur Leukocyte Esterase (NEGATIVE) Urine RBC (0-2/HPF) Urine WBC (0-5/HPF) Ur Epithelial Cells (NONE-FEW) Urine Bacteria (NEGATIVE) Urine Mucus (NONE-MOD) Med Orders - Current: Current Medications Hydrocodone Bitart/Acetaminophen ([place] 325-5 Mg) 1 tab PO QID PRN PRN Reason: Pain Last Admin: 09/10/18 19:15 Dose: 1 tab Albuterol (Ventolin Hfa) 0 gm INH Q4H PRN PRN Reason: Wheezing Bisacodyl (Dulcolax) 10 mg RECTAL Q24H PRN PRN Reason: Constipation Duloxetine HCl (Cymbalta) 30 mg PO DAILY [facility] Last Admin: 09/11/18 09:50 Dose: 30 mg Famotidine (Pepcid) 40 mg PO DAILY [facility] Last Admin: 09/11/18 09:50 Dose: 40 mg Fluticasone Propionate (Flonase) 0 gm NASBOTH DAILY [facility] Last Admin: 09/11/18 09:50 Dose: 1 spray Furosemide (Lasix) 40 mg PO DAILY@1400 [place] Gabapentin (Neurontin) 100 mg PO TID [facility] Last Admin: 09/11/18 06:46 Dose: 100 mg Gabapentin (Neurontin) 300 mg PO TID [facility] Last Admin: 09/11/18 06:46 Dose: 300 mg Guaifenesin/Dextromethorphan (Robitussin Dm) 5 ml PO QID PRN PRN Reason: Cough Sodium Chloride (Normal Saline) 1,000 mls @ 50 mls/hr IV ASDIRECTED [facility] Last Admin: 09/11/18 09:00 Dose: 50 mls/hr Ceftriaxone Sodium 1 gm/ (Sodium Chloride) 50 mls @ 100 mls/hr IV Q24H [facility] Last Admin: 09/11/18 09:51 Dose: 100 mls/hr Insulin Aspart (Novolog) 0 unit SUBCUT TIDAC [facility]; Protocol Last Admin: 09/11/18 09:47 Dose: 1 units Isosorbide Mononitrate (Imdur) 30 mg PO DAILY [facility] Last Admin: 09/11/18 09:50 Dose: 30 mg Lorazepam (Ativan) 0.25 mg PO BEDTIME [facility] Last Admin: 09/10/18 20:30 Dose: 0.25 mg Lorazepam (Ativan) 0.25 mg PO Q8H PRN PRN Reason: Anxiety Metoprolol Tartrate (Lopressor) 25 mg PO BID [facility] Last Admin: 09/11/18 09:50 Dose: 25 mg Morphine Sulfate (Morphine) 2 mg IVPUSH Q2H PRN PRN Reason: Pain (severe 7-10) Stop: 09/11/18 11:18 Non-Formulary Medication (Losartan) 25 mg PO DAILY [facility] Ondansetron HCl (Zofran) 4 mg IVPUSH Q8H PRN PRN Reason: Nausea/Vomiting Potassium Chloride (Klor-Con 10) 10 meq PO DAILY [facility] Discontinued Medications Albuterol (Proventil Neb Soln) 10 mg NEB ONETIME ONE Stop: 09/10/18 10:29 Last Admin: 09/10/18 10:34 Dose: 10 mg Albuterol/Ipratropium (Duoneb 3.0-0.5 Mg/3 Ml) 3 ml NEB ONETIME ONE Stop: 09/10/18 09:28 Last Admin: 09/10/18 09:32 Dose: 3 ml Albuterol/Ipratropium (Duoneb 3.0-0.5 Mg/3 Ml) Confirm Administered Dose 3 ml .ROUTE .STK-MED ONE Stop: 09/10/18 09:28 Last Admin: 09/10/18 09:32 Dose: Not Given Albuterol/Ipratropium (Duoneb 3.0-0.5 Mg/3 Ml) 3 ml NEB ONETIME ONE Stop: 09/10/18 09:50 Last Admin: 09/10/18 09:55 Dose: 3 ml Calcium Gluconate (Calcium Gluconate) 1 gm IVPUSH ONETIME ONE Stop: 09/10/18 10:31 Last Admin: 09/10/18 10:52 Dose: 1 gm Furosemide (Lasix) 40 mg IVPUSH NOW ONE Stop: 09/10/18 10:08 Last Admin: 09/10/18 10:23 Dose: 40 mg Levofloxacin/Dextrose 500 mg/ (Premix) 100 mls @ 100 mls/hr IV ONETIME ONE Stop: 09/10/18 11:31 Last Admin: 09/10/18 10:59 Dose: 100 mls/hr Insulin Aspart (Novolog) 3 unit SUBCUT ONETIME ONE Stop: 09/10/18 22:01 Last Admin: 09/10/18 22:22 Dose: 3 unit Methylprednisolone Sodium Succinate (Solu-Medrol) 125 mg IVPUSH ONETIME ONE Stop: 09/10/18 09:28 Last Admin: 09/10/18 09:32 Dose: 125 mg Methylprednisolone Sodium Succinate (Solu-Medrol) Confirm Administered Dose 125 mg .ROUTE .STK-MED ONE Stop: 09/10/18 09:30 Last Admin: 09/10/18 10:24 Dose: Not Given Methylprednisolone Sodium Succinate (Solu-Medrol) 125 mg IVPUSH ONETIME ONE Stop: 09/10/18 09:50 Last Admin: 09/10/18 10:23 Dose: 125 mg - Exam Quality Assessment: Reports: Supplemental Oxygen General: Reports: Alert, Oriented, Cooperative HEENT: Reports: Pupils Equal, Pupils Reactive, EOMI Neck: Reports: Supple, Trachea Midline Lungs: Reports: Clear to Auscultation, Normal Respiratory Effort Cardiovascular: Reports: Regular Rate, Regular Rhythm GI/Abdominal Exam: Normal Bowel Sounds, Soft, No Distention Back Exam: Reports: Normal Inspection (Kyphosis, age-related changes) Extremities: Normal Inspection (Appropriate for age), No Pedal Edema Skin: Reports: Warm, Dry, Intact Neurological: Reports: No New Focal Deficit Psy/Mental Status: Reports: Alert, Normal Affect, Normal Mood
[2018-09-11] MEDS ORDERED: Furosemide 40 MG Tab PO SCH (14:00)
== END 2018-09-11 11:00 | DRG 291 ==
LOC: MW.ED 09:21 → MW.MS 10:57
PROVIDERS: ADMIT Internal Medicine; ATTEND Internal Medicine
DX: I11.0 Hypertensive heart disease with heart failure (principal); J96.21 Acute and chronic respiratory failure with hypoxia; I50.23 Acute on chronic systolic (congestive) heart failure; Z66 Do not resuscitate; I25.10 Atherosclerotic heart disease of native coronary artery without angina pectoris; I50.9 Heart failure, unspecified; H54.7 Unspecified visual loss; M19.90 Unspecified osteoarthritis, unspecified site; I25.2 Old myocardial infarction; Z95.5 Presence of coronary angioplasty implant and graft; E87.5 Hyperkalemia; E78.00 Pure hypercholesterolemia, unspecified; F41.9 Anxiety disorder, unspecified; E11.9 Type 2 diabetes mellitus without complications; Z91.041 Radiographic dye allergy status; Z88.1 Allergy status to other antibiotic agents; Z90.49 Acquired absence of other specified parts of digestive tract; Z90.710 Acquired absence of both cervix and uterus; Z88.8 Allergy status to other drugs, medicaments and biological substances; Z91.048 Other nonmedicinal substance allergy status; Z79.4 Long term (current) use of insulin; Z79.899 Other long term (current) drug therapy
CPT/HCPCS: 36415; 71045; 80053; 83880; 84484; 85025; 87088; 93005; 94640; 96374; 96375; 96376; 99285; J0610; J1940; J2930 ×2; 80048; 81001; 82962; 84132; 87040; 87086; 87186; A9270-GY; J0696; J1815-GY; J1956; J2270; J7040; J7050; J7620-GY

== ENCOUNTER 2018-10-20 15:59 | Observation (INO) | payer MEDICARE, MEDICAID ==
[2018-10-20] MEDS ORDERED: Sodium Chloride 0.9% 10 ML Syringe FLUSH PRN (16:11)
[2018-10-20] MEDS ORDERED: Sodium Chloride 0.9% 2.5 ML Syringe FLUSH PRN (16:11)
--- NOTE | 2018-10-20 16:40 | EDM.PDOC ---
ED HPI GENERAL MEDICAL PROBLEM - General Chief Complaint: Lower Extremity Injury/Pain Stated Complaint: LEG Time Seen by Provider: 10/20/18 16:04 Source of Information: Reports: Patient History Limitations: Reports: No Limitations - History of Present Illness INITIAL COMMENTS - FREE TEXT/NARRATIVE: HISTORY AND PHYSICAL: History of present illness: Patient is an 83-year-old female presents to the ED today with concern of an ulcer starting on her right lower leg. Patient states she has a history of type 2 diabetes and has had issues with ulcers on her legs in the past and has chronic redness of her lower legs. Patient states that overnight the ulcer on the right lower leg has worsened and the nurse at [facility] suggested she come to the ED to be evaluated. Patient states the leg is not painful and she has no other symptoms at this time. Patient denies fever, chills, chest pain, shortness of breath, or cough. Denies headache, neck stiff ness, change in vision, syncope, or near syncope. Denies nausea, vomiting, abdominal pain, diarrhea, constipation, or dysuria. Has not noted any blood in urine or stool. Patient has been eating and drinking appropriately. Review of systems: As per history of present illness and below otherwise all systems reviewed and negative. Past medical history: As per history of present illness and as reviewed below otherwise noncontributory. Surgical history: As per history of present illness and as reviewed below otherwise noncontributory. Social history: See social history for further information Family history: As per history of present illness and as reviewed below otherwise noncontributory. Physical exam: General: Patient is alert, oriented, and in no acute distress. Patient sitting comfortably in wheelchair. HEENT: Atraumatic, normocephalic, pupils equal and reactive bilaterally, negative for conjunctival pallor or scleral icterus, mucous membranes moist, TMs normal bilaterally, throat clear, neck supple, nontender, trachea midline. No drooling or trismus noted. No meningeal signs. No hot potato voice noted. Lungs: Clear to auscultation, breath sounds equal bilaterally, chest nontender. Heart: S1S2, regular rate and rhythm without overt murmur Abdomen: Soft, nondistended, nontender. Negative for masses or hepatosplenomegaly. Negative for costovertebral tenderness. Pelvis: Stable nontender. Genitourinary: Deferred. Rectal: Deferred. Skin: Bilateral lower legs are erythematous rubor. The right keyes area has a 2cm circular white ulcer with 2 smaller 0.5cm ulcer areas superior to it. Surrounding erythema without warm to the touch, no pain with palpation. Extremities: See skin. Otherwise, Atraumatic, negative for cords or calf pain. Neurovascular unremarkable. Posterior tibial pulse are found via doppler of RLE. Patient declines this eval of LLE/ Neuro: Awake, alert, oriented. Cranial nerves II through XII unremarkable. Cerebellum unremarkable. Motor and sensory unremarkable throughout. Exam nonfocal. Notes: Dr. Soto directly involved in patient care. Dr. Parrish consulted on patient and will admit to observation. Voices understanding and is agreeable to plan of care. Denies any further questions or concerns at this time. Diagnostics: CBC, CMP, UA, tib-fib x-ray Therapeutics: Vancomycin Impression: Cellulitis, right lower extremity Plan: 1. Admit to observation to Dr. Parrish. Definitive disposition and diagnosis as appropriate pending reevaluation and review of above. - Related Data Allergies Allergy/AdvReac Type Severity Reaction Status Date / Time clarithromycin [From Biaxin] Allergy unknown Verified 09/11/18 12:44 clindamycin Allergy Other Verified 10/20/18 17:08 irbesartan [From Avapro] Allergy unknown Verified 09/11/18 12:44 red dye Allergy unknown Verified 09/11/18 12:44 Xllwrox-[id number]-[id number] Reductase Allergy unknown Verified 09/11/18 12:44 Inhibitor Vitamin A & D with Zinc Oxide Allergy Other Uncoded 10/20/18 17:09 Home Meds: Home Meds Acetaminophen [Tylenol Extra Strength] 1,000 mg PO Q6H PRN 05/20/18 [History] Albuterol [Ventolin HFA] 1 puff INH Q4H PRN 05/20/18 [History] Camphor/Menthol [Sarna Lotion] 1 applic TOP ASDIRECTED PRN 05/20/18 [History] [place]/Min Oil/Stephy/Wool Alcoh [Eucerin Creme] 1 applic TOP ASDIRECTED PRN 05/20 [History] DULoxetine [Cymbalta] 30 mg PO DAILY 05/20/18 [History] Dextromethorphan/guaiFENesin [Robitussin DM] 5 ml PO QID PRN 05/20/18 [History] Famotidine 40 mg PO DAILY 05/20/18 [History] Fluticasone Propionate [Flonase] 2 spray NASBOTH DAILY 05/20/18 [History] Gabapentin [Neurontin] 400 mg PO TID 05/20/18 [History] Hydrocodone/Acetaminophen [[place] 5-325 Tablet] 5 - 325 mg PO QID PRN 05/20/18 [ History] Insulin Aspart [NovoLOG] 8 unit SQ TIDAC 05/20/18 [History] Insulin Detemir [Levemir Flextouch] 25 unit SQ BEDTIME 05/20/18 [History] Isosorbide Mononitrate [Imdur] 30 mg PO DAILY 05/20/18 [History] LORazepam 0.25 mg PO BEDTIME 05/20/18 [History] LORazepam 0.25 mg PO Q8H PRN 05/20/18 [History] Metoprolol Tartrate 25 mg PO BID 05/20/18 [History] Nitroglycerin 0.4 mg SL Q5M 05/20/18 [History] Bisacodyl 10 mg RC Q24H PRN 09/10/18 [History] Collagenase [Santyl Oint] 1 applic TOP .EVERY SHIFT 09/10/18 [History] Furosemide 40 mg PO DAILY@1400 09/10/18 [History] Losartan [Cozaar] 25 mg PO DAILY 09/10/18 [History] Potassium Chloride [Klor-Con 10] 10 meq PO DAILY 09/10/18 [History] Cefdinir 300 mg PO BID #10 capsule 09/11/18 [Rx] Past Medical History - Past Health History Medical/Surgical History: Denies Medical/Surgical History HEENT History: Reports: Impaired Vision Other HEENT History: wears glasses Cardiovascular History: Reports: CAD, High Cholesterol, Hypertension, DC, Stents Respiratory History: Reports: SOB, Other (See Below) Other Respiratory History: acute respiratory failure. 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: Musculoskeletal History: Reports: Arthritis Psychiatric History: Reports: Anxiety Endocrine/Metabolic History: Reports: Other (See Below) Other Endocrine/Metabolic History: Borderline DM Hematologic History: Reports: Anticoagulation Therapy Immunologic History: Reports: None - Infectious Disease History Infectious Disease History: Reports: Chicken Pox - Past Surgical History GI Surgical History: Reports: Appendectomy, Cholecystectomy Female Surgical History: Reports: Hysterectomy Social & Family History - Family History Family Medical History: Noncontributory Cardiac: Reports: High Cholesterol, Hypertension, DC Respiratory: Reports: Other (See Below) Other Respiratory Family Hisory: Lung Ca GI: Reports: GERD OBGYN: Reports: Musculoskeletal: Reports: Arthritis Neurological: Reports: TIA Endocrine/Metabolic: Reports: Diabetes, type II Oncologic: Reports: Lung - Caffeine Use Caffeine Use: Reports: Coffee Caffeine Use Comment: 1-2 cups per day - Living Situation & Occupation Living situation: Reports: Extended Care Facility Occupation: Retired Review of Systems - Review of Systems Review Of Systems: ROS reveals no pertinent complaints other than HPI. ED EXAM, GENERAL - Physical Exam Exam: See Below (see dictation) Course - Vital Signs Last Recorded V/S: Last Vital Signs Temp 36.2 C 10/20/18 16:16 Pulse 74 10/20/18 17:48 Resp 18 10/20/18 17:48 BP 135/65 10/20/18 17:48 Pulse Ox 98 10/20/18 17:48 - Orders/Labs/Meds Orders: Active Orders 24 hr Category Date Time Status Admission Status [Patient Status] [ADT] Stat ADT 10/20/18 17:48 Ordered CULTURE URINE [RM] Stat Lab 10/20/18 17:26 Received Sodium Chloride 0.9% [Saline Flush] Med 10/20/18 16:11 Active 10 ml FLUSH ASDIRECTED PRN Sodium Chloride 0.9% [Saline Flush] Med 10/20/18 16:11 Active 2.5 ml FLUSH ASDIRECTED PRN Vancomycin 1 gm Med 10/20/18 17:07 Ordered Sodium Chloride 0.9% [Normal Saline (AdvBag)] 250 ml IV ONETIME Saline Lock Insert [OM.PC] Stat Oth 10/20/18 16:11 Ordered Medication Orders Vancomycin HCl 1 gm/ Sodium (Chloride) 250 mls @ 166 mls/hr IV ONETIME ONE Stop: 10/20/18 18:37 Last Admin: 10/20/18 17:41 Dose: 166 mls/hr Sodium Chloride (Saline Flush) 10 ml FLUSH ASDIRECTED PRN PRN Reason: Keep Vein Open Last Admin: 10/20/18 16:40 Dose: 10 ml Sodium Chloride (Saline Flush) 2.5 ml FLUSH ASDIRECTED PRN PRN Reason: Keep Vein Open Last Admin: 10/20/18 16:40 Dose: 2.5 ml Labs: Laboratory Tests 10/20/18 10/20/18 10/20/18 Range/Units 16:26 16:26 17:26 WBC 10.22 (4.0-11.0) K/uL RBC 5.04 (4.30-5.90) M/uL Hgb 15.1 (12.0-16.0) g/dL Hct 47.0 H (36.0-46.0) % MCV 93.3 (80.0-98.0) fL MCH 30.0 (27.0-32.0) pg MCHC 32.1 (31.0-37.0) g/dL RDW Std Deviation 51.4 (28.0-62.0) fl RDW Coeff of Gregory 15 (11.0-15.0) % Plt Count 201 (150-400) K/uL MPV 10.30 (7.40-12.00) fL Neut % (Auto) 67.8 (48.0-80.0) % Lymph % (Auto) 17.4 (16.0-40.0) % [place] % (Auto) 12.3 (0.0-15.0) % Eos % (Auto) 2.2 (0.0-7.0) % Baso % (Auto) 0.3 (0.0-1.5) % Neut # (Auto) 6.9 H (1.4-5.7) K/uL Lymph # (Auto) 1.8 (0.6-2.4) K/uL [place] # (Auto) 1.3 H (0.0-0.8) K/uL Eos # (Auto) 0.2 (0.0-0.7) K/uL Baso # (Auto) 0.0 (0.0-0.1) K/uL Nucleated RBC % 0.0 /100WBC Nucleated RBCs # 0 K/uL Sodium 140 (136-145) mmol/L Potassium 4.7 (3.5-5.1) mmol/L Chloride 102 (98-107) mmol/L Carbon Dioxide 28.8 (21.0-32.0) mmol/L BUN 20 H (7.0-18.0) mg/dL Creatinine 1.1 H (0.6-1.0) mg/dL Est Cr Clr Drug Dosing TNP Estimated GFR (MDRD) 47.7 ml/min Glucose 81 (74-106) mg/dL Calcium 10.3 H (8.5-10.1) mg/dL Total Bilirubin 1.4 H (0.2-1.0) mg/dL AST 21 (15-37) IU/L ALT 19 (14-63) IU/L Alkaline Phosphatase 152 H (46-116) U/L Total Protein 7.1 (6.4-8.2) g/dL Albumin 3.8 (3.4-5.0) g/dL Globulin 3.3 (2.6-4.0) g/dL Albumin/Globulin Ratio 1.2 (0.9-1.6) Urine Color YELLOW Urine Appearance CLEAR Urine pH 6.0 (5.0-8.0) Ur Specific [place] <= 1.005 (1.001-1.035) Urine Protein NEGATIVE (NEGATIVE) mg/dL Urine Glucose (UA) NEGATIVE (NEGATIVE) mg/dL Urine Ketones NEGATIVE (NEGATIVE) mg/dL Urine Occult Blood NEGATIVE (NEGATIVE) Urine Nitrite NEGATIVE (NEGATIVE) Urine Bilirubin NEGATIVE (NEGATIVE) Urine Urobilinogen 0.2 (<2.0) EU/dL Ur Leukocyte Esterase TRACE H (NEGATIVE) Urine RBC 0-1 (0-2/HPF) Urine WBC 1-2 (0-5/HPF) Ur Epithelial Cells RARE (NONE-FEW) Urine Bacteria RARE (NEGATIVE) Meds: Medications Generic Name Dose Route Start Last Admin Trade Name Freq PRN Reason Stop Dose Admin Vancomycin HCl 1 gm/ Sodium 250 mls @ 166 mls/hr 10/20/18 17:07 10/20/18 17: 41 Chloride IV 10/20/18 18:37 166 mls/hr ONETIME ONE Administration Sodium Chloride 10 ml 10/20/18 16:11 10/20/18 16:40 Saline Flush FLUSH 10 ml ASDIRECTED PRN Administration Keep Vein Open Sodium Chloride 2.5 ml 10/20/18 16:11 10/20/18 16:40 Saline Flush FLUSH 2.5 ml ASDIRECTED PRN Administration Keep Vein Open Departure - Departure Time of Disposition: 17:27 Disposition: Refer to Observation Clinical Impression: Cellulitis Qualifiers: Site of cellulitis: extremity Site of cellulitis of extremity: lower extremity Laterality: left Qualified Code(s): L03.116 - Cellulitis of left lower limb - Discharge Information - My Orders Last 24 Hours: My Active Orders 10/20/18 16:11 Sodium Chloride 0.9% [Saline Flush] 10 ml FLUSH ASDIRECTED PRN Sodium Chloride 0.9% [Saline Flush] 2.5 ml FLUSH ASDIRECTED PRN Saline Lock Insert [OM.PC] Stat 10/20/18 17:07 Vancomycin 1 gm Sodium Chloride 0.9% [Normal Saline (AdvBag)] 250 ml IV ONETIME 10/20/18 17:26 CULTURE URINE [RM] Stat 10/20/18 17:48 Admission Status [Patient Status] [ADT] Stat - Assessment/Plan Last 24 Hours: My Active Orders 10/20/18 16:11 Sodium Chloride 0.9% [Saline Flush] 10 ml FLUSH ASDIRECTED PRN Sodium Chloride 0.9% [Saline Flush] 2.5 ml FLUSH ASDIRECTED PRN Saline Lock Insert [OM.PC] Stat 10/20/18 17:07 Vancomycin 1 gm Sodium Chloride 0.9% [Normal Saline (AdvBag)] 250 ml IV ONETIME 10/20/18 17:26 CULTURE URINE [RM] Stat 10/20/18 17:48 Admission Status [Patient Status] [ADT] Stat
[2018-10-20 16:53] LABS: BLOOD UREA NITROGEN,BUN 20 mg/dL (7.0-18.0); CARBON DIOXIDE,CO2 28.8 mmol/L (21.0-32.0); CHLORIDE,CL 102 mmol/L (98-107); GLUCOSE RANDOM 81 mg/dL (74-106); POTASSIUM,K 4.7 mmol/L (3.5-5.1); SODIUM,NA 140 mmol/L (136-145)
--- NOTE | 2018-10-20 17:13 | CR ---
Indication: Swelling. Redness. Technique: Two views of the right lower leg were obtained. Comparison: None Findings: No acute fracture or subluxation is identified. No bony erosions are seen. Extensive vascular calcifications are identified. There does not appear to be air within the soft tissues. Impression: No air identified within the soft tissues. No bony erosions. Dictated by Sophie Levy MD @ Oct 20 2018 5:11PM Signed by Dr. Sophie Levy @ Oct 20 2018 5:12PM
[2018-10-20] MEDS ORDERED: LORAZEPAM 0.25 MG PO PRN (18:14)
[2018-10-20] MEDS ORDERED: [UNRECOGNIZED DRUG - OTHER] TOP PRN (18:14)
[2018-10-20] MEDS ORDERED: COLLAGENASE TOP SCH (18:15)
--- NOTE | 2018-10-20 18:48 | PCM.HP.2 ---
H&P History of Present Illness - General Date of Service: 10/20/18 Admit Problem/Dx: Admission Diagnosis/Problem Admission Diagnosis/Problem Cellulitis Source of Information: Patient, Shelter Records - History of Present Illness Initial Comments - Free Text/Narative: patient is a 83-year-old female with a past medical history of type 2 diabetes, peripheral vascular disease, coronary artery disease, hypertension, depression presenting today as recommended by [facility] for evaluation of right lower extremity ulceration with increasing redness and surrounding region. Patient denies any fevers,, chills or body aches, malaise, lower extremity tenderness, or increasing shortness of breath, and or chest pain. Patient has been admitted to the hospital in the past year for cellulitis of lower extremity and for exacerbation of heart failure.patient otherwise has no other significant complaints except requesting a cigarette during examination. - Related Data Allergies/Adverse Reactions: Allergies Allergy/AdvReac Type Severity Reaction Status Date / Time clarithromycin [From Biaxin] Allergy unknown Verified 09/11/18 12:44 clindamycin Allergy Other Verified 10/20/18 17:08 irbesartan [From Avapro] Allergy unknown Verified 09/11/18 12:44 red dye Allergy unknown Verified 09/11/18 12:44 Teqrtcf-Ugd-Can Reductase Allergy unknown Verified 09/11/18 12:44 Inhibitor Vitamin A & D with Zinc Oxide Allergy Other Uncoded 10/20/18 17:09 Home Medications: Home Meds Camphor/Menthol [Sarna Lotion] 1 applic TOP ASDIRECTED PRN 05/20/18 [History] [place]/Min Oil/Stephy/Wool Alcoh [Eucerin Creme] 1 applic TOP ASDIRECTED PRN 05/20 [History] DULoxetine [Cymbalta] 30 mg PO DAILY 05/20/18 [History] Dextromethorphan/guaiFENesin [Robitussin DM] 5 ml PO QID PRN 05/20/18 [History] Famotidine 40 mg PO DAILY 05/20/18 [History] Fluticasone Propionate [Flonase] 2 spray NASBOTH DAILY 05/20/18 [History] Gabapentin [Neurontin] 400 mg PO TID 05/20/18 [History] Hydrocodone/Acetaminophen [[place] 5-325 Tablet] 5 - 325 mg PO QID PRN 05/20/18 [ History] Insulin Aspart [NovoLOG] 8 unit SQ TIDAC 05/20/18 [History] Insulin Detemir [Levemir Flextouch] 25 unit SQ BEDTIME 05/20/18 [History] Isosorbide Mononitrate [Imdur] 30 mg PO DAILY 05/20/18 [History] LORazepam 0.25 mg PO BEDTIME 05/20/18 [History] LORazepam 0.25 mg PO Q8H PRN 05/20/18 [History] Metoprolol Tartrate 25 mg PO BID 05/20/18 [History] Nitroglycerin 0.4 mg SL Q5M 05/20/18 [History] Bisacodyl 10 mg RC Q24H PRN 09/10/18 [History] Collagenase [Santyl Oint] 1 applic TOP .EVERY SHIFT 09/10/18 [History] Furosemide 40 mg PO DAILY@1400 09/10/18 [History] Losartan [Cozaar] 25 mg PO DAILY 09/10/18 [History] Potassium Chloride [Klor-Con 10] 10 meq PO DAILY 09/10/18 [History] Past Medical History HEENT History: Reports: Impaired Vision Other HEENT History: wears glasses Cardiovascular History: Reports: CAD, High Cholesterol, Hypertension, [place], Stents Respiratory History: Reports: SOB, Other (See Below) Other Respiratory History: acute respiratory failure. 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 History: Reports: Acute Renal Failure [employer] History: Reports: Musculoskeletal History: Reports: Arthritis Psychiatric History: Reports: Anxiety Endocrine/Metabolic History: Reports: Other (See Below) Other Endocrine/Metabolic History: Borderline DM Hematologic History: Reports: Anticoagulation Therapy Immunologic History: Reports: None - Infectious Disease History Infectious Disease History: Reports: Chicken Pox - Past Surgical History GI Surgical History: Reports: Appendectomy, Cholecystectomy Female Surgical History: Reports: Hysterectomy Social & Family History - Family History Family Medical History: Noncontributory Cardiac: Reports: High Cholesterol, Hypertension, [place] Respiratory: Reports: Other (See Below) Other Respiratory Family Hisory: Lung Ca GI: Reports: GERD OBGYN: Reports: Musculoskeletal: Reports: Arthritis Neurological: Reports: TIA Endocrine/Metabolic: Reports: Diabetes, type II Oncologic: Reports: Lung - Tobacco Use Smoking Status *Q: Unknown Ever Smoked - Caffeine Use Caffeine Use: Reports: Coffee Caffeine Use Comment: 1-2 cups per day - Living Situation & Occupation Living situation: Reports: Extended Care Facility Occupation: Retired H&P Review of Systems - Review of Systems: Review Of Systems: See Below General: Reports: No Symptoms. Denies: Fever, Chills, Malaise HEENT: Reports: No Symptoms Pulmonary: Reports: No Symptoms, Other (on 3 L nasal cannula baseline) Cardiovascular: Reports: No Symptoms Gastrointestinal: Reports: No Symptoms Musculoskeletal: Reports: No Symptoms Skin: Reports: Dryness, Erythema, Wound, Lesions Psychiatric: Reports: No Symptoms Neurological: Reports: No Symptoms Exam - Exam Exam: See Below - Vital Signs Vital Signs: Last Vital Signs Temp 97.1 F 10/20/18 16:16 Pulse 74 10/20/18 17:48 Resp 18 10/20/18 17:48 BP 135/65 10/20/18 17:48 Pulse Ox 98 10/20/18 17:48 - Exam Quality Assessment: Supplemental Oxygen (3-liters) General: Alert, Oriented HEENT: EOMI Neck: Supple, Trachea Midline Lungs: Decreased Breath Sounds (bilaterally lower lung villegas). No: Crackles, Rales, Rhonchi Cardiovascular: Regular Rate, Regular Rhythm GI/Abdominal Exam: Normal Bowel Sounds, Soft, Non-Tender, No Organomegaly Extremities: Other (right lower extremity: erythema and +4 pitting edema up to two thirds of right lower extremity. No tenderness 2 x 2 centimeter healing ulceration with 1 cm surrounding erythema. Nontender. Sensation intact. Pulses cannot be palpated. Multiple excoriations with 1 cm lesions with false granulation tissue. left lower extremity erythema up to two thirds of lower extremity. Left foot third fourth digit purulent drainage from beneath nail; dry skin throughout with excoriations and flaking sensation intact pulses cannot be palpated however seen on Doppler. Full range of motion) Neuro Extensive - Mental Status: Alert, Oriented x3, Normal Mood/Affect Neuro Extensive - Motor, Sensory, Reflexes: CN II-XII Intact. No: Normal Gait Psychiatric: Alert, Normal Affect, Normal Mood - Patient Data Lab Results Last 24 hrs: Laboratory Results - last 24 hr 10/20/18 10/20/18 10/20/18 Range/Units 16:26 16:26 17:26 WBC 10.22 (4.0-11.0) K/uL RBC 5.04 (4.30-5.90) M/uL Hgb 15.1 (12.0-16.0) g/dL Hct 47.0 H (36.0-46.0) % MCV 93.3 (80.0-98.0) fL MCH 30.0 (27.0-32.0) pg MCHC 32.1 (31.0-37.0) g/dL RDW Std Deviation 51.4 (28.0-62.0) fl RDW Coeff of Gregory 15 (11.0-15.0) % Plt Count 201 (150-400) K/uL MPV 10.30 (7.40-12.00) fL Neut % (Auto) 67.8 (48.0-80.0) % Lymph % (Auto) 17.4 (16.0-40.0) % [place] % (Auto) 12.3 (0.0-15.0) % Eos % (Auto) 2.2 (0.0-7.0) % Baso % (Auto) 0.3 (0.0-1.5) % Neut # (Auto) 6.9 H (1.4-5.7) K/uL Lymph # (Auto) 1.8 (0.6-2.4) K/uL [place] # (Auto) 1.3 H (0.0-0.8) K/uL Eos # (Auto) 0.2 (0.0-0.7) K/uL Baso # (Auto) 0.0 (0.0-0.1) K/uL Nucleated RBC % 0.0 /100WBC Nucleated RBCs # 0 K/uL Sodium 140 (136-145) mmol/L Potassium 4.7 (3.5-5.1) mmol/L Chloride 102 (98-107) mmol/L Carbon Dioxide 28.8 (21.0-32.0) mmol/L BUN 20 H (7.0-18.0) mg/dL Creatinine 1.1 H (0.6-1.0) mg/dL Est Cr Clr Drug Dosing TNP Estimated GFR (MDRD) 47.7 ml/min Glucose 81 (74-106) mg/dL Calcium 10.3 H (8.5-10.1) mg/dL Total Bilirubin 1.4 H (0.2-1.0) mg/dL AST 21 (15-37) IU/L ALT 19 (14-63) IU/L Alkaline Phosphatase 152 H (46-116) U/L Total Protein 7.1 (6.4-8.2) g/dL Albumin 3.8 (3.4-5.0) g/dL Globulin 3.3 (2.6-4.0) g/dL Albumin/Globulin Ratio 1.2 (0.9-1.6) Urine Color YELLOW Urine Appearance CLEAR Urine pH 6.0 (5.0-8.0) Ur Specific [place] <= 1.005 (1.001-1.035) Urine Protein NEGATIVE (NEGATIVE) mg/dL Urine Glucose (UA) NEGATIVE (NEGATIVE) mg/dL Urine Ketones NEGATIVE (NEGATIVE) mg/dL Urine Occult Blood NEGATIVE (NEGATIVE) Urine Nitrite NEGATIVE (NEGATIVE) Urine Bilirubin NEGATIVE (NEGATIVE) Urine Urobilinogen 0.2 (<2.0) EU/dL Ur Leukocyte Esterase TRACE H (NEGATIVE) Urine RBC 0-1 (0-2/HPF) Urine WBC 1-2 (0-5/HPF) Ur Epithelial Cells RARE (NONE-FEW) Urine Bacteria RARE (NEGATIVE) Result Diagrams: 10/20/18 16:26 10/20/18 16:26 Problem List Initiated/Reviewed/Updated: Yes Orders Last 24hrs: Active Orders 24 hr Category Date Time Status Admission Status [Patient Status] [ADT] Stat ADT 10/20/18 17:48 Active Accu Check [Blood Glucose Check, Bedside] [RC] TIDMEALS Care 10/20/18 18:37 Active Intake and Output [RC] ASDIRECTED Care 10/20/18 18:09 Active Vital Signs [RC] PER UNIT ROUTINE Care 10/20/18 18:09 Active [employer] Diet [DIET] Diet 10/21/18 Breakfast Active CBC WITH AUTO DIFF [HEME] AM Lab 10/21/18 05:11 Ordered COMPREHENSIVE METABOLIC PN,CMP [CHEM] AM Lab 10/21/18 05:11 Ordered CULTURE URINE [RM] Stat Lab 10/20/18 17:26 Received Acetaminophen/HYDROcodone Med 10/21/18 07:14 Active 5 - 325 mg PO QID PRN [place]/Min Oil/Stephy/Wool Alcoh Med 10/20/18 18:14 Active 1 applic TOP ASDIRECTED PRN Collagenase Med 10/20/18 18:15 Active 1 applic TOP .EVERY SHIFT DULoxetine [Cymbalta] Med 10/21/18 09:00 Active 30 mg PO DAILY Famotidine [Pepcid] Med 10/21/18 09:00 Active 40 mg PO DAILY Furosemide [Lasix] Med 10/21/18 14:00 Active 40 mg PO DAILY@1400 Gabapentin Med 10/20/18 22:00 Active 400 mg PO TID Insulin Aspart [NovoLOG] Med 10/21/18 07:30 Ordered See Protocol SUBCUT TIDAC Insulin Detemir [Levemir] Med 10/20/18 21:00 Active 25 unit SUBCUT BEDTIME Isosorbide Mononitrate [Imdur] Med 10/21/18 09:00 Active 30 mg PO DAILY LORazepam Med 10/20/18 21:00 Active 0.25 mg PO BEDTIME LORazepam Med 10/20/18 18:14 Active 0.25 mg PO Q8H PRN Losartan Med 10/21/18 09:00 Active 25 mg PO DAILY Metoprolol Tartrate [Lopressor] Med 10/20/18 21:00 Active 25 mg PO BID Nicotine [Habitrol] Med 10/20/18 18:15 Active 7 mg TRDERM DAILY Nitroglycerin [Nitrostat] Med 10/20/18 18:15 Active 0.4 mg SL Q5M Pharmacy to Dose - Vancomycin Med 10/20/18 18:15 Pending 1 dose .XX ASDIRECTED Piperacillin/Tazobactam [Zosyn] 2.25 gm Med 10/20/18 18:15 Active Sodium Chloride 0.9% [Normal Saline] 50 ml IV Q6H Potassium Chloride [Klor-Con 10] Med 10/21/18 09:00 Active 10 meq PO DAILY Sodium Chloride 0.9% [Saline Flush] Med 10/20/18 16:11 Active 10 ml FLUSH ASDIRECTED PRN Sodium Chloride 0.9% [Saline Flush] Med 10/20/18 16:11 Active 2.5 ml FLUSH ASDIRECTED PRN Saline Lock Insert [OM.PC] Stat Oth 10/20/18 16:11 Ordered Code Status [Resuscitation Status] Routine Resus Stat 10/20/18 18:09 Ordered Medication Orders Duloxetine HCl (Cymbalta) 30 mg PO DAILY [facility] Famotidine (Pepcid) 40 mg PO DAILY [facility] Furosemide (Lasix) 40 mg PO DAILY@1400 [facility] Piperacillin Sod/Tazobactam (Sod 2.25 gm/ Sodium Chloride) 50 mls @ 100 mls/hr IV Q6H [facility] Insulin Aspart (Novolog) 0 unit SUBCUT TIDAC [facility]; Protocol Insulin Detemir (Levemir) 25 unit SUBCUT BEDTIME [facility] Isosorbide Mononitrate (Imdur) 30 mg PO DAILY [facility] Metoprolol Tartrate (Lopressor) 25 mg PO BID [facility] Nicotine (Habitrol) 7 mg TRDERM DAILY [facility] Nitroglycerin (Nitrostat) 0.4 mg SL Q5M [facility] Non-Formulary Medication (Acetaminophen/Hydrocodone) 5 - 325 mg PO QID PRN PRN Reason: Pain Non-Formulary Medication ([place]/Min Oil/Stephy/Wool Alcoh) 1 applic TOP ASDIRECTED PRN PRN Reason: Itching Non-Formulary Medication (Collagenase) 1 applic TOP .EVERY SHIFT [facility] Non-Formulary Medication (Gabapentin) 400 mg PO TID [facility] Non-Formulary Medication (Lorazepam) 0.25 mg PO BEDTIME [facility] Non-Formulary Medication (Lorazepam) 0.25 mg PO Q8H PRN PRN Reason: Anxiety Non-Formulary Medication (Losartan) 25 mg PO DAILY [facility] Potassium Chloride (Klor-Con 10) 10 meq PO DAILY [facility] Sodium Chloride (Saline Flush) 10 ml FLUSH ASDIRECTED PRN PRN Reason: Keep Vein Open Last Admin: 10/20/18 16:40 Dose: 10 ml Sodium Chloride (Saline Flush) 2.5 ml FLUSH ASDIRECTED PRN PRN Reason: Keep Vein Open Last Admin: 10/20/18 16:40 Dose: 2.5 ml Vancomycin HCl (Pharmacy To Dose - Vancomycin) 1 dose .XX ASDIRECTED [facility] Assessment/Plan Comment:: assessment: admit observation. DNR/DNI. Intake outtake per routine. Vitals per routine. Accu -Cheks and sliding scale 3 times a day with meals. 1. Right lower extremity cellulitis with chronic venous stasis: initiating vancomycin and ampicillin-sulbactam/renally dosed. Blood cultures and wound cultures will be ordered. Enterostomal care will be considered. x-ray tib-fib right lower extremity within normal range nonobvious sign of osteomyelitis versus acute bony pathology; will consider MRI of right lower extremity and left foot if necessary. 2. Past medical history: coronary artery disease, hypertension, heart failure, depression, hypercholesterolemia, peripheral vascular disease: continue all medications.
[2018-10-20] MEDS ORDERED: Enoxaparin 40 MG/0.4 ML Syringe SUBCUT SCH (19:00)
[2018-10-20] MEDS ORDERED: Nitroglycerin 0.4 MG Tab.SL SL PRN (19:36)
[2018-10-20] MEDS: Nicotine 7 MG/24 Hr Patch TRDERM SCH (19:38)
[2018-10-20] MEDS: Piperacillin/Tazobactam 2.25 GM in Sodium Chloride 0.9% 50 ML IV SCH (19:46)
[2018-10-20] MEDS ORDERED: LORAZEPAM 0.25 MG PO SCH (21:00)
[2018-10-20] MEDS ORDERED: LORazepam 0.5 MG Tab PO PRN (21:28)
[2018-10-20] MEDS: Enoxaparin 40 MG/0.4 ML Syringe SUBCUT SCH (21:31)
[2018-10-20] MEDS: Metoprolol Tartrate 25 MG Tab PO SCH (21:32)
[2018-10-20] MEDS: Insulin Detemir 100 Units/ML 3 ML Pen SUBCUT SCH (21:37)
[2018-10-20] MEDS: Gabapentin 800 MG Tab PO SCH (21:45)
[2018-10-20] MEDS ORDERED: Non-Formulary Medication 1 Each (Gabapentin 400 MG) PO SCH (22:00)
[2018-10-20] MEDS: Acetaminophen/HYDROcodone 325-5 MG Tab PO PRN (22:55)
[2018-10-21] MEDS: Piperacillin/Tazobactam 2.25 GM in Sodium Chloride 0.9% 50 ML IV SCH ×4 (00:55→21:47)
[2018-10-21] MEDS: Gabapentin 800 MG Tab PO SCH ×3 (06:12→21:42)
[2018-10-21] MEDS: Insulin Aspart 100 Units/ML 3 ML Pen SUBCUT SCH ×3 (06:31→17:04)
[2018-10-21 06:57] LABS: CARBON DIOXIDE,CO2 27.8 mmol/L (21.0-32.0); POTASSIUM,K 4.6 mmol/L (3.5-5.1)
[2018-10-21] MEDS: Metoprolol Tartrate 25 MG Tab PO SCH ×2 (08:56→21:41)
[2018-10-21] MEDS: Famotidine 20 MG Tab PO SCH (08:56)
[2018-10-21] MEDS: Potassium Chloride 10 MEQ Tab.ER PO SCH (08:57)
[2018-10-21] MEDS: Isosorbide Mononitrate 30 MG Tab.ER PO SCH (08:57)
[2018-10-21] MEDS: DULoxetine 30 MG Cap PO SCH (08:57)
[2018-10-21] MEDS: Nicotine 7 MG/24 Hr Patch TRDERM SCH (08:58)
[2018-10-21] MEDS: Losartan 50 MG Tab PO SCH (08:59)
[2018-10-21] MEDS: Acetaminophen/HYDROcodone 325-5 MG Tab PO PRN ×3 (09:09→23:06)
--- NOTE | 2018-10-21 10:13 | PCM.PN ---
<Wilda Sam - Last Filed: 10/21/18 10:20> - General Info Date of Service: 10/21/18 Subjective Update: 83-year-old female with right lower extremity cellulitis with chronic venous stasis; left foot fourth digit purulent thick drainage: currently on vancomycin and Zosyn. Stable. Patient does not complain of any fever, chills, body aches, shortness of breath, chest pain or increasing lower pain or tenderness.patient has no other complaints this morning - Patient Data Vitals - Most Recent: Last Vital Signs Temp 98.6 F 10/21/18 07:39 Pulse 96 10/21/18 08:56 Resp 22 H 10/21/18 07:39 BP 163/77 H 10/21/18 08:59 Pulse Ox 94 L 10/21/18 03:43 Weight - Most Recent: 70.08 kg I&O - Last 24 Hours: Intake & Output 10/20/18 10/21/18 10/21/18 22:59 06:59 14:59 Intake Total 240 500 100 Output Total 900 Balance 240 -400 100 Lab Results Last 24 Hours: Laboratory Results - last 24 hr 10/20/18 10/20/18 10/20/18 Range/Units 16:26 16:26 17:26 WBC 10.22 (4.0-11.0) K/uL RBC 5.04 (4.30-5.90) M/uL Hgb 15.1 (12.0-16.0) g/dL Hct 47.0 H (36.0-46.0) % MCV 93.3 (80.0-98.0) fL MCH 30.0 (27.0-32.0) pg MCHC 32.1 (31.0-37.0) g/dL RDW Std Deviation 51.4 (28.0-62.0) fl RDW Coeff of Gregory 15 (11.0-15.0) % Plt Count 201 (150-400) K/uL MPV 10.30 (7.40-12.00) fL Neut % (Auto) 67.8 (48.0-80.0) % Lymph % (Auto) 17.4 (16.0-40.0) % Jay % (Auto) 12.3 (0.0-15.0) % Eos % (Auto) 2.2 (0.0-7.0) % Baso % (Auto) 0.3 (0.0-1.5) % Neut # (Auto) 6.9 H (1.4-5.7) K/uL Lymph # (Auto) 1.8 (0.6-2.4) K/uL Jay # (Auto) 1.3 H (0.0-0.8) K/uL Eos # (Auto) 0.2 (0.0-0.7) K/uL Baso # (Auto) 0.0 (0.0-0.1) K/uL Nucleated RBC % 0.0 /100WBC Nucleated RBCs # 0 K/uL Sodium 140 (136-145) mmol/L Potassium 4.7 (3.5-5.1) mmol/L Chloride 102 (98-107) mmol/L Carbon Dioxide 28.8 (21.0-32.0) mmol/L BUN 20 H (7.0-18.0) mg/dL Creatinine 1.1 H (0.6-1.0) mg/dL Est Cr Clr Drug Dosing TNP Estimated GFR (MDRD) 47.7 ml/min Glucose 81 (74-106) mg/dL Calcium 10.3 H (8.5-10.1) mg/dL Total Bilirubin 1.4 H (0.2-1.0) mg/dL AST 21 (15-37) IU/L ALT 19 (14-63) IU/L Alkaline Phosphatase 152 H (46-116) U/L Total Protein 7.1 (6.4-8.2) g/dL Albumin 3.8 (3.4-5.0) g/dL Globulin 3.3 (2.6-4.0) g/dL Albumin/Globulin Ratio 1.2 (0.9-1.6) Urine Color YELLOW Urine Appearance CLEAR Urine pH 6.0 (5.0-8.0) Ur Specific [place] <= 1.005 (1.001-1.035) Urine Protein NEGATIVE (NEGATIVE) mg/dL Urine Glucose (UA) NEGATIVE (NEGATIVE) mg/dL Urine Ketones NEGATIVE (NEGATIVE) mg/dL Urine Occult Blood NEGATIVE (NEGATIVE) Urine Nitrite NEGATIVE (NEGATIVE) Urine Bilirubin NEGATIVE (NEGATIVE) Urine Urobilinogen 0.2 (<2.0) EU/dL Ur Leukocyte Esterase TRACE H (NEGATIVE) Urine RBC 0-1 (0-2/HPF) Urine WBC 1-2 (0-5/HPF) Ur Epithelial Cells RARE (NONE-FEW) Urine Bacteria RARE (NEGATIVE) 10/21/18 10/21/18 Range/Units 06:12 06:12 WBC 8.79 (4.0-11.0) K/uL RBC 4.82 (4.30-5.90) M/uL Hgb 14.3 (12.0-16.0) g/dL Hct 44.4 (36.0-46.0) % MCV 92.1 (80.0-98.0) fL MCH 29.7 (27.0-32.0) pg MCHC 32.2 (31.0-37.0) g/dL RDW Std Deviation 51.0 (28.0-62.0) fl RDW Coeff of Gregory 15 (11.0-15.0) % Plt Count 175 (150-400) K/uL MPV 10.00 (7.40-12.00) fL Neut % (Auto) 64.2 (48.0-80.0) % Lymph % (Auto) 18.4 (16.0-40.0) % Jay % (Auto) 14.8 (0.0-15.0) % Eos % (Auto) 2.3 (0.0-7.0) % Baso % (Auto) 0.3 (0.0-1.5) % Neut # (Auto) 5.6 (1.4-5.7) K/uL Lymph # (Auto) 1.6 (0.6-2.4) K/uL Jay # (Auto) 1.3 H (0.0-0.8) K/uL Eos # (Auto) 0.2 (0.0-0.7) K/uL Baso # (Auto) 0.0 (0.0-0.1) K/uL Nucleated RBC % 0.0 /100WBC Nucleated RBCs # 0 K/uL Sodium 142 (136-145) mmol/L Potassium 4.6 (3.5-5.1) mmol/L Chloride 106 (98-107) mmol/L Carbon Dioxide 27.8 (21.0-32.0) mmol/L BUN 20 H (7.0-18.0) mg/dL Creatinine 1.2 H (0.6-1.0) mg/dL Est Cr Clr Drug Dosing 31.75 Estimated GFR (MDRD) 43.1 ml/min Glucose 63 L (74-106) mg/dL Calcium 10.0 (8.5-10.1) mg/dL Total Bilirubin 1.7 H (0.2-1.0) mg/dL AST 18 (15-37) IU/L ALT 14 (14-63) IU/L Alkaline Phosphatase 128 H (46-116) U/L Total Protein 6.3 L (6.4-8.2) g/dL Albumin 3.4 (3.4-5.0) g/dL Globulin 2.9 (2.6-4.0) g/dL Albumin/Globulin Ratio 1.2 (0.9-1.6) Urine Color Urine Appearance Urine pH (5.0-8.0) Ur Specific [place] (1.001-1.035) Urine Protein (NEGATIVE) mg/dL Urine Glucose (UA) (NEGATIVE) mg/dL Urine Ketones (NEGATIVE) mg/dL Urine Occult Blood (NEGATIVE) Urine Nitrite (NEGATIVE) Urine Bilirubin (NEGATIVE) Urine Urobilinogen (<2.0) EU/dL Ur Leukocyte Esterase (NEGATIVE) Urine RBC (0-2/HPF) Urine WBC (0-5/HPF) Ur Epithelial Cells (NONE-FEW) Urine Bacteria (NEGATIVE) Med Orders - Current: Current Medications Hydrocodone Bitart/Acetaminophen ([place]ster 325-5 Mg) 1 tab PO QID PRN PRN Reason: Pain Last Admin: 10/21/18 09:09 Dose: 1 tab Duloxetine HCl (Cymbalta) 30 mg PO DAILY [facility] Last Admin: 10/21/18 08:57 Dose: 30 mg Enoxaparin Sodium (Lovenox) 40 mg SUBCUT Q24H [facility] Last Admin: 10/20/18 21:31 Dose: 40 mg Famotidine (Pepcid) 40 mg PO DAILY [facility] Last Admin: 10/21/18 08:56 Dose: 40 mg Furosemide (Lasix) 40 mg PO DAILY@1400 [facility] Gabapentin (Neurontin) 400 mg PO TID [facility] Last Admin: 10/21/18 06:12 Dose: 400 mg Piperacillin Sod/Tazobactam (Sod 2.25 gm/ Sodium Chloride) 50 mls @ 100 mls/hr IV Q6H [facility] Last Admin: 10/21/18 06:13 Dose: 100 mls/hr Vancomycin HCl 1 gm/ Sodium (Chloride) 250 mls @ 166 mls/hr IV Q24H [facility] Insulin Aspart (Novolog) 0 unit SUBCUT TIDAC [facility]; Protocol Last Admin: 10/21/18 06:31 Dose: Not Given Insulin Detemir (Levemir) 25 unit SUBCUT BEDTIME [facility] Last Admin: 10/20/18 21:37 Dose: 25 units Isosorbide Mononitrate (Imdur) 30 mg PO DAILY [facility] Last Admin: 10/21/18 08:57 Dose: 30 mg Lorazepam (Ativan) 0.25 mg PO BEDTIME PINA Lorazepam (Ativan) 0.25 mg PO Q8H PRN PRN Reason: Anxiety Last Admin: 10/20/18 22:17 Dose: 0.25 mg Losartan Potassium (Cozaar) 25 mg PO DAILY [facility] Last Admin: 10/21/18 08:59 Dose: 25 mg Metoprolol Tartrate (Lopressor) 25 mg PO BID [facility] Last Admin: 10/21/18 08:56 Dose: 25 mg Nicotine (Habitrol) 7 mg TRDERM DAILY [facility] Last Admin: 10/21/18 08:58 Dose: 7 mg Nitroglycerin (Nitrostat) 0.4 mg SL Q5M PRN PRN Reason: Chest Pain Non-Formulary Medication (Wilbur/Min Oil/Stephy/Wool Alcoh) 1 applic TOP ASDIRECTED PRN PRN Reason: Itching Non-Formulary Medication (Collagenase) 1 applic TOP .EVERY SHIFT [facility] Potassium Chloride (Klor-Con 10) 10 meq PO DAILY [facility] Last Admin: 10/21/18 08:57 Dose: 10 meq Sodium Chloride (Saline Flush) 10 ml FLUSH ASDIRECTED PRN PRN Reason: Keep Vein Open Last Admin: 10/20/18 16:40 Dose: 10 ml Sodium Chloride (Saline Flush) 2.5 ml FLUSH ASDIRECTED PRN PRN Reason: Keep Vein Open Last Admin: 10/20/18 16:40 Dose: 2.5 ml Vancomycin HCl (Pharmacy To Dose - Vancomycin) 1 dose .XX ASDIRECTED [facility] Discontinued Medications Enoxaparin Sodium (Lovenox) 40 mg SUBCUT Q24H [facility] Last Admin: 10/20/18 21:58 Dose: Not Given Vancomycin HCl 1 gm/ Sodium (Chloride) 250 mls @ 166 mls/hr IV ONETIME ONE Stop: 10/20/18 18:37 Last Admin: 10/20/18 17:41 Dose: 166 mls/hr Nitroglycerin (Nitrostat) 0.4 mg SL Q5M [facility] Non-Formulary Medication (Gabapentin) 400 mg PO TID [facility] Non-Formulary Medication (Lorazepam) 0.25 mg PO BEDTIME [facility] Last Admin: 10/20/18 22:18 Dose: Not Given Non-Formulary Medication (Lorazepam) 0.25 mg PO Q8H PRN PRN Reason: Anxiety - Exam General: Alert, Oriented HEENT: EOMI Neck: Supple Lungs: Clear to Auscultation, Normal Respiratory Effort Cardiovascular: Regular Rate, Regular Rhythm Extremities: Other (right lower extremity: physical exam unchanged yesterday/ stable. Left foot/fourth digit: stable purulent discharge no erythema. Sensation intact. Full range of motion) Wound/Incisions: Dressing Dry and Intact - Problem List & Annotations (1) Cellulitis SNOMED Code(s): 719477634 Code(s): L03.90 - CELLULITIS, UNSPECIFIED Status: Acute Current Visit: Yes Qualifiers: Site of cellulitis: extremity Site of cellulitis of extremity: lower extremity Laterality: right Qualified Code(s): L03.115 - Cellulitis of right lower limb (2) Coronary artery disease SNOMED Code(s): 77645854 Code(s): I25.10 - ATHSCL HEART DISEASE OF [place] CORONARY ARTERY W/O ANG PCTRS Status: Acute Current Visit: Yes (3) Hypertension SNOMED Code(s): 96064460 Code(s): I10 - ESSENTIAL (PRIMARY) HYPERTENSION Status: Acute Current Visit: Yes (4) Depression SNOMED Code(s): 39346298 Code(s): F32.9 - MAJOR DEPRESSIVE DISORDER, SINGLE EPISODE, UNSPECIFIED Status: Acute Current Visit: Yes (5) Chronic venous stasis dermatitis of both lower extremities SNOMED Code(s): 10749399 Code(s): I87.2 - VENOUS INSUFFICIENCY (CHRONIC) (PERIPHERAL) Status: Acute Current Visit: Yes (6) Tobacco abuse SNOMED Code(s): 499300414 Code(s): Z72.0 - TOBACCO USE Status: Acute Current Visit: Yes (7) Peripheral vascular disease SNOMED Code(s): 672428463 Code(s): I73.9 - PERIPHERAL VASCULAR DISEASE, UNSPECIFIED Status: Acute Current Visit: Yes - Problem List Review Problem List Initiated/Reviewed/Updated: Yes - My Orders Last 24 Hours: My Active Orders 10/20/18 18:09 Vital Signs [RC] Q4H Code Status [Resuscitation Status] Routine 10/20/18 18:14 Wilbur/Min Oil/Stephy/Wool Alcoh 1 applic TOP ASDIRECTED PRN 10/20/18 18:15 Collagenase 1 applic TOP .EVERY SHIFT Nicotine [Habitrol] 7 mg TRDERM DAILY Pharmacy to Dose - Vancomycin 1 dose .XX ASDIRECTED Piperacillin/Tazobactam [Zosyn] 2.25 gm Sodium Chloride 0.9% [Normal Saline] 50 ml IV Q6H 10/20/18 18:37 Accu Check [Blood Glucose Check, Bedside] [RC] TIDMEALS 10/20/18 18:56 DVT Prophylaxis Not on Coumadin Therapy [AST] Routine 10/20/18 19:36 Nitroglycerin [Nitrostat] 0.4 mg SL Q5M PRN 10/20/18 20:00 Enoxaparin [Lovenox] 40 mg SUBCUT Q24H 10/20/18 21:00 Insulin Detemir [Levemir] 25 unit SUBCUT BEDTIME Metoprolol Tartrate [Lopressor] 25 mg PO BID 10/20/18 21:27 LORazepam [Ativan] 0.25 mg PO BEDTIME 10/20/18 21:28 LORazepam [Ativan] 0.25 mg PO Q8H PRN 10/20/18 22:00 Gabapentin [Neurontin] 400 mg PO TID 10/20/18 22:30 Acetaminophen/HYDROcodone [Chester 325-5 MG] 1 tab PO QID PRN 10/21/18 07:30 Insulin Aspart [NovoLOG] See Protocol SUBCUT TIDAC 10/21/18 09:00 DULoxetine [Cymbalta] 30 mg PO DAILY Famotidine [Pepcid] 40 mg PO DAILY Isosorbide Mononitrate [Imdur] 30 mg PO DAILY Losartan [Cozaar] 25 mg PO DAILY Potassium Chloride [Klor-Con 10] 10 meq PO DAILY 10/21/18 09:04 Foot wo Cont Lt [MR] Stat 10/21/18 09:05 Tibia Fibula wo Cont Rt [MR] Stat 10/21/18 09:06 Wound Assembled [employer] Consult [Consult to Wound Care Services] [CONS] Routine 10/21/18 14:00 Furosemide [Lasix] 40 mg PO DAILY@1400 10/21/18 Breakfast [place] [employer] Diet [DIET] - Plan Plan:: assessment: DNR/DNI. Intake outtake per routine. Vitals per routine. Accu-Cheks and sliding scale 3 times a day with meals. 1. Right lower extremity cellulitis with chronic venous stasis: continue vancomycin and ampicillin-sulbactam/renally dosed. Enterostomal care consultation: awaiting recommendations. x-ray tib-fib right lower extremity within normal range no obvious sign of osteomyelitis versus acute bony pathology; MRI of right lower extremity and left foot ordered this a.m:evaluate for osteomyelitis 2: YULY: avoid nephrotoxic agents 3. Past medical history: coronary artery disease, hypertension, heart failure, depression, hypercholesterolemia, peripheral vascular disease: continue all medications/stable <Remi Meehan - Last Filed: 10/21/18 13:00> - General Info Admission Dx/Problem (Free Text): I have seen and examined the patient independently of Dr. Cecy MD. I have reviewed and agree with the plan of care as outlined for this patient by him. I have discussed the case with him. Please see orders. - Patient Data Vitals - Most Recent: Last Vital Signs Temp 36.6 C 10/21/18 11:47 Pulse 84 10/21/18 11:47 Resp 14 10/21/18 11:47 BP 157/63 H 10/21/18 11:47 Pulse Ox 97 10/21/18 11:47 I&O - Last 24 Hours: Intake & Output 10/20/18 10/21/18 10/21/18 22:59 06:59 14:59 Intake Total 240 500 150 Output Total 900 Balance 240 -400 150 Lab Results Last 24 Hours: Laboratory Results - last 24 hr 10/20/18 10/20/18 10/20/18 Range/Units 16:26 16:26 17:26 WBC 10.22 (4.0-11.0) K/uL RBC 5.04 (4.30-5.90) M/uL Hgb 15.1 (12.0-16.0) g/dL Hct 47.0 H (36.0-46.0) % MCV 93.3 (80.0-98.0) fL MCH 30.0 (27.0-32.0) pg MCHC 32.1 (31.0-37.0) g/dL RDW Std Deviation 51.4 (28.0-62.0) fl RDW Coeff of Gregory 15 (11.0-15.0) % Plt Count 201 (150-400) K/uL MPV 10.30 (7.40-12.00) fL Neut % (Auto) 67.8 (48.0-80.0) % Lymph % (Auto) 17.4 (16.0-40.0) % Jay % (Auto) 12.3 (0.0-15.0) % Eos % (Auto) 2.2 (0.0-7.0) % Baso % (Auto) 0.3 (0.0-1.5) % Neut # (Auto) 6.9 H (1.4-5.7) K/uL Lymph # (Auto) 1.8 (0.6-2.4) K/uL Jay # (Auto) 1.3 H (0.0-0.8) K/uL Eos # (Auto) 0.2 (0.0-0.7) K/uL Baso # (Auto) 0.0 (0.0-0.1) K/uL Nucleated RBC % 0.0 /100WBC Nucleated RBCs # 0 K/uL Sodium 140 (136-145) mmol/L Potassium 4.7 (3.5-5.1) mmol/L Chloride 102 (98-107) mmol/L Carbon Dioxide 28.8 (21.0-32.0) mmol/L BUN 20 H (7.0-18.0) mg/dL Creatinine 1.1 H (0.6-1.0) mg/dL Est Cr Clr Drug Dosing TNP Estimated GFR (MDRD) 47.7 ml/min Glucose 81 (74-106) mg/dL POC Glucose (60-110) mg/dL Calcium 10.3 H (8.5-10.1) mg/dL Total Bilirubin 1.4 H (0.2-1.0) mg/dL AST 21 (15-37) IU/L ALT 19 (14-63) IU/L Alkaline Phosphatase 152 H (46-116) U/L Total Protein 7.1 (6.4-8.2) g/dL Albumin 3.8 (3.4-5.0) g/dL Globulin 3.3 (2.6-4.0) g/dL Albumin/Globulin Ratio 1.2 (0.9-1.6) Urine Color YELLOW Urine Appearance CLEAR Urine pH 6.0 (5.0-8.0) Ur Specific [place] <= 1.005 (1.001-1.035) Urine Protein NEGATIVE (NEGATIVE) mg/dL Urine Glucose (UA) NEGATIVE (NEGATIVE) mg/dL Urine Ketones NEGATIVE (NEGATIVE) mg/dL Urine Occult Blood NEGATIVE (NEGATIVE) Urine Nitrite NEGATIVE (NEGATIVE) Urine Bilirubin NEGATIVE (NEGATIVE) Urine Urobilinogen 0.2 (<2.0) EU/dL Ur Leukocyte Esterase TRACE H (NEGATIVE) Urine RBC 0-1 (0-2/HPF) Urine WBC 1-2 (0-5/HPF) Ur Epithelial Cells RARE (NONE-FEW) Urine Bacteria RARE (NEGATIVE) 10/20/18 10/20/18 10/21/18 Range/Units 19:16 21:36 06:12 WBC 8.79 (4.0-11.0) K/uL RBC 4.82 (4.30-5.90) M/uL Hgb 14.3 (12.0-16.0) g/dL Hct 44.4 (36.0-46.0) % MCV 92.1 (80.0-98.0) fL MCH 29.7 (27.0-32.0) pg MCHC 32.2 (31.0-37.0) g/dL RDW Std Deviation 51.0 (28.0-62.0) fl RDW Coeff of Gregory 15 (11.0-15.0) % Plt Count 175 (150-400) K/uL MPV 10.00 (7.40-12.00) fL Neut % (Auto) 64.2 (48.0-80.0) % Lymph % (Auto) 18.4 (16.0-40.0) % Jay % (Auto) 14.8 (0.0-15.0) % Eos % (Auto) 2.3 (0.0-7.0) % Baso % (Auto) 0.3 (0.0-1.5) % Neut # (Auto) 5.6 (1.4-5.7) K/uL Lymph # (Auto) 1.6 (0.6-2.4) K/uL Jay # (Auto) 1.3 H (0.0-0.8) K/uL Eos # (Auto) 0.2 (0.0-0.7) K/uL Baso # (Auto) 0.0 (0.0-0.1) K/uL Nucleated RBC % 0.0 /100WBC Nucleated RBCs # 0 K/uL Sodium (136-145) mmol/L Potassium (3.5-5.1) mmol/L Chloride (98-107) mmol/L Carbon Dioxide (21.0-32.0) mmol/L BUN (7.0-18.0) mg/dL Creatinine (0.6-1.0) mg/dL Est Cr Clr Drug Dosing Estimated GFR (MDRD) ml/min Glucose (74-106) mg/dL POC Glucose 75 122 H (60-110) mg/dL Calcium (8.5-10.1) mg/dL Total Bilirubin (0.2-1.0) mg/dL AST (15-37) IU/L ALT (14-63) IU/L Alkaline Phosphatase (46-116) U/L Total Protein (6.4-8.2) g/dL Albumin (3.4-5.0) g/dL Globulin (2.6-4.0) g/dL Albumin/Globulin Ratio (0.9-1.6) Urine Color Urine Appearance Urine pH (5.0-8.0) Ur Specific [place] (1.001-1.035) Urine Protein (NEGATIVE) mg/dL Urine Glucose (UA) (NEGATIVE) mg/dL Urine Ketones (NEGATIVE) mg/dL Urine Occult Blood (NEGATIVE) Urine Nitrite (NEGATIVE) Urine Bilirubin (NEGATIVE) Urine Urobilinogen (<2.0) EU/dL Ur Leukocyte Esterase (NEGATIVE) Urine RBC (0-2/HPF) Urine WBC (0-5/HPF) Ur Epithelial Cells (NONE-FEW) Urine Bacteria (NEGATIVE) 10/21/18 10/21/18 10/21/18 Range/Units 06:12 06:20 06:57 WBC (4.0-11.0) K/uL RBC (4.30-5.90) M/uL Hgb (12.0-16.0) g/dL Hct (36.0-46.0) % MCV (80.0-98.0) fL MCH (27.0-32.0) pg MCHC (31.0-37.0) g/dL RDW Std Deviation (28.0-62.0) fl RDW Coeff of Gregory (11.0-15.0) % Plt Count (150-400) K/uL MPV (7.40-12.00) fL Neut % (Auto) (48.0-80.0) % Lymph % (Auto) (16.0-40.0) % Jay % (Auto) (0.0-15.0) % Eos % (Auto) (0.0-7.0) % Baso % (Auto) (0.0-1.5) % Neut # (Auto) (1.4-5.7) K/uL Lymph # (Auto) (0.6-2.4) K/uL Jay # (Auto) (0.0-0.8) K/uL Eos # (Auto) (0.0-0.7) K/uL Baso # (Auto) (0.0-0.1) K/uL Nucleated RBC % /100WBC Nucleated RBCs # K/uL Sodium 142 (136-145) mmol/L Potassium 4.6 (3.5-5.1) mmol/L Chloride 106 (98-107) mmol/L Carbon Dioxide 27.8 (21.0-32.0) mmol/L BUN 20 H (7.0-18.0) mg/dL Creatinine 1.2 H (0.6-1.0) mg/dL Est Cr Clr Drug Dosing 31.75 Estimated GFR (MDRD) 43.1 ml/min Glucose 63 L (74-106) mg/dL POC Glucose 64 76 (60-110) mg/dL Calcium 10.0 (8.5-10.1) mg/dL Total Bilirubin 1.7 H (0.2-1.0) mg/dL AST 18 (15-37) IU/L ALT 14 (14-63) IU/L Alkaline Phosphatase 128 H (46-116) U/L Total Protein 6.3 L (6.4-8.2) g/dL Albumin 3.4 (3.4-5.0) g/dL Globulin 2.9 (2.6-4.0) g/dL Albumin/Globulin Ratio 1.2 (0.9-1.6) Urine Color Urine Appearance Urine pH (5.0-8.0) Ur Specific [place] (1.001-1.035) Urine Protein (NEGATIVE) mg/dL Urine Glucose (UA) (NEGATIVE) mg/dL Urine Ketones (NEGATIVE) mg/dL Urine Occult Blood (NEGATIVE) Urine Nitrite (NEGATIVE) Urine Bilirubin (NEGATIVE) Urine Urobilinogen (<2.0) EU/dL Ur Leukocyte Esterase (NEGATIVE) Urine RBC (0-2/HPF) Urine WBC (0-5/HPF) Ur Epithelial Cells (NONE-FEW) Urine Bacteria (NEGATIVE) Med Orders - Current: Current Medications Hydrocodone Bitart/Acetaminophen ([place] 325-5 Mg) 1 tab PO QID PRN PRN Reason: Pain Last Admin: 10/21/18 09:09 Dose: 1 tab Duloxetine HCl (Cymbalta) 30 mg PO DAILY [facility] Last Admin: 10/21/18 08:57 Dose: 30 mg Enoxaparin Sodium (Lovenox) 40 mg SUBCUT Q24H [facility] Last Admin: 10/20/18 21:31 Dose: 40 mg Famotidine (Pepcid) 40 mg PO DAILY [facility] Last Admin: 10/21/18 08:56 Dose: 40 mg Furosemide (Lasix) 40 mg PO DAILY@1400 [facility] Gabapentin (Neurontin) 400 mg PO TID [facility] Last Admin: 10/21/18 06:12 Dose: 400 mg Piperacillin Sod/Tazobactam (Sod 2.25 gm/ Sodium Chloride) 50 mls @ 100 mls/hr IV Q6H [facility] Last Admin: 10/21/18 12:09 Dose: 100 mls/hr Vancomycin HCl 1 gm/ Sodium (Chloride) 250 mls @ 166 mls/hr IV Q24H [facility] Insulin Aspart (Novolog) 0 unit SUBCUT TIDAC [facility]; Protocol Last Admin: 10/21/18 12:10 Dose: Not Given Insulin Detemir (Levemir) 25 unit SUBCUT BEDTIME [facility] Last Admin: 10/20/18 21:37 Dose: 25 units Isosorbide Mononitrate (Imdur) 30 mg PO DAILY [facility] Last Admin: 10/21/18 08:57 Dose: 30 mg Lorazepam (Ativan) 0.25 mg PO BEDTIME PINA Lorazepam (Ativan) 0.25 mg PO Q8H PRN PRN Reason: Anxiety Last Admin: 10/20/18 22:17 Dose: 0.25 mg Losartan Potassium (Cozaar) 25 mg PO DAILY [facility] Last Admin: 10/21/18 08:59 Dose: 25 mg Metoprolol Tartrate (Lopressor) 25 mg PO BID [facility] Last Admin: 10/21/18 08:56 Dose: 25 mg Nicotine (Habitrol) 7 mg TRDERM DAILY [facility] Last Admin: 10/21/18 08:58 Dose: 7 mg Nitroglycerin (Nitrostat) 0.4 mg SL Q5M PRN PRN Reason: Chest Pain Non-Formulary Medication (Wilbur/Min Oil/Stephy/Wool Alcoh) 1 applic TOP ASDIRECTED PRN PRN Reason: Itching Non-Formulary Medication (Collagenase) 1 applic TOP .EVERY SHIFT [facility] Potassium Chloride (Klor-Con 10) 10 meq PO DAILY [facility] Last Admin: 10/21/18 08:57 Dose: 10 meq Sodium Chloride (Saline Flush) 10 ml FLUSH ASDIRECTED PRN PRN Reason: Keep Vein Open Last Admin: 10/20/18 16:40 Dose: 10 ml Sodium Chloride (Saline Flush) 2.5 ml FLUSH ASDIRECTED PRN PRN Reason: Keep Vein Open Last Admin: 10/20/18 16:40 Dose: 2.5 ml Vancomycin HCl (Pharmacy To Dose - Vancomycin) 1 dose .XX ASDIRECTED [facility] Discontinued Medications Enoxaparin Sodium (Lovenox) 40 mg SUBCUT Q24H [facility] Last Admin: 10/20/18 21:58 Dose: Not Given Vancomycin HCl 1 gm/ Sodium (Chloride) 250 mls @ 166 mls/hr IV ONETIME ONE Stop: 10/20/18 18:37 Last Admin: 10/20/18 17:41 Dose: 166 mls/hr Nitroglycerin (Nitrostat) 0.4 mg SL Q5M PINA Non-Formulary Medication (Gabapentin) 400 mg PO TID PINA Non-Formulary Medication (Lorazepam) 0.25 mg PO BEDTIME PINA Last Admin: 10/20/18 22:18 Dose: Not Given Non-Formulary Medication (Lorazepam) 0.25 mg PO Q8H PRN PRN Reason: Anxiety
[2018-10-21] MEDS: Nitroglycerin 0.4 MG Tab.SL SL SCH ×4 (13:44→13:47)
[2018-10-21] MEDS: Furosemide 40 MG Tab PO SCH (14:17)
[2018-10-21] MEDS: Enoxaparin 40 MG/0.4 ML Syringe SUBCUT SCH (21:37)
[2018-10-21] MEDS: Insulin Detemir 100 Units/ML 3 ML Pen SUBCUT SCH (21:39)
[2018-10-21] MEDS: LORazepam 0.5 MG Tab PO SCH (21:43)
[2018-10-22] MEDS: Piperacillin/Tazobactam 2.25 GM in Sodium Chloride 0.9% 50 ML IV SCH ×2 (04:11→08:42)
[2018-10-22] MEDS: Gabapentin 800 MG Tab PO SCH ×3 (06:52→21:28)
[2018-10-22 07:05] LABS: CARBON DIOXIDE,CO2 27.9 mmol/L (21.0-32.0); POTASSIUM,K 4.5 mmol/L (3.5-5.1)
[2018-10-22] MEDS ORDERED: Ondansetron 4 MG Tab.DIS PO ONE (08:07)
[2018-10-22] MEDS: Insulin Aspart 100 Units/ML 3 ML Pen SUBCUT SCH ×3 (08:13→16:55)
[2018-10-22] MEDS: Potassium Chloride 10 MEQ Tab.ER PO SCH (08:42)
[2018-10-22] MEDS: Famotidine 20 MG Tab PO SCH (08:42)
[2018-10-22] MEDS: Isosorbide Mononitrate 30 MG Tab.ER PO SCH (08:42)
[2018-10-22] MEDS: DULoxetine 30 MG Cap PO SCH (08:43)
[2018-10-22] MEDS: Nicotine 7 MG/24 Hr Patch TRDERM SCH (08:43)
[2018-10-22] MEDS: Metoprolol Tartrate 25 MG Tab PO SCH ×2 (08:43→20:54)
[2018-10-22] MEDS: Losartan 50 MG Tab PO SCH (08:43)
[2018-10-22] MEDS: Nicotine 14 MG/24 Hr Patch TRDERM SCH (08:46)
[2018-10-22] MEDS: Acetaminophen/HYDROcodone 325-5 MG Tab PO PRN ×2 (08:50→14:20)
[2018-10-22] MEDS: Linezolid 600 MG Tab PO SCH ×2 (09:46→21:28)
--- NOTE | 2018-10-22 09:54 | PCM.PN ---
- General Info Date of Service: 10/22/18 Subjective Update: patient seen at bedside: complaining of malaise, nasal congestion, mild headache and feeling tired; states she would like a cigarette. Also mentioned to me she does not want the MRI because she cannot sit still for too long. - Patient Data Vitals - Most Recent: Last Vital Signs Temp 97.8 F 10/22/18 08:59 Pulse 100 10/22/18 08:59 Resp 20 10/22/18 08:59 BP 134/65 10/22/18 08:59 Pulse Ox 94 L 10/22/18 08:59 Weight - Most Recent: 154 lb 8 oz I&O - Last 24 Hours: Intake & Output 10/21/18 10/22/18 10/22/18 22:59 06:59 14:59 Intake Total 50 390 Output Total 500 1630 Balance -450 -1240 Lab Results Last 24 Hours: Laboratory Results - last 24 hr 10/20/18 10/20/18 10/21/18 Range/Units 19:16 21:36 06:20 WBC (4.0-11.0) K/uL RBC (4.30-5.90) M/uL Hgb (12.0-16.0) g/dL Hct (36.0-46.0) % MCV (80.0-98.0) fL MCH (27.0-32.0) pg MCHC (31.0-37.0) g/dL RDW Std Deviation (28.0-62.0) fl RDW Coeff of Gregory (11.0-15.0) % Plt Count (150-400) K/uL MPV (7.40-12.00) fL Neut % (Auto) (48.0-80.0) % Lymph % (Auto) (16.0-40.0) % Morrison % (Auto) (0.0-15.0) % Eos % (Auto) (0.0-7.0) % Baso % (Auto) (0.0-1.5) % Neut # (Auto) (1.4-5.7) K/uL Lymph # (Auto) (0.6-2.4) K/uL Morrison # (Auto) (0.0-0.8) K/uL Eos # (Auto) (0.0-0.7) K/uL Baso # (Auto) (0.0-0.1) K/uL Nucleated RBC % /100WBC Nucleated RBCs # K/uL Sodium (136-145) mmol/L Potassium (3.5-5.1) mmol/L Chloride (98-107) mmol/L Carbon Dioxide (21.0-32.0) mmol/L BUN (7.0-18.0) mg/dL Creatinine (0.6-1.0) mg/dL Est Cr Clr Drug Dosing mL/min Estimated GFR (MDRD) ml/min Glucose (74-106) mg/dL POC Glucose 75 122 H 64 (60-110) mg/dL Calcium (8.5-10.1) mg/dL Total Bilirubin (0.2-1.0) mg/dL AST (15-37) IU/L ALT (14-63) IU/L Alkaline Phosphatase (46-116) U/L Total Protein (6.4-8.2) g/dL Albumin (3.4-5.0) g/dL Globulin (2.6-4.0) g/dL Albumin/Globulin Ratio (0.9-1.6) 10/21/18 10/21/18 10/21/18 Range/Units 06:57 16:56 20:50 WBC (4.0-11.0) K/uL RBC (4.30-5.90) M/uL Hgb (12.0-16.0) g/dL Hct (36.0-46.0) % MCV (80.0-98.0) fL MCH (27.0-32.0) pg MCHC (31.0-37.0) g/dL RDW Std Deviation (28.0-62.0) fl RDW Coeff of Gregory (11.0-15.0) % Plt Count (150-400) K/uL MPV (7.40-12.00) fL Neut % (Auto) (48.0-80.0) % Lymph % (Auto) (16.0-40.0) % Morrison % (Auto) (0.0-15.0) % Eos % (Auto) (0.0-7.0) % Baso % (Auto) (0.0-1.5) % Neut # (Auto) (1.4-5.7) K/uL Lymph # (Auto) (0.6-2.4) K/uL Morrison # (Auto) (0.0-0.8) K/uL Eos # (Auto) (0.0-0.7) K/uL Baso # (Auto) (0.0-0.1) K/uL Nucleated RBC % /100WBC Nucleated RBCs # K/uL Sodium (136-145) mmol/L Potassium (3.5-5.1) mmol/L Chloride (98-107) mmol/L Carbon Dioxide (21.0-32.0) mmol/L BUN (7.0-18.0) mg/dL Creatinine (0.6-1.0) mg/dL Est Cr Clr Drug Dosing mL/min Estimated GFR (MDRD) ml/min Glucose (74-106) mg/dL POC Glucose 76 111 H 134 H (60-110) mg/dL Calcium (8.5-10.1) mg/dL Total Bilirubin (0.2-1.0) mg/dL AST (15-37) IU/L ALT (14-63) IU/L Alkaline Phosphatase (46-116) U/L Total Protein (6.4-8.2) g/dL Albumin (3.4-5.0) g/dL Globulin (2.6-4.0) g/dL Albumin/Globulin Ratio (0.9-1.6) 10/22/18 10/22/18 10/22/18 Range/Units 06:05 06:17 06:17 WBC 9.28 (4.0-11.0) K/uL RBC 4.63 (4.30-5.90) M/uL Hgb 13.8 (12.0-16.0) g/dL Hct 42.8 (36.0-46.0) % MCV 92.4 (80.0-98.0) fL MCH 29.8 (27.0-32.0) pg MCHC 32.2 (31.0-37.0) g/dL RDW Std Deviation 51.4 (28.0-62.0) fl RDW Coeff of Gregory 15 (11.0-15.0) % Plt Count 180 (150-400) K/uL MPV 10.40 (7.40-12.00) fL Neut % (Auto) 65.4 (48.0-80.0) % Lymph % (Auto) 17.0 (16.0-40.0) % Morrison % (Auto) 15.5 H (0.0-15.0) % Eos % (Auto) 1.7 (0.0-7.0) % Baso % (Auto) 0.4 (0.0-1.5) % Neut # (Auto) 6.1 H (1.4-5.7) K/uL Lymph # (Auto) 1.6 (0.6-2.4) K/uL Morrison # (Auto) 1.4 H (0.0-0.8) K/uL Eos # (Auto) 0.2 (0.0-0.7) K/uL Baso # (Auto) 0.0 (0.0-0.1) K/uL Nucleated RBC % 0.0 /100WBC Nucleated RBCs # 0 K/uL Sodium 142 (136-145) mmol/L Potassium 4.5 (3.5-5.1) mmol/L Chloride 104 (98-107) mmol/L Carbon Dioxide 27.9 (21.0-32.0) mmol/L BUN 21 H (7.0-18.0) mg/dL Creatinine 1.3 H (0.6-1.0) mg/dL Est Cr Clr Drug Dosing 29.31 mL/min Estimated GFR (MDRD) 39.3 ml/min Glucose 67 L (74-106) mg/dL POC Glucose 64 (60-110) mg/dL Calcium 10.1 (8.5-10.1) mg/dL Total Bilirubin 2.2 H (0.2-1.0) mg/dL AST 17 (15-37) IU/L ALT 16 (14-63) IU/L Alkaline Phosphatase 122 H (46-116) U/L Total Protein 6.3 L (6.4-8.2) g/dL Albumin 3.4 (3.4-5.0) g/dL Globulin 2.9 (2.6-4.0) g/dL Albumin/Globulin Ratio 1.2 (0.9-1.6) Dimitris Results Last 24 Hours: Microbiology 10/20/18 17:26 Urine Culture - Final Urine, Clean Catch MIXED SONYA 1,000-10,000 CFU/ML Med Orders - Current: Current Medications Hydrocodone Bitart/Acetaminophen ([place] 325-5 Mg) 1 tab PO QID PRN PRN Reason: Pain Last Admin: 10/22/18 08:50 Dose: 1 tab Duloxetine HCl (Cymbalta) 30 mg PO DAILY [facility] Last Admin: 10/22/18 08:43 Dose: 30 mg Enoxaparin Sodium (Lovenox) 40 mg SUBCUT Q24H [facility] Last Admin: 10/21/18 21:37 Dose: 40 mg Famotidine (Pepcid) 40 mg PO DAILY [facility] Last Admin: 10/22/18 08:42 Dose: 40 mg Furosemide (Lasix) 40 mg PO DAILY@1400 [facility] Last Admin: 10/21/18 14:17 Dose: 40 mg Gabapentin (Neurontin) 400 mg PO TID [facility] Last Admin: 10/22/18 06:52 Dose: 400 mg Insulin Aspart (Novolog) 0 unit SUBCUT TIDAC [facility]; Protocol Last Admin: 10/22/18 08:13 Dose: Not Given Insulin Detemir (Levemir) 25 unit SUBCUT BEDTIME [facility] Last Admin: 10/21/18 21:39 Dose: 25 units Isosorbide Mononitrate (Imdur) 30 mg PO DAILY [facility] Last Admin: 10/22/18 08:42 Dose: 30 mg Linezolid (Zyvox) 600 mg PO Q12H [facility] Last Admin: 10/22/18 09:46 Dose: 600 mg Lorazepam (Ativan) 0.25 mg PO BEDTIME [facility] Last Admin: 10/21/18 21:43 Dose: 0.25 mg Lorazepam (Ativan) 0.25 mg PO Q8H PRN PRN Reason: Anxiety Last Admin: 10/20/18 22:17 Dose: 0.25 mg Losartan Potassium (Cozaar) 25 mg PO DAILY [facility] Last Admin: 10/22/18 08:43 Dose: 25 mg Metoprolol Tartrate (Lopressor) 25 mg PO BID [facility] Last Admin: 10/22/18 08:43 Dose: 25 mg Nicotine (Habitrol) 14 mg TRDERM DAILY [facility] Last Admin: 10/22/18 08:46 Dose: Not Given Nitroglycerin (Nitrostat) 0.4 mg SL Q5M PRN PRN Reason: Chest Pain Non-Formulary Medication ([place]/Min Oil/Stephy/Wool Alcoh) 1 applic TOP ASDIRECTED PRN PRN Reason: Itching Non-Formulary Medication (Collagenase) 1 applic TOP .EVERY SHIFT [facility] Potassium Chloride (Klor-Con 10) 10 meq PO DAILY [facility] Last Admin: 10/22/18 08:42 Dose: 10 meq Sodium Chloride (Saline Flush) 10 ml FLUSH ASDIRECTED PRN PRN Reason: Keep Vein Open Last Admin: 10/20/18 16:40 Dose: 10 ml Sodium Chloride (Saline Flush) 2.5 ml FLUSH ASDIRECTED PRN PRN Reason: Keep Vein Open Last Admin: 10/20/18 16:40 Dose: 2.5 ml Discontinued Medications Enoxaparin Sodium (Lovenox) 40 mg SUBCUT Q24H [facility] Last Admin: 10/20/18 21:58 Dose: Not Given Vancomycin HCl 1 gm/ Sodium (Chloride) 250 mls @ 166 mls/hr IV ONETIME ONE Stop: 10/20/18 18:37 Last Admin: 10/20/18 17:41 Dose: 166 mls/hr Piperacillin Sod/Tazobactam (Sod 2.25 gm/ Sodium Chloride) 50 mls @ 100 mls/hr IV Q6H [facility] Last Admin: 10/22/18 08:42 Dose: Not Given Vancomycin HCl 1 gm/ Sodium (Chloride) 250 mls @ 166 mls/hr IV Q24H [facility] Last Admin: 10/21/18 16:57 Dose: 166 mls/hr Piperacillin Sod/Tazobactam (Sod 2.25 gm/ Sodium Chloride) 50 mls @ 100 mls/hr IV Q6H [facility] Last Admin: 10/22/18 04:11 Dose: 100 mls/hr Nicotine (Habitrol) 7 mg TRDERM DAILY [facility] Last Admin: 10/22/18 08:43 Dose: 7 mg Nitroglycerin (Nitrostat) 0.4 mg SL Q5M [facility] Last Admin: 10/21/18 13:47 Dose: Not Given Non-Formulary Medication (Gabapentin) 400 mg PO TID [facility] Non-Formulary Medication (Lorazepam) 0.25 mg PO BEDTIME [facility] Last Admin: 10/20/18 22:18 Dose: Not Given Non-Formulary Medication (Lorazepam) 0.25 mg PO Q8H PRN PRN Reason: Anxiety Ondansetron HCl (Zofran Odt) 4 mg PO ONETIME ONE Stop: 10/22/18 08:08 Last Admin: 10/22/18 08:43 Dose: 4 mg Vancomycin HCl (Pharmacy To Dose - Vancomycin) 1 dose .XX ASDIRECTED PINA - Exam Quality Assessment: Supplemental Oxygen General: Alert, Oriented HEENT: EOMI Lungs: Clear to Auscultation, Normal Respiratory Effort Cardiovascular: Regular Rate, Regular Rhythm GI/Abdominal Exam: Non-Tender Extremities: Other (lower extremity: dressing in place bilaterally; not soaking through gauze; nontender; wrapping change per enterostomal care) Wound/Incisions: Dressing Dry and Intact, No Drainage Neurological: No New Focal Deficit Psy/Mental Status: Alert, Normal Affect, Normal Mood - Problem List & Annotations (1) Cellulitis SNOMED Code(s): 137053054 Code(s): L03.90 - CELLULITIS, UNSPECIFIED Status: Acute Current Visit: Yes Qualifiers: Site of cellulitis: extremity Site of cellulitis of extremity: lower extremity Laterality: right Qualified Code(s): L03.115 - Cellulitis of right lower limb (2) Coronary artery disease SNOMED Code(s): 73668753 Code(s): I25.10 - ATHSCL HEART DISEASE OF [place] CORONARY ARTERY W/O ANG PCTRS Status: Acute Current Visit: Yes (3) Hypertension SNOMED Code(s): 09586206 Code(s): I10 - ESSENTIAL (PRIMARY) HYPERTENSION Status: Acute Current Visit: Yes (4) Depression SNOMED Code(s): 21462688 Code(s): F32.9 - MAJOR DEPRESSIVE DISORDER, SINGLE EPISODE, UNSPECIFIED Status: Acute Current Visit: Yes (5) Chronic venous stasis dermatitis of both lower extremities SNOMED Code(s): 88807471 Code(s): I87.2 - VENOUS INSUFFICIENCY (CHRONIC) (PERIPHERAL) Status: Acute Current Visit: Yes (6) Tobacco abuse SNOMED Code(s): 558648449 Code(s): Z72.0 - TOBACCO USE Status: Acute Current Visit: Yes (7) Peripheral vascular disease SNOMED Code(s): 265335251 Code(s): I73.9 - PERIPHERAL VASCULAR DISEASE, UNSPECIFIED Status: Acute Current Visit: Yes - Problem List Review Problem List Initiated/Reviewed/Updated: Yes - My Orders Last 24 Hours: My Active Orders 10/21/18 09:00 DULoxetine [Cymbalta] 30 mg PO DAILY Famotidine [Pepcid] 40 mg PO DAILY Isosorbide Mononitrate [Imdur] 30 mg PO DAILY Losartan [Cozaar] 25 mg PO DAILY Potassium Chloride [Klor-Con 10] 10 meq PO DAILY 10/21/18 09:06 Wound Dogman/Woman Consult [Consult to Wound Care Services] [CONS] Routine 10/21/18 14:00 Furosemide [Lasix] 40 mg PO DAILY@1400 10/21/18 14:03 Tibia Fibula wo Cont Rt [MR] Stat 10/21/18 14:05 Foot wo Cont Lt [MR] Stat 10/22/18 09:00 Nicotine [Habitrol] 14 mg TRDERM DAILY 10/22/18 09:30 Linezolid [Zyvox] 600 mg PO Q12H - Plan Plan:: assessment: DNR/DNI. Intake outtake per routine. Vitals per routine. Accu-Cheks and sliding scale 3 times a day with meals. 1. Right lower extremity cellulitis with chronic venous stasis: Discontinue vancomycin and ampicillin-sulbactam/renally dosed. Will switch to oral linezolid . Enterostomal care on board. x-ray tib-fib right lower extremity within normal range no obvious sign of osteomyelitis versus acute bony pathology; MRI of right lower extremity and left foot ordered however patient is resistant to MRI due to length of scan; we'll continue to monitor and treat accordingly. 2: YULY: avoid nephrotoxic agents 3. Nicotine withdrawal: reapply nicotine patch; add 1 time dose Zofran 4. Past medical history: coronary artery disease, hypertension, heart failure, depression, hypercholesterolemia, peripheral vascular disease: continue all medications/stable
[2018-10-22] MEDS: Furosemide 40 MG Tab PO SCH (14:14)
[2018-10-22] MEDS ORDERED: Melatonin 3 MG Tab PO PRN (18:43)
[2018-10-22] MEDS: Enoxaparin 40 MG/0.4 ML Syringe SUBCUT SCH (20:54)
[2018-10-22] MEDS: LORazepam 0.5 MG Tab PO SCH (20:55)
[2018-10-22] MEDS ORDERED: Insulin Detemir 100 Units/ML 3 ML Pen SUBCUT SCH (21:00)
[2018-10-23] MEDS: Acetaminophen/HYDROcodone 325-5 MG Tab PO PRN ×2 (00:12→10:22)
[2018-10-23] MEDS: Gabapentin 800 MG Tab PO SCH (05:50)
[2018-10-23 07:15] LABS: CARBON DIOXIDE,CO2 30.3 mmol/L (21.0-32.0); POTASSIUM,K 5.6 mmol/L (3.5-5.1)
[2018-10-23] MEDS: Insulin Aspart 100 Units/ML 3 ML Pen SUBCUT SCH ×2 (08:01→12:58)
[2018-10-23] MEDS: Isosorbide Mononitrate 30 MG Tab.ER PO SCH (09:37)
[2018-10-23] MEDS: DULoxetine 30 MG Cap PO SCH (09:38)
[2018-10-23] MEDS: Losartan 50 MG Tab PO SCH (09:38)
[2018-10-23] MEDS: Metoprolol Tartrate 25 MG Tab PO SCH (09:39)
[2018-10-23] MEDS: Potassium Chloride 10 MEQ Tab.ER PO SCH (09:40)
[2018-10-23] MEDS: Linezolid 600 MG Tab PO SCH (09:41)
[2018-10-23] MEDS: Nicotine 14 MG/24 Hr Patch TRDERM SCH (10:22)
[2018-10-23] MEDS: Famotidine 20 MG Tab PO SCH (10:43)
--- NOTE | 2018-10-23 11:26 | PCM.DCSUM1 ---
<Wilda Sam - Last Filed: 10/23/18 11:12> Discharge Summary - Discharge Data Discharge Date: 10/23/18 Discharge Disposition: DC/Tfer to SNF 03 Condition: Stable - Discharge Diagnosis/Problem(s) (1) Cellulitis SNOMED Code(s): 512892623 ICD Code: L03.90 - CELLULITIS, UNSPECIFIED Status: Acute Current Visit: Yes Qualifiers: Site of cellulitis: extremity Site of cellulitis of extremity: lower extremity Laterality: right Qualified Code(s): L03.115 - Cellulitis of right lower limb (2) Coronary artery disease SNOMED Code(s): 70953671 ICD Code: I25.10 - ATHSCL HEART DISEASE OF [place] CORONARY ARTERY W/O ANG PCTRS Status: Acute Current Visit: Yes (3) Hypertension SNOMED Code(s): 88374227 ICD Code: I10 - ESSENTIAL (PRIMARY) HYPERTENSION Status: Acute Current Visit: Yes (4) Depression SNOMED Code(s): 82652586 ICD Code: F32.9 - MAJOR DEPRESSIVE DISORDER, SINGLE EPISODE, UNSPECIFIED Status: Acute Current Visit: Yes (5) Chronic venous stasis dermatitis of both lower extremities SNOMED Code(s): 92651363 ICD Code: I87.2 - VENOUS INSUFFICIENCY (CHRONIC) (PERIPHERAL) Status: Acute Current Visit: Yes (6) Tobacco abuse SNOMED Code(s): 439819353 ICD Code: Z72.0 - TOBACCO USE Status: Acute Current Visit: Yes (7) Peripheral vascular disease SNOMED Code(s): 004327051 ICD Code: I73.9 - PERIPHERAL VASCULAR DISEASE, UNSPECIFIED Status: Acute Current Visit: Yes - Patient Summary/Data Consults: Consultations 10/21/18 09:06 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 Advised to follow PCP in 7-10 days. Advised to follow podiatry for left foot care. Chaing dressing daily or follow-up dated instructions by podiatry. - Discharge Plan *PRESCRIPTION DRUG MONITORING PROGRAM REVIEWED*: No *COPY OF PRESCRIPTION DRUG MONITORING REPORT IN PATIENT KEVAN: No Prescriptions/Med Rec: Linezolid [Zyvox] 600 mg PO Q12H 10 Days #24 tablet Home Medications: Home Meds Camphor/Menthol [Sarna Lotion] 1 applic TOP ASDIRECTED PRN 05/20/18 [History] [place]/Min Oil/Stephy/Wool Alcoh [Eucerin Creme] 1 applic TOP ASDIRECTED PRN 05/20 [History] DULoxetine [Cymbalta] 30 mg PO DAILY 05/20/18 [History] Dextromethorphan/guaiFENesin [Robitussin DM] 5 ml PO QID PRN 05/20/18 [History] Famotidine 40 mg PO DAILY 05/20/18 [History] Fluticasone Propionate [Flonase] 2 spray NASBOTH DAILY 05/20/18 [History] Gabapentin [Neurontin] 400 mg PO TID 05/20/18 [History] Hydrocodone/Acetaminophen [Zwolle 5-325 Tablet] 5 - 325 mg PO QID PRN 05/20/18 [ History] Insulin Aspart [NovoLOG] 8 unit SQ TIDAC 05/20/18 [History] Insulin Detemir [Levemir Flextouch] 25 unit SQ BEDTIME 05/20/18 [History] Isosorbide Mononitrate [Imdur] 30 mg PO DAILY 05/20/18 [History] LORazepam 0.25 mg PO BEDTIME 05/20/18 [History] LORazepam 0.25 mg PO Q8H PRN 05/20/18 [History] Metoprolol Tartrate 25 mg PO BID 05/20/18 [History] Nitroglycerin 0.4 mg SL Q5M 05/20/18 [History] Bisacodyl 10 mg RC Q24H PRN 09/10/18 [History] Collagenase [Santyl Oint] 1 applic TOP .EVERY SHIFT 09/10/18 [History] Furosemide 40 mg PO DAILY@1400 09/10/18 [History] Losartan [Cozaar] 25 mg PO DAILY 09/10/18 [History] Ipratropium/Albuterol Sulfate [Iprat-Albut 0.5-3(2.5) mg/3 ml] 3 ml IH Q6H 10/21 [History] Linezolid [Zyvox] 600 mg PO Q12H 10 Days #24 tablet 10/23/18 [Rx] Nicotine [Habitrol] 14 mg TRDERM DAILY patch 10/23/18 [Rx] Patient Handouts: Living With Depression, Linezolid tablets, Cellulitis, Adult , [id number], Hypertension, [id number], Coronary Artery Disease, Female - Discharge Summary/Plan Comment DC Time >30 min.: No - General Info Date of Service: 10/23/18 Subjective Update: discharge summary: Admission date: October 20, 2018 Discharge date: October 23, 2018 admission diagnosis: Right lower extremity cellulitis with chronic venous stasis Left foot fourth digit chronic ulceration Past medical history: history of heart failure, hypertension, anxiety,coronary artery disease, hypercholesterolemia, PVD Procedures: none Consultations: enterostomal care Hospital course: 83-year-old female, resident of [facility], presenting to [facility] ED secondary to subjective increasing/worsening of right lower extremity redness. Patient does not endorse any fevers, chills, body aches, increasing tenderness, chest pain, or shortness of breath. Patient was followed for left foot ulceration per podiatry. Patient was initiated on vancomycin and Zosyn/renally dosed. Concerns for osteomyelitis; ordered MRI of right lower extremity and left foot; however patient refused MRI on 2 occasions stating duration of scan would make it impossible to do. x-ray of lower extremity showed no acute obvious osteomyelitis.Patient ultimately switched over to by mouth linezolid and will continue for additional 9-days. Advised to follow up with daily wound dressing/enterostomal care, PT OT, primary care provider within one week. Patient also had acute withdrawal from nicotine; despite getting the 7 nicotine patch; dosed up to 14. Patient otherwise stable, afebrile, redness of lower extremity more or less unchanged per admission; possibly secondary to chronic venous stasis; however since MRI could not be performed will continue to treat with linezolid moving forward. Discharge condition: stable Discharge medications: Camphor/Menthol [Sarna Lotion] 1 applic TOP ASDIRECTED PRN 05/20/18 [History] [place]/Min Oil/Stephy/Wool Alcoh [Eucerin Creme] 1 applic TOP ASDIRECTED PRN 05/20 [History] DULoxetine [Cymbalta] 30 mg PO DAILY 05/20/18 [History] Dextromethorphan/guaiFENesin [Robitussin DM] 5 ml PO QID PRN 05/20/18 [History] Famotidine 40 mg PO DAILY 05/20/18 [History] Fluticasone Propionate [Flonase] 2 spray NASBOTH DAILY 05/20/18 [History] Gabapentin [Neurontin] 400 mg PO TID 05/20/18 [History] Hydrocodone/Acetaminophen [Zwolle 5-325 Tablet] 5 - 325 mg PO QID PRN 05/20/18 [ History] Insulin Aspart [NovoLOG] 8 unit SQ TIDAC 05/20/18 [History] Insulin Detemir [Levemir Flextouch] 25 unit SQ BEDTIME 05/20/18 [History] Isosorbide Mononitrate [Imdur] 30 mg PO DAILY 05/20/18 [History] LORazepam 0.25 mg PO BEDTIME 05/20/18 [History] LORazepam 0.25 mg PO Q8H PRN 05/20/18 [History] Metoprolol Tartrate 25 mg PO BID 05/20/18 [History] Nitroglycerin 0.4 mg SL Q5M 05/20/18 [History] Bisacodyl 10 mg RC Q24H PRN 09/10/18 [History] Collagenase [Santyl Oint] 1 applic TOP .EVERY SHIFT 09/10/18 [History] Furosemide 40 mg PO DAILY@1400 09/10/18 [History] Losartan [Cozaar] 25 mg PO DAILY 09/10/18 [History] Potassium Chloride [Klor-Con 10] 10 meq PO DAILY 09/10/18 [History] Ipratropium/Albuterol Sulfate [Iprat-Albut 0.5-3(2.5) mg/3 ml] 3 ml IH Q6H 10/21 [History] Linezolid [Zyvox] 600 mg PO Q12H 10 Days #24 tablet 10/23/18 [Rx] Nicotine [Habitrol] 14 mg TRDERM DAILY patch 10/23/18 [Rx] disposition: [facility]pc facility/[place] Discharge instructions: advised to contact provider if symptoms of fever,, chills, body aches, lower extremity pain or tenderness, shortness of breath, chest pain, increasing redness against baseline or any new symptoms since baseline about Follow-up: PCP within one week. Physical therapy. Occupational therapy. Wound care - Patient Data Vitals - Most Recent: Last Vital Signs Temp 96.7 F 10/23/18 07:55 Pulse 66 10/23/18 09:39 Resp 16 10/23/18 07:55 BP 121/58 L 10/23/18 09:39 Pulse Ox 98 10/23/18 07:55 Weight - Most Recent: 70.08 kg I&O - Last 24 hours: Intake & Output 10/22/18 10/23/18 10/23/18 22:59 06:59 14:59 Intake Total 760 440 Output Total 500 500 Balance 260 -60 Lab Results - Last 24 hrs: Laboratory Results - last 24 hr 10/22/18 10/22/18 10/22/18 Range/Units 11:57 16:42 20:53 WBC (4.0-11.0) K/uL RBC (4.30-5.90) M/uL Hgb (12.0-16.0) g/dL Hct (36.0-46.0) % MCV (80.0-98.0) fL MCH (27.0-32.0) pg MCHC (31.0-37.0) g/dL RDW Std Deviation (28.0-62.0) fl RDW Coeff of Gregory (11.0-15.0) % Plt Count (150-400) K/uL MPV (7.40-12.00) fL Neut % (Auto) (48.0-80.0) % Lymph % (Auto) (16.0-40.0) % [place] % (Auto) (0.0-15.0) % Eos % (Auto) (0.0-7.0) % Baso % (Auto) (0.0-1.5) % Neut # (Auto) (1.4-5.7) K/uL Lymph # (Auto) (0.6-2.4) K/uL [place] # (Auto) (0.0-0.8) K/uL Eos # (Auto) (0.0-0.7) K/uL Baso # (Auto) (0.0-0.1) K/uL Nucleated RBC % /100WBC Nucleated RBCs # K/uL Sodium (136-145) mmol/L Potassium (3.5-5.1) mmol/L Chloride (98-107) mmol/L Carbon Dioxide (21.0-32.0) mmol/L BUN (7.0-18.0) mg/dL Creatinine (0.6-1.0) mg/dL Est Cr Clr Drug Dosing mL/min Estimated GFR (MDRD) ml/min Glucose (74-106) mg/dL POC Glucose 86 83 126 H (60-110) mg/dL Calcium (8.5-10.1) mg/dL 10/23/18 10/23/18 10/23/18 Range/Units 05:56 06:14 06:14 WBC 8.33 (4.0-11.0) K/uL RBC 4.50 (4.30-5.90) M/uL Hgb 13.2 (12.0-16.0) g/dL Hct 42.9 (36.0-46.0) % MCV 95.3 (80.0-98.0) fL MCH 29.3 (27.0-32.0) pg MCHC 30.8 L (31.0-37.0) g/dL RDW Std Deviation 52.5 (28.0-62.0) fl RDW Coeff of Gregory 15 (11.0-15.0) % Plt Count 175 (150-400) K/uL MPV 10.40 (7.40-12.00) fL Neut % (Auto) 63.4 (48.0-80.0) % Lymph % (Auto) 21.1 (16.0-40.0) % [place] % (Auto) 12.1 (0.0-15.0) % Eos % (Auto) 2.8 (0.0-7.0) % Baso % (Auto) 0.6 (0.0-1.5) % Neut # (Auto) 5.3 (1.4-5.7) K/uL Lymph # (Auto) 1.8 (0.6-2.4) K/uL [place] # (Auto) 1.0 H (0.0-0.8) K/uL Eos # (Auto) 0.2 (0.0-0.7) K/uL Baso # (Auto) 0.1 (0.0-0.1) K/uL Nucleated RBC % 0.0 /100WBC Nucleated RBCs # 0 K/uL Sodium 142 (136-145) mmol/L Potassium 5.6 H (3.5-5.1) mmol/L Chloride 105 (98-107) mmol/L Carbon Dioxide 30.3 (21.0-32.0) mmol/L BUN 25 H (7.0-18.0) mg/dL Creatinine 1.5 H (0.6-1.0) mg/dL Est Cr Clr Drug Dosing 25.40 mL/min Estimated GFR (MDRD) 33.3 ml/min Glucose 60 L (74-106) mg/dL POC Glucose 64 (60-110) mg/dL Calcium 10.0 (8.5-10.1) mg/dL RUDDY Results - Last 24 hrs: Microbiology 10/20/18 17:26 Urine Culture - Final Urine, Clean Catch MIXED SONYA 1,000-10,000 CFU/ML Med Orders - Current: Current Medications Hydrocodone Bitart/Acetaminophen (Zwolle 325-5 Mg) 1 tab PO QID PRN PRN Reason: Pain Last Admin: 10/23/18 10:22 Dose: 1 tab Duloxetine HCl (Cymbalta) 30 mg PO DAILY [facility] Last Admin: 10/23/18 09:38 Dose: 30 mg Enoxaparin Sodium (Lovenox) 40 mg SUBCUT Q24H [facility] Last Admin: 10/22/18 20:54 Dose: 40 mg Famotidine (Pepcid) 40 mg PO DAILY [facility] Last Admin: 10/23/18 10:43 Dose: 40 mg Furosemide (Lasix) 40 mg PO DAILY@1400 [facility] Last Admin: 10/22/18 14:14 Dose: 40 mg Gabapentin (Neurontin) 400 mg PO TID [facility] Last Admin: 10/23/18 05:50 Dose: 400 mg Insulin Aspart (Novolog) 0 unit SUBCUT TIDAC [facility]; Protocol Last Admin: 10/23/18 08:01 Dose: Not Given Insulin Detemir (Levemir) 20 unit SUBCUT BEDTIME [facility] Last Admin: 10/22/18 21:29 Dose: 20 units Isosorbide Mononitrate (Imdur) 30 mg PO DAILY [facility] Last Admin: 10/23/18 09:37 Dose: 30 mg Linezolid (Zyvox) 600 mg PO Q12H [facility] Last Admin: 10/23/18 09:41 Dose: 600 mg Lorazepam (Ativan) 0.25 mg PO BEDTIME [facility] Last Admin: 10/22/18 20:55 Dose: 0.25 mg Lorazepam (Ativan) 0.25 mg PO Q8H PRN PRN Reason: Anxiety Last Admin: 10/20/18 22:17 Dose: 0.25 mg Losartan Potassium (Cozaar) 25 mg PO DAILY [facility] Last Admin: 10/23/18 09:38 Dose: 25 mg Melatonin (Melatonin) 3 mg PO BEDTIME PRN PRN Reason: Insomnia Metoprolol Tartrate (Lopressor) 25 mg PO BID [facility] Last Admin: 10/23/18 09:39 Dose: 25 mg Nicotine (Habitrol) 14 mg TRDERM DAILY [facility] Last Admin: 10/23/18 10:22 Dose: 14 mg Nitroglycerin (Nitrostat) 0.4 mg SL Q5M PRN PRN Reason: Chest Pain Non-Formulary Medication ([place]/Min Oil/Stephy/Wool Alcoh) 1 applic TOP ASDIRECTED PRN PRN Reason: Itching Non-Formulary Medication (Collagenase) 1 applic TOP .EVERY SHIFT [facility] Potassium Chloride (Klor-Con 10) 10 meq PO DAILY [facility] Last Admin: 10/23/18 09:40 Dose: 10 meq Sodium Chloride (Saline Flush) 10 ml FLUSH ASDIRECTED PRN PRN Reason: Keep Vein Open Last Admin: 10/20/18 16:40 Dose: 10 ml Sodium Chloride (Saline Flush) 2.5 ml FLUSH ASDIRECTED PRN PRN Reason: Keep Vein Open Last Admin: 10/20/18 16:40 Dose: 2.5 ml Discontinued Medications Enoxaparin Sodium (Lovenox) 40 mg SUBCUT Q24H [facility] Last Admin: 10/20/18 21:58 Dose: Not Given Vancomycin HCl 1 gm/ Sodium (Chloride) 250 mls @ 166 mls/hr IV ONETIME ONE Stop: 10/20/18 18:37 Last Admin: 10/20/18 17:41 Dose: 166 mls/hr Piperacillin Sod/Tazobactam (Sod 2.25 gm/ Sodium Chloride) 50 mls @ 100 mls/hr IV Q6H [facility] Last Admin: 10/22/18 08:42 Dose: Not Given Vancomycin HCl 1 gm/ Sodium (Chloride) 250 mls @ 166 mls/hr IV Q24H [facility] Last Admin: 10/21/18 16:57 Dose: 166 mls/hr Piperacillin Sod/Tazobactam (Sod 2.25 gm/ Sodium Chloride) 50 mls @ 100 mls/hr IV Q6H [facility] Last Admin: 10/22/18 04:11 Dose: 100 mls/hr Insulin Detemir (Levemir) 25 unit SUBCUT BEDTIME [facility] Last Admin: 10/21/18 21:39 Dose: 25 units Nicotine (Habitrol) 7 mg TRDERM DAILY [facility] Last Admin: 10/22/18 08:43 Dose: 7 mg Nitroglycerin (Nitrostat) 0.4 mg SL Q5M [facility] Last Admin: 10/21/18 13:47 Dose: Not Given Non-Formulary Medication (Gabapentin) 400 mg PO TID [facility] Non-Formulary Medication (Lorazepam) 0.25 mg PO BEDTIME [facility] Last Admin: 10/20/18 22:18 Dose: Not Given Non-Formulary Medication (Lorazepam) 0.25 mg PO Q8H PRN PRN Reason: Anxiety Ondansetron HCl (Zofran Odt) 4 mg PO ONETIME ONE Stop: 10/22/18 08:08 Last Admin: 10/22/18 08:43 Dose: 4 mg Vancomycin HCl (Pharmacy To Dose - Vancomycin) 1 dose .XX ASDIRECTED [facility] <Remi Meehan - Last Filed: 10/23/18 13:18> Discharge Summary - Hospital Course Free Text/Narrative:: I have examined the patient independently of medical staff assistant, Dr. Cecy MD. I have discussed the case with him. I have reviewed and agree with the plan of care as outlined for the patient by him. Please see orders. 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0-37.0) g/dL RDW Std Deviation (28.0-62.0) fl RDW Coeff of Gregory (11.0-15.0) % Plt Count (150-400) K/uL MPV (7.40-12.00) fL Neut % (Auto) (48.0-80.0) % Lymph % (Auto) (16.0-40.0) % [place] % (Auto) (0.0-15.0) % Eos % (Auto) (0.0-7.0) % Baso % (Auto) (0.0-1.5) % Neut # (Auto) (1.4-5.7) K/uL Lymph # (Auto) (0.6-2.4) K/uL [place] # (Auto) (0.0-0.8) K/uL Eos # (Auto) (0.0-0.7) K/uL Baso # (Auto) (0.0-0.1) K/uL Nucleated RBC % /100WBC Nucleated RBCs # K/uL Sodium (136-145) mmol/L Potassium (3.5-5.1) mmol/L Chloride (98-107) mmol/L Carbon Dioxide (21.0-32.0) mmol/L BUN (7.0-18.0) mg/dL Creatinine (0.6-1.0) mg/dL Est Cr Clr Drug Dosing mL/min Estimated GFR (MDRD) ml/min Glucose (74-106) mg/dL POC Glucose 83 126 H 64 (60-110) mg/dL Calcium (8.5-10.1) mg/dL 10/23/18 10/23/18 10/23/18 Range/Units 06:14 06:14 11:50 WBC 8.33 (4.0-11.0) K/uL RBC 4.50 (4.30-5.90) M/uL Hgb 13.2 (12.0-16.0) g/dL Hct 42.9 (36.0-46.0) % MCV 95.3 (80.0-98.0) fL MCH 29.3 (27.0-32.0) pg MCHC 30.8 L (31.0-37.0) g/dL RDW Std Deviation 52.5 (28.0-62.0) fl RDW Coeff of Gregory 15 (11.0-15.0) % Plt Count 175 (150-400) K/uL MPV 10.40 (7.40-12.00) fL Neut % (Auto) 63.4 (48.0-80.0) % Lymph % (Auto) 21.1 (16.0-40.0) % [place] % (Auto) 12.1 (0.0-15.0) % Eos % (Auto) 2.8 (0.0-7.0) % Baso % (Auto) 0.6 (0.0-1.5) % Neut # (Auto) 5.3 (1.4-5.7) K/uL Lymph # (Auto) 1.8 (0.6-2.4) K/uL [place] # (Auto) 1.0 H (0.0-0.8) K/uL Eos # (Auto) 0.2 (0.0-0.7) K/uL Baso # (Auto) 0.1 (0.0-0.1) K/uL Nucleated RBC % 0.0 /100WBC Nucleated RBCs # 0 K/uL Sodium 142 (136-145) mmol/L Potassium 5.6 H (3.5-5.1) mmol/L Chloride 105 (98-107) mmol/L Carbon Dioxide 30.3 (21.0-32.0) mmol/L BUN 25 H (7.0-18.0) mg/dL Creatinine 1.5 H (0.6-1.0) mg/dL Est Cr Clr Drug Dosing 25.40 mL/min Estimated GFR (MDRD) 33.3 ml/min Glucose 60 L (74-106) mg/dL POC Glucose 134 H (60-110) mg/dL Calcium 10.0 (8.5-10.1) mg/dL RUDDY Results - Last 24 hrs: Microbiology 10/20/18 17:26 Urine Culture - Final Urine, Clean Catch MIXED SONYA 1,000-10,000 CFU/ML Med Orders - Current: Current Medications Hydrocodone Bitart/Acetaminophen (Zwolle 325-5 Mg) 1 tab PO QID PRN PRN Reason: Pain Last Admin: 10/23/18 10:22 Dose: 1 tab Duloxetine HCl (Cymbalta) 30 mg PO DAILY [facility] Last Admin: 10/23/18 09:38 Dose: 30 mg Enoxaparin Sodium (Lovenox) 40 mg SUBCUT Q24H [facility] Last Admin: 10/22/18 20:54 Dose: 40 mg Famotidine (Pepcid) 40 mg PO DAILY [facility] Last Admin: 10/23/18 10:43 Dose: 40 mg Furosemide (Lasix) 40 mg PO DAILY@1400 [facility] Last Admin: 10/22/18 14:14 Dose: 40 mg Gabapentin (Neurontin) 400 mg PO TID [facility] Last Admin: 10/23/18 05:50 Dose: 400 mg Insulin Aspart (Novolog) 0 unit SUBCUT TIDAC [facility]; Protocol Last Admin: 10/23/18 12:58 Dose: Not Given Insulin Detemir (Levemir) 20 unit SUBCUT BEDTIME [facility] Last Admin: 10/22/18 21:29 Dose: 20 units Isosorbide Mononitrate (Imdur) 30 mg PO DAILY [facility] Last Admin: 10/23/18 09:37 Dose: 30 mg Linezolid (Zyvox) 600 mg PO Q12H [facility] Last Admin: 10/23/18 09:41 Dose: 600 mg Lorazepam (Ativan) 0.25 mg PO BEDTIME [facility] Last Admin: 10/22/18 20:55 Dose: 0.25 mg Lorazepam (Ativan) 0.25 mg PO Q8H PRN PRN Reason: Anxiety Last Admin: 10/20/18 22:17 Dose: 0.25 mg Losartan Potassium (Cozaar) 25 mg PO DAILY [facility] Last Admin: 10/23/18 09:38 Dose: 25 mg Melatonin (Melatonin) 3 mg PO BEDTIME PRN PRN Reason: Insomnia Metoprolol Tartrate (Lopressor) 25 mg PO BID [facility] Last Admin: 10/23/18 09:39 Dose: 25 mg Nicotine (Habitrol) 14 mg TRDERM DAILY [facility] Last Admin: 10/23/18 10:22 Dose: 14 mg Nitroglycerin (Nitrostat) 0.4 mg SL Q5M PRN PRN Reason: Chest Pain Non-Formulary Medication ([place]/Min Oil/Stephy/Wool Alcoh) 1 applic TOP ASDIRECTED PRN PRN Reason: Itching Non-Formulary Medication (Collagenase) 1 applic TOP .EVERY SHIFT [facility] Potassium Chloride (Klor-Con 10) 10 meq PO DAILY [facility] Last Admin: 10/23/18 09:40 Dose: 10 meq Sodium Chloride (Saline Flush) 10 ml FLUSH ASDIRECTED PRN PRN Reason: Keep Vein Open Last Admin: 10/20/18 16:40 Dose: 10 ml Sodium Chloride (Saline Flush) 2.5 ml FLUSH ASDIRECTED PRN PRN Reason: Keep Vein Open Last Admin: 10/20/18 16:40 Dose: 2.5 ml Discontinued Medications Enoxaparin Sodium (Lovenox) 40 mg SUBCUT Q24H [facility] Last Admin: 10/20/18 21:58 Dose: Not Given Vancomycin HCl 1 gm/ Sodium (Chloride) 250 mls @ 166 mls/hr IV ONETIME ONE Stop: 10/20/18 18:37 Last Admin: 10/20/18 17:41 Dose: 166 mls/hr Piperacillin Sod/Tazobactam (Sod 2.25 gm/ Sodium Chloride) 50 mls @ 100 mls/hr IV Q6H [facility] Last Admin: 10/22/18 08:42 Dose: Not Given Vancomycin HCl 1 gm/ Sodium (Chloride) 250 mls @ 166 mls/hr IV Q24H [facility] Last Admin: 10/21/18 16:57 Dose: 166 mls/hr Piperacillin Sod/Tazobactam (Sod 2.25 gm/ Sodium Chloride) 50 mls @ 100 mls/hr IV Q6H [facility] Last Admin: 10/22/18 04:11 Dose: 100 mls/hr Insulin Detemir (Levemir) 25 unit SUBCUT BEDTIME [facility] Last Admin: 10/21/18 21:39 Dose: 25 units Nicotine (Habitrol) 7 mg TRDERM DAILY [facility] Last Admin: 10/22/18 08:43 Dose: 7 mg Nitroglycerin (Nitrostat) 0.4 mg SL Q5M [facility] Last Admin: 10/21/18 13:47 Dose: Not Given Non-Formulary Medication (Gabapentin) 400 mg PO TID [facility] Non-Formulary Medication (Lorazepam) 0.25 mg PO BEDTIME [facility] Last Admin: 10/20/18 22:18 Dose: Not Given Non-Formulary Medication (Lorazepam) 0.25 mg PO Q8H PRN PRN Reason: Anxiety Ondansetron HCl (Zofran Odt) 4 mg PO ONETIME ONE Stop: 10/22/18 08:08 Last Admin: 10/22/18 08:43 Dose: 4 mg Vancomycin HCl (Pharmacy To Dose - Vancomycin) 1 dose .XX ASDIRECTED [facility]
[2018-10-23 12:10] VITALS: BP 114/62
== END 2018-10-23 13:40 ==
LOC: MW.ED 15:59 → MW.MS 17:48
PROVIDERS: ADMIT Internal Medicine; ATTEND Internal Medicine
DX: L03.115 Cellulitis of right lower limb (principal); I87.8 Other specified disorders of veins; L97.529 Non-pressure chronic ulcer of other part of left foot with unspecified severity; I25.10 Atherosclerotic heart disease of native coronary artery without angina pectoris; I73.9 Peripheral vascular disease, unspecified; I11.0 Hypertensive heart disease with heart failure; I50.9 Heart failure, unspecified; E78.00 Pure hypercholesterolemia, unspecified; E11.621 Type 2 diabetes mellitus with foot ulcer; M19.90 Unspecified osteoarthritis, unspecified site; F41.9 Anxiety disorder, unspecified; F32.9 Major depressive disorder, single episode, unspecified; Z72.0 Tobacco use; Z88.1 Allergy status to other antibiotic agents; Z88.8 Allergy status to other drugs, medicaments and biological substances; Z91.02 Food additives allergy status; Z79.899 Other long term (current) drug therapy; Z79.4 Long term (current) use of insulin
CPT/HCPCS: 36415; 73590; 80048; 80053; 81001; 82962; 85025; 87086; 96365; 96366; 96367; 96372; 96376; 99284; A9270; G0378; J1650; J1815; J2543; J3370; J7050; 99283

== ENCOUNTER 2019-08-04 06:25 | Emergency (ER) | payer MEDICARE, MEDICAID ==
--- NOTE | 2019-08-04 07:07 | EDM.PDOC ---
ED HPI GENERAL MEDICAL PROBLEM - General Chief Complaint: Upper Extremity Injury/Pain Stated Complaint: FALL Time Seen by Provider: 08/04/19 06:58 - History of Present Illness INITIAL COMMENTS - FREE TEXT/NARRATIVE: HISTORY AND PHYSICAL: History of present illness: This is an 84-year-old female who presents the ED today from [place] secondary to a laceration to her right hand. Patient reports that she was sleeping in bed when she slid out of her bed and injured her webspace between her second and third finger. Patient denies any other pain anywhere else. Patient reports that she was awake before she hit the ground. Patient denies any head trauma. Patient denies any loss of consciousness. Patient denies any pain to her lower extremities or hip. Patient denies any pain or discomfort to her back. Patient denies any pain or discomfort to her left upper extremity. Patient states that the only pain and discomfort that she is having is a laceration between the webspace of her second and third fingers. Patient's tetanus status is up-to-date. Review of systems: As per history of present illness and below otherwise all systems reviewed and negative. Past medical history: As per history of present illness and as reviewed below otherwise noncontributory. Surgical history: As per history of present illness and as reviewed below otherwise noncontributory. Social history: No reported history of drug or alcohol abuse. Family history: As per history of present illness and as reviewed below otherwise noncontributory. Physical exam: Constitutional: Patient is oriented to person, place, and time. Appears well- developed and well-nourished. No distress. HEENT: Moist mucous membranes Head: Normocephalic and atraumatic Eyes: Right eye exhibits no discharge. Left eye exhibits no discharge. No scleral icterus Neck: Normal range of motion. No tracheal deviation present. Cardiovascular: Normal rate and regular rhythm. Pulmonary: Effort normal, no respiratory distress. Abdominal: No distention Musculoskeletal: Normal range of motion Neurologic: Alert and oriented to person, place and time. Skin: [place], warm and dry. Psychiatric: Normal mood and affect. Behavior is normal. Judgment and thought content normal. Nursing note and vital signs have been reviewed PRIMARY SURVEY: -A: Intact airway -B: Equal breath sounds bilaterally, CTAB without W/R/R, nonlabored -C: RRR -D: GCS 15 (E: 4, V: 5, M: 6), SABILLON x4 without deficit, sensation grossly intact -E: No rashes, lacerations or bruises SECONDARY SURVEY: -NEURO: A&Ox3, CN II-XII grossly intact, 5/5 strength in bilateral clinical field specialist, plantarflexion and dorsiflexion. Grossly normal sensation x4 extremities. -HEAD: NCAT, no gross palpable skull deformities/tenderness, no periorbital or mastoid ecchymosis -EYES: PERRLA from 3 to 2, tracking, EOMI grossly, sclera noninjected -ENT: No hemotympanum, -NECK: No cervical midline tenderness, no step offs/deformities, trachea midline, no JVD -CHEST: Non-tender, no crepitus, no abrasions/ecchymosis, equal chest movement -ABDOMEN: Soft, non-distended, nontender, no abrasions/ecchymosis -PELVIS: Stable to palpation, nontender, no abrasions/ecchymosis -RECTAL: Deferred -: Normal external genitalia, no blood at the meatus, no perineal hematoma -EXTREMITIES: No gross deformities, -BACK/SPINE: No step offs/deformities or tenderness to palpation of thoracic/ lumbar spine, no abrasion/ecchymosis noted. Webspace between second and third fingers reveals a 3 cm laceration. No point bony tenderness. Full range of motion intact. Therapeutics: Lidocaine 3 cc infiltrated into webspace at the point of injury. 34 0 Dermalon simple instructed suture was placed Impression: Laceration right hand Plan: Patient sutured in the ED. Tetanus status up-to-date. Wound check in 2 days by staff at [place]. Suture removal in 7 days. No antibiotics indicated. Reassessment at the time of disposition demonstrates that the patient is in no acute distress. The patient has remained stable throughout the entire ED visit and is without objective evidence for acute process requiring urgent intervention or hospitalization. The patient is stable for discharge, counseling is provided as documented above, discussed symptomatic treatment and specific conditions for return. I have spoken with the patient/caregive and discussed todays findings, in addition to providing specific details for the plan of care. Questions are answered and there is agreement with the plan. Definitive disposition and diagnosis as appropriate pending reevaluation and review of above. right hand Pain Score (Numeric/FACES): 3 - Related Data Allergies Allergy/AdvReac Type Severity Reaction Status Date / Time clarithromycin [From Biaxin] Allergy unknown Verified 08/04/19 06:38 clindamycin Allergy Other Verified 08/04/19 06:38 irbesartan [From Avapro] Allergy unknown Verified 08/04/19 06:38 red dye Allergy unknown Verified 08/04/19 06:38 [id number] Reductase Allergy unknown Verified 08/04/19 06:38 Inhibitor Vitamin A & D with Zinc Oxide Allergy Other Uncoded 08/04/19 06:38 Home Meds: Home Meds Camphor/Menthol [Sarna Lotion] 1 applic TOP ASDIRECTED PRN 05/20/18 [History] [place]/Min Oil/Stephy/Wool Alcoh [Eucerin Creme] 1 applic TOP ASDIRECTED PRN 05/20 [History] DULoxetine [Cymbalta] 30 mg PO DAILY 05/20/18 [History] Dextromethorphan/guaiFENesin [Robitussin DM] 5 ml PO QID PRN 05/20/18 [History] Famotidine 40 mg PO DAILY 05/20/18 [History] Fluticasone Propionate [Flonase] 2 spray NASBOTH DAILY 05/20/18 [History] Gabapentin [Neurontin] 400 mg PO TID 05/20/18 [History] Hydrocodone/Acetaminophen [[place]ais 5-325 Tablet] 5 - 325 mg PO QID PRN 05/20/18 [ History] Insulin Aspart [NovoLOG] 8 unit SQ TIDAC 05/20/18 [History] Insulin Detemir [Levemir Flextouch] 25 unit SQ BEDTIME 05/20/18 [History] Isosorbide Mononitrate [Imdur] 30 mg PO DAILY 05/20/18 [History] LORazepam 0.25 mg PO BEDTIME 05/20/18 [History] LORazepam 0.25 mg PO Q8H PRN 05/20/18 [History] Metoprolol Tartrate 25 mg PO BID 05/20/18 [History] Nitroglycerin 0.4 mg SL Q5M 05/20/18 [History] Collagenase [Santyl Oint] 1 applic TOP .EVERY SHIFT 09/10/18 [History] Furosemide 40 mg PO DAILY@1400 07/24/19 [History] Losartan [Cozaar] 25 mg PO DAILY 09/10/18 [History] bisacodyL [Bisacodyl] 10 mg RC Q24H PRN 09/10/18 [History] Ipratropium/Albuterol Sulfate [Iprat-Albut 0.5-3(2.5) mg/3 ml] 3 ml IH Q6H 10/21 [History] Doxycycline [Vibramycin] 100 mg PO BID 14 Days #28 cap 10/23/18 [Rx] Linezolid [Zyvox] 600 mg PO Q12H 10 Days #24 tablet 10/23/18 [Rx] Nicotine [Habitrol] 14 mg TRDERM DAILY patch 10/23/18 [Rx] Past Medical History - Past Health History Medical/Surgical History: Denies Medical/Surgical History HEENT History: Reports: Impaired Vision Other HEENT History: wears glasses Cardiovascular History: Reports: CAD, High Cholesterol, Hypertension, [place], Stents Respiratory History: Reports: COPD, SOB, Other (See Below) Other Respiratory History: acute respiratory failure. 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 History: Reports: Acute Renal Failure [employer] History: Reports: Musculoskeletal History: Reports: Arthritis Neurological History: Reports: Neuropathy, Diabetic Psychiatric History: Reports: Anxiety Endocrine/Metabolic History: Reports: Other (See Below) Other Endocrine/Metabolic History: Borderline DM Hematologic History: Reports: Anticoagulation Therapy Immunologic History: Reports: None Dermatologic History: Reports: Decubitus Ulcer, Venous Stasis Dermatitis - Infectious Disease History Infectious Disease History: Reports: Chicken Pox, Measles, Mumps - Past Surgical History GI Surgical History: Reports: Appendectomy, Cholecystectomy Female Surgical History: Reports: Hysterectomy Social & Family History - Family History Family Medical History: Noncontributory Cardiac: Reports: High Cholesterol, Hypertension, [place] Respiratory: Reports: Other (See Below) Other Respiratory Family Hisory: Lung Ca GI: Reports: GERD OBGYN: Reports: Musculoskeletal: Reports: Arthritis Neurological: Reports: TIA Endocrine/Metabolic: Reports: Diabetes, type II Oncologic: Reports: Lung - Tobacco Use Smoking Status *Q: Current Every Day Smoker Years of Tobacco use: 50 Packs/Tins Daily: 0.5 - Caffeine Use Caffeine Use: Reports: Coffee Caffeine Use Comment: 1-2 cups per day - Recreational Drug Use Recreational Drug Use: No - Living Situation & Occupation Living situation: Reports: Extended Care Facility Occupation: Retired Review of Systems - Review of Systems Review Of Systems: Comprehensive ROS is negative, except as noted in HPI. ED EXAM, GENERAL - Physical Exam Exam: See Below ED TRAUMA EXTREMITY PROCEDURES - Laceration/Wound Repair Right Hand Lac/Wound Length In cm: 3 Appearance: Linear Distal NVT: Neuro & Vascular Intact, No Tendon Injury Anesthetic Type: Local Local Anesthesia - Lidocaine (Xylocaine): 1% Plain Local Anesthetic Volume: 2cc Skin Prep: Saline Saline Irrigation (cc's): 100 Exploration/Debridement/Repair: Wound Explored Closed With: Sutures Suture Size: 4-0 Suture Type: Nylon, Simple Course - Vital Signs Last Recorded V/S: Last Vital Signs Temp 96.3 F L 08/04/19 06:39 Pulse 76 08/04/19 06:39 Resp 24 H 08/04/19 06:39 BP 120/69 08/04/19 06:39 Pulse Ox 96 08/04/19 06:39 - Orders/Labs/Meds Meds: Medications Discontinued Medications Generic Name Dose Route Start Last Admin Trade Name Hakan PRN Reason Stop Dose Admin Lidocaine HCl Confirm 08/04/19 06:47 Xylocaine-Mpf 1% Administered 08/04/19 06:48 Dose 10 ml .ROUTE .STK-MED ONE Departure - Departure Time of Disposition: 07:08 Disposition: Home, Self-Care 01 Condition: Good Clinical Impression: Laceration of hand - Discharge Information *PRESCRIPTION DRUG MONITORING PROGRAM REVIEWED*: Not Applicable *COPY OF PRESCRIPTION DRUG MONITORING REPORT IN PATIENT KEVAN: Not Applicable Instructions: Laceration Care, Adult, [id number], Sutures, Yoav, or Adhesive Wound Closure Referrals: Robb He MD [Primary Care Provider] - Additional Instructions: You were seen and evaluated today in the ER secondary to a laceration to her right hand. The laceration has been sutured with 3 stitches. You should have your wound evaluated by the staff at [place] in 2 days. Please have them return to the ER or have the remove your stitches in 7 days. At this time, you are not complaining of pain anywhere else on your body. If you start developing pain in your hips joints or in your arms or legs or back please return to the ER for reevaluation. The following information is given to patients seen in the emergency department who are being discharged to home. This information is to outline your options for follow-up care. We provide all patients seen in our emergency department with a follow-up referral. The need for follow-up, as well as the timing and circumstances, are variable depending upon the specifics of your emergency department visit. If you don't have a primary care physician on staff, we will provide you with a referral. We always advise you to contact your personal physician following an emergency department visit to inform them of the circumstance of the visit and for follow-up with them and/or the need for any referrals to a consulting specialist. The emergency department will also refer you to a specialist when appropriate. This referral assures that you have the opportunity for follow-up care with a specialist. All of these measure are taken in an effort to provide you with optimal care, which includes your follow-up. Under all circumstances we always encourage you to contact your private physician who remains a resource for coordinating your care. When calling for follow-up care, please make the office aware that this follow-up is from your recent emergency room visit. If for any reason you are refused follow-up, please contact the [facility] Emergency Department at and asked to speak to the emergency department charge nurse. Sepsis Event Note (ED) - Evaluation Sepsis Screening Result: No Definite Risk - Focused Exam Vital Signs: Vital Signs Temp Pulse Resp BP Pulse Ox 08/04/19 06:39 96.3 F L 76 24 H 120/69 96
[2019-08-04 08:17] VITALS: BP 126/51; PULSE 78
== END 2019-08-04 08:00 | disposition home or self-care (01) ==
LOC: MW.ED 06:25
DX: S61.411A Laceration without foreign body of right hand, initial encounter (principal); I10 Essential (primary) hypertension; I25.10 Atherosclerotic heart disease of native coronary artery without angina pectoris; J44.9 Chronic obstructive pulmonary disease, unspecified; M19.90 Unspecified osteoarthritis, unspecified site; F41.9 Anxiety disorder, unspecified; E11.40 Type 2 diabetes mellitus with diabetic neuropathy, unspecified; F17.210 Nicotine dependence, cigarettes, uncomplicated; Z79.01 Long term (current) use of anticoagulants; Z79.899 Other long term (current) drug therapy; Z88.1 Allergy status to other antibiotic agents; Z88.8 Allergy status to other drugs, medicaments and biological substances; Z91.048 Other nonmedicinal substance allergy status; W06.XXXA Fall from bed, initial encounter
CPT/HCPCS: 12002; 99282; J2001